=== PATIENT | female | born 1980 | race African-American/Black ===

== ENCOUNTER → 2016-07-14 | Outpatient (REF) | payer OTHER ==
[~2016-07-14] MED LIST: ACET50TA PO; ALLE180T33 PO; CELE-19 PO; DICY10IN2 IM; DICY10SO PO; DIFL150T PO; IBUP60TA PO; LORT5TAB PO; OMEP40CA2 PO; PRENTAB40 PO; PROBCAP18 PO; RANI1TAB38 PO; ZANT1TAB PO
== END ==
LOC: M LAB REF 16:58
PROVIDERS: ATTEND Obstetrics & Gynecology
DX: R30.0 Dysuria (principal)

== ENCOUNTER → 2016-08-24 | Outpatient (REF) | LOC: M SMT 11:40 | PROVIDERS: ATTEND Nurse Practitioner Adult Health | DX: Z02.1 Encounter for pre-employment examination (principal) ==

== ENCOUNTER → 2016-09-02 | Outpatient (REF) | payer OTHER | LOC: M LAB REF 14:57 | PROVIDERS: ATTEND Physician Assistant | DX: R50.9 Fever, unspecified (principal) ==

== ENCOUNTER → 2016-11-12 | Outpatient (REF) | payer OTHER | LOC: M LAB REF 16:54 | PROVIDERS: ATTEND Advanced Practice Midwife | DX: R30.0 Dysuria (principal); R10.2 Pelvic and perineal pain ==

== ENCOUNTER → 2016-11-18 | Outpatient (CLI) | payer OTHER ==
--- NOTE | 2016-11-19 07:30 | REP ---
Clinical: Pelvic pain and dyspareunia. Comparison: 08/12/2014 . Technique: Transabdominal pelvic ultrasound followed by transvaginal examination for better evaluation of the adnexa with color Doppler evaluation of the ovaries. Findings: Bladder is unremarkable and measures approximately 6.7 x 5.3 x 5.0 cm . The patient is status post hysterectomy. No pelvic mass or free fluid noted. Right ovary is not visualized. Left ovary is normal in appearance and vascularity without torsion. Left ovary measures 3.6 x 2.4 x 3.7 cm; RI=0.64. Impression: 1. Evidence of prior hysterectomy. Right ovary not visualized. 2. No pelvic fluid or adnexal mass lesion. 3. Normal left ovary. Signed by Isra Cheng MD 11/19/2016 07:22 A
== END ==
LOC: M RAD 17:15
PROVIDERS: ATTEND Advanced Practice Midwife
DX: R10.30 Lower abdominal pain, unspecified (principal); N94.12 Deep dyspareunia

== ENCOUNTER → 2017-01-14 | Outpatient (CLI) | payer OTHER ==
[~2017-01-14] MED LIST changes: -CELE-19 PO; +CELE1CAP4 PO
--- NOTE | 2017-01-14 16:38 | REP ---
Maxillofacial CT study without contrast: History: Chronic maxillary sinusitis. CT findings: Maxillary, ethmoidal, sphenoidal, frontal and mastoid aeration is normal. No evidence of paranasal sinus mucosal disease or sinus filling. The bony nasal septum is in the midline without a septal beak. Nasal turbinate soft tissues are symmetric. No evidence of nasal polyp. No intraorbital abnormality is seen. Visualized intracranial structures are unremarkable. Impression: Unremarkable maxillofacial CT study. No paranasal sinus disease seen. Ostiomeatal complexes appear to be patent. Signed by Italo Saldana MD 01/14/2017 04:45 P
== END ==
LOC: M RAD 15:29
PROVIDERS: ATTEND Otolaryngology
DX: J32.0 Chronic maxillary sinusitis (principal)

== ENCOUNTER → 2017-07-04 | Outpatient (REF) | payer OTHER ==
[2017-07-04 23:12] LABS: INFLUENZA A AMPLIFICATION NEGATIVE (NEGATIVE); INFLUENZA B AMPLIFICATION NEGATIVE (NEGATIVE); RSV AMPLIFICATION NEGATIVE (NEGATIVE)
== END ==
LOC: M LAB REF 21:39
DX: J11.1 Influenza due to unidentified influenza virus with other respiratory manifestations (principal)
CPT/HCPCS: 87070

== ENCOUNTER → 2017-08-05 | Outpatient (REF) | payer OTHER ==
[2017-08-05 19:59] LABS: APPEARANCE, URINE CLEAR (CLEAR); BACTERIA, URINE AUTO NEGATIVE (NEGATIVE); BILIRUBIN, URINE AUTO NEGATIVE (NEGATIVE); BLOOD, URINE BLOOD NEGATIVE (NEGATIVE); COLOR, URINE YELLOW (YELLOW); GLUCOSE, URINE (UA) AUTO NEGATIVE (NEGATIVE); KETONE, URINE AUTO NEGATIVE (NEGATIVE); LEUKOCYTE ESTERASE, URINE AUTO NEGATIVE (NEGATIVE); MUCUS, URINE SMALL (NEGATIVE); NITRITE, URINE AUTO NEGATIVE (NEGATIVE); PROTEIN, URINE AUTO NEGATIVE (NEGATIVE); RBC, URINE AUTO 0 /HPF (0-3); SQUAMOUS EPITHELIAL CELL UR AU 0 /HPF (0-6); UROBILINOGEN, URINE AUTO 0.2 mg/dL (0.0-2.0); WBC, URINE AUTO 0 /HPF (0-3)
[2017-08-05 20:45] LABS: HIV 1&2 SCREEN CENTAUR NEGATIVE (NEGATIVE)
[2017-08-07 10:24] LABS: CHLAMYDIA DNA AMPLIFICATION NEGATIVE (NEGATIVE); GC DNA AMPLIFICATION NEGATIVE (NEGATIVE)
== END ==
LOC: M SFHCADAM 15:28
DX: Z20.2 Contact with and (suspected) exposure to infections with a predominantly sexual mode of transmission (principal)

== ENCOUNTER → 2017-08-19 | Outpatient (CLI) | payer OTHER ==
[2017-08-19 09:22] LABS: BASO % 0.4 % (0.0-1.0); EOS # 0.2 10^3/uL (0.0-0.50); EOS % 2.9 % (0.0-3.0); HEMATOCRIT 44.4 % (36.0-47.0); HEMOGLOBIN 14.4 g/dl (12.0-16.0); IMMATURE GRANULOCYTE % 0.2 % (0-3.0); LYMPH # 1.9 10^3/uL (1.5-4.5); LYMPH % 33.6 % (24.0-44.0); MEAN CORPUSCULAR HGB CONC 32.4 g/dl (32.0-36.5); MEAN CORPUSCULAR VOLUME 86.2 fl (80.0-96.0); MONO # 0.4 10^3/uL (0.0-0.8); MONO % 7.5 % (0.0-5.0); NEUTROPHILS # 3.1 10^3/uL (1.8-7.7); NEUTROPHILS % 55.4 % (36.0-66.0); PLATELET COUNT, AUTOMATED 272 10^3/uL (150-450); RED BLOOD COUNT 5.15 10^6/uL (4.00-5.40); WHITE BLOOD COUNT 5.5 10^3/uL (4.0-10.0)
[2017-08-19 09:50] LABS: ALBUMIN 3.9 GM/DL (3.2-5.2); ALBUMIN/GLOBULIN RATIO 0.93 (1.00-1.93); ALKALINE PHOSPHATASE 73 U/L (45-117); ALT/SGPT 39 U/L (12-78); ANION GAP 7 MEQ/L (8-16); AST/SGOT 12 U/L (7-37); BILIRUBIN,TOTAL 0.5 MG/DL (0.2-1.0); BLOOD UREA NITROGEN 9 MG/DL (7-18); CALCIUM LEVEL 8.9 MG/DL (8.5-10.1); CARBON DIOXIDE LEVEL 30 MEQ/L (21-32); CHLORIDE LEVEL 104 MEQ/L (98-107); CHOLESTEROL LEVEL 174 MG/DL (<200); CREATININE FOR GFR 0.76 MG/DL (0.55-1.30); GLOMERULAR FILTRATION RATE > 60.0 (>60); GLUCOSE, FASTING 92 MG/DL (70-100); HDL CHOLESTEROL 40 MG/DL (>40); LDL CHOLESTEROL 107.2 MG/DL (<100); NON-HDL-C 134 MG/DL; POTASSIUM SERUM 4.4 MEQ/L (3.5-5.1); SODIUM LEVEL 141 MEQ/L (136-145); TOTAL PROTEIN 8.1 GM/DL (6.4-8.2); TRIGLYCERIDES LEVEL 134 MG/DL (<150)
[2017-08-19 10:12] LABS: TOTAL 25(OH) VITAMIN D 26.4 NG/ML (30.0-100.0)
== END ==
LOC: M SMT 08:22
DX: E66.01 Morbid (severe) obesity due to excess calories (principal); K21.9 Gastro-esophageal reflux disease without esophagitis
CPT/HCPCS: 84443

== ENCOUNTER → 2017-11-14 | Outpatient (REF) | payer OTHER ==
[2017-11-14 14:46] LABS: CHLAMYDIA DNA AMPLIFICATION NEGATIVE (NEGATIVE); GC DNA AMPLIFICATION NEGATIVE (NEGATIVE)
== END ==
LOC: M LAB REF 12:52
DX: Z11.3 Encounter for screening for infections with a predominantly sexual mode of transmission (principal)

== ENCOUNTER → 2017-11-14 | Outpatient (CLI) | payer OTHER ==
[2017-11-14 18:29] LABS: HIV 1&2 SCREEN CENTAUR NEGATIVE (NEGATIVE)
[2017-11-16 10:43] LABS: HEPATITIS B SURFACE ANTIGEN NEGATIVE (NEGATIVE)
[2017-11-16 11:10] LABS: HEPATITIS C VIRUS ABY INDEX 0.1 INDEX (<0.8)
[2017-11-16 11:10] LABS: HEPATITIS B CORE ANTIBODY IGM NEGATIVE (NEGATIVE)
[2017-11-16 11:12] LABS: HEPATITIS A ANTIBODY IGM NEGATIVE (NEGATIVE)
== END ==
LOC: M SMT 11:26
DX: Z11.3 Encounter for screening for infections with a predominantly sexual mode of transmission (principal)
CPT/HCPCS: 87340

== ENCOUNTER → 2017-12-09 | Outpatient (CLI) | payer OTHER | LOC: M ADAMS 14:40 | DX: M17.11 Unilateral primary osteoarthritis, right knee (principal) | CPT/HCPCS: 73564 ==

== ENCOUNTER → 2018-01-10 | Outpatient (CLI) | payer OTHER | LOC: M LAB 20:31 | DX: R05 Cough (principal) | CPT/HCPCS: 71046 ==

== ENCOUNTER 2018-02-08 11:43 | Emergency (ER) | payer OTHER ==
[2018-02-08 12:57] LABS: BASO % 0.3 % (0.0-1.0); EOS # 0.2 10^3/uL (0.0-0.50); EOS % 1.8 % (0.0-3.0); HEMATOCRIT 42.1 % (36.0-47.0); HEMOGLOBIN 13.5 g/dl (12.0-15.5); IMMATURE GRANULOCYTE % 0.5 % (0-3.0); LYMPH # 2.9 10^3/uL (1.5-4.5); LYMPH % 26.6 % (24.0-44.0); MEAN CORPUSCULAR HEMOGLOBIN 28.1 pg (27.0-33.0); MEAN CORPUSCULAR HGB CONC 32.1 g/dl (32.0-36.5); MEAN CORPUSCULAR VOLUME 87.7 fl (80.0-96.0); MONO # 0.6 10^3/uL (0.0-0.8); MONO % 5.4 % (0.0-5.0); NEUTROPHILS # 7.1 10^3/uL (1.8-7.7); NEUTROPHILS % 65.4 % (36.0-66.0); PLATELET COUNT, AUTOMATED 286 10^3/uL (150-450); RED CELL DISTRIBUTION WIDTH 14.3 % (11.5-14.5); WHITE BLOOD COUNT 10.9 10^3/uL (4.0-10.0)
[2018-02-08 13:36] LABS: CONTROL LINE HCG INT CTR LINE PRESENT; HCG, SERUM QUALITATIVE NEGATIVE (NEGATIVE)
[2018-02-08 13:45] LABS: ALBUMIN 3.6 GM/DL (3.2-5.2); ALBUMIN/GLOBULIN RATIO 0.97 (1.00-1.93); ALKALINE PHOSPHATASE 69 U/L (45-117); ALT/SGPT 25 U/L (12-78); ANION GAP 6 MEQ/L (8-16); AST/SGOT 7 U/L (7-37); BILIRUBIN,TOTAL 0.2 MG/DL (0.2-1.0); BLOOD UREA NITROGEN 12 MG/DL (7-18); CALCIUM LEVEL 8.9 MG/DL (8.5-10.1); CARBON DIOXIDE LEVEL 27 MEQ/L (21-32); CHLORIDE LEVEL 108 MEQ/L (98-107); CREATININE FOR GFR 0.73 MG/DL (0.55-1.30); GLOMERULAR FILTRATION RATE > 60.0 (>60); GLUCOSE, FASTING 99 MG/DL (70-100); POTASSIUM SERUM 4.2 MEQ/L (3.5-5.1); SODIUM LEVEL 141 MEQ/L (136-145); TOTAL PROTEIN 7.3 GM/DL (6.4-8.2)
[2018-02-08 14:49] LABS: HEPATITIS B SURFACE ANTIBODY POSITIVE (POSITIVE); HEPATITIS B SURFACE ANTIGEN NEGATIVE (NEGATIVE)
[2018-02-08 14:49] LABS: HEPATITIS C VIRUS ABY INDEX 0.2 INDEX (<0.8)
[2018-02-08 20:51] LABS: HIV SCREEN CENTAUR EXPOSED NEGATIVE (NEGATIVE)
== END 2018-02-08 13:53 | disposition home or self-care (01) ==
LOC: M ED 11:43
DX: Z77.21 Contact with and (suspected) exposure to potentially hazardous body fluids (principal); S61.241A Puncture wound with foreign body of left index finger without damage to nail, initial encounter; W46.1XXA Contact with contaminated hypodermic needle, initial encounter; Y92.9 Unspecified place or not applicable; Y93.F9 Activity, other caregiving; Y99.0 Civilian activity done for income or pay; K21.9 Gastro-esophageal reflux disease without esophagitis; K58.9 Irritable bowel syndrome, unspecified; F41.9 Anxiety disorder, unspecified; F32.9 Major depressive disorder, single episode, unspecified; Z79.899 Other long term (current) drug therapy; Z91.018 Allergy to other foods; Z88.0 Allergy status to penicillin; Z88.8 Allergy status to other drugs, medicaments and biological substances; Z88.5 Allergy status to narcotic agent; Z88.1 Allergy status to other antibiotic agents
CPT/HCPCS: 80053

== ENCOUNTER → 2018-02-28 | Outpatient (REF) ==
[2018-02-28 13:16] LABS: BASO % 0.3 % (0.0-1.0); EOS # 0.2 10^3/uL (0.0-0.50); EOS % 2.3 % (0.0-3.0); HEMATOCRIT 44.3 % (36.0-47.0); HEMOGLOBIN 14.1 g/dl (12.0-15.5); IMMATURE GRANULOCYTE % 0.3 % (0-3.0); LYMPH # 1.9 10^3/uL (1.5-4.5); LYMPH % 28.9 % (24.0-44.0); MEAN CORPUSCULAR HEMOGLOBIN 27.8 pg (27.0-33.0); MEAN CORPUSCULAR HGB CONC 31.8 g/dl (32.0-36.5); MEAN CORPUSCULAR VOLUME 87.2 fl (80.0-96.0); MONO # 0.5 10^3/uL (0.0-0.8); MONO % 7.5 % (0.0-5.0); NEUTROPHILS % 60.7 % (36.0-66.0); PLATELET COUNT, AUTOMATED 291 10^3/uL (150-450); RED BLOOD COUNT 5.08 10^6/uL (4.00-5.40); RED CELL DISTRIBUTION WIDTH 13.8 % (11.5-14.5); WHITE BLOOD COUNT 6.5 10^3/uL (4.0-10.0)
[2018-02-28 13:21] LABS: APPEARANCE, URINE CLEAR (CLEAR); BACTERIA, URINE AUTO NEGATIVE (NEGATIVE); BILIRUBIN, URINE AUTO NEGATIVE (NEGATIVE); BLOOD, URINE BLOOD NEGATIVE (NEGATIVE); COLOR, URINE YELLOW (YELLOW); GLUCOSE, URINE (UA) AUTO NEGATIVE (NEGATIVE); KETONE, URINE AUTO NEGATIVE (NEGATIVE); LEUKOCYTE ESTERASE, URINE AUTO NEGATIVE (NEGATIVE); MUCUS, URINE SMALL (NEGATIVE); NITRITE, URINE AUTO NEGATIVE (NEGATIVE); PROTEIN, URINE AUTO NEGATIVE (NEGATIVE); RBC, URINE AUTO 1 /HPF (0-3); SPECIFIC GRAVITY URINE AUTO 1.019 (1.002-1.035); SQUAMOUS EPITHELIAL CELL UR AU 1 /HPF (0-6); UROBILINOGEN, URINE AUTO 0.2 mg/dL (0.0-2.0); WBC, URINE AUTO 0 /HPF (0-3)
[2018-02-28 14:13] LABS: ALBUMIN 3.6 GM/DL (3.2-5.2); ALBUMIN/GLOBULIN RATIO 0.82 (1.00-1.93); ALKALINE PHOSPHATASE 77 U/L (45-117); ALT/SGPT 26 U/L (12-78); ANION GAP 10 MEQ/L (8-16); AST/SGOT 12 U/L (7-37); BILIRUBIN,TOTAL 0.3 MG/DL (0.2-1.0); BLOOD UREA NITROGEN 11 MG/DL (7-18); CALCIUM LEVEL 8.6 MG/DL (8.5-10.1); CARBON DIOXIDE LEVEL 25 MEQ/L (21-32); CHLORIDE LEVEL 107 MEQ/L (98-107); CREATININE FOR GFR 0.79 MG/DL (0.55-1.30); GLOMERULAR FILTRATION RATE > 60.0 (>60); GLUCOSE, FASTING 84 MG/DL (70-100); POTASSIUM SERUM 4.8 MEQ/L (3.5-5.1); SODIUM LEVEL 142 MEQ/L (136-145); THYROID STIMULATING HORMONE 0.966 uIU/ML (0.358-3.740)
== END ==
LOC: M SMT 08:48
DX: Z00.00 Encounter for general adult medical examination without abnormal findings (principal)

== ENCOUNTER → 2018-05-16 | Outpatient (REF) ==
[~2018-05-16] MED LIST changes: -ACET50TA PO; +DEXI60CA2 PO; +LEXA1TAB2 PO; +LINZ145C PO; +MAPA500T17 PO; +SING10TA32 PO; +TOPA50TA8 PO; +VITA2000 PO; +VITAE20CA PO; +ZANT150T15 PO; -ZANT1TAB PO
[2018-05-16 18:02] LABS: AMORPHOUS SEDIMENT LARGE (NEGATIVE); APPEARANCE, URINE TURBID (CLEAR); BACTERIA, URINE AUTO NEGATIVE (NEGATIVE); BILIRUBIN, URINE AUTO NEGATIVE (NEGATIVE); BLOOD, URINE BLOOD NEGATIVE (NEGATIVE); COLOR, URINE YELLOW (YELLOW); GLUCOSE, URINE (UA) AUTO NEGATIVE (NEGATIVE); KETONE, URINE AUTO NEGATIVE (NEGATIVE); LEUKOCYTE ESTERASE, URINE AUTO NEGATIVE (NEGATIVE); MUCUS, URINE SMALL (NEGATIVE); NITRITE, URINE AUTO NEGATIVE (NEGATIVE); PROTEIN, URINE AUTO 1+ mg/dL (NEGATIVE); RBC, URINE AUTO 0 /HPF (0-3); SPECIFIC GRAVITY URINE AUTO 1.031 (1.002-1.035); SQUAMOUS EPITHELIAL CELL UR AU 0 /HPF (0-6); UROBILINOGEN, URINE AUTO 0.2 mg/dL (0.0-2.0); WBC, URINE AUTO 0 /HPF (0-3)
[2018-05-16 19:52] LABS: CHLAMYDIA DNA AMPLIFICATION NEGATIVE (NEGATIVE); GC DNA AMPLIFICATION NEGATIVE (NEGATIVE)
[2018-05-17 10:36] LABS: HEPATITIS C VIRUS ABY INDEX 0.2 INDEX (<0.8); HIV 1&2 SCREEN CENTAUR NEGATIVE (NEGATIVE)
== END ==
LOC: M SMT 14:12
PROVIDERS: ATTEND Physician Assistant Medical
DX: Z00.00 Encounter for general adult medical examination without abnormal findings (principal)

== ENCOUNTER → 2018-09-07 | Outpatient (REF) | payer OTHER ==
[~2018-09-07] MED LIST changes: +IBUP600T42 PO; -IBUP60TA PO; -MAPA500T17 PO; +MAPA500T2 PO
[2018-09-07 19:41] LABS: CHLAMYDIA DNA AMPLIFICATION NEGATIVE (NEGATIVE); GC DNA AMPLIFICATION NEGATIVE (NEGATIVE)
== END ==
LOC: M LAB REF 17:09
PROVIDERS: ATTEND Advanced Practice Midwife
DX: Z11.3 Encounter for screening for infections with a predominantly sexual mode of transmission (principal)

== ENCOUNTER → 2018-09-08 | Outpatient (REF) | payer OTHER ==
[2018-09-08 19:14] LABS: INFLUENZA A AMPLIFICATION NEGATIVE (NEGATIVE); INFLUENZA B AMPLIFICATION NEGATIVE (NEGATIVE)
== END ==
LOC: M LAB REF 18:17
PROVIDERS: ATTEND Physician Assistant
DX: J11.1 Influenza due to unidentified influenza virus with other respiratory manifestations (principal)

== ENCOUNTER → 2018-11-14 | Outpatient (CLI) | payer OTHER ==
[2018-11-14 21:01] LABS: CHLAMYDIA DNA AMPLIFICATION NEGATIVE (NEGATIVE); GC DNA AMPLIFICATION NEGATIVE (NEGATIVE)
[2018-11-15 11:00] LABS: HEPATITIS A ANTIBODY IGM NEGATIVE (NEGATIVE); HEPATITIS B CORE ANTIBODY IGM NEGATIVE (NEGATIVE); HEPATITIS B SURFACE ANTIGEN NEGATIVE (NEGATIVE); HEPATITIS C VIRUS ABY INDEX 0.1 INDEX (<0.8); HIV 1&2 SCREEN CENTAUR NEGATIVE (NEGATIVE)
== END ==
LOC: M LAB 16:46
PROVIDERS: ATTEND Advanced Practice Midwife
DX: Z11.3 Encounter for screening for infections with a predominantly sexual mode of transmission (principal)

== ENCOUNTER → 2018-12-25 | Outpatient (CLI) | payer OTHER ==
[2018-12-29 11:07] LABS: ANTI THROMBIN 3 FUNCT ACTIVITY 107 % (75-135); CARDIOLIPIN IGA ANTIBODY <9 APL U/mL (0-11); CARDIOLIPIN IGG ANTIBODY <9 GPL U/mL (0-14); CARDIOLIPIN IGM ANTIBODY 9 MPL U/mL (0-12); HOMOCYST(E)INE SERUM 5.8 umol/L (0.0-15.0); PROTEIN C ANTIGEN 88 % (60-150); PROTEIN S ANTIGEN FREE 86 % (57-157); PROTEIN S ANTIGEN TOTAL 93 % (60-150)
== END ==
LOC: M LAB 08:36
PROVIDERS: ATTEND Surgery
DX: D68.9 Coagulation defect, unspecified (principal); Z83.2 Family history of diseases of the blood and blood-forming organs and certain disorders involving the immune mechanism

== ENCOUNTER → 2018-12-26 | Outpatient (CLI) | payer OTHER ==
--- NOTE | 2018-12-31 10:31 | REP ---
Clinical: Diarrhea. Technique: Two supine views of the abdomen and pelvis. Findings: Bowel gas pattern is nonspecific. No organomegaly. No abnormal calcifications. No residual sitz markers are identified. Skeletal structures are intact. Impression: Nonspecific bowel gas pattern. Electronically Signed by Isra Cheng MD 12/31/2018 10:22 A
== END ==
LOC: M RAD 10:16
PROVIDERS: ATTEND Physician Assistant Medical
DX: R19.7 Diarrhea, unspecified (principal)

== ENCOUNTER → 2019-01-23 | Outpatient (REF) | payer OTHER ==
[~2019-01-23] MED LIST changes: +CVS1CAP2 PO; +FLON1SPR NARES; +LEVOTAB10 PO
== END ==
LOC: M LAB REF 12:23
PROVIDERS: ATTEND Physician Assistant Medical
DX: R19.7 Diarrhea, unspecified (principal)

== ENCOUNTER 2019-01-25 11:28 | Day surgery (SDC) | payer OTHER ==
[~2019-01-25] VITALS: Ht 165.1 cm; Wt 122.2 kg
[2019-01-25] MEDS ORDERED: PROPOFOL 200 MG/20 ML VIAL As Ordered ONE (13:31)
[2019-01-25] MEDS ORDERED: LIDOCAINE 2% INJ 100 MG/5 ML SDV (FOR ANES.) As Ordered ONE (13:31)
--- NOTE | 2019-01-25 13:50 | ROOR ---
Patient Name: Laney Sanders Procedure Date: 01/25/2019 1:27 PM Date of : 1980 Age: 38 Room: [facility] Gender: Female Note Status: Finalized Procedure: Upper GI endoscopy Indications: Heartburn, Preoperative assessment for bariatric surgery to treat morbid obesity Providers: Eduardo MAYNARD MD Referring MD: SELAM Brannon, KIRK ORTEGA ([facility])MD Requesting Provider: Medicines: Monitored Anesthesia Care Complications: No immediate complications. Procedure: Pre-Anesthesia Assessment: - The heart rate, respiratory rate, oxygen saturations, blood pressure, adequacy of pulmonary ventilation, and response to care were monitored throughout the procedure. The Endoscope was introduced through the mouth, and advanced to the third part of duodenum. The upper GI endoscopy was accomplished without difficulty. The patient tolerated the procedure well. Findings: Small Hiatal Hernia. The esophagus was normal. The stomach was normal. The examined duodenum was normal. Biopsies for histology were taken with a cold forceps in the second portion of the duodenum and in the third portion of the duodenum for evaluation of celiac disease. Biopsies were taken with a cold forceps in the gastric antrum for Helicobacter pylori testing. Biopsies were taken with a cold forceps in the entire esophagus for histology. Impression: - Small Hiatal Hernia. - Normal esophagus. - Biopsies were taken with a cold forceps for eosinophilic esophagitis testing. - Normal stomach. - Biopsies were taken with a cold forceps for helicobacter pylori testing. - Normal examined duodenum. - Biopsies were taken with a cold forceps for celiac disease testing. Recommendation: - Continue present medications. - Follow an antireflux regimen. - Telephone endoscopist for pathology results in 2 weeks. Eduardo Maynard MD Eduardo MAYNARD MD 01/25/2019 1:50:18 PM Electronically signed by Eduardo MAYNARD MD Number of Addenda: 0 Note Initiated On: 01/25/2019 1:27 PM Estimated Blood Loss: Estimated blood loss: none.
[2019-01-25 14:27] VITALS: BP 145/95
== END 2019-01-25 14:30 | disposition home or self-care (01) ==
LOC: M OPP 11:28
PROVIDERS: ATTEND Internal Medicine Gastroenterology
DX: Z01.818 Encounter for other preprocedural examination (principal); R12 Heartburn; E66.01 Morbid (severe) obesity due to excess calories; K44.0 Diaphragmatic hernia with obstruction, without gangrene; K29.70 Gastritis, unspecified, without bleeding; Z79.899 Other long term (current) drug therapy; Z88.0 Allergy status to penicillin; Z88.8 Allergy status to other drugs, medicaments and biological substances; Z91.040 Latex allergy status

== ENCOUNTER 2019-03-02 09:21 | Observation (INO) | payer OTHER ==
[~2019-03-02] VITALS: Ht 165.1 cm; Wt 117.5 kg
[2019-03-02 10:26] LABS: BASO % 0.5 % (0.0-1.0); EOS # 0.3 10^3/uL (0.0-0.5); EOS % 4.1 % (0.0-3.0); HEMATOCRIT 45.8 % (36.0-47.0); HEMOGLOBIN 15.1 g/dl (12.0-15.5); LYMPH # 1.9 10^3/uL (1.5-5.0); LYMPH % 25.8 % (24.0-44.0); MEAN CORPUSCULAR HEMOGLOBIN 28.7 pg (27.0-33.0); MEAN CORPUSCULAR VOLUME 86.9 fl (80.0-96.0); MONO # 0.7 10^3/uL (0.0-0.8); MONO % 8.8 % (0.0-5.0); NEUTROPHILS # 4.6 10^3/uL (1.5-8.5); NEUTROPHILS % 60.7 % (36.0-66.0); PLATELET COUNT, AUTOMATED 368 10^3/uL (150-450); RED BLOOD COUNT 5.27 10^6/uL (4.00-5.40); WHITE BLOOD COUNT 7.5 10^3/uL (4.0-10.0)
[2019-03-02] MEDS ORDERED: MULTIVITAMIN -ADULT INJECTION 10 ML, THIAMINE INJection 100 MG, FOLIC ACID 1 MG in NS 1... IV ONE (10:45)
[2019-03-02 10:53] LABS: ALBUMIN 3.7 GM/DL (3.2-5.2); ALT/SGPT 83 U/L (12-78); BILIRUBIN,DIRECT 0.1 MG/DL (0.0-0.2); BILIRUBIN,TOTAL 0.4 MG/DL (0.2-1.0); BLOOD UREA NITROGEN 9 MG/DL (7-18); CALCIUM LEVEL 9.6 MG/DL (8.5-10.1); CARBON DIOXIDE LEVEL 23 MEQ/L (21-32); CHLORIDE LEVEL 105 MEQ/L (98-107); CREATININE FOR GFR 0.82 MG/DL (0.55-1.30); GLOMERULAR FILTRATION RATE > 60.0 (>60); GLUCOSE, FASTING 70 MG/DL (70-100); LIPASE 193 U/L (73-393); MAGNESIUM LEVEL 1.8 MG/DL (1.8-2.4); POTASSIUM SERUM 5.6 MEQ/L (3.5-5.1); SODIUM LEVEL 138 MEQ/L (136-145); TOTAL PROTEIN 8.1 GM/DL (6.4-8.2)
[2019-03-02] MEDS ORDERED: ISOVUE-370 76% 100ML VIAL (Q9967) As Ordered ONE (10:56)
[2019-03-02] MEDS: GASTROGRAFIN SOLUTION 30ML PO SCH ×2 (11:24→12:05)
[2019-03-02] MEDS ORDERED: NS IV ONE (11:30)
[2019-03-02] MEDS ORDERED: FOLIC ACID IV ONE (11:30)
[2019-03-02] MEDS ORDERED: MULTIVITAMIN ADULT IV ONE (11:30)
[2019-03-02 12:42] LABS: CK-MB VALUE MASS < 1.0 NG/ML (<3.6); CPK CREATINE PHOSPHOKINASE 80 U/L (26-192); MB/CK RELATIVE INDEX 1.25 (< OR =4); TROPONIN I < 0.02 NG/ML (< 0.10)
--- NOTE | 2019-03-02 17:50 | REP ---
REASON FOR EXAMINATION: Abdominal pain, status post recent bariatric surgery. COMPARISON: 11/29/2013 Only oral bowel preparatory contrast was administered prior to the exam. This extremely limits the examination in the recent postoperative setting particularly if an abscess of postoperative seroma is of clinical concern. The lung bases are clear. Limited evaluation of the solid intraabdominal organs showed no gross abnormalities. The patient is status-post cholecystectomy. Limited evaluation of the pancreas, adrenal glands and kidneys show no gross abnormalities or significant changes from the prior exam. Postoperative changes are seen in the left upper quadrant from previous gastric bypass surgery. There is no evidence of oral contrast extravasation into the mesentery. There is no free fluid or free air in the abdomen. Limited evaluation of the abdominal aorta and paraaortic regions show no gross abnormalities. There is no intestinal obstruction. The bowel loops are unremarkable in appearance. CT PELVIS: In the left adnexa there is an oval shaped 3 cm sized low density structure with water density Hounsfield unit readings consistent with a simple cyst. This is probably of ovarian origin. There is no free fluid or free air. The bowel loops are unremarkable. Bone window technique throughout the examination shows the osseous structures to be within normal limits. There is mild fatty infiltration of the subcutaneous adipose tissue in the midline and along the left anterior abdominal wall likely secondary to recent surgery. There is a small area of air density seen in the soft-tissues as well also likely secondary to recent surgery. The air density is not seen with concomitant abnormal air fluid levels or soft-tissue densities. IMPRESSION:1. Post-operative changes suspected as described above. There is no evidence of acute intraabdominal pathology. 2. The exam is extremely limited without intravenous contrast administration. 3. There is what appears to be a left ovarian cyst. This could be confirmed with ultrasonography if clinically relevant. Electronically Signed by Mele Betancur DO 03/05/2019 04:11 P
--- NOTE | 2019-03-02 18:41 | REPVR ---
PROCEDURE INFORMATION: Exam: US Duplex Lower Extremity Veins Exam date and time: 03/02/2019 6:06 PM Clinical history: 38 years old, female; Other: Chest pain/sob; Additional info: Cp/sob TECHNIQUE: Imaging protocol: Real-time duplex ultrasound of the Lower Extremities with 2-D liu scale, color Doppler flow and spectral waveform analysis with image documentation. Complete exam focused on the bilateral lower extremity veins. COMPARISON: No relevant prior studies available. FINDINGS: Right deep veins: Unremarkable. The common femoral, femoral, proximal profunda femoral and popliteal veins are patent without thrombus. Normal Doppler waveforms. Normal compressibility and/or augmentation response. Right superficial veins: Saphenofemoral junction is patent without thrombus. Left deep veins: Unremarkable. The common femoral, femoral, proximal profunda femoral and popliteal veins are patent without thrombus. Normal Doppler waveforms. Normal compressibility and/or augmentation response. Left superficial veins: Saphenofemoral junction is patent without thrombus. Soft tissues: Unremarkable. IMPRESSION: No DVT of bilateral lower extremity veins. Electronically signed by: Geoff Schuler On 03/02/2019 18:41:03 PM
--- NOTE | 2019-03-02 19:24 | HPEPDOC ---
[facility] Medical History & Physical Date of Admission Mar 02, 2019 Date of Service: Mar 02, 2019 Primary Care Physician: ROVERTO COLLADO PA-C Attending Physician: Juan Carlos Patel MD History and Physical TIME OF SERVICE: 7:45 PM CHIEF COMPLAINT: Shortness of breath HISTORY OF PRESENT ILLNESS: This is a 38 year old female who presents with complaints of shortness of breath even while resting for 2 days. Associated symptoms include right upper 6 /10 in severity, nonradiating chest pain, and nausea without vomiting. About one week ago she had gastric bypass. After developing the symptoms, she called her surgeon who told her to increase her fluid intake but this is not helping, so she decided to come to [facility] for additional evaluation. Per discussion with the ED provider She had a CT of the abdomen and venous duplex that were unremarkable; her d-dimer rate was greater than, 5000. Despite 13 attempts they were unable to place an IV large enough to infuse IV contrast, for the CTA of the chest. She's been started on Elquis pending VQ scan. The patient denies having a runny nose, cough, any sick contacts or travelling recenly. She does have asthma but the symptoms she has today are not typical of her exacerbations. REVIEW OF SYSTEMS: 12 point review of systems negative except as listed in HPI PAST MEDICAL/ SURGICAL HISTORY: Gastric bypass one week ago Asthma GERD Anxiety/depression. Obesity. PCOS Irritable bowel syndrome with diarrhea. Osteoarthritis. Hiatial hernia Status post cholecystectomy 1 Status post hysterectomy SOCIAL HISTORY: Nonsmoker. Does not use recreational drugs FAMILY HISTORY: Diabetes Hypertension Dyslipidemia. Asthma. Lymphoma ALLERGIES: Please see below. HOME MEDICATIONS: Please see below. PHYSICAL EXAMINATION: VITAL SIGNS: Please see below. GENERAL APPEARANCE: Well-nourished, well-developed, not in apparent distress HEENT: Normocephalic, atraumatic. Mucous membranes moist and pink CARDIOVASCULAR: Regular rate and rhythm. No murmurs, rubs or gallops. Chest pain is not reproducable w palpation of the chest LUNGS: Clear auscultation bilaterally on room air. There is equal air entry bilaterally. There is no wheezing or coughing. She's not using accessory muscles. She appears to be short of breath after speaking a few sentences. MUSCULOSKELETAL: Range of motion intact in all 4 extremities NEUROLOGICAL: Nerves II to 12 grossly intact. Speech is not dysarthric PSYCHIATRIC: Alert and oriented to person, place and time, able to understand and follow commands LABORATORY DATA: See below. IMAGING: Bilateral lower extremity duplex "IMPRESSION: No DVT of bilateral lower extremity veins." CT of the abdomen and pelvis "IMPRESSION: 1. Post-operative changes suspected as described above. There is no evidence of acute intraabdominal pathology. 2. The exam is extremely limited without intravenous contrast administration. 3. There is what appears to be a left ovarian cyst. This could be confirmed with ultrasonography if clinically relevant." ASSESSMENT: Ms. Sanders is a 38 old female with a past medical history of asthma, GERD, anxiety /depression, and obesity who will be admitted pending VQ scan to confirm the diagnosis of PE. PLAN: 1. Dyspnea Possibly due to PE. She denies having an asthma exacerbation or upper respiratory tract infection Her blood pressure, BNP are and troponin are within normal limits. The D-dimer is elevated. Wells Score for PE = 9 points = high risk Plan: Admit to general medical floor under observation / f/u VQ scan / start apixaban 2. Chest Pain Not reproducible on palpation. Plan: telemetry / Acetaminophen for pain / trend trops & EKG 3. Mild Transaminitis Cholestatic patter likely due to fatty liver Plan:f/u w PCP for US of liver on an out pt basis 4. Gastric bypass one week ago Currently on liquid diet Plan: c/w liquid diet and vitamins 5. Chronic Asthma Plan: albuterol PRN 6. GERD Plan: c/w home meds 7. Depression Plan: c/w home meds 8. Obesity / s/p Gastricbypass BMI 42 Plan: f/u A1C / f/u w PCP for STOPBANG questionnaire / f/u w Bariatric surgeon DVT prophylaxis with apixaban Disposition pending clinical course Vital Signs Vital Signs Date Time Temp Pulse Resp B/P (MAP) Pulse Ox O2 Delivery O2 Flow Rate FiO2 03/02/19 15:30 98.5 83 18 118/72 (87) 100 Room Air Laboratory Data Labs 24H Laboratory Tests 2 03/02/19 10:14: Immature Granulocyte % (Auto) 0.1, White Blood Count 7.5, Red Blood Count 5.27, Hemoglobin 15.1, Hematocrit 45.8, Mean Corpuscular Volume 86.9, Mean Corpuscular Hemoglobin 28.7, Mean Corpuscular Hemoglobin Concent 33.0, Red Cell Distribution Width 14.5, Platelet Count 368, Neutrophils (%) (Auto) 60.7, Lymphocytes (%) (Auto) 25.8, Monocytes (%) (Auto) 8.8H, Eosinophils (%) (Auto) 4.1H, Basophils (%) (Auto) 0.5, Neutrophils # (Auto) 4.6, Lymphocytes # (Auto) 1.9, Monocytes # (Auto) 0.7, Eosinophils # (Auto) 0.3, Basophils # (Auto) 0.0, Nucleated Red Blood Cells % (auto) 0.0, Anion Gap 10, Glomerular Filtration Rate > 60.0, Calcium Level 9.6, Magnesium Level 1.8, Aspartate Amino Transf (AST/SGOT) 42H, Alanine Aminotransferase (ALT/SGPT) 83H, Alkaline Phosphatase 65, Total Bilirubin 0.4, Direct Bilirubin 0.1, Total Creatine Kinase 80, Creatine Kinase MB < 1.0, Creatine Kinase MB Relative Index 1.25, Troponin I < 0.02, Total Protein 8.1, Albumin 3.7, Albumin/Globulin Ratio 0.84L, Lipase 193 03/02/19 16:28: Urine Color YELLOW, Urine Appearance HAZY, Urine pH 5.0, Urine Specific [place] 1.021, Urine Protein 1+H, Urine Glucose (UA) NEGATIVE, Urine Ketones 2+H, Urine Blood NEGATIVE, Urine Nitrite NEGATIVE, Urine Bilirubin NEGATIVE, Urine Urobilinogen 0.2, Urine Leukocyte Esterase NEGATIVE, Urine WBC (Auto) 0, Urine RBC (Auto) 2, Urine Hyaline Casts (Auto) 0, Urine Bacteria (Auto) NEGATIVE, Urine Squamous Epithelial Cells 1, Urine Mucus (Auto) SMALL, Urine Sperm (Auto) 03/02/19 17:34: D-Dimer, Quantitative 3953.72H CBC/BMP Laboratory Tests 03/02/19 10:14 Red Blood Count 5.27, Mean Corpuscular Volume 86.9, Mean Corpuscular Hemoglobin 28.7, Mean Corpuscular Hemoglobin Concent 33.0, Red Cell Distribution Width 14.5, Neutrophils (%) (Auto) 60.7, Lymphocytes (%) (Auto) 25.8, Monocytes (%) (Auto) 8.8 H, Eosinophils (%) (Auto) 4.1 H, Basophils (%) (Auto) 0.5, Neutrophils # (Auto) 4.6, Lymphocytes # (Auto) 1.9, Monocytes # (Auto) 0.7, Eosinophils # (Auto) 0.3, Basophils # (Auto) 0.0 Home Medications Scheduled Azelastine HCl (Azelastine HCl) 0.1% [place].pump, 1 SPRAY NARES BID Cholecalciferol (Vitamin D3) (Vitamin D3) 2,000 Unit Cap, 2,000 UNITS PO DAILY Cyanocobalamin (Vitamin B-12) (Vitamin B-12) 1,000 Mcg Capsule, 1,000 MCG PO D AILY Escitalopram Oxalate (Lexapro) 20 Mg Tab, 20 MG PO QHS Fluticasone Propionate (Flonase Allergy Relief) 9.9 Ml [place].susp, 1 SPRAY NARES BID Lactobacillus Combo No.10 (Probiotic) 1 Each Capsule, 1 CAP PO DAILY Levocetirizine Dihydrochloride (Levocetirizine Dihydrochloride) 5 Mg Tablet, 2.5 MG PO QHS Mometasone/Formoterol (Dulera 100 Mcg/5 Mcg Inhaler) 13 Gm Hfa.aer.ad, 2 PUFF INH BID PT WAS GIVEN THIS MEDICATION WHILE IN THE [facility]OSP[facility] FOR [facility] LAST WEEK AND WAS GIVEN INHALER TO TAKE HOME Montelukast Sodium (Singulair) 10 Mg Tab, 10 MG PO QHS Multivitamin (Multivitamins) 1 Each Capsule, 1 CAP PO QHS Omeprazole (Omeprazole) 40 Mg Capsule.dr, 40 MG PO QPM Simethicone (Gas-X) 125 Mg Tab.chew, 125 MG PO TID Vitamin E (Vitamin E) 200 Unit Cap, 200 UNIT PO DAILY Scheduled PRN Epinephrine (Epinephrine) 0.3 Mg/0.3 Ml Auto.injct, 1 SYRINGE IM ONCE PRN for ANAPHYLAXIS Allergies Coded Allergies: cefdinir (Verified Allergy, Severe, ANAPHYLAXIS, 01/11/19) Penicillins (Verified Allergy, Intermediate, HIVES, 01/11/19) artichoke (Verified Allergy, Intermediate, HIVES/SWELLING, 01/11/19) clarithromycin (Verified Allergy, Intermediate, RASH/HIVES, 01/11/19) kiwi (Verified Allergy, Intermediate, HIVES/SWELLING/ITCHY THROAT, 01/11/19) latex (Verified Allergy, Intermediate, RASH, 01/11/19) pineapple (Verified Allergy, Intermediate, ITCHY THROAT, 01/11/19) Red Pepper (Verified Allergy, Unknown, JALAPENO, 07/04/14) metronidazole (Verified Adverse Reaction, Intermediate, NAUSEA, 01/11/19) morphine (Verified Adverse Reaction, Intermediate, VOMITING/ITCHINESS, 01/11/19) phentermine (Verified Adverse Reaction, Intermediate, INCREASED BP AND HEART RATE, 01/11/19) venlafaxine (Verified Adverse Reaction, Mild, BAD SIDE EFFECTS, 01/11/19) A-FIB/CHADSVASC A-FIB History Current/History of A-Fib/PAF?: No Current PO Anticoag Therapy: No JAMIL HILLIARD MD Mar 02, 2019 19:24
[2019-03-02] MEDS ORDERED: APIXABAN 5 MG TAB (ELIQUIS) PO ONE (19:30)
[2019-03-02] MEDS ORDERED: B-12100010 PO (20:34)
[2019-03-02] MEDS ORDERED: OMEP-221 PO (20:34)
[2019-03-02] MEDS ORDERED: SIME125T PO (20:34)
[2019-03-02] MEDS ORDERED: DULE100A INH (20:34)
[2019-03-02] MEDS ORDERED: EPIN0.3I11 IM (20:34)
[2019-03-02] MEDS ORDERED: AZEL1SPR3 NARES (20:37)
[2019-03-02] MEDS ORDERED: MULTCAP PO (20:38)
[2019-03-02] MEDS ORDERED: ONDANSETRON 4 MG TAB (S0181) PO PRN (21:00)
[2019-03-02] MEDS ORDERED: EPINEPHrine INJ 1 MG/ML 1ML AMP IM PRN (21:00)
[2019-03-02] MEDS ORDERED: ENTER DRUG NAME HERE (PATIENT'S OWN MED) INH SCH (21:00)
[2019-03-02] MEDS ORDERED: ESCITALOPRAM OXALATE 10 MG TAB (LEXAPRO) PO SCH (21:00)
[2019-03-02] MEDS ORDERED: MONTELUKAST 10 MG TAB PO SCH (21:00)
[2019-03-02 21:23] LABS: NT-PRO BNP 9 PG/ML (<125); TROPONIN I < 0.02 NG/ML (< 0.10)
[2019-03-02 22:15] VITALS: BP 149/82
[2019-03-02] MEDS ORDERED: PILL CUTTER 1 EACH XX PRN (22:15)
[2019-03-02] MEDS: SIMETHICONE 80 MG CHEW TAB PO SCH (22:41)
[2019-03-02] MEDS: FLUTICASONE PROP 0.05% NASAL SPRAY 16 GM (FLONASE) NARES SCH (23:24)
[2019-03-02] MEDS: AZELASTINE 137MCG NASAL SPY 30 ML (ASTELIN) SCH (23:24)
[2019-03-02] MEDS: ACETAMINOPHEN 650MG ER TAB (TYLENOL ARTHRITIS) PO SCH (23:25)
[2019-03-02] MEDS ORDERED: OMEPRAZOLE 20 MG CAP PO ONE (23:30)
[2019-03-03] MEDS ORDERED: NS 1,000 ML IV SCH (03:45)
[2019-03-03] MEDS: ACETAMINOPHEN 650MG ER TAB (TYLENOL ARTHRITIS) PO SCH (05:32)
[2019-03-03 06:00] VITALS: BP 136/78
[2019-03-03 06:48] LABS: HEMATOCRIT 40.6 % (36.0-47.0); HEMOGLOBIN 13.3 g/dl (12.0-15.5); MEAN CORPUSCULAR HEMOGLOBIN 28.4 pg (27.0-33.0); MEAN CORPUSCULAR HGB CONC 32.8 g/dl (32.0-36.5); MEAN CORPUSCULAR VOLUME 86.6 fl (80.0-96.0); PLATELET COUNT, AUTOMATED 299 10^3/uL (150-450); RED BLOOD COUNT 4.69 10^6/uL (4.00-5.40); WHITE BLOOD COUNT 6.4 10^3/uL (4.0-10.0)
[2019-03-03 07:18] LABS: BLOOD UREA NITROGEN 7 MG/DL (7-18); CALCIUM LEVEL 8.8 MG/DL (8.5-10.1); CARBON DIOXIDE LEVEL 19 MEQ/L (21-32); CHLORIDE LEVEL 109 MEQ/L (98-107); GLOMERULAR FILTRATION RATE > 60.0 (>60); GLUCOSE, FASTING 69 MG/DL (70-100); SODIUM LEVEL 138 MEQ/L (136-145)
[2019-03-03] MEDS: FLUTICASONE PROP 0.05% NASAL SPRAY 16 GM (FLONASE) NARES SCH (08:47)
[2019-03-03] MEDS: AZELASTINE 137MCG NASAL SPY 30 ML (ASTELIN) SCH (08:47)
[2019-03-03] MEDS: SIMETHICONE 80 MG CHEW TAB PO SCH (08:48)
[2019-03-03] MEDS ORDERED: LACTOBACILLUS ACIDOPHILUS CAP (BACID) PO SCH (09:00)
[2019-03-03] MEDS ORDERED: INFLUENZA QUADRIVALENT PF VACCINE 0.5ML SYRINGE (90686) IM ONE (09:00)
[2019-03-03] MEDS ORDERED: VITAMIN D 1,000 INTERNATIONAL UNITS TABLET PO SCH (09:00)
[2019-03-03] MEDS ORDERED: APIXABAN 5 MG TAB (ELIQUIS) PO SCH (09:00)
[2019-03-03] MEDS ORDERED: CYANOCOBALAMIN 500 MCG TAB PO SCH (09:00)
[2019-03-03] MEDS ORDERED: ISOVUE-370 76% 100ML VIAL (Q9967) As Ordered ONE (12:09)
--- NOTE | 2019-03-03 13:02 | REP ---
CT of the chest with IV contrast, CT pulmonary angiography: There are no emboli in the pulmonary trunk or central pulmonary arteries. The pulmonary artery lobe and segment branches are marginally opacified. No emboli are identified. There are no infiltrates. There are no pleural effusions. There is dependent atelectasis in the posterior lung luna with the patient supine on the scanning table. The thoracic aorta is unremarkable. Cardiac size is upper normal. There is no pericardial effusion. The visualized upper abdominal contents are unremarkable except for surgical clips compatible with cholecystectomy and bariatric surgery. Impression: No pulmonary emboli. No infiltrates, effusions or masses. Cardiac size upper normal. Electronically Signed by Praful Doshi MD 03/03/2019 12:53 P
--- NOTE | 2019-03-03 13:48 | DS.PDOC ---
Discharge Summary General Date of Admission Mar 02, 2019 at 09:22 Discharge Summary PROCEDURES PERFORMED DURING STAY: [None]. ADMITTING DIAGNOSES: 1. . DISCHARGE DIAGNOSES: 1. . COMPLICATIONS/CHIEF COMPLAINT: Dyspenea And Respiratory Abnormalities. HISTORY OF PRESENT ILLNESS: . HOSPITAL COURSE: . DISCHARGE MEDICATIONS: Please see below. ALLERGIES: Please see below. PHYSICAL EXAMINATION ON DISCHARGE: VITAL SIGNS: Please see below. GENERAL: HEENT: NECK: CARDIOVASCULAR EXAMINATION: RESPIRATORY EXAMINATION: ABDOMINAL EXAMINATION: EXTREMITIES: SKIN: NEUROLOGICAL EXAMINATION: PSYCHIATRIC EXAMINATION: LABORATORY DATA: Please see below. IMAGING: PROGNOSIS: ACTIVITY: [As tolerated]. DIET: DISCHARGE PLAN: DISPOSITION: . DISCHARGE INSTRUCTIONS: 1. . ITEMS TO FOLLOWUP ON ON OUTPATIENT: 1. . DISCHARGE CONDITION: [Stable]. TIME SPENT ON DISCHARGE: Greater than minutes. Vital Signs/I&Os Vital Signs Date Time Temp Pulse Resp B/P (MAP) Pulse Ox O2 Delivery O2 Flow Rate FiO2 03/03/19 06:00 98.0 91 16 136/78 (97) 97 03/02/19 20:56 Room Air I&O- Last 24 Hours up to 6 AM 03/03/19 06:00 Intake Total 1310.2 ml Output Total 0 ml Balance 1310.2 ml Laboratory Data Labs 24H Laboratory Tests 2 03/02/19 16:28: Urine Color YELLOW, Urine Appearance HAZY, Urine pH 5.0, Urine Specific [place] 1.021, Urine Protein 1+H, Urine Glucose (UA) NEGATIVE, Urine Ketones 2+H, Urine Blood NEGATIVE, Urine Nitrite NEGATIVE, Urine Bilirubin NEGATIVE, Urine Uro bilinogen 0.2, Urine Leukocyte Esterase NEGATIVE, Urine WBC (Auto) 0, Urine RBC (Auto) 2, Urine Hyaline Casts (Auto) 0, Urine Bacteria (Auto) NEGATIVE, Urine Squamous Epithelial Cells 1, Urine Mucus (Auto) SMALL, Urine Sperm (Auto) 03/02/19 17:34: D-Dimer, Quantitative 3953.72H, Troponin I < 0.02, KT-Ssx-[id number]-Type Natriuretic Peptide 9 03/02/19 23:32: Troponin I < 0.02 03/03/19 06:06: Nucleated Red Blood Cells % (auto) 0.0, Anion Gap 10, Glomerular Filtration Rate > 60.0, Estimated Mean Plasma Glucose 126H, Hemoglobin A1c 6.0, Blood Urea Nitrogen 7, Creatinine 0.60, Sodium Level 138, Potassium Level 4.0#, Chloride Level 109H, Carbon Dioxide Level 19L, Calcium Level 8.8 CBC/BMP Laboratory Tests 03/03/19 06:06 Red Blood Count 4.69, Mean Corpuscular Volume 86.6, Mean Corpuscular Hemoglobin 28.4, Mean Corpuscular Hemoglobin Concent 32.8, Red Cell Distribution Width 14.4, Calcium Level 8.8 Discharge Medications Scheduled Azelastine HCl (Azelastine HCl) 0.1% [place].pump, 1 SPRAY NARES BID, (Reported) Cholecalciferol (Vitamin D3) (Vitamin D3) 2,000 Unit Cap, 2,000 UNITS PO DAILY, (Reported) Cyanocobalamin (Vitamin B-12) (Vitamin B-12) 1,000 Mcg Capsule, 1,000 MCG PO DAILY, (Reported) Escitalopram Oxalate (Lexapro) 20 Mg Tab, 20 MG PO QHS, (Reported) Fluticasone Propionate (Flonase Allergy Relief) 9.9 Ml [place].susp, 1 SPRAY NARES BID, (Reported) Lactobacillus Combo No.10 (Probiotic) 1 Each Capsule, 1 CAP PO DAILY, (Reported) Levocetirizine Dihydrochloride (Levocetirizine Dihydrochloride) 5 Mg Tablet, 2.5 MG PO QHS, (Reported) Mometasone/Formoterol (Dulera 100 Mcg/5 Mcg Inhaler) 13 Gm Hfa.aer.ad, 2 PUFF INH BID, (Reported) PT WAS GIVEN THIS MEDICATION WHILE IN THE HOSPITAL FOR SURGERY LAST WEEK AND WAS GIVEN INHALER TO TAKE HOME Montelukast Sodium (Singulair) 10 Mg Tab, 10 MG PO QHS, (Reported) Multivitamin (Multivitamins) 1 Each Capsule, 1 CAP PO QHS, (Reported) Omeprazole (Omeprazole) 40 Mg Capsule.dr, 40 MG PO QPM, (Reported) Simethicone (Gas-X) 125 Mg Tab.chew, 125 MG PO TID, (Reported) Vitamin E (Vitamin E) 200 Unit Cap, 200 UNIT PO DAILY, (Reported) Scheduled PRN Epinephrine (Epinephrine) 0.3 Mg/0.3 Ml Auto.injct, 1 SYRINGE IM ONCE PRN for ANAPHYLAXIS, (Reported) Allergies Coded Allergies: cefdinir (Verified Allergy, Severe, ANAPHYLAXIS, 01/11/19) Penicillins (Verified Allergy, Intermediate, HIVES, 01/11/19) artichoke (Verified Allergy, Intermediate, HIVES/SWELLING, 01/11/19) clarithromycin (Verified Allergy, Intermediate, RASH/HIVES, 01/11/19) kiwi (Verified Allergy, Intermediate, HIVES/SWELLING/ITCHY THROAT, 01/11/19) latex (Verified Allergy, Intermediate, RASH, 01/11/19) pineapple (Verified Allergy, Intermediate, ITCHY THROAT, 01/11/19) Red Pepper (Verified Allergy, Unknown, JALAPENO, 07/04/14) metronidazole (Verified Adverse Reaction, Intermediate, NAUSEA, 01/11/19) morphine (Verified Adverse Reaction, Intermediate, VOMITING/ITCHINESS, 01/11/19) phentermine (Verified Adverse Reaction, Intermediate, INCREASED BP AND HEART RATE, 01/11/19) venlafaxine (Verified Adverse Reaction, Mild, BAD SIDE EFFECTS, 01/11/19) Ryan Mares MD Mar 03, 2019 13:48
[2019-03-03] MEDS ORDERED: OMEPRAZOLE 20 MG CAP PO SCH (21:00)
--- NOTE | 2019-03-04 07:58 | ECGEPIP ---
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
[2019-03-04] MEDS ORDERED: VITAMIN E 400 INTERNATIONAL UNITS CAP PO SCH (09:00)
== END 2019-03-03 14:00 | disposition home or self-care (01) ==
LOC: M ED 09:21 → M ED INP 09:22 → M MSPAV 21:43
PROVIDERS: ADMIT Internal Medicine; ATTEND Family Medicine
DX: R06.09 Other forms of dyspnea (principal); R07.9 Chest pain, unspecified; R74.0 Nonspecific elevation of levels of transaminase and lactic acid dehydrogenase [LDH]; R79.1 Abnormal coagulation profile; J45.909 Unspecified asthma, uncomplicated; K21.9 Gastro-esophageal reflux disease without esophagitis; E66.9 Obesity, unspecified; Z98.84 Bariatric surgery status; K58.0 Irritable bowel syndrome with diarrhea; E28.2 Polycystic ovarian syndrome; K44.9 Diaphragmatic hernia without obstruction or gangrene; Z79.899 Other long term (current) drug therapy; Z88.0 Allergy status to penicillin; Z91.040 Latex allergy status; Z88.5 Allergy status to narcotic agent; Z88.8 Allergy status to other drugs, medicaments and biological substances; Z91.018 Allergy to other foods
CPT/HCPCS: 36415; 71275; 74176; 80048; 80076; 81001; 82550; 82553; 83036; 83690; 83735; 83880; 85025; 85027; 85379; 90471; 90686; 93005; 93970; 96360; 96361; 99284; Q9963; Q9967

== ENCOUNTER → 2019-03-21 | Outpatient (CLI) | payer OTHER ==
[~2019-03-21] MED LIST changes: +AZEL1SPR3 NARES; +B-12100010 PO; +DULE100A INH; +EPIN0.3I11 IM; +MULTCAP PO; +OMEP-221 PO; -OMEP40CA2 PO; +OMEP40CA97 PO; +SIME125T PO
[2019-03-21 13:06] LABS: BASO % 0.8 % (0.0-1.0); EOS # 0.2 10^3/uL (0.0-0.5); EOS % 4.1 % (0.0-3.0); HEMATOCRIT 40.3 % (36.0-47.0); LYMPH % 38.3 % (24.0-44.0); MEAN CORPUSCULAR HEMOGLOBIN 27.9 pg (27.0-33.0); MEAN CORPUSCULAR HGB CONC 32.3 g/dl (32.0-36.5); MEAN CORPUSCULAR VOLUME 86.5 fl (80.0-96.0); MONO # 0.5 10^3/uL (0.0-0.8); MONO % 9.7 % (0.0-5.0); NEUTROPHILS # 2.4 10^3/uL (1.5-8.5); NEUTROPHILS % 46.7 % (36.0-66.0); PLATELET COUNT, AUTOMATED 236 10^3/uL (150-450); RED BLOOD COUNT 4.66 10^6/uL (4.00-5.40); WHITE BLOOD COUNT 5.1 10^3/uL (4.0-10.0)
[2019-03-21 13:07] LABS: HEMATOCRIT 40.3 % (36.0-47.0)
[2019-03-21 13:45] LABS: HEMOGLOBIN A1c 5.8 %
[2019-03-21 14:03] LABS: ALBUMIN 3.6 GM/DL (3.2-5.2); ALT/SGPT 22 U/L (12-78); BILIRUBIN,TOTAL 0.4 MG/DL (0.2-1.0); BLOOD UREA NITROGEN 5 MG/DL (7-18); CALCIUM LEVEL 8.9 MG/DL (8.5-10.1); CARBON DIOXIDE LEVEL 26 MEQ/L (21-32); CHLORIDE LEVEL 106 MEQ/L (98-107); FERRITIN 87 NG/ML (8-252); GLOMERULAR FILTRATION RATE > 60.0 (>60); GLUCOSE, FASTING 78 MG/DL (70-100); IRON (FE) 51 UG/DL (50-170); MAGNESIUM LEVEL 1.7 MG/DL (1.8-2.4); PERCENT SATURATION 23.2 % (13.2-45.0); PHOSPHORUS LEVEL 2.9 MG/DL (2.5-4.9); POTASSIUM SERUM 4.3 MEQ/L (3.5-5.1); SODIUM LEVEL 140 MEQ/L (136-145); TOTAL IRON BINDING CAPACITY 220 UG/DL (250-450); TOTAL PROTEIN 7.1 GM/DL (6.4-8.2); VITAMIN B12 LEVEL > 2000 PG/ML (247-911)
== END ==
LOC: M LAB 12:14
PROVIDERS: ATTEND Surgery
DX: K91.2 Postsurgical malabsorption, not elsewhere classified (principal); E55.9 Vitamin D deficiency, unspecified; Z98.84 Bariatric surgery status

== ENCOUNTER → 2019-08-17 | Outpatient (REF) | payer OTHER ==
[2019-08-17 12:48] LABS: INFLUENZA A AMPLIFICATION NEGATIVE (NEGATIVE); INFLUENZA B AMPLIFICATION NEGATIVE (NEGATIVE)
== END ==
LOC: M LAB REF 12:06
PROVIDERS: ATTEND Physician Assistant
DX: J02.9 Acute pharyngitis, unspecified (principal)

== ENCOUNTER → 2019-08-21 | Outpatient (CLI) | payer OTHER ==
[2019-08-21 17:16] LABS: BASO % 0.5 % (0.0-1.0); EOS # 0.2 10^3/uL (0.0-0.5); EOS % 2.5 % (0.0-3.0); HEMOGLOBIN 13.2 g/dl (12.0-15.5); LYMPH # 2.8 10^3/uL (1.5-5.0); LYMPH % 36.7 % (24.0-44.0); MEAN CORPUSCULAR HEMOGLOBIN 28.4 pg (27.0-33.0); MEAN CORPUSCULAR HGB CONC 32.2 g/dl (32.0-36.5); MEAN CORPUSCULAR VOLUME 88.4 fl (80.0-96.0); MONO # 0.6 10^3/uL (0.0-0.8); MONO % 7.5 % (0.0-5.0); NEUTROPHILS % 52.5 % (36.0-66.0); PLATELET COUNT, AUTOMATED 290 10^3/uL (150-450); RED BLOOD COUNT 4.64 10^6/uL (4.00-5.40); WHITE BLOOD COUNT 7.7 10^3/uL (4.0-10.0)
[2019-08-21 17:50] LABS: HEMOGLOBIN A1c 5.8 %
[2019-08-21 17:54] LABS: ALBUMIN 3.5 GM/DL (3.2-5.2); ALT/SGPT 49 U/L (12-78); BILIRUBIN,TOTAL 0.2 MG/DL (0.2-1.0); BLOOD UREA NITROGEN 10 MG/DL (7-18); CALCIUM LEVEL 8.6 MG/DL (8.5-10.1); CARBON DIOXIDE LEVEL 28 MEQ/L (21-32); CHLORIDE LEVEL 109 MEQ/L (98-107); CREATININE FOR GFR 0.63 MG/DL (0.55-1.30); FERRITIN 46 NG/ML (8-252); GLOMERULAR FILTRATION RATE > 60.0 (>60); GLUCOSE, FASTING 84 MG/DL (70-100); IRON (FE) 42 UG/DL (50-170); MAGNESIUM LEVEL 1.9 MG/DL (1.8-2.4); PERCENT SATURATION 18.3 % (13.2-45.0); PHOSPHORUS LEVEL 3.8 MG/DL (2.5-4.9); POTASSIUM SERUM 4.6 MEQ/L (3.5-5.1); SODIUM LEVEL 140 MEQ/L (136-145); TOTAL IRON BINDING CAPACITY 229 UG/DL (250-450); TOTAL PROTEIN 7.1 GM/DL (6.4-8.2)
[2019-08-21 18:00] LABS: TOTAL 25(OH) VITAMIN D 29.4 NG/ML (30.0-100.0); VITAMIN B12 LEVEL 1397 PG/ML (247-911)
== END ==
LOC: M LAB 16:19
PROVIDERS: ATTEND Surgery
DX: K91.2 Postsurgical malabsorption, not elsewhere classified (principal); Z98.84 Bariatric surgery status; E55.9 Vitamin D deficiency, unspecified; Z86.39 Personal history of other endocrine, nutritional and metabolic disease

== ENCOUNTER 2019-11-11 11:18 | Emergency (ER) | payer OTHER ==
[~2019-11-11] VITALS: Ht 165.1 cm; Wt 95.4 kg
[2019-11-11] MEDS ORDERED: DEXI60CA2 (11:25)
[2019-11-11] MEDS ORDERED: NS 1,000 ML IV ONE (11:45)
[2019-11-11] MEDS ORDERED: PROMETHAZINE INJ 25 MG/ML VIAL (J2550) IV ONE (12:00)
[2019-11-11] MEDS: GASTROGRAFIN SOLUTION 30ML PO SCH ×2 (12:22→12:55)
[2019-11-11] MEDS ORDERED: KETOROLAC 30 MG/ML 1ML VIAL IV ONE (12:30)
[2019-11-11 12:46] LABS: ALBUMIN 3.7 GM/DL (3.2-5.2); ALT/SGPT 44 U/L (12-78); BILIRUBIN,DIRECT 0.1 MG/DL (0.0-0.2); BILIRUBIN,TOTAL 0.4 MG/DL (0.2-1.0); BLOOD UREA NITROGEN 7 MG/DL (7-18); CALCIUM LEVEL 8.8 MG/DL (8.5-10.1); CARBON DIOXIDE LEVEL 30 MEQ/L (21-32); CHLORIDE LEVEL 107 MEQ/L (98-107); CREATININE FOR GFR 0.72 MG/DL (0.55-1.30); GLOMERULAR FILTRATION RATE > 60.0 (>60); GLUCOSE, FASTING 79 MG/DL (70-100); LIPASE 140 U/L (73-393); POTASSIUM SERUM 4.4 MEQ/L (3.5-5.1); SODIUM LEVEL 142 MEQ/L (136-145); TOTAL PROTEIN 7.4 GM/DL (6.4-8.2)
[2019-11-11] MEDS ORDERED: ISOVUE-370 76% 100ML VIAL As Ordered ONE (13:29)
[2019-11-11 13:43] LABS: BASO % 0.5 % (0.0-1.0); EOS # 0.2 10^3/uL (0.0-0.5); EOS % 3.3 % (0.0-3.0); HEMATOCRIT 43.6 % (36.0-47.0); LYMPH # 2.6 10^3/uL (1.5-5.0); MEAN CORPUSCULAR HEMOGLOBIN 28.6 pg (27.0-33.0); MEAN CORPUSCULAR HGB CONC 32.1 g/dl (32.0-36.5); MONO # 0.4 10^3/uL (0.0-0.8); MONO % 7.6 % (0.0-5.0); NEUTROPHILS # 2.6 10^3/uL (1.5-8.5); NEUTROPHILS % 44.6 % (36.0-66.0); PLATELET COUNT, AUTOMATED 284 10^3/uL (150-450); WHITE BLOOD COUNT 5.8 10^3/uL (4.0-10.0)
--- NOTE | 2019-11-11 14:51 | REP ---
CT abdomen/pelvis: 11/11/2019. Indication: Abdominal pain. Technique: Axial images of the abdomen/pelvis were performed following IV and oral administration of iodinated contrast with sagittal and coronal reconstructions provided. Comparison: 03/02/2019. Findings: Gas filled appendix is noted with appendicoliths. There is no significant surrounding inflammation. There is no free intraperitoneal air. There is eight 2 cm fluid collection within the right adnexa most consistent with ovarian follicle. There is no significant free intraperitoneal/pelvic fluid. There is no bowel obstruction. No lymphadenopathy is present. There are no focal abnormalities of the spleen, liver, pancreas or kidneys. The the patient is status post cholecystectomy. The urinary bladder is unremarkable. The visualized lungs are clear. Impression: No acute abnormality detected within the abdomen or pelvis. Appendicoliths without evidence of appendicitis. Right adnexal fluid collection likely representing ovarian follicle. Electronically Signed by Lencho Jean-Baptiste DO 11/11/2019 02:43 P
[2019-11-11 16:42] VITALS: BP 124/79
--- NOTE | 2019-11-11 16:52 | REPVR ---
PROCEDURE INFORMATION: Exam: US Pelvis Complete, Transabdominal and US Duplex Artery and Vein, Ovaries, Complete Exam date and time: 11/11/2019 4:19 PM Age: 39 years old Clinical indication: Pelvic pain; Prior surgery; Surgery date: 6+ months; Additional info: Rlq pain, R/O cyst vs torsion TECHNIQUE: Imaging protocol: Real-time transabdominal pelvic ultrasound with image documentation. Real-time duplex ultrasound scan of the arterial and venous flow of the ovaries with B-mode, color Doppler flow and spectral waveform analysis. Complete Pelvis, Complete Duplex. COMPARISON: US PELVIC NON-OB COMPLETE 11/18/2016 5:44 PM FINDINGS: Uterus/cervix: Surgically absent. Right adnexa: 3.4 x 3.1 x 2.4 cm. No mass. Normal arterial and venous blood flow. Left adnexa: 3.3 x 3.7 x 2.4 cm. No mass. Normal arterial and venous blood flow. Free fluid: None. Bladder: Normal. IMPRESSION: No acute sonographic findings. Electronically signed by: Wayne Hager On 11/11/2019 16:52:09 PM
--- NOTE | 2019-11-16 07:04 | ED PDOC ---
Post-Departure Follow-Up radiology report faxed to Charity Jimenez Sarah MD Nov 16, 2019 07:04
== END 2019-11-11 17:17 | disposition home or self-care (01) ==
LOC: M ED 11:18
DX: N83.01 Follicular cyst of right ovary (principal); K38.1 Appendicular concretions; Z98.84 Bariatric surgery status; K21.9 Gastro-esophageal reflux disease without esophagitis; J45.909 Unspecified asthma, uncomplicated; K58.9 Irritable bowel syndrome, unspecified; Z87.42 Personal history of other diseases of the female genital tract
CPT/HCPCS: 36415; 74177; 76856; 80047; 80048; 80076; 81001; 83605; 83690; 84702; 85025; 87040; 96361; 96374; 96375; 99284; J1885; Q9963; Q9967

== ENCOUNTER → 2019-11-23 | Outpatient (CLI) | payer OTHER ==
[~2019-11-23] MED LIST changes: +DEXI60CA2
[2019-11-23 16:12] LABS: APPEARANCE, URINE CLEAR (CLEAR); BACTERIA, URINE AUTO NEGATIVE (NEGATIVE); BILIRUBIN, URINE AUTO NEGATIVE (NEGATIVE); BLOOD, URINE BLOOD NEGATIVE (NEGATIVE); COLOR, URINE YELLOW (YELLOW); GLUCOSE, URINE (UA) AUTO NEGATIVE (NEGATIVE); KETONE, URINE AUTO NEGATIVE (NEGATIVE); LEUKOCYTE ESTERASE, URINE AUTO NEGATIVE (NEGATIVE); MUCUS, URINE SMALL (NEGATIVE); NITRITE, URINE AUTO NEGATIVE (NEGATIVE); PROTEIN, URINE AUTO NEGATIVE (NEGATIVE); RBC, URINE AUTO 1 /HPF (0-3); SPECIFIC GRAVITY URINE AUTO 1.023 (1.002-1.035); SQUAMOUS EPITHELIAL CELL UR AU 0 /HPF (0-6); UROBILINOGEN, URINE AUTO 0.2 mg/dL (0.0-2.0); WBC, URINE AUTO 0 /HPF (0-3)
== END ==
LOC: M LAB 15:40
PROVIDERS: ATTEND Physician Assistant Medical
DX: R10.33 Periumbilical pain (principal)

== ENCOUNTER → 2019-11-28 | Outpatient (REF) | payer OTHER | LOC: M LAB REF 20:50 | PROVIDERS: ATTEND Surgery | DX: R19.7 Diarrhea, unspecified (principal) ==

== ENCOUNTER → 2019-12-23 | Outpatient (CLI) | payer OTHER ==
[2020-02-06 10:37] LABS: HEMOGLOBIN A1c 5.4 %
[2020-02-06 10:38] LABS: ALBUMIN 3.4 GM/DL (3.2-5.2); ALT/SGPT 37 U/L (12-78); BILIRUBIN,TOTAL 0.4 MG/DL (0.2-1.0); BLOOD UREA NITROGEN 9 MG/DL (7-18); CALCIUM LEVEL 8.7 MG/DL (8.5-10.1); CARBON DIOXIDE LEVEL 31 MEQ/L (21-32); CHLORIDE LEVEL 107 MEQ/L (98-107); CREATININE FOR GFR 0.69 MG/DL (0.55-1.30); FERRITIN 72 NG/ML (8-252); GLOMERULAR FILTRATION RATE > 60.0 (>60); GLUCOSE, FASTING 88 MG/DL (70-100); IRON (FE) 95 UG/DL (50-170); MAGNESIUM LEVEL 1.9 MG/DL (1.8-2.4); PERCENT SATURATION 38.9 % (13.2-45.0); PHOSPHORUS LEVEL 3.3 MG/DL (2.5-4.9); POTASSIUM SERUM 4.8 MEQ/L (3.5-5.1); SODIUM LEVEL 142 MEQ/L (136-145); TOTAL IRON BINDING CAPACITY 244 UG/DL (250-450); TOTAL PROTEIN 7.4 GM/DL (6.4-8.2)
[2020-02-06 10:40] LABS: VITAMIN B12 LEVEL 1519 PG/ML (247-911)
[2020-02-06 10:42] LABS: HEMATOCRIT 42.3 % (36.0-47.0)
[2020-02-06 10:50] LABS: BASO % 0.8 % (0.0-1.0); EOS # 0.2 10^3/uL (0.0-0.5); EOS % 2.9 % (0.0-3.0); HEMATOCRIT 42.3 % (36.0-47.0); HEMOGLOBIN 13.6 g/dl (12.0-15.5); LYMPH # 1.9 10^3/uL (1.5-5.0); LYMPH % 37.2 % (24.0-44.0); MEAN CORPUSCULAR HGB CONC 32.2 g/dl (32.0-36.5); MEAN CORPUSCULAR VOLUME 90.2 fl (80.0-96.0); MONO # 0.4 10^3/uL (0.0-0.8); MONO % 7.6 % (0.0-5.0); NEUTROPHILS # 2.6 10^3/uL (1.5-8.5); NEUTROPHILS % 51.3 % (36.0-66.0); PLATELET COUNT, AUTOMATED 286 10^3/uL (150-450); RED BLOOD COUNT 4.69 10^6/uL (4.00-5.40); WHITE BLOOD COUNT 5.1 10^3/uL (4.0-10.0)
== END ==
LOC: M LAB 10:02
PROVIDERS: ATTEND Physician Assistant
DX: K91.2 Postsurgical malabsorption, not elsewhere classified (principal)

== ENCOUNTER → 2019-12-31 | Outpatient (CLI) | payer OTHER ==
--- NOTE | 2020-02-13 09:46 | REP ---
PELVIC ULTRASOUND: HISTORY: Right lower quadrant pain. COMPARISON: 11/11/19 FINDINGS: Real time sonographic evaluation of the pelvis is performed using transabdominal and endovaginal technique. The bladder measures 10.5 x 7.6 x 9.0 cm. The patient has had a prior hysterectomy. The right ovary measures 4.4 x 4.1 x 3.9 cm. There is a somewhat complex cyst of the right ovary with diffuse internal echos and this measures 3.4 x 3.1 x 3.0 cm. This was not present on the prior study. This may represent a small hemorrhagic cyst. The left ovary measures 4.1 x 1.4 x 1.9 cm with no cystic or solid mass. There is no evidence of ovarian torsion bilaterally with duplex Doppler evaluation. There is no free fluid. IMPRESSION: No torsion. Small complex cyst right ovary, 3.4 cm maximally, may represent a small hemorrhagic cyst. Status post hysterectomy. [facility]
== END ==
LOC: M LAB 13:36
PROVIDERS: ATTEND Physician Assistant
DX: N83.201 Unspecified ovarian cyst, right side (principal); Z90.79 Acquired absence of other genital organ(s)

== ENCOUNTER → 2020-02-26 | Outpatient (CLI) | payer OTHER ==
--- NOTE | 2020-03-04 14:25 | REP ---
RIGHT UPPER QUADRANT SONOGRAPHY HISTORY: Abnormal findings on diagnostic imaging. COMPARISON CT STUDY: 12/03/2019 from [facility]. This was read as showing a suspected hemangioma of the right lobe of the liver. Ultrasound was recommended. SONOGRAPHIC FINDINGS: The gallbladder is surgically absent. Scanning through the right upper quadrant demonstrates multiple hyperechoic areas in the liver, the largest of which corresponds to the CT finding. In the right lobe anteriorly, this measures 1.9 x 1.8 x 1.6 cm. Just posterior to this, there is a 0.5 cm hyperechoic area. Posteromedially there is a 0.6 cm hyperechoic area and posterolaterally there is a 0.8 cm hyperechoic area. The hyperechoic nodules are compatible with benign hemangiomas and the largest of these is visible in retrospect on CT imaging from 08/03/2013, unchanged in size, 19 mm. There is a hypodense nodule in the right lobe of the liver high near the dome of the diaphragm on recent CT study, which is felt to correspond with one of the posterior nodules. By CT, this measures 8 mm. Common bile duct is normal measuring 0.5 cm in greatest diameter. There is no evidence of ascites. No right renal abnormality is observed. The right kidney measures 12.1 x 5.9 x 4.2 cm. IMPRESSION: There are four hyperechoic small nodules in the liver most compatible with benign hemangiomas. Two of these have CT correlates and the largest is visible in retrospect on a remote prior CT study 08/03/2013. Consider follow-up ultrasound to document stability of these lesions over time in six months to one year. Post cholecystectomy. Otherwise negative right upper quadrant sonogram. [facility]
== END ==
LOC: M RAD 06:36
PROVIDERS: ATTEND Physician Assistant Medical
DX: R93.3 Abnormal findings on diagnostic imaging of other parts of digestive tract (principal); K76.89 Other specified diseases of liver; Z90.49 Acquired absence of other specified parts of digestive tract

== ENCOUNTER → 2020-03-05 | Outpatient (CLI) | payer OTHER ==
[2020-03-05 17:05] LABS: BASO % 0.6 % (0.0-1.0); EOS # 0.2 10^3/uL (0.0-0.5); EOS % 3.4 % (0.0-3.0); HEMATOCRIT 42.4 % (36.0-47.0); HEMOGLOBIN 13.5 g/dl (12.0-15.5); LYMPH # 2.7 10^3/uL (1.5-5.0); LYMPH % 40.6 % (24.0-44.0); MEAN CORPUSCULAR HEMOGLOBIN 28.9 pg (27.0-33.0); MEAN CORPUSCULAR HGB CONC 31.8 g/dl (32.0-36.5); MEAN CORPUSCULAR VOLUME 90.8 fl (80.0-96.0); MONO # 0.5 10^3/uL (0.0-0.8); MONO % 7.1 % (0.0-5.0); NEUTROPHILS # 3.1 10^3/uL (1.5-8.5); NEUTROPHILS % 48.1 % (36.0-66.0); PLATELET COUNT, AUTOMATED 290 10^3/uL (150-450); RED BLOOD COUNT 4.67 10^6/uL (4.00-5.40); WHITE BLOOD COUNT 6.5 10^3/uL (4.0-10.0)
[2020-03-05 17:09] LABS: HEMATOCRIT 42.4 % (36.0-47.0)
[2020-03-05 17:33] LABS: HEMOGLOBIN A1c 5.4 %
[2020-03-05 17:38] LABS: ALBUMIN 3.6 GM/DL (3.2-5.2); ALT/SGPT 57 U/L (12-78); BILIRUBIN,TOTAL 0.2 MG/DL (0.2-1.0); BLOOD UREA NITROGEN 15 MG/DL (7-18); CALCIUM LEVEL 9.1 MG/DL (8.5-10.1); CARBON DIOXIDE LEVEL 33 MEQ/L (21-32); CHLORIDE LEVEL 105 MEQ/L (98-107); CREATININE FOR GFR 0.65 MG/DL (0.55-1.30); FERRITIN 69 NG/ML (8-252); GLOMERULAR FILTRATION RATE > 60.0 (>60); GLUCOSE, FASTING 91 MG/DL (70-100); IRON (FE) 47 UG/DL (50-170); MAGNESIUM LEVEL 2.1 MG/DL (1.8-2.4); SODIUM LEVEL 138 MEQ/L (136-145); TOTAL 25(OH) VITAMIN D 40.9 NG/ML (30.0-100.0); TOTAL IRON BINDING CAPACITY 248 UG/DL (250-450); TOTAL PROTEIN 7.5 GM/DL (6.4-8.2)
[2020-03-05 17:43] LABS: VITAMIN B12 LEVEL > 2000 PG/ML (247-911)
== END ==
LOC: M LAB 16:11
PROVIDERS: ATTEND Physician Assistant
DX: K91.2 Postsurgical malabsorption, not elsewhere classified (principal); E55.9 Vitamin D deficiency, unspecified; Z98.84 Bariatric surgery status; Z86.39 Personal history of other endocrine, nutritional and metabolic disease

== ENCOUNTER → 2020-03-30 | Outpatient (CLI) | payer OTHER | LOC: M LABSMTC 09:13 | PROVIDERS: ATTEND Anesthesiology | DX: Z01.812 Encounter for preprocedural laboratory examination (principal); Z20.828 Contact with and (suspected) exposure to other viral communicable diseases | CPT/HCPCS: C9803; U0003 ==

== ENCOUNTER → 2020-04-02 | Outpatient (REF) | payer OTHER | LOC: M LAB REF 22:28 | PROVIDERS: ATTEND Physician Assistant | DX: J02.9 Acute pharyngitis, unspecified (principal) ==

== ENCOUNTER 2020-04-04 09:06 | Day surgery (SDC) | payer OTHER ==
[~2020-04-04] VITALS: Ht 165.1 cm; Wt 93.8 kg
[~2020-04-04 09:06] MED LIST changes: +NS 1,000 ML IV ONE
[2020-04-04] MEDS ORDERED: LIDOCAINE 2% 100MG/5ML SDV (FOR ANES.) As Ordered ONE (10:44)
[2020-04-04] MEDS ORDERED: propofoL 200 MG/20 ML VIAL As Ordered ONE (10:44)
--- NOTE | 2020-04-04 10:59 | ROOR ---
Patient Name: Laney Sanders Procedure Date: 04/04/2020 10:35 AM Date of : 1980 Age: 39 Room: [facility] Gender: Female Note Status: Finalized Procedure: Colonoscopy Indications: Irritable bowel syndrome with diarrhea Providers: Eduardo MAYNARD MD Referring MD: SELAM Brannon Requesting Provider: Medicines: Monitored Anesthesia Care Complications: No immediate complications. Procedure: Pre-Anesthesia Assessment: - The heart rate, respiratory rate, oxygen saturations, blood pressure, adequacy of pulmonary ventilation, and response to care were monitored throughout the procedure. The Colonoscope was introduced through the anus and advanced to 10 cm into the ileum. The colonoscopy was performed without difficulty. The patient tolerated the procedure well. The quality of the bowel preparation was good. Findings: The perianal and digital rectal examinations were normal. Small Internal Hemorrhoids. The entire examined colon appeared normal on direct and retroflexion views. The terminal ileum appeared normal. Biopsies for histology were taken with a cold forceps for evaluation of microscopic colitis. Impression: - Small Internal Hemorrhoids. - The entire examined colon is normal on direct and retroflexion views. - The examined portion of the ileum was normal. - Biopsies were taken with a cold forceps for evaluation of microscopic colitis. - (Irritable Bowel Syndrome/IBS suspected.) Recommendation: - Continue present medications. - Telephone endoscopist for pathology results in 2 weeks. Eduardo Maynard MD Eduardo MAYNARD MD 04/04/2020 10:58:43 AM Electronically signed by Eduardo MAYNARD MD Number of Addenda: 0 Note Initiated On: 04/04/2020 10:35 AM Estimated Blood Loss: Estimated blood loss: none.
[2020-04-04 11:25] VITALS: BP 139/89
== END 2020-04-04 11:30 | disposition home or self-care (01) ==
LOC: M OPP 09:06
PROVIDERS: ATTEND Internal Medicine Gastroenterology
DX: K58.0 Irritable bowel syndrome with diarrhea (principal); K64.8 Other hemorrhoids; K21.9 Gastro-esophageal reflux disease without esophagitis; Z79.899 Other long term (current) drug therapy; Z88.0 Allergy status to penicillin; Z88.5 Allergy status to narcotic agent; Z91.018 Allergy to other foods; Z91.040 Latex allergy status

== ENCOUNTER 2020-06-09 10:59 | Emergency (ER) | payer OTHER ==
[~2020-06-09 10:59] MED LIST changes: -NS 1,000 ML IV ONE
[2020-06-09] MEDS ORDERED: ACETAMINOPHEN TAB 650MG DOSE (2X325MG) PO PRN (12:00)
[2020-06-09 12:32] LABS: HEMATOCRIT 44.3 % (36.0-47.0); MEAN CORPUSCULAR HEMOGLOBIN 28.5 pg (27.0-33.0); MEAN CORPUSCULAR HGB CONC 31.6 g/dl (32.0-36.5); MEAN CORPUSCULAR VOLUME 90.2 fl (80.0-96.0); PLATELET COUNT, AUTOMATED 194 10^3/uL (150-450); RED BLOOD COUNT 4.91 10^6/uL (4.00-5.40); WHITE BLOOD COUNT 3.5 10^3/uL (4.0-10.0)
[2020-06-09 12:50] LABS: ATYPICAL LYMPH 2 % (0-5); LYMPHOCYTES 37 % (16-44); MONOCYTES 3 % (0-5); NEUTROPHILS 58 % (28-66); PLATELET ESTIMATE NORMAL (NORMAL)
[2020-06-09 13:01] LABS: ALT/SGPT 40 U/L (12-78); BILIRUBIN,TOTAL 0.2 MG/DL (0.2-1.0); BLOOD UREA NITROGEN 9 MG/DL (7-18); C REACTIVE PROTEIN QUANTITATIV 2.06 MG/DL (0.00-0.30); CALCIUM LEVEL 7.3 MG/DL (8.5-10.1); CARBON DIOXIDE LEVEL 22 MEQ/L (21-32); CHLORIDE LEVEL 110 MEQ/L (98-107); CK-MB VALUE MASS < 1.0 NG/ML (<3.6); CPK CREATINE PHOSPHOKINASE 65 U/L (26-192); CREATININE FOR GFR 0.61 MG/DL (0.55-1.30); FERRITIN 301 NG/ML (8-252); GLOMERULAR FILTRATION RATE > 60.0 (>60); GLUCOSE, FASTING 76 MG/DL (70-100); LDH LACTATE DEHYDROGENASE 189 U/L (84-246); MB/CK RELATIVE INDEX 1.54 (< OR =4); POTASSIUM SERUM 3.2 MEQ/L (3.5-5.1); SODIUM LEVEL 141 MEQ/L (136-145); TOTAL PROTEIN 5.8 GM/DL (6.4-8.2); TROPONIN I < 0.02 NG/ML (< 0.10)
[2020-06-09 13:04] LABS: HCG, SERUM QUALITATIVE NEGATIVE (NEGATIVE)
--- NOTE | 2020-06-09 14:14 | REP ---
INDICATION: Coronavirus workup COMPARISON: 01/10/2018 TECHNIQUE: Portable AP view of the chest FINDINGS: The mediastinum and cardiac silhouette are stable and within normal limits for portable technique. The lung luna suggest very minimal left lower lobe atelectasis without consolidation. No effusion or pneumothorax. Skeletal structures are intact. IMPRESSION: Cannot exclude subtle left lower lobe atelectasis. <Electronically signed by Isra Cheng > 06/09/20 [id number]
[2020-06-09] MEDS ORDERED: ISOVUE-370 76% 100ML VIAL As Ordered ONE ×2 (14:31→16:02)
--- NOTE | 2020-06-09 16:42 | REP ---
INDICATION: chest pain, syncope, COVID COMPARISON: None. TECHNIQUE: Axial contrast enhanced images from the thoracic inlet to the upper abdomen using pulmonary embolus technique with multiplanar re-formations. 75 ml Isovue 370 intravenous contrast material administered without complication. This CT examination was performed using the following dose reduction techniques: Automated exposure control, adjustment of mA and/or kv according to the patient's size, and use of iterative reconstruction technique. FINDINGS: Satisfactory enhancement of the pulmonary vasculature is achieved and no filling defects are identified to suggest pulmonary embolus. Further evaluation of the mediastinum demonstrates normal thoracic aorta, heart and pericardium. Lung luna demonstrate patchy peripheral infiltrates consistent with COVID-19 pulmonary disease. No effusion. No pneumothorax. Tracheobronchial tree is patent. No significant adenopathy. IMPRESSION: Relatively mild patchy scattered parenchymal opacities consistent with COVID-19 pulmonary disease. No pulmonary embolus. <Electronically signed by Isra Cheng > 06/09/20 [id number]
[2020-06-09 17:22] VITALS: BP 148/96
--- NOTE | 2020-06-10 08:50 | ECGEPIP ---
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
== END 2020-06-09 17:55 | disposition home or self-care (01) ==
LOC: M ED 10:59
DX: U07.1 COVID-19 (principal); R55 Syncope and collapse; R91.8 Other nonspecific abnormal finding of lung field; F41.9 Anxiety disorder, unspecified; K21.9 Gastro-esophageal reflux disease without esophagitis; Z98.84 Bariatric surgery status; Z88.0 Allergy status to penicillin; Z91.018 Allergy to other foods; Z88.1 Allergy status to other antibiotic agents; Z91.040 Latex allergy status; Z88.8 Allergy status to other drugs, medicaments and biological substances; Z88.5 Allergy status to narcotic agent; Z79.899 Other long term (current) drug therapy
CPT/HCPCS: 36415; 71045; 71275; 80053; 82550; 82553; 82728; 83615; 84703; 85025; 85379; 86140; 93005; 99285; Q9967

== ENCOUNTER 2020-06-14 14:17 | Observation (INO) | payer OTHER ==
[~2020-06-14] VITALS: Ht 165.1 cm; Wt 91.5 kg
[~2020-06-14 14:17] MED LIST changes: -DEXI60CA2
[2020-06-14] MEDS ORDERED: NS 1,000 ML IV SCH (14:31)
[2020-06-14] MEDS ORDERED: ALBUTEROL 90 MCG/ACT 8GM HFA INHALER INH ONE (14:45)
--- NOTE | 2020-06-14 15:23 | REP ---
INDICATION: DYSPNEA/COUGH. COMPARISON: 06/09/2020. TECHNIQUE: SINGLE PORTABLE AP VIEW OF THE CHEST WAS PERFORMED. FINDINGS: Acute diffuse right lung infiltrates are noted. There is mild infiltrate in the left base. Heart is not enlarged. Mediastinal silhouette is unchanged. IMPRESSION: Diffuse right lung infiltrates. Mild infiltrate left base. <Electronically signed by Praful Bernal > 06/14/20 [id number]
[2020-06-14] MEDS ORDERED: ACETAMINOPHEN 325 MG TAB PO ONE (17:00)
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
--- OUTSIDE RECORDS SUMMARY | 2020-06-14 17:04 | CCD ---
Author Author [facility] Organization [facility] Address Unknown Phone Unavailable Care Team Providers Care Strategic Communications Manager Name Role Phone Geoff GILL Unavailable Unavailable Geoff GILL Unavailable Unavailable Geoff GILL Unavailable Unavailable Geoff GILL Unavailable Unavailable Geoff GILL Unavailable Unavailable ROOKE, M TORSTEN PA Unavailable Unavailable ROOKE, M TORSTEN PA Unavailable Unavailable ROOKE, M TORSTEN PA Unavailable Unavailable [employer] 2 ADVANCED OPERATOR, Maura Bria Unavailable [employer] 2 ADVANCED OPERATOR, Maura Bria Unavailable [employer] 2 ADVANCED OPERATOR, Maura Bria Unavailable [employer] 2 ADVANCED OPERATOR, Maura Bria Unavailable [employer] MK 2 ADVANCED OPERATOR, Maura Bria Unavailable [employer] MK 2 ADVANCED OPERATOR, Maura Bria Unavailable Elfego, Paul Heredia MD Unavailable Unavailable Elfego, A Giovanna AYALA Unavailable Unavailable Elfego, A Giovanna AYALA Unavailable Unavailable Elfego, Paul Heredia MD Unavailable Unavailable Elfego, A Giovanna AYALA Unavailable Unavailable Elfego, Paul Heredia MD Unavailable Unavailable Elfego, A Giovanna AYALA Unavailable Unavailable Elfego, A Giovanna AYALA Unavailable Unavailable Elfego, A Giovanna AYALA Unavailable Unavailable Elfego, A Giovanna AYALA Unavailable Unavailable Elfego, Paul Heredia MD Unavailable Unavailable Elfego, Paul Heredia MD Unavailable Unavailable Elfego, Paul Heredia MD Unavailable Unavailable Elfego, Paul Heredia MD Unavailable Unavailable Elfego, A Giovanna AYALA Unavailable Unavailable Elfego, A Giovanna AYALA Unavailable Unavailable Elfego, A Giovanna AYALA Unavailable Unavailable Elfego, A Giovanna AYALA Unavailable Unavailable Elfego, A Giovanna AYALA Unavailable Unavailable Elfego, A Giovanna AYALA Unavailable Unavailable Elfego, A Giovanna AYALA Unavailable Unavailable Elfego, Paul Heredia MD Unavailable Unavailable Elfego, Paul Heredia MD Unavailable Unavailable Elfego, Paul Heredia MD Unavailable Unavailable Elfego, Paul Heredia MD Unavailable Unavailable Elfego, Paul Heredia MD Unavailable Unavailable Elfego, Paul Heredia MD Unavailable Unavailable Elfego, A Giovanna AYALA Unavailable Unavailable Elfego, A Giovanna AYALA Unavailable Unavailable Elfego, Paul Heredia MD Unavailable Unavailable Elfego, A Giovanna AYALA Unavailable Unavailable Elfego, A Giovanna AYALA Unavailable Unavailable Elfego, A Giovanna AYALA Unavailable Unavailable Elfego, A Giovanna AYALA Unavailable Unavailable Elfego, A Giovanna AYALA Unavailable Unavailable Elfego, A Giovanna AYALA Unavailable Unavailable Elfego, A Giovanna AYALA Unavailable Unavailable Elfego, A Giovanna AYALA Unavailable Unavailable Elfego, A Giovanna AYALA Unavailable Unavailable Elfego, A Giovanna AYALA Unavailable Unavailable Elfego, A Giovanna AYALA Unavailable Unavailable Elfego, A Giovanna AYALA Unavailable Unavailable Elfego, A Giovanna AYALA Unavailable Unavailable Elfego, Paul Heredia MD Unavailable Unavailable Elfego, Paul Heredia MD Unavailable Unavailable Elfego, Paul Heredia MD Unavailable Unavailable Elfego, A Giovanna AYALA Unavailable Unavailable Elfego, A Giovanna AYALA Unavailable Unavailable Elfego, A Giovanna AYALA Unavailable Unavailable Elfego, A Giovanna AYALA Unavailable Unavailable Elfego, A Giovanna AYALA Unavailable Unavailable Elfego, A Giovanna AYALA Unavailable Unavailable Elfego, A Giovanna AYALA Unavailable Unavailable Elfego, A Giovanna AYALA Unavailable Unavailable Elfego, A Giovanna AYALA Unavailable Unavailable Elfego, A Giovanna AYALA Unavailable Unavailable Elfego, A Giovanna AYALA Unavailable Unavailable Elfego, A Giovanna AYALA Unavailable Unavailable Elfego, A Giovanna AYALA Unavailable Unavailable Elfego, A Giovanna MD Unavailable Unavailable Elfego, A Giovanna MD Unavailable Unavailable Elfego, A Giovanna MD Unavailable Unavailable Elfego, A Giovanna MD Unavailable Unavailable Elfego, A Giovanna AYALA Unavailable Unavailable Elfego, A Giovanna AYALA Unavailable Unavailable Elfego, A Giovanna AYALA Unavailable Unavailable Elfego, A Giovanna AYALA Unavailable Unavailable Elfego, A Giovanna AYALA Unavailable Unavailable Elfego, A Giovanna AYALA Unavailable Unavailable Elfego, A Giovanna AYALA Unavailable Unavailable Elfego, A Giovanna AYALA Unavailable Unavailable Elfego, A Giovanna AYALA Unavailable Unavailable Elfgeo, A Giovanna AYALA Unavailable Unavailable Elfego, A Giovanna AYALA Unavailable Unavailable Elfego, A Giovanna AYALA Unavailable Unavailable NEVAEH, E PARDEEP PATHOLOGICAL TECHNICIAN Unavailable Unavailable NEVAEH, E PARDEEP PATHOLOGICAL TECHNICIAN Unavailable Unavailable NEVAEH, E PARDEEP PATHOLOGICAL TECHNICIAN Unavailable Unavailable NEVAEH, E PARDEEP PATHOLOGICAL TECHNICIAN Unavailable Unavailable NEVAEH, E PADREEP PATHOLOGICAL TECHNICIAN Unavailable Unavailable NEVAEH, E PARDEEP PATHOLOGICAL TECHNICIAN Unavailable Unavailable NEVAEH, E PARDEEP PATHOLOGICAL TECHNICIAN Unavailable Unavailable NEVAEH, E PARDEEP PATHOLOGICAL TECHNICIAN Unavailable Unavailable NEVAEH, E PARDEEP PATHOLOGICAL TECHNICIAN Unavailable Unavailable NEVAEH, E PARDEEP PATHOLOGICAL TECHNICIAN Unavailable Unavailable NEVAEH, E PARDEEP PATHOLOGICAL TECHNICIAN Unavailable Unavailable NEVAEH, E PARDEEP PATHOLOGICAL TECHNICIAN Unavailable Unavailable NEVAEH, E PARDEEP PATHOLOGICAL TECHNICIAN Unavailable Unavailable Buster, Paul Pereira MD Unavailable Unavailable Buster, Paul Pereira MD Unavailable Unavailable Buster, Paul Pereira MD Unavailable Unavailable Buster, Paul Pereira MD Unavailable Unavailable Buster, Paul Pereira MD Unavailable Unavailable Buster, Paul Pereira MD Unavailable Unavailable Buster, Paul Pereira MD Unavailable Unavailable Buster, Paul Pereira MD Unavailable Unavailable Buster, Paul Pereira MD Unavailable Unavailable Buster, Paul Pereira MD Unavailable Unavailable Buster, Paul Pereira MD Unavailable Unavailable Buster, Paul Pereira MD Unavailable Unavailable Buster, Paul Pereira MD Unavailable Unavailable Buster, Paul Pereira MD Unavailable Unavailable Buster, Paul Pereira MD Unavailable Unavailable Buster, Paul Pereira MD Unavailable Unavailable Buster, Paul Pereira MD Unavailable Unavailable Buster, Paul Pereira MD Unavailable Unavailable Buster, Paul Pereira MD Unavailable Unavailable Buster, Paul Pereira MD Unavailable Unavailable Buster, Paul Pereira MD Unavailable Unavailable Buster, Paul Pereira MD Unavailable Unavailable Buster, Paul Pereira MD Unavailable Unavailable Buster, Paul Pereira MD Unavailable Unavailable Buster, Paul Pereira MD Unavailable Unavailable Buster, Paul Pereira MD Unavailable Unavailable Buster, Paul Pereira MD Unavailable Unavailable Buster, A Randall AYALA Unavailable Unavailable Buster, A Randall AYALA Unavailable Unavailable Buster, Paul Pereira MD Unavailable Unavailable Buster, Paul Pereira MD Unavailable Unavailable Buster, Paul Pereira MD Unavailable Unavailable Buster, A Randall AYALA Unavailable Unavailable Buster, A Randall AYALA Unavailable Unavailable Buster, A Randall AYALA Unavailable Unavailable Buster, A Randall AYALA Unavailable Unavailable Buster, A Randall AYALA Unavailable Unavailable Buster, A Randall AYALA Unavailable Unavailable Buster, Paul Pereira MD Unavailable Unavailable Buster, Paul Pereira MD Unavailable Unavailable Buster, A Randall AYALA Unavailable Unavailable Buster, A Randall AYALA Unavailable Unavailable Buster, A Randall AYALA Unavailable Unavailable Buster, A Randall AYALA Unavailable Unavailable Buster, Paul Pereira MD Unavailable Unavailable Buster, Paul Pereira MD Unavailable Unavailable Buster, Paul Pereira MD Unavailable Unavailable Buster, Paul Pereira MD Unavailable Unavailable Buster, Paul Pereira MD Unavailable Unavailable Buster, Paul Pereira MD Unavailable Unavailable Buster, A Randall AYALA Unavailable Unavailable Buster, Paul Pereira MD Unavailable Unavailable Buster, Paul Pereira MD Unavailable Unavailable Buster, Paul Pereira MD Unavailable Unavailable Buster, Paul Pereira MD Unavailable Unavailable Buster, Paul Pereira MD Unavailable Unavailable Buster, Paul Pereira MD Unavailable Unavailable Buster, Paul Pereira MD Unavailable Unavailable Buster, Paul Pereira MD Unavailable Unavailable Buster, Paul Pereira MD Unavailable Unavailable Buster, Paul Pereira MD Unavailable Unavailable Buster, Paul Pereira MD Unavailable Unavailable Buster, Paul Pereira MD Unavailable Unavailable Buster, Paul Pereira MD Unavailable Unavailable Buster, Paul Pereira MD Unavailable Unavailable Buster, Paul Pereira MD Unavailable Unavailable Buster, Paul Pereira MD Unavailable Unavailable Buster, Paul Pereira MD Unavailable Unavailable Buster, Paul Pereira MD Unavailable Unavailable Buster, Paul Pereira MD Unavailable Unavailable Buster, Paul Pereira MD Unavailable Unavailable Buster, Paul Pereira MD Unavailable Unavailable Buster, Paul Pereira MD Unavailable Unavailable Buster, Paul Pereira MD Unavailable Unavailable Buster, Paul Pereira MD Unavailable Unavailable Buster, Paul Pereira MD Unavailable Unavailable Buster, Paul Pereira MD Unavailable Unavailable Buster, Paul Pereira MD Unavailable Unavailable Buster, Paul Pereira MD Unavailable Unavailable Buster, Paul Pereira MD Unavailable Unavailable Buster, A Randall AYALA Unavailable Unavailable Buster, A Randall AYALA Unavailable Unavailable Buster, A Randall AYALA Unavailable Unavailable Buster, A Randall AYALA Unavailable Unavailable Buster, A Randall AYALA Unavailable Unavailable Buster, A Randall AAYLA Unavailable Unavailable Buster, A Randall AYALA Unavailable Unavailable Buster, A Randall AYALA Unavailable Unavailable Buster, A Randall AYALA Unavailable Unavailable Buster, A Randall AYALA Unavailable Unavailable Buster, A Randall AYALA Unavailable Unavailable Buster, A Randall AYALA Unavailable Unavailable Buster, A Randall AYALA Unavailable Unavailable Buster, A Randall AYALA Unavailable Unavailable Buster, A Randall AYALA Unavailable Unavailable Buster, A Randall AYALA Unavailable Unavailable Buster, A Randall AYALA Unavailable Unavailable Buster, A Randall AYALA Unavailable Unavailable Buster, A Randall AYALA Unavailable Unavailable Buster, A Randall AYALA Unavailable Unavailable Buster, A Randall AYALA Unavailable Unavailable Buster, A Randall AYALA Unavailable Unavailable Buster, A Randall AYALA Unavailable Unavailable Buster, A Randall AYALA Unavailable Unavailable Charlebois, A Eugenia RPA C Unavailable Unavailable Charlebois, A Eugenia RPA C Unavailable Unavailable Charlebois, A Eugenia RPA C Unavailable Unavailable Charlebois, A Eugenia RPA C Unavailable Unavailable Charlebois, A Eugenia RPA C Unavailable Unavailable Charlebois, A Eugenia RPA C Unavailable Unavailable Charlebois, A Eugenia RPA C Unavailable Unavailable Charlebois, A Eugenia RPA C Unavailable Unavailable Charlebois, A Eugenia RPA C Unavailable Unavailable Charlebois, A Eugenia RPA C Unavailable Unavailable Charlebois, A Eugenia RPA C Unavailable Unavailable Charlebois, A Eugenia RPA C Unavailable Unavailable Charlebois, A Eugenia RPA C Unavailable Unavailable Charlebois, A Eugenia RPA C Unavailable Unavailable Charlebois, A Eugenia RPA C Unavailable Unavailable Charlebois, A Eugenia RPA C Unavailable Unavailable Charlebois, A Eugenia RPA C Unavailable Unavailable Charlebois, A Eugenia RPA C Unavailable Unavailable Charlebois, A Eugenia RPA C Unavailable Unavailable Charlebois, A Eugenia RPA C Unavailable Unavailable Charlebois, A Eugenia RPA C Unavailable Unavailable Charlebois, A Eugenia RPA C Unavailable Unavailable Charlebois, A Eugenia RPA C Unavailable Unavailable Charlebois, A Eugenia RPA C Unavailable Unavailable Charlebois, A Eugenia RPA C Unavailable Unavailable Charlebois, A Eugenia RPA C Unavailable Unavailable [place]lebo[place], A Eugenia RPA C Unavailable Unavailable [place]lebo[place], A Eugenia RPA C Unavailable Unavailable [place], A Eugenia RPA C Unavailable Unavailable [place]lebo[place], A Eugenia RPA C Unavailable Unavailable Charlebois, A Eugenia RPA C Unavailable Unavailable Lopes, Monica PATHOLOGICAL TECHNICIAN Unavailable Unavailable Lopes, Monica PATHOLOGICAL TECHNICIAN Unavailable Unavailable Lopes, Monica PATHOLOGICAL TECHNICIAN Unavailable Unavailable Lopes, Monica PATHOLOGICAL TECHNICIAN Unavailable Unavailable Lopes, Monica PATHOLOGICAL TECHNICIAN Unavailable Unavailable Lopes, Monica PATHOLOGICAL TECHNICIAN Unavailable Unavailable Lopes, Monica PATHOLOGICAL TECHNICIAN Unavailable Unavailable Lopes, Monica PATHOLOGICAL TECHNICIAN Unavailable Unavailable Lopes, Monica PATHOLOGICAL TECHNICIAN Unavailable Unavailable Lopes, Monica PATHOLOGICAL TECHNICIAN Unavailable Unavailable Lopes, Monica PATHOLOGICAL TECHNICIAN Unavailable Unavailable [place], J Jennifer PA Unavailable Unavailable [place], J Jennifer PA Unavailable Unavailable [place], J Jennifer PA Unavailable Unavailable [place], J Jennifer PA Unavailable Unavailable [place], J Jennifer PA Unavailable Unavailable [place], J Jennifer PA Unavailable Unavailable [place], J Jennifer PA Unavailable Unavailable [place], J Jennifer PA Unavailable Unavailable [place], J Jennifer PA Unavailable Unavailable [place], J Jennifer PA Unavailable Unavailable [place], J Jennifer PA Unavailable Unavailable [place], J Jennifer PA Unavailable Unavailable [place], J Jennifer PA Unavailable Unavailable [place], J Jennifer PA Unavailable Unavailable [place], J Jennifer PA Unavailable Unavailable [place], J Jennifer PA Unavailable Unavailable [place], J Jennifer PA Unavailable Unavailable [place], J Jennifer PA Unavailable Unavailable [place], J Jennifer PA Unavailable Unavailable [place], J Jennifer PA Unavailable Unavailable [place], J Jennifer PA Unavailable Unavailable [place], J Jennifer PA Unavailable Unavailable Abhijit, E Abdi Unavailable Unavailable Abhijit, E Abdi Unavailable Unavailable Obradovic, Vladan Unavailable Unavailable Obradovic, Vladan Unavailable Unavailable Obradovic, Vladan Unavailable Unavailable Obradovic, Vladan Unavailable Unavailable Obradovic, Vladan Unavailable Unavailable Obradovic, Vladan Unavailable Unavailable Obradovic, Vladan Unavailable Unavailable Obradovic, Vladan Unavailable Unavailable Obradovic, Vladan Unavailable Unavailable Obradovic, Vladan Unavailable Unavailable Obradovic, Vladan Unavailable Unavailable Obradovic, Vladan Unavailable Unavailable Obradovic, Vladan Unavailable Unavailable Obradovic, Vladan Unavailable Unavailable Obradovic, Vladan Unavailable Unavailable Obradovic, Vladan Unavailable Unavailable Obradovic, Vladan Unavailable Unavailable Obradovic, Vladan Unavailable Unavailable Obradovic, Vladan Unavailable Unavailable Obradovic, Vladan Unavailable Unavailable Obradovic, Vladan Unavailable Unavailable Obradovic, Vladan Unavailable Unavailable Obradovic, Vladan Unavailable Unavailable Obradovic, Vladan Unavailable Unavailable Obradovic, Vladan Unavailable Unavailable Obradovic, Vladan Unavailable Unavailable Obradovic, Vladan Unavailable Unavailable Obradovic, Vladan Unavailable Unavailable Obradovic, Vladan Unavailable Unavailable Obradovic, Vladan Unavailable Unavailable Obradovic, Vladan Unavailable Unavailable Obradovic, Vladan Unavailable Unavailable Obradovic, Vladan Unavailable Unavailable Obradovic, Vladan Unavailable Unavailable Obradovic, Vladan Unavailable Unavailable Obradovic, Vladan Unavailable Unavailable Obradovic, Vladan Unavailable Unavailable Obradovic, Vladan Unavailable Unavailable Obradovic, Vladan Unavailable Unavailable Obradovic, Vladan Unavailable Unavailable Obradovic, Vladan Unavailable Unavailable Obradovic, Vladan Unavailable Unavailable Obradovic, Vladan Unavailable Unavailable Obradovic, Vladan Unavailable Unavailable Obradovic, Vladan Unavailable Unavailable Obradovic, Vladan Unavailable Unavailable Jeffery, L Katherin FIELD GEOLOGIST Unavailable Unavailable Jeffery, L Katherin FIELD GEOLOGIST Unavailable Unavailable Jeffery, L Katherin FIELD GEOLOGIST Unavailable Unavailable Jeffery, L Katherin FIELD GEOLOGIST Unavailable Unavailable Jeffery, L Katherin FIELD GEOLOGIST Unavailable Unavailable [place], L Katherin FIELD GEOLOGIST Unavailable Unavailable [place], L Katherin FIELD GEOLOGIST Unavailable Unavailable Jeffery, L Katherin FIELD GEOLOGIST Unavailable Unavailable [place], L Katherin FIELD GEOLOGIST Unavailable Unavailable Jeffery, L Katherin FIELD GEOLOGIST Unavailable Unavailable [place], L Katherin FIELD GEOLOGIST Unavailable Unavailable Jeffery, L Katherin FIELD GEOLOGIST Unavailable Unavailable [place], L Katherin FIELD GEOLOGIST Unavailable Unavailable Jeffery, L Katherin FIELD GEOLOGIST Unavailable Unavailable Jeffery, L Katherin FIELD GEOLOGIST Unavailable Unavailable [place], L Katherin FIELD GEOLOGIST Unavailable Unavailable Jeffery, L Katherin FIELD GEOLOGIST Unavailable Unavailable Jeffery, L Katherin FIELD GEOLOGIST Unavailable Unavailable Jeffery, L Katherin FIELD GEOLOGIST Unavailable Unavailable [place], L Katherin FIELD GEOLOGIST Unavailable Unavailable [place], L Katherin FIELD GEOLOGIST Unavailable Unavailable [place], L Katherin FIELD GEOLOGIST Unavailable Unavailable [place], L Katherin FIELD GEOLOGIST Unavailable Unavailable Jeffery, L Katherin FIELD GEOLOGIST Unavailable Unavailable Jeffery, L Katherin FIELD GEOLOGIST Unavailable Unavailable Jeffery, L Katherin FIELD GEOLOGIST Unavailable Unavailable [place], L Katherin FIELD GEOLOGIST Unavailable Unavailable Jeffery, L Katherin FIELD GEOLOGIST Unavailable Unavailable Jeffery, L Katherin FIELD GEOLOGIST Unavailable Unavailable Jeffery, L Katherin FIELD GEOLOGIST Unavailable Unavailable Jeffery, L Katherin FIELD GEOLOGIST Unavailable Unavailable [place], L Katherin FIELD GEOLOGIST Unavailable Unavailable Re-disclosure Warning The records that you are about to access may contain information from federally-assisted alcohol or drug abuse programs. If such information is present, then the following federally mandated warning applies: This information has been disclosed to you from records protected by federal confidentiality rules (42 CFR part 2). The federal rules prohibit you from making any further disclosure of this information unless further disclosure is expressly permitted by the written consent of the person to whom it pertains or as otherwise permitted by 42 CFR part 2. A general authorization for the release of medical or other information is NOT sufficient for this purpose. The Federal rules restrict any use of the information to criminally investigate or prosecute any alcohol or drug abuse patient.The records that you are about to access may contain highly sensitive health information, the redisclosure of which is protected by Article 27-F of the [facility] Public Health law. If you continue you may have access to information: Regarding HIV / AIDS; Provided by facilities licensed or operated by the [facility] Office of Mental Health; or Provided by the [facility] Office for People With Developmental Disabilities. If such information is present, then the following [facility] mandated warning applies: This information has been disclosed to you from confidential records which are protected by state law. State law prohibits you from making any further disclosure of this information without the specific written consent of the person to whom it pertains, or as otherwise permitted by law. Any unauthorized further disclosure in violation of state law may result in a fine or correction sentence or both. A general authorization for the release of medical or other information is NOT sufficient authorization for further disc losure. Allergies and Adverse Reactions Type Description Substance Reaction Status Data Source(s ) Drug Allergy Drug Allergy NKDA MEDENT ([facility], [facility]) Family History Family Member Name Family Member Gender Family Member Status Date o f Status Description Data Source(s) Unknown Unknown Problem MEDENT ([facility], [place]) Encounters Encounter Providers Location Date Indications Data Source(s ) [place] [address] [facility] [address] 06/09/2020 12:00:00 AM EST eCW1 ([facility]) [place] [address] [facility] [facility] [address] 06/06/2020 12:00:00 AM EST eCW1 ([facility]) Outpatient Attender: Monica doyle 06/04/2020 03:45:00 PM EST MEDENT ([facility]) Attender: Giovanna Cuellar 1 01:40:00 PM EDT - 03/07/2020 01:40:00 PM EDT [facility] ([facility]) Attender: Giovanna Cuellar 1 10:39:00 AM EDT - 03/04/2020 10:39:00 AM EDT [facility] ([facility]) Attender: Giovanna CASE [place] 03:33:00 PM EDT - 02/22/2020 03:33:00 PM EDT [facility] ([facility]) Outpatient Attender: Eugenia Barraza/Anel/Paul olivas/Aleyda 01/29/2020 02:30:00 PM EDT MEDENT ([facility] [place] Aguilar) Attender: PARDEEP Cuellar 11:57:00 AM EDT - 01/28/2020 11:57:00 AM EDT [facility] ([facility]) Attender: Bria CASE [place] 01/24/2020 10:34:00 AM EDT - 01/24/2020 10:34:00 AM EDT Other ovarian cyst, right side [facility] ([facility]) Other ovarian cyst, right side Attender: Bria CASE [place] 01/22/2020 02:36:00 PM EDT - 01/22/2020 02:36:00 PM EDT [facility] ([facility]) Attender: Giovanna Ibanez 10:12:00 AM EDT - 01/10/2020 10:12:00 AM EDT [facility] ([facility]) Attender: Giovanna Ibanez 10/2019 12:24:00 PM EDT - 01/03/2020 12:24:00 PM EDT [facility] ([facility]) OutpatientOFFICE VISIT, EST Attender: Jennifer wang 12/26/2019 03:00:00 PM EDT - 12/26/2019 03:00:00 PM EDT Acute vaginitisEncounter for oth general cnsl and advice on contraceptionEncounter for screening for human immunodeficiency virusHuman immunodeficiency virus [HIV] counselingOther sex counselingHigh risk heterosexual behaviorEncntr screen for infections w sexl mode of transmiss [facility] ([facility]) Acute vaginitis Encounter for oth general cnsl and advic e on contraception Encounter for screening for human immuno deficiency virus Human immunodeficiency virus [HIV] couns eling Other sex counseling High risk heterosexual behavior Encntr screen for infections w sexl mode of transmiss Outpatient Referrer: Michelle PRECIADO-MOB.PAT 12/22 08:47:25 AM EDT - 12/23/2019 08:47:30 AM EDT [facility] Outpatient Attender: Michelle CarusoAdmitter: Michelle gould [id number] 12/07/2019 09:55:33 AM EDT - 12/28/2019 12:05:00 PM EDT [facility] Patient discharged. Outpatient Referrer: Randall Goins MD 12/03/2019 02:35:17 PM EDT [facility] Outpatient 11/29/2019 05:08:00 AM EDT [facility] Attender: Abdi Nichols er: Michelle CarusoAdmitter: Michelle CarusoReferrer: TORSTEN DOSS [id number] 11/13/2019 09:16:0 1 AM EDT - 11/14/2019 06:12:00 PM EDT [facility] Patient discharged. Unknown [id number] [facility] [address] 11/13/2019 12:00:00 AM EDT eCW1 ([facility]) OutpatientOFFICE VISIT, EST Attender: Jennifer wang 10/26/2019 02:00:00 PM EDT - 10/26/2019 02:00:00 PM EDT Acute vaginitisEncounter for oth general cnsl and advice on contraceptionOther sex counselingHigh risk heterosexual behaviorEncntr screen for infections w sexl mode of transmiss [facility] ([facility]) Acute vaginitis Encounter for oth general cnsl and advic e on contraception Other sex counseling High risk heterosexual behavior Encntr screen for infections w sexl mode of transmiss Outpatient Attender: Katherin RUIZ Main Office 09/26/2019 10:00:0 0 AM EDT MEDENT ([facility] [address] [address] 09/16/2019 12:00:00 AM EDT eCW1 ([facility]) [facility] [address] [address] 08/22/2019 12:00:00 AM EDT eCW1 ([facility]) Attender: Jennifer [place] 11/2019 12:30:00 PM EST - 07/06/2019 12:30:00 PM EST Candidiasis of vulva and vaginaEncounter for oth general cnsl and advice on contraceptionOther sex counseling [facility] ([facility]) Candidiasis of vulva and vagina Encounter for oth general cnsl and advic e on contraception Other sex counseling Attender: Jennifer Ibanez 05/30 02:30:00 PM EST - 06/15/2019 02:30:00 PM EST Tinea corporisAcute vaginitisEncounter f or oth general cnsl and advice on contraceptionOther sex counselingEncntr screen for infections w sexl mode of transmissHigh risk heterosexual behaviorHuman im munodeficiency virus [HIV] counselingEncounter for screening for human immunodeficiency virus [facility] ([facility]) Tinea corporis Acute vaginitis Encounter for oth general cnsl and advic e on contraception Other sex counseling Encntr screen for infections w sexl mode of transmiss High risk heterosexual behavior Human immunodeficiency virus [HIV] couns eling Encounter for screening for human immuno deficiency virus [facility] [address] [address] 04/17/2019 12:00:00 AM EST eCW1 ([facility]) [facility] [place] Attender: Randall Goins MDA dmitter: Randall Goins MDReferrer: Randall Goins [place] [facility] [place] [place] 03/16/2019 11:00:00 AM EDT - 03/16/2019 11:59:00 PM EDT [facility] Patient discharged. Medications Medication Brand Name Start Date Product Form Dose Route Admi nistrative Instructions Pharmacy Instructions Status Indications Reaction Description Data Source(s) 60 mg 05/27/2020 12:00:00 AM EST capsule,biphase delayed releas 30 TAKE ONE CAPSULE BY MOUTH EVERY DAY TAKE ONE CAPSULE BY MOUTH EVERY DAY SOLD: 05/28/2020 [facility] 150 mg 05/08/2020 12:00:00 AM EST tablet 1 TAKE 1 TABLET BY MOUTH ONCE TAKE 1 TABLET BY MOUTH ONCE SOLD: 05/08/2020 [facility] 300 mg 05/08/2020 12:00:00 AM EST capsule 30 TAKE ONE CAPSULE BY MOUTH THREE TIMES A DAY FOR 10 DAYS TAKE ONE CAPSULE BY MOUTH THREE TIMES A DAY FOR 10 DAYS SOLD: 05/08/2020 [facility] 50 mcg (2,000 unit) 03/18/2020 12:00:00 AM EDT tablet 30 TAKE ONE TABLET BY MOUTH EVERY DAY TAKE ONE TABLET BY MOUTH EVERY DAY SOLD: 05/28/2020 [facility] 50 mcg (2,000 unit) 03/18/2020 12:00:00 AM EDT tablet 30 TAKE ONE TABLET BY MOUTH EVERY DAY TAKE ONE TABLET BY MOUTH EVERY DAY SOLD: 04/29/2020 [facility] 50 mcg (2,000 unit) 03/18/2020 12:00:00 AM EDT tablet 30 TAKE ONE TABLET BY MOUTH EVERY DAY TAKE ONE TABLET BY MOUTH EVERY DAY SOLD: 03/24/2020 [facility] Escitalopram 20 MG Oral Tablet ESCITALOPRAM OXALATE 02/15/2020 1 2:00:00 AM EDT tablet 30 TAKE ONE TABLET BY MOUTH EVERY D AY TAKE ONE TABLET BY MOUTH EVERY DAY SOLD: 04/29/2020 [facility] Escitalopram 20 MG Oral Tablet ESCITALOPRAM OXALATE 02/15/2020 1 2:00:00 AM EDT tablet 30 TAKE ONE TABLET BY MOUTH EVERY D AY TAKE ONE TABLET BY MOUTH EVERY DAY SOLD: 03/24/2020 [facility] Escitalopram 20 MG Oral Tablet ESCITALOPRAM OXALATE 02/15/2020 1 2:00:00 AM EDT tablet 30 TAKE ONE TABLET BY MOUTH EVERY D AY TAKE ONE TABLET BY MOUTH EVERY DAY SOLD: 05/28/2020 [facility] Escitalopram 20 MG Oral Tablet ESCITALOPRAM OXALATE 02/15/2020 1 2:00:00 AM EDT tablet 30 TAKE ONE TABLET BY MOUTH EVERY D AY TAKE ONE TABLET BY MOUTH EVERY DAY SOLD: 02/18/2020 [facility] 100 mg 02/02/2020 12:00:00 AM EDT tablet 10 TAKE TWO TABLETS BY MOUTH ON THE FIRST DAY THEN 1 TABLET DAILY TAKE TWO TABLETS BY MOUTH ON THE FIRST D AY THEN 1 TABLET DAILY SOLD: 02/02/2020 [facility] 300 mg 02/02/2020 12:00:00 AM EDT capsule 28 TAKE ONE CAPSULE BY MOUTH EVERY 6 HOURS TAKE ONE CAPSULE BY MOUTH EVERY 6 HOURS SOLD: 02/02/2020 [facility] Suprep Bowel Prep Kit Suprep Bowel Prep Kit 01/29/2020 12:00:00 AM EDT active MEDENT ([facility]) 150 mg 12/31/2019 12:00:00 AM EDT tablet 2 TAKE 1 TABLET BY MOUTH ONE TIME TAKE 1 TABLET BY MOUTH ONE TIME SOLD: 12/31/2019 [facility] 250 mg 12/31/2019 12:00:00 AM EDT tablet 6 TAKE TWO TABLETS BY MOUTH AT ONCE ON THE FIRST DAY THEN TAKE ONE DAILY THEREAFTER TAKE TWO TABLETS BY MOUTH AT ONCE ON THE FIRST DAY THEN TAKE ONE DAILY THEREAFTER SOLD: 12/31/2019 [facility] Magnesium Chloride 0.04501 MEQ/ML / Pota ssium Chloride 0.0497 MEQ/ML / Sodium Acetate 0.0163 MEQ/ML / Sodium Chloride 0.0899 MEQ/ML / Sodium gluconate 5.02 MG/ML Injectable Solution [Normosol-R] electrolyte-R (NORMOSOL-R/PLASMALYTE-R) solution electrolyte-R (NORMOSOL-R/PLASMALYTE-R) solution 12/27 11:00:00 AM EDT Intravenous active at 1 00 mL/hr, Intravenous, Continuous, Starting Tue12/28/19 at 1100, Pre-op [facility] Medication administered onsite 150 mg 12/26/2019 12:00:00 AM EDT tablet 2 TAKE 1 TABLET BY MOUTH TIMES 1 , THEN 1 TAB. IN 2-3 DAYS TAKE 1 TABLET BY MOUTH TIMES 1 , THEN 1 TAB. IN 2-3 DAYS SOLD: 12/28/2019 [facility] Fluconazole 150 MG Oral Tablet fluconazole 150 mg tabl et fluconazole 150 mg tablet 12/26/2019 12:00:00 AM EDT active 1 po x 1, then 1 po in 2- 3 days [facility] ([facility]) Metronidazole 0.0075 MG/MG Vaginal Gel [MetroGel] Metr ogel Vaginal 0.75 % Metrogel Vaginal 0.75 % 12/26/2019 12:00:00 AM EDT active Metronidazole 0.0075 MG/MG Vaginal Gel [MetroGel] [facility] ([facility]) 0.75 % 12/26/2019 12:00:00 AM EDT gel 70 USE 1 APPLICATORFUL INTRAVAGINAL AT BEDTIME FOR 5 DAYS USE 1 APPLICATORFUL INTRAVAGINAL AT BEDTIME FOR 5 DAYS SOLD: 12/28/2019 [facility] 60 mg 12/03/2019 12:00:00 AM EDT capsule,biphase delayed releas 30 TAKE ONE CAPSULE BY MOUTH EVERY DAY TAKE ONE CAPSULE BY MOUTH EVERY DAY SOLD: 12/31/2019 [facility] 60 mg 12/03/2019 12:00:00 AM EDT capsule,biphase delayed releas 30 TAKE ONE CAPSULE BY MOUTH EVERY DAY TAKE ONE CAPSULE BY MOUTH EVERY DAY SOLD: 01/29/2020 [facility] 60 mg 12/03/2019 12:00:00 AM EDT capsule,biphase delayed releas 30 TAKE ONE CAPSULE BY MOUTH EVERY DAY TAKE ONE CAPSULE BY MOUTH EVERY DAY SOLD: 03/30/2020 [facility] 60 mg 12/03/2019 12:00:00 AM EDT capsule,biphase delayed releas 30 TAKE ONE CAPSULE BY MOUTH EVERY DAY TAKE ONE CAPSULE BY MOUTH EVERY DAY SOLD: 02/29/2020 [facility] 1 gram 12/03/2019 12:00:00 AM EDT tablet 120 TAKE ONE TABLET BY MOUTH FOUR TIMES A DAY FOR 1 HOUR BEFORE MEALS AND AT BEDTIME ON AN EMPTY STOMACH TAKE ONE TABLET BY MOUTH FOUR TIMES A DAY FOR 1 HOUR BEFORE MEALS AND AT BEDTIME ON AN EMPTY STOMACH SOLD: 12/03/2019 [facility] 1 gram 12/03/2019 12:00:00 AM EDT tablet 120 TAKE ONE TABLET BY MOUTH FOUR TIMES A DAY FOR 1 HOUR BEFORE MEALS AND AT BEDTIME ON AN EMPTY STOMACH TAKE ONE TABLET BY MOUTH FOUR TIMES A DAY FOR 1 HOUR BEFORE MEALS AND AT BEDTIME ON AN EMPTY STOMACH SOLD: 01/29/2020 [facility] 60 mg 12/03/2019 12:00:00 AM EDT capsule,biphase delayed releas 30 TAKE ONE CAPSULE BY MOUTH EVERY DAY TAKE ONE CAPSULE BY MOUTH EVERY DAY SOLD: 12/03/2019 [facility] 60 mg 12/03/2019 12:00:00 AM EDT capsule,biphase delayed releas 30 TAKE ONE CAPSULE BY MOUTH EVERY DAY TAKE ONE CAPSULE BY MOUTH EVERY DAY SOLD: 04/29/2020 [facility] 1 gram 12/03/2019 12:00:00 AM EDT tablet 120 TAKE ONE TABLET BY MOUTH FOUR TIMES A DAY FOR 1 HOUR BEFORE MEALS AND AT BEDTIME ON AN EMPTY STOMACH TAKE ONE TABLET BY MOUTH FOUR TIMES A DAY FOR 1 HOUR BEFORE MEALS AND AT BEDTIME ON AN EMPTY STOMACH SOLD: 12/31/2019 [facility] Lidocaine 5 % Lidocaine 5 % 11/27/2019 12:00:00 AM EDT active Lidocaine 5 % eCW1 ([facility]) Lidocaine 5 % Lidocaine 5 % 11/27/2019 12:00:00 AM EDT active Lidocaine 5 % eCW1 ([facility]) 150 mg 11/23/2019 12:00:00 AM EDT tablet 1 TAKE 1 TABLET BY MOUTH ONCE TAKE 1 TABLET BY MOUTH ONCE SOLD: 11/23/2019 [facility] 100 mg 11/23/2019 12:00:00 AM EDT capsule 10 TAKE ONE CAPSULE BY MOUTH EVERY 12 HOURS FOR 5 DAYS WITH FOOD TAKE ONE CAPSULE BY MOUTH EVERY 12 HOURS FOR 5 DAYS WITH FOOD SOLD: 11/23/2019 [facility] 4 mg 11/23/2019 12:00:00 AM EDT tablet,disintegrating 2 0 DISSOLVE ONE TABLET ON TONGUE EVERY 6 HOURS NEEDED DISSOLVE ONE TABLET ON TONGUE EVERY 6 HO URS NEEDED SOLD: 11/23/2019 [facility] Fluconazole 150 MG Oral Tablet fluconazole (DIFLUCAN) tablet 150 mg fluconazole (DIFLUCAN) tablet 150 mg 11/14/2019 04:00:00 PM EDT 150 mg Oral completed Vulvovaginal Candidiasis 150 mg, Oral, Once, Indicati ons: Vulvovaginal Candidiasis, Tue11/14/19 at 1600, For 1 dose
For administration and preparation considerations, refer to Hazardous Drugs in the Workplace Policy on Intranet.
[facility] Vulvovaginal Candidiasis Medication administered onsite Diphenhydramine Hydrochloride 25 MG Oral Capsule diphenhydrAMINE (BENADRYL) capsule 25 mg diphenhydrAMINE (BENADRYL) capsule 25 mg 11/14/2019 11 :00:00 AM EDT 25 mg Oral completed 25 mg, Oral, Once, Tue11/14/19 at 1100, For 1 dose [facility] Medication administered onsite phenol 14 MG/ML Mouthwash phenol (CHLORASEPTIC) 1.4 % spray 1-2 spray phenol (CHLORASEPTIC) 1.4 % spray 1-2 spray 11/14/2019 10:32:27 AM EDT Oral active 1-2 spray, Oral, Marilyn ry 2 hour PRN, sore throat, Starting Tue11/14/19 at 1032 [facility] Medication administered onsite cetirizine hydrochloride 10 MG Oral Tablet cetirizine (ZyrTEC) tablet 10 mg cetirizine (ZyrTEC) tablet 10 mg 11/14/2019 09:00:00 AM EDT 10 mg Oral active 10 mg, Oral, Daily, First dose o n Tue11/14/19 at 0900 [facility] Medication administered onsite Acetaminophen 500 MG Oral Tablet acetaminophen (TYLENO L) tablet 1,000 mg acetaminophen (TYLENOL) tablet 1,000 mg 11/14/2019 12:00:00 AM EDT 1000 mg Oral active 1,000 mg, Oral , Every 6 hours, First dose on Tue11/14/19 at 0000
"Maximum dose of acetaminophen is 4,000 mg from all sources in 24 hours."
[facility] Medication administered onsite Acetaminophen 325 MG / Oxycodone Hydroch loride 5 MG Oral Tablet oxyCODONE- acetaminophen (PERCOCET) 5-325 MG per tablet oxyCODONE-acetaminophen (PERCOCET) 5-325 MG per tablet 11/14/2019 12:00:00 AM EDT 1 {tbl} Oral active Take 1 tablet by mouth every 6 (six) hours as needed Max Daily Amount: 4 tablets [facility] 5-325 mg 11/14/2019 12:00:00 AM EDT tablet 12 TAKE ONE TABLET BY MOUTH EVERY 6 HOURS NEEDED MAXIMUM DAILY DOSE = 4 TABLETS TAKE ONE TABLET BY MOUTH EVERY 6 HOURS NEEDED MAXIMUM DAILY DOSE = 4 TABLETS SOLD: 11/14/2019 [facility] normal saline flush 0.9 % injection 3 mL [id number] 11/13/2019 10:00:00 PM EDT 3 mL Intravenous active 3 mL , Intravenous, PROTOCOL, First dose on Tue11/13/19 at 2200, Post-op
flush per protocol, D/C Main IV fluid if appropriate
[facility] Medication administered onsite ondansetron (ZOFRAN) injection 4 mg [id number] 11/13/2019 08:18:4 6 PM EDT 4 mg Intravenous active 4 mg, In travenous, Every 6 hours PRN, nausea, vomiting, Starting Tue11/13/19 at 2018, Post-op [facility] Medication administered onsite heparin (porcine) injection 5,000 Units [id number] 11/13/19 02:00:00 PM EDT 5000 U Subcutaneous active 5,000 Units , Subcutaneous, Every 8 hours (scheduled), First dose on Tue11/13/19 at 1400
If platelet count is less than 100,000 or hematocrit is less than 25, or if there is a 5 point decrease in hematocrit, do not give the dose and call physician/designee.
[facility] Medication administered onsite Famotidine (PEPCID) injection 20 mg [id number] 11/13/2019 12:10:0 0 PM EDT 20 mg completed 20 mg, Int ravenous Push, Once, Tue11/13/19 at 1210, For 1 dose
Refrigerated only product.Located in med refrigerator on unit.Dilute with sodium chloride 0.9% to equal 10 ml. Administration Rate = 20mg/2 minutes
[facility] Medication administered onsite 200 ML Ciprofloxacin 2 MG/ML Injection ciprofloxacin ( CIPRO) IVPB 400 mg ciprofloxacin (CIPRO) IVPB 400 mg 11/13/2019 11:00:00 AM EDT 400 mg Intravenous aborted Intra-Abdominal Infection 400 mg, Intravenous, Administer over 60 Minutes, Every 12 hours (relative), First dose on Tue11/13/19 at 1100 [facility] Intra-Abdominal Infection Medication administered onsite Metronidazole 5 MG/ML Injectable Solution metroNIDAZOL E (FLAGYL) IVPB 500 mg metroNIDAZOLE (FLAGYL) IVPB 500 mg 11/13/2019 11:00:00 AM EDT 50 0 mg Intravenous aborted Intra-Abdominal Infection 500 mg, Intravenous, Administer over 60 Minutes, Every 8 hours (relative), First dose on Tue11/13/19 at 1100 [facility] Intra-Abdominal Infection Medication administered onsite sodium chloride 0.9 % 1,000 mL with mult iple vitamin 10 mL, thiamine 100 mg, folic acid 1 mg infusion 11/13/2019 11:00:00 AM EDT Intr avenous completed at 150 mL/hr, Intravenous, Once, Tue11/13/19 at 1100, For 1 dose [facility] Medication administered onsite Calcium Chloride 0.001 MEQ/ML / Glucose 50 MG/ML / Potassium Chloride 0.004 MEQ/ML / Sodium Chloride 0.103 MEQ/ML / Sodium Lactate 0.028 MEQ/ML Injectable Solution dextrose 5 % in lactated ringers infusion dextrose 5 % in lactated ringers infusion 11/13/2019 11:00:00 AM EDT 150 mL/h Intravenous active at 150 mL/hr, 150 mL/hr, Intravenous, Co ntinuous, Starting Tue11/13/19 at 1100 [facility] Medication administered onsite pantoprazole 40 MG Delayed Release Oral Tablet pantoprazole (PROTONIX) EC tablet 40 mg pantoprazole (PROTONIX) EC tablet 40 mg 11/13/2019 11:00:00 AM E DT 40 mg Oral active Stress Ulcer Prophylaxis 40 mg, Oral, Daily, Indications: Stress Ulcer Prophylaxis, First dose on Tue11/13/19 at 1100 [facility] Stress Ulcer Prophylaxis Medication administered onsite lactated ringers bolus 1,000 mL [id number] 11/13/2019 11:00:00 AM EDT 1000 mL Intravenous completed 1,000 mL , Intravenous, Administer over 2 Hours, Once, Tue11/13/19 at 1100, For 1 dose [facility] Medication administered onsite Acetaminophen 325 MG / Oxycodone Hydroch loride 5 MG Oral Tablet oxyCODONE- acetaminophen (PERCOCET) 5-325 MG 1 tablet oxyCODONE-acetaminophen (PERCOCET) 5- 325 MG 1 tablet 11/13/2019 10:44:09 AM EDT 1 {tbl} Oral a ctive 1 tablet, Oral, Every 4 hours PRN, moderate pain (4-6), Starting Tue11/13/19 at 1044, For 7 days [facility] Medication administered onsite ondansetron (ZOFRAN) injection 4 mg [id number] 11/13/2019 10:44:0 9 AM EDT 4 mg Intravenous aborted 4 mg, In travenous, Every 4 hours PRN, nausea, vomiting, Starting Tue11/13/19 at 1044 [facility] Medication administered onsite HYDROmorphone (DILAUDID) injection 1 mg [id number] 11/13/19 20 10:44:08 AM EDT 1 mg Intravenous aborted 1 mg, Intrav enous, Every 3 hours PRN, severe pain (7-10), Starting Tue11/13/19 at 1044, For 7 days [facility] Medication administered onsite diphenhydrAMINE (BENADRYL) injection 25 mg [id number] 11/13/2019 10:15:00 AM EDT 25 mg completed 25 mg, Intravenous Push, Once, Tue11/13/19 at 1015, For 1 dose [facility] Medication administered onsite ondansetron (ZOFRAN) injection 4 mg [id number] 11/13/2019 10:15:0 0 AM EDT 4 mg completed 4 mg, Intr avenous Push, Once, 11/13/19 at 1015, For 1 dose [facility] Medication administered onsite Morphine Sulfate (PF) injection 4 mg [id number] 11/13/2019 10:15: 00 AM EDT 4 mg Intravenous completed 4 mg, In travenous, Once, Tue11/13/19 at 1015, For 1 dose [facility] Medication administered onsite 750 mg 11/12/2019 12:00:00 AM EDT tablet 7 TAKE ONE TABLET BY MOUTH EVERY DAY FOR 7 DAYS TAKE ONE TABLET BY MOUTH EVERY DAY FOR 7 DAYS SOLD: 11/12/2019 [facility] Fluconazole 150 MG Oral Tablet fluconazole 150 mg tabl et fluconazole 150 mg tablet 10/26/2019 12:00:00 AM EDT active 1 po x 1, then 1 po in 2- 3 days [facility] ([facility]) 150 mg 10/26/2019 12:00:00 AM EDT tablet 2 TAKE ONE TABLET BY MOUTH ONCE THEN TAKE ANOTHER TABLET IN 2-3 DAYS TAKE ONE TABLET BY MOUTH ONCE THEN TAKE ANOTHER TABLET IN 2-3 DAYS SOLD: 10/26/2019 [facility] Metronidazole 0.0075 MG/MG Vaginal Gel [MetroGel] Metr ogel Vaginal 0.75 % Metrogel Vaginal 0.75 % 10/26/2019 12:00:00 AM EDT active Metronidazole 0.0075 MG/MG Vaginal Gel [MetroGel] [facility] ([facility]) 0.75 % 10/26/2019 12:00:00 AM EDT gel 70 INSERT ONE APPLICATORFUL VAGINALLY AT BEDTIME FOR 5 DAYS INSERT ONE APPLICATORFUL VAGINALLY AT BEDTIME FOR 5 DA YS SOLD: 10/26/2019 [facility] Escitalopram 20 MG Oral Tablet ESCITALOPRAM OXALATE 09/28/2019 1 2:00:00 AM EDT tablet 30 TAKE ONE TABLET BY MOUTH EVERY D AY TAKE ONE TABLET BY MOUTH EVERY DAY SOLD: 12/13/2019 [facility] Escitalopram 20 MG Oral Tablet ESCITALOPRAM OXALATE 09/28/2019 1 2:00:00 AM EDT tablet 30 TAKE ONE TABLET BY MOUTH EVERY D AY TAKE ONE TABLET BY MOUTH EVERY DAY SOLD: 10/03/2019 [facility] Escitalopram 20 MG Oral Tablet ESCITALOPRAM OXALATE 09/28/2019 1 2:00:00 AM EDT tablet 30 TAKE ONE TABLET BY MOUTH EVERY D AY TAKE ONE TABLET BY MOUTH EVERY DAY SOLD: 01/17/2020 [facility] Escitalopram 20 MG Oral Tablet ESCITALOPRAM OXALATE 09/28/2019 1 2:00:00 AM EDT tablet 30 TAKE ONE TABLET BY MOUTH EVERY D AY TAKE ONE TABLET BY MOUTH EVERY DAY SOLD: 11/07/2019 [facility] 137 mcg (0.1 %) 09/26/2019 12:00:00 AM EDT aerosol,spray 30 USE 2 SPRAYS IN EACH NOSTRIL ONCE DAILY IN THE MORNING USE 2 SPRAYS IN EACH NOSTRIL ONCE DAILY IN THE MORNING SOLD: 01/29/2020 [facility] 137 mcg (0.1 %) 09/26/2019 12:00:00 AM EDT aerosol,spray 30 USE 2 SPRAYS IN EACH NOSTRIL ONCE DAILY IN THE MORNING USE 2 SPRAYS IN EACH NOSTRIL ONCE DAILY IN THE MORNING SOLD: 12/28/2019 [facility] 50 mcg/actuation 09/26/2019 12:00:00 AM EDT spray,suspension 16 USE 2 SPRAYS IN EACH NOSTRIL ONCE DAILY IN THE EVENING USE 2 SPRAYS IN EACH NOSTRIL ONCE DAILY IN THE EVENING SOLD: 04/29/2020 [facility] montelukast 10 MG Oral Tablet MONTELUKAST SODIUM 09/26/2019 12:0 0:00 AM EDT tablet 30 TAKE 1 TABLET BY MOUTH ONCE LENI Y IN THE EVENING TAKE 1 TABLET BY MOUTH ONCE DAILY IN THE EVENING SOLD: 09/26/2019 [facility] 5 mg 09/26/2019 12:00:00 AM EDT tablet 30 TAKE ONE TABLET BY MOUTH AT BEDTIME TAKE ONE TABLET BY MOUTH AT BEDTIME SOLD: 02/29/2020 [facility] levocetirizine dihydrochloride 5 MG Oral Tablet LEVOCETIRIZI NE DIHYDROCHLORIDE 09/26/2019 12:00:00 AM EDT tablet 30 TAKE ONE TABLE T BY MOUTH AT BEDTIME TAKE ONE TABLET BY MOUTH AT BEDTIME SOLD: 12/28/2019 [facility] montelukast 10 MG Oral Tablet MONTELUKAST SODIUM 09/26/2019 12:0 0:00 AM EDT tablet 30 TAKE 1 TABLET BY MOUTH ONCE LENI Y IN THE EVENING TAKE 1 TABLET BY MOUTH ONCE DAILY IN THE EVENING SOLD: 10/23/2019 [facility] montelukast 10 MG Oral Tablet MONTELUKAST SODIUM 09/26/2019 12:0 0:00 AM EDT tablet 30 TAKE 1 TABLET BY MOUTH ONCE LENI Y IN THE EVENING TAKE 1 TABLET BY MOUTH ONCE DAILY IN THE EVENING SOLD: 03/24/2020 [facility] montelukast 10 MG Oral Tablet MONTELUKAST SODIUM 09/26/2019 12:0 0:00 AM EDT tablet 30 TAKE 1 TABLET BY MOUTH ONCE LENI Y IN THE EVENING TAKE 1 TABLET BY MOUTH ONCE DAILY IN THE EVENING SOLD: 05/28/2020 [facility] 5 mg 09/26/2019 12:00:00 AM EDT tablet 30 TAKE ONE TABLET BY MOUTH AT BEDTIME TAKE ONE TABLET BY MOUTH AT BEDTIME SOLD: 03/30/2020 [facility] montelukast 10 MG Oral Tablet MONTELUKAST SODIUM 09/26/2019 12:0 0:00 AM EDT tablet 30 TAKE 1 TABLET BY MOUTH ONCE LENI Y IN THE EVENING TAKE 1 TABLET BY MOUTH ONCE DAILY IN THE EVENING SOLD: 04/29/2020 [facility] montelukast 10 MG Oral Tablet MONTELUKAST SODIUM 09/26/2019 12:0 0:00 AM EDT tablet 30 TAKE 1 TABLET BY MOUTH ONCE LENI Y IN THE EVENING TAKE 1 TABLET BY MOUTH ONCE DAILY IN THE EVENING SOLD: 12/28/2019 [facility] levocetirizine dihydrochloride 5 MG Oral Tablet LEVOCETIRIZI NE DIHYDROCHLORIDE 09/26/2019 12:00:00 AM EDT tablet 30 TAKE ONE TABLE T BY MOUTH AT BEDTIME TAKE ONE TABLET BY MOUTH AT BEDTIME SOLD: 10/23/2019 [facility] montelukast 10 MG Oral Tablet MONTELUKAST SODIUM 09/26/2019 12:0 0:00 AM EDT tablet 30 TAKE 1 TABLET BY MOUTH ONCE LENI Y IN THE EVENING TAKE 1 TABLET BY MOUTH ONCE DAILY IN THE EVENING SOLD: 02/29/2020 [facility] 50 mcg/actuation 09/26/2019 12:00:00 AM EDT spray,suspension 16 USE 2 SPRAYS IN EACH NOSTRIL ONCE DAILY IN THE EVENING USE 2 SPRAYS IN EACH NOSTRIL ONCE DAILY IN THE EVENING SOLD: 01/29/2020 [facility] 50 mcg/actuation 09/26/2019 12:00:00 AM EDT spray,suspension 16 USE 2 SPRAYS IN EACH NOSTRIL ONCE DAILY IN THE EVENING USE 2 SPRAYS IN EACH NOSTRIL ONCE DAILY IN THE EVENING SOLD: 05/28/2020 [facility] 50 mcg/actuation 09/26/2019 12:00:00 AM EDT spray,suspension 16 USE 2 SPRAYS IN EACH NOSTRIL ONCE DAILY IN THE EVENING USE 2 SPRAYS IN EACH NOSTRIL ONCE DAILY IN THE EVENING SOLD: 03/30/2020 [facility] 50 mcg/actuation 09/26/2019 12:00:00 AM EDT spray,suspension 16 USE 2 SPRAYS IN EACH NOSTRIL ONCE DAILY IN THE EVENING USE 2 SPRAYS IN EACH NOSTRIL ONCE DAILY IN THE EVENING SOLD: 09/26/2019 [facility] montelukast 10 MG Oral Tablet MONTELUKAST SODIUM 09/26/2019 12:0 0:00 AM EDT tablet 30 TAKE 1 TABLET BY MOUTH ONCE LENI Y IN THE EVENING TAKE 1 TABLET BY MOUTH ONCE DAILY IN THE EVENING SOLD: 01/29/2020 [facility] montelukast 10 MG Oral Tablet MONTELUKAST SODIUM 09/26/2019 12:0 0:00 AM EDT tablet 30 TAKE 1 TABLET BY MOUTH ONCE LENI Y IN THE EVENING TAKE 1 TABLET BY MOUTH ONCE DAILY IN THE EVENING SOLD: 11/21/2019 [facility] 5 mg 09/26/2019 12:00:00 AM EDT tablet 30 TAKE ONE TABLET BY MOUTH AT BEDTIME TAKE ONE TABLET BY MOUTH AT BEDTIME SOLD: 05/28/2020 [facility] 5 mg 09/26/2019 12:00:00 AM EDT tablet 30 TAKE ONE TABLET BY MOUTH AT BEDTIME TAKE ONE TABLET BY MOUTH AT BEDTIME SOLD: 04/29/2020 [facility] 5 mg 09/26/2019 12:00:00 AM EDT tablet 30 TAKE ONE TABLET BY MOUTH AT BEDTIME TAKE ONE TABLET BY MOUTH AT BEDTIME SOLD: 01/29/2020 [facility] 50 mcg/actuation 09/26/2019 12:00:00 AM EDT spray,suspension 16 USE 2 SPRAYS IN EACH NOSTRIL ONCE DAILY IN THE EVENING USE 2 SPRAYS IN EACH NOSTRIL ONCE DAILY IN THE EVENING SOLD: 11/21/2019 [facility] 90 mcg/actuation 09/26/2019 12:00:00 AM EDT HFA aerosol inha ler 18 USE 2 PUFFS BY MOUTH EVERY 4 TO 6 HOURS NEEDED FOR COUGHING AND WHEEZING USE 2 PUFFS BY MOUTH EVERY 4 TO 6 HOURS NEEDED FOR COUGHING AND WHEEZING SOLD: 09/26/2019 [facility] 50 mcg/actuation 09/26/2019 12:00:00 AM EDT spray,suspension 16 USE 2 SPRAYS IN EACH NOSTRIL ONCE DAILY IN THE EVENING USE 2 SPRAYS IN EACH NOSTRIL ONCE DAILY IN THE EVENING SOLD: 10/23/2019 [facility] 50 mcg/actuation 09/26/2019 12:00:00 AM EDT spray,suspension 16 USE 2 SPRAYS IN EACH NOSTRIL ONCE DAILY IN THE EVENING USE 2 SPRAYS IN EACH NOSTRIL ONCE DAILY IN THE EVENING SOLD: 12/28/2019 [facility] 137 mcg (0.1 %) 09/26/2019 12:00:00 AM EDT aerosol,spray 30 USE 2 SPRAYS IN EACH NOSTRIL ONCE DAILY IN THE MORNING USE 2 SPRAYS IN EACH NOSTRIL ONCE DAILY IN THE MORNING SOLD: 11/26/2019 [facility] levocetirizine dihydrochloride 5 MG Oral Tablet LEVOCETIRIZI NE DIHYDROCHLORIDE 09/26/2019 12:00:00 AM EDT tablet 30 TAKE ONE TABLE T BY MOUTH AT BEDTIME TAKE ONE TABLET BY MOUTH AT BEDTIME SOLD: 11/21/2019 [facility] 137 mcg (0.1 %) 09/26/2019 12:00:00 AM EDT aerosol,spray 30 USE 2 SPRAYS IN EACH NOSTRIL ONCE DAILY IN THE MORNING USE 2 SPRAYS IN EACH NOSTRIL ONCE DAILY IN THE MORNING SOLD: 09/26/2019 [facility] levocetirizine dihydrochloride 5 MG Oral Tablet LEVOCETIRIZI NE DIHYDROCHLORIDE 09/26/2019 12:00:00 AM EDT tablet 30 TAKE ONE TABLE T BY MOUTH AT BEDTIME TAKE ONE TABLET BY MOUTH AT BEDTIME SOLD: 09/26/2019 [facility] 50 mcg/actuation 09/26/2019 12:00:00 AM EDT spray,suspension 16 USE 2 SPRAYS IN EACH NOSTRIL ONCE DAILY IN THE EVENING USE 2 SPRAYS IN EACH NOSTRIL ONCE DAILY IN THE EVENING SOLD: 02/29/2020 [facility] 137 mcg (0.1 %) 09/26/2019 12:00:00 AM EDT aerosol,spray 30 USE 2 SPRAYS IN EACH NOSTRIL ONCE DAILY IN THE MORNING USE 2 SPRAYS IN EACH NOSTRIL ONCE DAILY IN THE MORNING SOLD: 10/26/2019 [facility] Fluconazole 150 MG Oral Tablet [Diflucan] Diflucan 150 MG Di flucan 150 MG 09/17/2019 12:00:00 AM EDT 1.0 {tablet} active Diflucan 150 MG eCW1 ([facility]) Fluconazole 150 MG Oral Tablet [Diflucan] Diflucan 150 MG Di flucan 150 MG 09/17/2019 12:00:00 AM EDT active 1 tablet eCW1 ([facility]) 150 mg 09/17/2019 12:00:00 AM EDT tablet 2 TAKE 1 TABLET BY MOUTH ONCE NOW THEN REPEAT IN 3 DAYS IF NEEDED TAKE 1 TABLET BY MOUTH ONCE NOW THEN REP EAT IN 3 DAYS IF NEEDED SOLD: 09/17/2019 [facility] 50 mcg (2,000 unit) 08/24/2019 12:00:00 AM EDT tablet 30 TAKE 1 TABLET BY MOUTH ONCE DAILY TAKE 1 TABLET BY MOUTH ONCE DAILY SOLD: 02/18/2020 [facility] 50 mcg (2,000 unit) 08/24/2019 12:00:00 AM EDT tablet 30 TAKE 1 TABLET BY MOUTH ONCE DAILY TAKE 1 TABLET BY MOUTH ONCE DAILY SOLD: 12/13/2019 [facility] 50 mcg (2,000 unit) 08/24/2019 12:00:00 AM EDT tablet 30 TAKE 1 TABLET BY MOUTH ONCE DAILY TAKE 1 TABLET BY MOUTH ONCE DAILY SOLD: 09/01/2019 [facility] 50 mcg (2,000 unit) 08/24/2019 12:00:00 AM EDT tablet 30 TAKE 1 TABLET BY MOUTH ONCE DAILY TAKE 1 TABLET BY MOUTH ONCE DAILY SOLD: 10/03/2019 [facility] 50 mcg (2,000 unit) 08/24/2019 12:00:00 AM EDT tablet 30 TAKE 1 TABLET BY MOUTH ONCE DAILY TAKE 1 TABLET BY MOUTH ONCE DAILY SOLD: 01/17/2020 [facility] 50 mcg (2,000 unit) 08/24/2019 12:00:00 AM EDT tablet 30 TAKE 1 TABLET BY MOUTH ONCE DAILY TAKE 1 TABLET BY MOUTH ONCE DAILY SOLD: 11/07/2019 [facility] levocetirizine dihydrochloride 5 MG Oral Tablet LEVOCETIRIZI NE DIHYDROCHLORIDE 08/23/2019 12:00:00 AM EDT tablet 30 TAKE ONE TABLE T BY MOUTH AT BEDTIME TAKE ONE TABLET BY MOUTH AT BEDTIME SOLD: 08/23/2019 [facility] montelukast 10 MG Oral Tablet MONTELUKAST SODIUM 08/23/2019 12:0 0:00 AM EDT tablet 30 TAKE ONE TABLET BY MOUTH EVERY E VENING TAKE ONE TABLET BY MOUTH EVERY EVENING SOLD: 08/23/2019 [facility] 4 mg 08/17/2019 12:00:00 AM EDT tablet 20 TAKE 1 TABLET BY MOUTH 6 TIMES A DAY NEEDED NAUSEA TAKE 1 TABLET BY MOUTH 6 TIMES A DAY NEEDED NAUSEA SOLD: 08/23/2019 [facility] 250 mg 07/18/2019 12:00:00 AM EST tablet 6 TAKE TWO TABLETS BY MOUTH AT ONCE ON THE FIRST DAY THEN TAKE ONE DAILY THEREAFTER TAKE TWO TABLETS BY MOUTH AT ONCE ON THE FIRST DAY THEN TAKE ONE DAILY THEREAFTER SOLD: 07/18/2019 [facility] 250 mg 07/18/2019 12:00:00 AM EST tablet 6 TAKE TWO TABLETS BY MOUTH AT ONCE ON THE FIRST DAY THEN TAKE ONE DAILY THEREAFTER TAKE TWO TABLETS BY MOUTH AT ONCE ON THE FIRST DAY THEN TAKE ONE DAILY THEREAFTER SOLD: 08/04/2019 [facility] 150 mg 07/18/2019 12:00:00 AM EST tablet 2 TAKE ONE TABLET BY MOUTH THEN TAKE THE SECOND AFTER 2 DAYS TAKE ONE TABLET BY MOUTH THEN TAKE THE S ECOND AFTER 2 DAYS SOLD: 07/18/2019 [facility] 150 mg 07/06/2019 12:00:00 AM EST tablet 2 TAKE ONE TABLET BY MOUTH ONCE NOW, THEN 1 TABLET IN 2-3 DAYS TAKE ONE TABLET BY MOUTH ONCE NOW, THEN 1 TABLET IN 2-3 DAYS SOLD: 07/08/2019 [facility] 150 mg 06/27/2019 12:00:00 AM EST tablet 1 TAKE ONE TABLET BY MOUTH TODAY TAKE ONE TABLET BY MOUTH TODAY SOLD: 06/27/2019 [facility] 0.75 % 06/16/2019 12:00:00 AM EST gel 70 APPLY 1 APPLICATOR VAGINALLY AT BEDTIME FOR 5 DAYS APPLY 1 APPLICATOR VAGINALLY AT BEDTIME FOR 5 DAYS BERNARDINO [facility] 1 % 06/15/2019 12:00:00 AM EST cream 30 APPLY TOPICALLY EVERYDAY TO AFFECTED AREA AND SURROUNDING AREAS OF SKIN UNTIL RESOLVED APPLY TOPICALLY EVERYDAY TO AFFECTED AREA AND SURROUNDING AREAS OF SKIN UNTIL RESOLVED SOLD: 06/15/2019 [facility] 1 % 06/15/2019 12:00:00 AM EST cream 30 APPLY TOPICALLY EVERYDAY TO AFFECTED AREA AND SURROUNDING AREAS OF SKIN UNTIL RESOLVED APPLY TOPICALLY EVERYDAY TO AFFECTED AREA AND SURROUNDING AREAS OF SKIN UNTIL RESOLVED SOLD: 07/18/2019 [facility] 100,000 unit/gram 06/01/2019 12:00:00 AM EST cream 30 APPLY TOPICALLY TO ABDOMINAL/BRA AREA THREE TIMES A DAY FOR 10 DAYS APPLY TOPICALLY TO ABDOMINAL/BRA AREA THREE TIMES A DAY FOR 10 DAYS SOLD: 06/01/2019 [facility] Escitalopram 20 MG Oral Tablet ESCITALOPRAM OXALATE 05/28/2019 1 2:00:00 AM EST tablet 30 TAKE ONE TABLET BY MOUTH EVERY D AY TAKE ONE TABLET BY MOUTH EVERY DAY SOLD: 06/28/2019 [facility] Escitalopram 20 MG Oral Tablet ESCITALOPRAM OXALATE 05/28/2019 1 2:00:00 AM EST tablet 30 TAKE ONE TABLET BY MOUTH EVERY D AY TAKE ONE TABLET BY MOUTH EVERY DAY SOLD: 08/04/2019 [facility] Escitalopram 20 MG Oral Tablet ESCITALOPRAM OXALATE 05/28/2019 1 2:00:00 AM EST tablet 30 TAKE ONE TABLET BY MOUTH EVERY D AY TAKE ONE TABLET BY MOUTH EVERY DAY SOLD: 09/01/2019 [facility] Escitalopram 20 MG Oral Tablet ESCITALOPRAM OXALATE 05/28/2019 1 2:00:00 AM EST tablet 30 TAKE ONE TABLET BY MOUTH EVERY D AY TAKE ONE TABLET BY MOUTH EVERY DAY SOLD: 06/01/2019 [facility] Azelastine HCL (Nasal) Azelastine HCL (Nasal) 04/30/2019 12:00:[address] active [facility] ([facility] 60 mg 03/27/2019 12:00:00 AM EDT capsule,biphase delayed releas 30 TAKE 1 CAPSULE BY MOUTH DAILY TAKE 1 CAPSULE BY MOUTH DAILY SOLD: 06/01/2019 [facility] 60 mg 03/27/2019 12:00:00 AM EDT capsule,biphase delayed releas 30 TAKE 1 CAPSULE BY MOUTH DAILY TAKE 1 CAPSULE BY MOUTH DAILY SOLD: 09/01/2019 [facility] 60 mg 03/27/2019 12:00:00 AM EDT capsule,biphase delayed releas 30 TAKE 1 CAPSULE BY MOUTH DAILY TAKE 1 CAPSULE BY MOUTH DAILY SOLD: 04/30/2019 [facility] 60 mg 03/27/2019 12:00:00 AM EDT capsule,biphase delayed releas 30 TAKE 1 CAPSULE BY MOUTH DAILY TAKE 1 CAPSULE BY MOUTH DAILY SOLD: 08/04/2019 [facility] 60 mg 03/27/2019 12:00:00 AM EDT capsule,biphase delayed releas 30 TAKE 1 CAPSULE BY MOUTH DAILY TAKE 1 CAPSULE BY MOUTH DAILY SOLD: 06/28/2019 [facility] Multiple Vitamins-Iron (MULTIVITAMIN WITH IRON) TABS 0904-05 31-60 02/24/2019 12:00:00 AM EDT 2 {tbl} Oral active Take 2 tablets by mouth daily [facility] 60 mg 01/26/2019 12:00:00 AM EDT capsule,biphase delayed releas 30 TAKE ONE CAPSULE BY MOUTH EVERY DAY TAKE ONE CAPSULE BY MOUTH EVERY DAY SOLD: 11/08/2019 [facility] Escitalopram 20 MG Oral Tablet ESCITALOPRAM OXALATE 01/13/2019 1 2:00:00 AM EDT tablet 30 TAKE ONE TABLET BY MOUTH EVERY D AY TAKE ONE TABLET BY MOUTH EVERY DAY SOLD: 04/30/2019 [facility] montelukast 10 MG Oral Tablet MONTELUKAST SODIUM 08/08/2018 12:0 0:00 AM EDT tablet 30 TAKE ONE TABLET BY MOUTH IN THE EVENING TAKE ONE TABLET BY MOUTH IN THE EVENING SOLD: 06/15/2019 [facility] montelukast 10 MG Oral Tablet MONTELUKAST SODIUM 08/08/2018 12:0 0:00 AM EDT tablet 30 TAKE ONE TABLET BY MOUTH IN THE EVENING TAKE ONE TABLET BY MOUTH IN THE EVENING SOLD: 07/18/2019 [facility] 10 mg 08/08/2018 12:00:00 AM EDT tablet 30 TAKE ONE TABLET BY MOUTH IN THE EVENING TAKE ONE TABLET BY MOUTH IN THE EVENING SOLD: 04/30/2019 [facility] levocetirizine dihydrochloride 5 MG Oral Tablet LEVOCETIRIZI NE DIHYDROCHLORIDE 07/31/2018 12:00:00 AM EST tablet 30 TAKE ONE TABLE T BY MOUTH AT BEDTIME TAKE ONE TABLET BY MOUTH AT BEDTIME SOLD: 06/15/2019 [facility] Omeprazole 40 MG Delayed Release Oral Ca psule omeprazole 40 mg capsule,delayed release omeprazole 40 mg capsule,delayed release 1.00 {capsule} ORAL completed take 1 capsule by oral route ev marlin day before a meal [facility] ([facility]) Ascorbic Acid (VITAMIN C PO) 1 {tbl} Oral a borted Take 1 tablet by mouth daily [facility] Insurance Providers Payer name Policy type / Coverage type Policy ID Covered republican ID Covered republican's relationship to burton Policy Burton Plan Information [facility] COMMUNITY PLAN [facility] [id number] SP [id number] [facility] O [id number] S [id number] [facility] MEDICAID [id number] 1 [facility] MEDICAID [id number] Raina [id number] INSURANCE COVID-19 COVID Raina C OVID INSURANCE COVID-19 [id number] [facility] COMMUNITY PLAN [facility] [id number] SP [id number] [facility] [id number] Raina [id number] [facility] [id number] [facility] [id number] Rania [id number] HMO BLUE [id number] SP [id number] [facility] [id number] [facility] [id number] Preferred Provider Organization (PPO) [id number] Medicaid [facility] Part B [id number] Self [id number] [facility] Health Maintenance Organization (HMO) [id number] Self [id number] [place] Med[place] [id number] Self [id number] ANS-Medicaid [id number] ANSI-Medicaid [id number] ANSI-Medicaid [id number] ANSI-Medicaid [id number] ANSI-Medicaid [id number] ANSI-Medicaid [id number] [facility] [id number] ANSI-Medicaid [id number] ANSI-Medicaid [id number] ANSI-Medicaid [id number] ANSI-Medicaid [id number] [place] [id number] Self [id number] [facility] Health Maintenance Organization (HMO) [id number] Self [id number] [place] [id number] Self [id number] [place] [id number] Self [id number] [place] [id number] Self [id number] [employer] COMM[facility]ITY [employer]AN MCDHMO [id number] SP [id number] [place] Medig[place] [id number] Self [id number] EXCELLUS I [id number] Self [id number] [employer] COMMUNITY PLAN MCDHMO [id number] SP [id number] [place] Medig[place] Part B [id number] Self [id number] [employer] COMMUNITY PLAN MCDHMO [id number] SP [id number] UN[employer] COMMUNITY PLAN MCDHMO [id number] SP [id number] [facility] [id number] SP [id number] Medicaid [place] Medicaid Self [facility] Health Maintenance Organization (HMO) [id number] Self [id number] [facility] O UNAVAILABLE O UNAVAILABLE PHYSICIANS MUTUAL [id number] SP [id number] SELF PAY O [id number] S [id number] [facility]) O [id number] S [id number] UNHC AMERICHOICE XIX -HMO [id number] 18 [id number] [employer] COMMUNITY PLAN MCDHMO [id number] SP [id number] MEDICAID [id number] SP [id number] SELF PAY UNAVAILABLE SP UNAVAILA BLE MEDICAID -CLINIC [id number] MEDICAID S [id number] S [id number] [facility] P [id number] S [id number] [facility] [place] [id number] HU2 [id number] N REGIONAL CLAIMS DEWAYNE-CLINIC [id number] 01 [id number] BLUE CROSS BLUE SHIELD-CLINIC [id number] BLUE CROSS HEAD PLAN [id number] SP [id number] EXCELLUS BCBS S [id number] S [id number] [facility] [place] [id number] HU2 [id number] HMO BLUE P [id number] S [id number] HMO BLUE [id number] SP [id number] BLUE CROSS BLUE SHIELD-O/P [id number] 18 [id number] BLUE CROSS BLUE SHIELD-CLINIC [id number] Problems, Conditions, and Diagnoses Code Display Name Description Problem Type Effective Dates Data Source(s) K21.9 GERD (gastroesophageal reflux disease) G ERD (gastroesophageal reflux disease) [id number] 11/13/2019 12:00:00 AM EDT [facility] J45.909 Asthma Asthma [id number] 11/13/2019 12:00:00 AM ED T [facility] K37 Appendicitis Appendicitis [id number] 11/13/2019 12:00:00 A M EDT [facility] Z98.84 Bariatric surgery status Bariatric surgery status Diag nosis 12/28/2019 09:44:00 AM EDT [facility] R10.13 Epigastric pain Epigastric pain Diagnosis 12/28/2019 09:4 4:00 AM EDT [facility] J98.8 Other specified respiratory disorders Ot her specified respiratory disorders Diagnosis 12/23/2019 08:47:25 AM EDT [facility] U07.1 COVID-19 COVID-19 Diagnosis 12/23/2019 08:47:25 AM ED T [facility] K35.80 Unspecified acute appendicitis Unspecified acute appen dicitis Diagnosis 11/13/2019 09:16:01 AM EDT [facility] Surgeries/Procedures Procedure Description Date Indications Data Source(s) Colonoscopy Flexible Proximal To Splenic Flexure W/Biopsy Si ngle/ 04/04/2020 12:00:00 AM EST [facility] ([facility], ) SMEAR, WET [place], SALINE/INK 12/26/2019 12:00:00 AM EDT - 12/26/2019 12:00:00 AM EDT [facility] ([facility]) ASSAY OF BODY FLUID ACIDITY 12/26/2019 1 2:00:00 AM EDT - 12/26/2019 12:00:00 AM EDT [facility] ([facility]) SYPHILLIS BLOOD SEROLOGY, QUALITATIVE 12:00:00 AM EDT - 12/26/2019 12:00:00 AM EDT [facility]) HTLV/HIV CONFIRMATORY TEST 12/26/2019 12 :00:00 AM EDT - 12/26/2019 12:00:00 AM EDT [facility] ([facility]) HEPATITIS C AB TEST 12/26/2019 12:00:00 AM EDT - 12/25 12:00:00 AM EDT [facility] ([facility]) CVR Leader Writer.Svc. STI / H 12/26/2019 12:00:00 AM EDT - 12/26/2019 12:00:00 AM EDT [facility] ([facility]) CVR Leader Writer.Svc. Other 12/26/2019 12:00:00 AM EDT - 2019 12:00:00 AM EDT [facility] ([facility]) CVR Leader Writer.Svc. Contraceptive 12/26/2019 12 :00:00 AM EDT - 12/26/2019 12:00:00 AM EDT [facility] ([facility]) CVR Med.Svc. Vaginitis Rx 12/26/2019 12: 00:00 AM EDT - 12/26/2019 12:00:00 AM EDT [facility] ([facility]) CVR Med.Svc. Height/Weight 12/26/2019 12 :00:00 AM EDT - 12/26/2019 12:00:00 AM EDT [facility] ([facility]) CVR Blood Pressure 12/26/2019 12:00:00 AM EDT - 2019 12:00:00 AM EDT [facility] ([facility]) CVR Med.Svc. Other 12/26/2019 12:00:00 AM EDT - 2019 12:00:00 AM EDT [facility] ([facility]) OFFICE VISIT, EST 12/26/2019 12:00:00 AM EDT - 020 12:00:00 AM EDT [facility] ([facility]) N.GONORRHOEAE, SWAB 12/26/2019 12:00:00 AM EDT - 12/25 12:00:00 AM EDT [facility] ([facility]) CHYLMD TRACH, SWAB 12/26/2019 12:00:00 AM EDT - 2019 12:00:00 AM EDT [facility] ([facility]) GLUC BLD GLUC MNTR DEV CLEARED FDA SPEC HOME USE POCT GLUCOSE Routine 11/14/2019 2:33 PM EDT 11/14/2019 06:33:00 PM EDT [facility] CUL BACT XCPT URINE BLOOD/STOOL AEROBIC ISOL AEROBIC FLUID CULT URE / GS Timed 11/13/2019 6:20 PM EDT 11/13/2019 10:20:00 PM EDT [facility] CULTURE BACTERIAL ANY SOURCE ANAEROBIC ISO&ID ANAEROBIC CULTURE Timed 11/13/2019 6:20 PM EDT 11/13/2019 10:20:00 PM EDT [facility] ECG ROUTINE ECG W/LEAST 12 LDS TRCG ONLY W/O I&R ECG 12-LEAD STAT 11/13/2019 11:59 AM EDT 11/13/2019 03:59:46 PM EDT [facility] POCT CLINITEK URINE HCG POCT CLINITEK URINE HCG Routine 11/13/2019 10:59 AM EDT 11/13/2019 02:59:00 PM EDT [facility] POCT CLINITEK URINE DIPSTICK POCT CLINITEK URINE DIPSTICK Routi ne 11/13/2019 10:57 AM EDT 11/13/2019 02:57:00 PM EDT [facility] 2019 NCOV AMPLIFIED 2019 NCOV AMPLIFIED STAT 11/13/2019 10:46 AM EDT 11/13/2019 02:46:00 PM EDT [facility] BLOOD TYPING ABO TYPE AND SCREEN Routine 11/13/2019 10:44 AM EDT 11/13/2019 02:44:00 PM EDT [facility] BLOOD COUNT COMPLETE AUTO&AUTO DIFRNTL WBC COUNT CBC AND DIFFER ENTIAL STAT 11/13/2019 10:43 AM EDT 11/13/2019 02:43:00 PM EDT [facility] COMPREHENSIVE METABOLIC PANEL COMPREHENSIVE METABOLIC PANEL STA T 11/13/2019 10:43 AM EDT 11/13/2019 02:43:00 PM EDT [facility] Male Condom Polyurethane 10/26/2019 12:0 0:00 AM EDT - 10/26/2019 12:00:00 AM EDT [facility] ([facility]) CVR Leader Writer.Svc. STI / H 10/26/2019 12:00:00 AM EDT - 10/26/2019 12:00:00 AM EDT [facility] ([facility]) CVR Leader Writer.Svc. Other 10/26/2019 12:00:00 AM EDT - 2019 12:00:00 AM EDT [facility] ([facility]) CVR Leader Writer.Svc. Contraceptive 10/26/2019 12 :00:00 AM EDT - 10/26/2019 12:00:00 AM EDT [facility] ([facility]) CVR Med.Svc. Height/Weight 10/26/2019 12 :00:00 AM EDT - 10/26/2019 12:00:00 AM EDT [facility] ([facility]) CVR Blood Pressure 10/26/2019 12:00:00 AM EDT - 2019 12:00:00 AM EDT [facility] ([facility]) OFFICE VISIT, EST 10/26/2019 12:00:00 AM EDT - 020 12:00:00 AM EDT [facility] ([facility]) N.GONORRHOEAE, URINE 10/26/2019 12:00:00 AM EDT - 10/26/2019 12:00:00 AM EDT [facility] ([facility]) CHYLMD TRACH, URINE 10/26/2019 12:00:00 AM EDT - 10/25 12:00:00 AM EDT [facility] ([facility]) BRNCDILAT RSPSE SPMTRY PRE&POST-BRNCDILAT ADMN 020 12:00:00 AM EDT [facility] ([facility]) Results ID Date Data Source [id number] 06/04/2020 12:00:00 AM EST [facility] Name Value Range Interpretation Code Description Data Marta rce(s) Supporting Document(s) SARS-CoV2 Rapid Antigen Positive [facility] This lab was reported by Shamar Do. ID Date Data Source [id number] 04/04/2020 10:56:00 AM EST [facility] ([facility], ) Name Value Range Interpretation Code Description Data Marta rce(s) Supporting Document(s) Surgical pathology study Laboratory test result [facility] ([facility], ) FINAL DIAGNOSIS Colon, random biopsy: Fragments of benign colonic mucosa with several prominent lympphoid aggregates. No inflammatory change or evidence for microscopic colitis is noted. 04/07/2020 - 1339 CLINICAL DIAGNOSIS Diarrhea and abdominal pain 04/04/20201522 GROSS DIAGNOSIS Received in formalin labeled "random colon biopsy for diarrhea" is a 0.8 x 0.2 x 0.2 cm aggregate of mucosal fragments. All in one. - 04/04/20201522 Signed Ziggy Salgado MD 04/07/2020 1340 ID Date Data Source [id number] 03/30/2020 09:30:00 AM EST [facility] Name Value Range Interpretation Code Description Data Marta rce(s) Supporting Document(s) SARS coronavirus 2 RNA [facility] This lab was ordered by [facility] and reported by [facility]. ID Date Data Source [id number] 03/10/2020 12:00:00 AM EDT [facility] Name Value Range Interpretation Code Description Data Marta rce(s) Supporting Document(s) SARS coronavirus 2 RNA [Presence] in Res piratory specimen by [facility] with probe detection [facility] This lab was ordered by Kehinde Ibanez and reported by [employer]. ID Date Data Source [id number] 01/03/2020 04:47:51 PM EDT [facility] [place] [facility] [place] [address] [place], [place] [address]Icc# Surgical Pathology ReportAccession #:[id number](s) ReceivedA: Gastric pouch bxsClinical Diagnosis and HistoryNormal post Thao-en-Y surgery, r/o H. pylori DIAGNOSISSTOMACH, POUCH, BIOPSY: GASTRIC MUCOSA WITH NO SIGNIFICANT PATHOLOGIC CHANGES. IMMUNOSTAIN FOR HELICOBACTER PYLORI IS NEGATIVE. Gross DescriptionReceived in formalin labeled "gastric pouch biopsies rule out H. pylori"is a 0.6 cm acuna-pink irregular fragment of tissue. Entirely submitted asA1. Multilevel. Processed at Laboratory [facility], Histopathology, [address] [place] [address], [address].jgllmr/bc Reported: 01/03/2020Electronically Signed Out By Terry Eldridge MD [facility]emg This report may include immunohistochemical or in-situ hybridizationresults. Testing was developed and the performance characteristicsdetermined by [facility] as required by CLIA '88. The FDAhas determined that approval for specific use is not necessary forclinical use. The quality of Hematoxylin and Eosin stains and asapplicable, for all immunohistochemical and/or special stains, includingpositive and negative controls, were reviewed and considered appropriate.ICD codes Z98.84 R10.13CPT codesA: 25567O, 96689x Name Value Range Interpretation Code Description Data Marta rce(s) Supporting Document(s) ID Date Data Source [id number] 12/28/2019 10:52:58 AM EDT [facility] INFORMATIONPatient MRN Name Date of Age Gend*PT [id number] Hilaria Sanders 1980 39 years F OPPT Location Admission Date/Time Visit ID [facility] 12/28/19 0944 --- Michelle Caruso MD([id number]) EPI ID [facility] Admitting Provider [id number] Michelle Caruso MD([id number])Endoscopic Gastrojejunoscopy Procedure NotePatient: Hilaria SandersMRN: [id number] Date: 12/28/2019Surgeon(s):KAIDEN Hookerre- operative Diagnosis:Abdominal pain, epigastric [R10.13]Bariatric surgery status [Z98.84]Post-Op Diagnosis Codes: * Abdominal pain, epigastric [R10.13] * Bariatric surgery status [Z98.84]Procedure: 1) Esophagogastrojejunoscopy 2) Pouch bx for H. PyloriAnesthesia/Sedation: General Anesthesia (see anesthesia report).Findings: Normal esophagus, regular Z-line, normal size gastric pouch, bx forH. Pylori, wide open GJA, visible intact suture material, no ulcer/gastritis,wide open candy-to and RY limb, normal post RY anatomySpecimens:ID Type Source Tests Collected by [facility] : Gastric Pouch BXS R/O HPylori Tissue Biopsy SURGICAL PATHOLOGY EXAM MD Thiago 12/28/2019 1042Estimated Blood Loss: minimalStents/Grafts: noneComplications: None; patient tolerated the procedure well.Disposition: Stable to recovery room.Indications for Procedure/Consent: This is a 39 years female 2.5 years statuspost a gastric bypass. She presented with epigastric pain and PO intolerance.An upper endoscopy was indicated to assess the cause of the patie nt's symptoms.After obtaining history and performing the physical examination, the procedure,indications, potential complications, including but not limited to bleeding,perforation, infection, adverse medication reaction, and alternatives wereexplained to the patient. Patient appeared to understand the benefits and risksof this procedure. Informed consent was obtained from the patient afterproviding opportunity for questions.Procedure Details:The gastroscope was inserted into the mouth and advanced under directvisualization to proximal jejunum. A careful inspection was made as thegastroscope was withdrawn; findings and interventions are described above. Aftercompletion of the examination, the patient was transferred to the recovery room.Impression:Normal esophagus, regular Z-line, normal size gastric pouch, bx for H. Pylori,wide open GJA, visible intact suture material, no ulcer/gastritis, wide opencandy-to and RY limb, normal post RY anatomyRecommendations:-Continue acid suppression.-Await pathology.-Follow symptoms.-Follow up with me.Signature: MELO Hookerate: December 28, 2019Time: 10:50 [facility]: Michelle Caruso [facility]: SELAM Garcia Name Value Range Interpretation Code Description Data Marta rce(s) Supporting Document(s) ID Date Data Source [id number] 12/28/2019 10:49:28 AM EDT [facility] NT INFORMATIONPatient MRN Name Date of Age Gend*PT [id number] Hilaria Sanders 1980 39 years F OPPT Location Admission Date/Time Visit ID Attending ProviderEndo Beulah 12/28/19 0944 --- Michelle Caruso MD([id number]) EPI ID CSN Admitting Provider [id number] Michelle Caruso MD([id number])Pre- Procedure History and Physical:The history and physical were reviewed and the patient was examined.There are no changes to the H&P.Michelle Caruso MD12/28/19 10:49 AM Name Value Range Interpretation Code Description Data Marta rce(s) Supporting Document(s) ID Date Data Source [id number] 12/26/2019 04:45:13 PM EDT [facility] ([facility]) Name Value Range Interpretation Code Description Data Marta rce(s) Supporting Document(s) Hyphae/Ynes: noBudding y east: noTrich: noClue cells: yes (>=20%)WBCs: yes (few)Amine/Whiff test: positivepH: 5.0 [place] [facility] ([facility]) ID Date Data Source [id number] 12/26/2019 04:44:55 PM EDT [facility] ([facility]) Name Value Range Interpretation Code Description Data Marta rce(s) Supporting Document(s) pH: 5.0. Vaginal pH [facility] ([facility] ID Date Data Source [id number] 12/26/2019 12:00:00 AM EDT [facility] ([facility]) Name Value Range Interpretation Code Description Data Marta rce(s) Supporting Document(s) Negative Normal (applies to non-numer ic results) [place] Amplified CT/GC Combo - GC [facility] ([facility]) : No Performed by: CDD ([id number]) ID Date Data Source [id number] 12/26/2019 12:00:00 AM EDT [facility] ([facility]) Name Value Range Interpretation Code Description Data Marta rce(s) Supporting Document(s) Negative Normal (applies to non-numer ic results) [place] Amplified CT/GC Combo - CT [facility] ([facility]) ID Date Data Source [id number] 12/23/2019 08:30:00 AM EDT [facility] Name Value Range Interpretation Code Description Data Marta rce(s) Supporting Document(s) SARS coronavirus 2 RNA [facility] This lab was ordered by [facility] and reported by [facility]. ID Date Data Source [id number] 12/25/2019 01:06:53 AM EDT [facility] Name Value Range Interpretation Code Description Data Marta rce(s) Supporting Document(s) SARS-COV-2 SIXTO [facility] Not DetectedReference range: Not Detecte d This test was developed and its performance characteristics determined by [facility]. This test has not been FDA cleared or approved. This test has been authorized by FDA under an Emergency Use Authorization (EUA). This test is only authorized for the duration of time the declaration that circumstances exist justifying the authorization of the emergency use of in vitro diagnostic tests for detection of SARS-CoV-2 virus and/or diagnosis of COVID-19 infection under section 564(b)(1) of the Act, 21 U.S.C. 360bbb-3(b)(1), unless the authorization is terminated or revoked sooner. When diagnostic testing is negative, the possibility of a false negative result should be considered in the context of a patient's recent exposures and the presence of clinical signs and symptoms consistent with COVID-19. An individual without symptoms of COVID-19 and who is not shedding SARS-CoV-2 virus would expect to have a negative (not detected) result in this assay. Performed At: [facility] [id number] Pino Santa MD Ph:[phone] ID Date Data Source [id number] 12/03/2019 03:42:00 PM EDT [facility] A BDOMEN PELVIS W IV CONTRASTCLINICAL HISTORY: Abdominal pain. Personal history of bariatric surgery.COMPARISON: None available.TECHNIQUE: Helical acquisition performed through the abdomen and pelvis.Coronal and parasagittal reconstructions are provided.70cc of 75cc Isovue 370 were injected intravenously. There is 5 cc of wasted intravenous contrast.FINDINGS: Lower chest: The lung bases are clear. The lower mediastinal structures are unremarkable.Abdomen:Soft tissue stranding anterior abdominal wall probably related to postsurgical change. No air bubbles or fluid collections.Liver: Homogeneous enhancement compared to the spleen except for a low-density mass laterally on the right at the level of the inferior smiley hepatis measuring 2 cm AP by 1.7 cm transverse by 19 mm craniocaudal. It may demonstrate some puddling of contrast at its margins. There is no intrahepatic biliary duct dilatation.Gallbladder: Previously removed. Normal caliber common bile duct following cholecystectomy.Pancreas: Unremarkable.Spleen: Unremarkable.Adrenal Glands: Unremarkable.Kidneys: UnremarkableAorta: Unremarkable.IVC: Unremarkable.Bowel: The patient is status post gastric bypass surgery. I do not see air bubbles in this region. There is no abscess. Contrast passes easily into the anti colic anastomosis. The excluded portion of the stomach looks normal.The superior mesenteric artery and vein demonstrate normal orientation. The portal vein is enhanced.Bones: Normal mineralization. Greater degenerative changes in the right and left hip joints considering the p atient's age. Greater degenerative changes in the right hip joint compared to the left hip joint.Pelvis:Urinary bladder is collapsed. Vagina unremarkable. Uterus previously removed. Normal amount of stool seen in the rectum and sigmoid colon. There might be a few colonic diverticula in the sigmoid colon but no perforation to indicate acute diverticulitis.IMPRESSION: Suspected hemangioma lower lateral right side of the liver. Ultrasound recommended for correlation.Normal caliber biliary ducts following cholecystectomy.Previous gastric bypass surgery with no obvious complication identified.Previous hysterectomy..Dictated by: NADIA LAM M.D. on 12/03/2019 Transcribed by: brian on <<TranscriptionDateTime1>>CDS G code: , ,CDS Modifier: , ,cc: Name Value Range Interpretation Code Description Data Marta rce(s) Supporting Document(s) ID Date Data Source [id number] 11/14/2019 02:35:59 PM EDT [facility] Name Value Range Interpretation Code Description Data [facility](s) Supporting Document(s) POC NOVA GLU 89 mg/dL (70-99) [facility] PERFORMED BY [facility]ICAL STAFF ID Date Data Source [id number] 11/13/2019 07:50:55 PM EDT [facility] NT INFORMATIONPatient MRN Name Date of Age Gend*PT [id number] Hilaria Sanders 1980 39 years F OBSPT Location Admission Date/Time Visit ID [facility] --- Michelle Caruso MD([id number]) EPI ID CSN Admitting Provider [id number] Michelle Caruso MD([id number]) Attestation signed by Abdi Lacey MD at 11/13/2019 7:50 PMED Attestations:Attestation Type: Mid-Level: SUPERVISED APC: Based on the medical record thecare appears appropriate Provider in Triage NotesNo notes on fileHistory of Present IllnessChief ComplaintPatient presents with Abdominal Pain pt seen at [facility] and dx appendicitis pt [facility] wened[facility], constant sharp pain at Dr Vásquez for surgical followup yesterday, set up for surgery this fridayHPIChief complaint: Abdominal pain, nausea vomiting, recently diagnosed withappendicitisRadiation: NoneQuality: Sharp and stabbingSeverity: 9 out of 10Onset: Last weekDuration: Since onsetFrequency: ConstantProgression: WorseningAssociated symptoms: Nausea, vomiting, diarrheaAggravated by: Palpation and movementRelieved by: RestRisk Factors: Recently had CT scan which showed concern for early appendicitisSource: PatientStarted on Levaquin yesterday. Pt was seen in the office by Dr. Goins yesterdayadvised to come to this emergency room if her symptoms worsen.HistoryPast Medical History:Diagnosis Date Arthritis Asthma allergy-induced GERD (gastroesophageal reflux disease) Morbid obesity BMI 45.0Past Surgical History:Procedure Laterality Date SECTION CHOLECYSTECTOMY COLONOSCOPY CYSTOSCOPY GASTRIC BYPASS N/A 02/23/2019 Procedure: GASTRIC BYPASS THAO-EN-Y LIVER BX LAPAROSCOPYesophagogastrojejunoscopy; Surgeon: Duke Lane MD; Laterality: N/A; HYSTERECTOMY NASAL ENDOSCOPY UPPER GASTROINTESTINAL ENDOSCOPY WISDOM TOOTH EXTRACTIONNo family history on file.Social HistoryTobacco Use Smoking status: Never Smoker Smokeless tobacco: Never UsedSubstance Use Topics Alcohol use: Not Currently Drug use: NeverROSReview of SystemsConstitutional: Negative for chills, fatigue and fever.HENT: Negative.Eyes: Negative.Respiratory: Negative for cough, chest tightness, shortness of breath andstridor.Cardiovascular: Negative for chest pain, palpitations and leg swelling.Gastrointestinal: Positive for abdominal pain, diarrhea, nausea and vomiting.Negative for abdominal distention, blood in stool and constipation.Genitourinary: Negative for dysuria and frequency.Musculoskeletal: Negative for back pain.Neurological: Negative for dizziness, weakness, numbness and headaches.All other systems reviewed and are n egative.Physical ExamBP (!) 127/91 (BP Location: Right upper arm, Patient Position: Sitting) | Pulse77 | Temp 98.1 F (Oral) | Resp 18 | Ht 65" | Wt 95.3 kg | SpO2 100% | No | BMI 34.95 kg/m Physical ExamConstitutional: She is oriented to person, place, and time. She appearswell-developed and well-nourished.HENT:Head: Normocephalic and atraumatic.Eyes: Pupils are equal, round, and reactive to light.Neck: Normal range of motion. Neck supple.Cardiovascular: Normal rate, regular rhythm, normal heart sounds and intactdistal pulses.Pulmonary/Chest: Effort normal and breath sounds normal. No respiratorydistress. She has no wheezes. She has no rales. She exhibits no tenderness.Abdominal: Soft. Normal appearance and bowel sounds are normal. She exhibits nodistension. There is tenderness in the right lower quadrant. There is guarding(Voluntary). There is no rigidity, no rebound and no CVA tenderness.Musculoskeletal: Normal range of motion.Neurological: She is alert and oriented to person, place, and time.Skin: Skin is warm and dry.Psychiatric: She has a normal mood and affect. Her behavior is normal. Judgmentand thought content normal.Nursing note and vitals reviewed.ED CourseECG 12 leadDate/Time: 11/13/2019 12:06 PMPerformed by: BREANN Greenuthorized by: EMILIANO GreenKenneth interpreted by ED Physician in the absence of a display mechanic: yesInterpretation: Interpretation: normalRate: ECG rate: 64 ECG rate assessment: normalRhythm: Rhythm: sinus rhythmEctopy: Ectopy: noneQRS: QRS axis: NormalConduction: Conduction: normalST segments: ST segments: NormalT waves: T waves: normalComments: AL interval 122msQRS duration 92 msMDMTest ordered/Reason:Results for orders placed or performed during the hospital encounter of 11/13/19CBC w/ diffResult Value Ref Range WBC 6.1 4.1 - 11.0 10*3/uL RBC 5.09 4.00 - 5.40 10*6/uL Hemoglobin 14.7 12.0 - 16.0 g/dL Hematocrit 43.8 36.0 - 47.0 % MCV 86.0 80.0 - 95.0 fL MCH 28.9 27.0 - 32.0 pg MCHC 33.6 32.0 - 36.0 g/dL RDW 14.7 (H) 10.5 - 14.5 % Platelets 259 150 - 450 10*3/uL MPV 9.1 7.1 - 10.7 fL Neutrophils % 51.7 35.0 - 75.0 % Lymphocytes Relative 37.2 16.0 - 52.0 % Monocytes Relative 7.2 0.0 - 8.0 % Eosinophils Relative 3.3 0.0 - 5.0 % Basophils Relative 0.6 0.0 - 4.0 % Neutrophils Absolute 3.2 1.8 - 7.7 10*3/uL Lymphocytes Absolute 2.3 1.2 - 4.8 10*3/uL Monocytes Absolute 0.4 0.0 - 0.8 10*3/uL Eosinophils Man 0.2 0.0 - 0.5 10*3/uL Basophils Absolute 0.0 0.0 - 0.2 10*3/uLCMPResult Value Ref Range Sodium 140 136 - 145 mmol/L Potassium 4.9 3.6 - 5.2 mmol/L Chloride 108 100 - 108 mmol/L CO2 27 22 - 31 mmol/L Anion Gap 5 (L) 7 - 16 mmol/L Urea nitrogen 8 7 - 24 mg/dL Creatinine 0.81 0.60 - 1.00 mg/dL BUN/Creatinine Ratio 9.9 (L) 10.0 - 20.0 RATIO GLUCOSE 74 70 - 99 mg/dL Calcium 9.1 8.4 - 10.2 mg/dL Protein, Total 8.8 (H) 6.4 - 8.2 g/dL Albumin 3.9 3.5 - 4.6 g/dL Globulin 4.9 (H) 2.7 - 4.3 g/dL Alb/Glob ratio 0.8 RATIO Alkaline Phosphatase 94 45 - 117 U/L Bilirubin, Total 0.4 0.0 - 1.0 mg/dL AST 22 11 - 39 U/L ALT 48 12 - 78 U/L GFR MDRD Non Af Amer >60 >59 ml/min/1.73m2 GFR MDRD Af Amer >60 >59 ml/min/1.73m2 Glom Filt Rate, Est SEE NOTESPOCT CLINITEK Urine DipstickResult Value Ref Range POC Urine Color YELLOW POC Urine Appearance CLEAR POC Urine Specific [place] 1.015 1.003 - 1.030 POC Urine pH 7.0 5.0 - 7.5 POC Urine Leuk Esterase NEGATIVE NEGATIVE POC Urine Nitrite NEGATIVE NEGATIVE POC Urine Protein NEGATIVE NEGATIVE mg/dL POC Urine Glucose NEGATIVE NEGATIVE mg/dL POC Urine Ketone NEGATIVE NEGATIVE mg/dL POC Urine Urobilinogen 0.2 0.2 - 1.0 EU/dL POC Urine Bilirubin NEGATIVE NEGATIVE POC Urine Blood Hgb NEGATIVE NEGATIVEPOCT CLINITEK URINE HCGResult Value Ref Range POC Urine Hcg NEGATIVE NEGATIVETreatments given and/or ordered:morphine, zofran, pepcidDiscussions with other clinicians:Dr. Caruso- 1022am-states will take patient to the Operating Room. Came downto the ED to evaluate patient and placed admitting orders.Discussed plan with patient. She is aware that she is being a dmitted by surgeryfor an acute appendicitis. All questions were addressed and answered.This was electronically signed by SELAM Green, 11/13/19 10:06 AM.SELAM Green11/13/19 1227Aljenifer Lacey MD11/13/19 1950 Name Value Range Interpretation Code Description Data Marta rce(s) Supporting Document(s) ID Date Data Source [id number] 11/13/2019 06:52:03 PM EDT [facility]PAT[facility] NT INFORMATIONPatient MRN Name Date of Age Gend*PT [id number] Brien Sandersdallin 1980 39 years F OBSPT Location Admission Date/Time Visit ID [facility]ending [facility] 11/13/19 0916 --- Michelle Caruso MD([id number]) EPI ID CSN Admitting Provider [id number] Michelle Caruso MD([id number])APPENDECTOMY, LAPAROSCOPIC Procedure [facility] CSN:[id number]/16/2020Surgeon(s):TABITHA Hookerurgical Assist: Erasmo Goinsaff:OR City Superintendent: NBA Sheetsurgical Assist: LATRICIA Goins Relief City Superintendent: Gonzalo López RNOR Relief Scrub: Caroline Ruiz Scrub Person: Ebony Zaidi acyProcedure(s):APPENDECTOMY, LAPAROSCOPIC, evaluation for internal hernia, lysis of adhesionsLaparoscopic appendectomyEvaluation for internal herniaLysis of adhesionsAnesthesia: GeneralPre-op Diagnosis:APPENDICITISPost-op Diagnosis:Ac appendicitisMid Thao to BP limb adhesionsClosed internal spacesDrains: NoneGrafts/Implants:NoneSpecimens:ID Type Source Tests Collected by Time1 : peritoneal fluid Peritoneal Fluid Peritoneal Fluid ANAEROBIC CULTURE,AEROBIC FLUID CULTURE / GS Michelle aCruso MD 11/13/2019 1820A : Appendix Tissue Tissue SURGICAL PATHOLOGY EXAM Michelle Caruso MD11/13/2019 1805Estimated Blood Loss: MinimalBlood Administered: See Anesthesia RecordComplications: NoneFindings: Consistent with the Operative Diagnosis: Ac appendicitis ~ 4-5 mmthick and 8-9 cm long. Mid Thao to BP limb adhesion relative risk fro IH -lysed. Closed internal spaces. Normal both ovaries. Small amount of clear fluidin pelvis. Umbilical port site fascial closure.All significant tasks completed under the d irection of the primary surgeon withthe exception of:Closing - Performed By: Performed By: VALERIE FOR PROCEDURE: Hilaria Sanders is a 39 yrs old female who isstatus post lap RNY on 02/23/[address] She has lost over 60 lbs. Shepresented yesterday in our office for evaluation of RLQ abdominal pain. Thepatient was worked up with a CT Abd/pel. CT showed appendicolithis withoutappendicitis. She was reporting periumbilical pain radiating to RLQ sinceWednesday, had some worsening 2 d/o requiring ED visit. Associated N/V/D. Nofever chills. The pain is still present but tolerable yesterday and she wasprescribed Abx;s and scheduled for appendectomy on Tuesday or to report earlierif pain gets worse. The pain did got worse overnight and she had some nausea andvomiting. Patient has likely ac appendicits we will take her to OR forLaparoscopic appendectomy, poss. eval for internal hernia,poss open. Informedconsent was obtained prior to the procedure. We had discussed risks andbenefits including but not limited to bleeding, infection, injury tosurroundingstructures, need for additional procedures, risk of COVID-19infection while hospitalized, risks of anesthesia including LA, stroke anddeath. Pt expressed understanding of all risks and agrees to proceed withsurgery.DESCRIPTION OF PROCEDURE: The patient was taken to the operating room andplaced on the operating table in supine position. Next, general anesthesia wasinduced and she was intubated. Their abdomen was prepped and draped in a sterilefashion. Afterwards, a time-out was called. The patient's identity, procedure,preoperative antibiotics, subcutaneous heparin and SCDs were all confirmed.I then proceeded to gain access into the intra-abdominal cavity through a 12-mmleft upper quadrant incision using a 12-mm Optiview port with a 10 mm 0-degreescope. Once inside the pneumoperitoneum was established and I placed 2additional ports in the following configuration: a 12-mm port in thesupraumbilical region, a 5-mm port in the left lower quadrant.I inspected the abdominal cavity. I inspected other organs and saw noabnormalities. I then proceeded to run the small intestine in a retrogradefashion. There was ac appendicitis ~ 4-5 mm thick and 8-9 cm long. Noperitonitis. Normal both ovaries. Small amount of clear fluid in plevis. I ranthe Thao limb as well. There was mid Thao to BP limb adhesion , creatingpotential for internal hernia and I lysed it. There were closed internal spacesI ran the biliopancreatic limb.There was no pathology. I than created mesentericwindow at the base of appendix and transected it with EndoGIA 45 mm white load.Meso-appendix transected with harmonic scalpel and specimen removed from abdomenvia supraumbilical port.I restored anatomical configuration of Her gastric bypass. I then proceeded toch juliet port sites for bleeding. Hemostasis was obtained with bipolar cautery. Iclosed the fascia of the umbilical fascia with a #1 Vicryl suture. Thepneumoperitoneum was evacuated. Skin incisions were closed with 4-0 Vicryl.0.25% marcaine was injected into the incisions and Dermabond applied.Sponge,needle, instrument counts were accurate. The patient tolerated the procedureand was extubated and taken to recovery room in stable condition.Signature: MELO Hookerate: November 13, 2019Time: 6:33 [facility]: Michelle Caruso [facility]: SELAM Garcia Name Value Range Interpretation Code Description Data Marta e(s) Supporting Document(s) ID Date Data Source [id number] 11/18/2019 09:52:59 AM EDT [facility] SPECIMEN DESCRIPTION PERITONEAL F LUIDSPECIAL REQUESTS NONECULTURE RESULTS NO ANAEROBES ISOLATED AFTER 5 DAYSREPORT STATUS FINAL 11/18/2019 Name Value Range Interpretation Code Description Data Marta rce(s) Supporting Document(s) ID Date Data Source [id number] 11/18/2019 09:52:54 AM EDT [facility] SPECIMEN DESCRIPTION PERITONEAL F LUIDSPECIAL REQUESTS NONEGRAM STAIN FEW (<10/LPF) WHITE BLOOD CELLS NO BACTERIACULTURE RESULTS NO GROWTH 5 DAYSREPORT STATUS FINAL 11/18/2019 Name Value Range Interpretation Code Description Data Marta rce(s) Supporting Document(s) ID Date Data Source [id number] 11/13/2019 05:44:57 PM EDT [facility]PAT[facility] NT INFORMATIONPatient MRN Name Date of Age Gend*PT [id number] Hilaria Sanders 1980 39 years F OBSPT Location Admission Date/Time Visit ID Attending Provider --- --- --- --- EPI ID CSN Admitting Provider [id number] ---AirwayPatient location during procedure: ORUrgency: electiveDifficult airway: noAdvanced airway equipment used: noStaffingPerformed by: Anthony Fox CRNAAnesthesiologist: Geoff London MDIndications and Patient ConditionIndications for airway management: anesthesiaPreoxygenated: yesPatient position: supineIn-line stabilization: noMask ventilation: 1 - vent by maskFinal Airway/ApproachesFinal airway type: ETTNumber of attempts at final approach: 1Number of other approaches attempted: 0Final Airway DetailsFinal ETT airway: ETT - singleCuffed: yesTechnique used for successful ETT placement: direct laryngoscopyCricoid pressure: noRSI: noInsertion site: oralBlade type/size: MAC 3.5ETT size: 7.5 mmMeasured from: lipsETT to lips: 22 cmPlacement verified by: + [id number] view: grade I - full view of glottis Name Value Range Interpretation Code Description Data Marta rce(s) Supporting Document(s) ID Date Data Source [id number] 11/13/2019 05:31:14 PM EDT [facility]PAT[facility] NT INFORMATIONPatient MRN Name Date of Age Gend*PT [id number] Hilaria Sanders 1980 39 years F OBSPT Location Admission Date/Time Visit ID [facility] 11/13/19 0916 --- Michelle Caruso MD([id number]) EPI ID CSN Admitting Provider [id number] Michelle Caruso MD([id number])Inpatient History & PhysicalHilaria SandersMRN:[id number] and Plan:Principal Problem: AppendicitisActive Problems: Asthma GERD (gastroesophageal reflux disease)Likely ac appendicits we will take her to OR for Laparoscopic appendectomy,poss. eval for internal hernia,poss open.Informed consent was obtained prior to the procedure. We had discussed risksand benefits including but not limited to bleeding, infection, injury tosurrounding structures, need for additional procedures, risk of COVID-19infection while hospitalized, risks of anesthesia including LA, stroke anddeath. Pt expressed understanding of all risks and agrees to proceed withsurgery.Chief Complaint: RLQ painHistory of Present Illness: Hilaria Sanders is a 39 yrs old female who isstatus post lap RNY on 02/23/[address] She has lost over 60 lbs. Shepresented yesterday in our office for evaluation of RLQ abdominal pain. Thepatient was worked up with a CT Abd/pel. CT showed appendicolithis w ithoutappendicitis. She was reporting periumbilical pain radiating to RLQ sinceWednesday,had some worsening 2 d/o requiring ED visit. Associated N/V/D. Nofever chills. The pain is still present but tolerable yesterday and she wasprescribed Abx;s and scheduled for appendectomy on Tuesday or to report earlierif pain gets worse. The pain did got worse overnight and she had some nausea andvomiting. She denies CP/SOB, hematemesis, hematochezia, recent travel or sickcontacts.Past Medical History:Past Medical History:Diagnosis Date Arthritis Asthma allergy-induced GERD (gastroesophageal reflux disease) Morbid obesity BMI 45.0Past Surgical History:Past Surgical History:Procedure Laterality Date SECTION CHOLECYSTECTOMY COLONOSCOPY CYSTOSCOPY GASTRIC BYPASS N/A 02/23/2019 Procedure: GASTRIC BYPASS THAO-EN-Y LIVER BX LAPAROSCOPYesophagogastrojejunoscopy; Surgeon: Duke Lane MD; Laterality: N/A; HYSTERECTOMY NASAL ENDOSCOPY UPPER GASTROINTESTINAL ENDOSCOPY WISDOM TOOTH EXTRACTIONMedications:Medications Prior to AdmissionMedication Sig Dispense Refill Last Dose acetaminophen (TYLENOL) 325 MG tablet Take 2 tablets (650 mg total) by mouthevery 6 (six) hours as needed for pain 30 tablet 0 11/12/2019 at Unknown time azelastine (ASTELIN) 0.1 % nasal spray 1 spray into each nostril 2 (two) t imesa day Use in each nostril as directed 11/12/2019 at Unknown time Cyanocobalamin (B-12) 500 MCG TABS Take 2 tablets (1,000 mcg total) by mouthdaily 150 tablet 11/12/2019 at Unknown time Dexlansoprazole 60 MG capsule Take 60 mg by mouth daily 11/12/2019 at Unknowntime EPINEPHrine (EPIPEN 2-BRANDAN) 0.3 MG/0.3ML SOAJ Inject 0.3 mg into the shoulder,thigh, or buttocks daily as needed Inject into thigh once for severe allergicreaction Unknown at Unknown time escitalopram (LEXAPRO) 20 MG tablet Take 20 mg by mouth nightly 11/12/2019 atUnknown time fluticasone (FLONASE) 50 MCG/ACT nasal spray 1 spray into each nostril 2 (two)times a day 11/12/2019 at Unknown time Fluticasone-Salmeterol 113-14 MCG/ACT AEPB Inhale 1 puff 2 (two) times a day11/12/2019 at Unknown time levocetirizine (XYZAL) 5 MG tablet Take 5 mg by mouth every evening11/12/2019 at Unknown time montelukast (SINGULAIR) 10 MG tablet Take 10 mg by mouth nightly 11/12/2019at Unknown time Multiple Vitamins-Iron (MULTIVITAMIN WITH IRON) TABS Take 2 tablets by mouthdaily 0 11/12/2019 at Unknown time ondansetron (ZOFRAN) 4 MG tablet Take 4 mg by mouth daily as needed for n auseaPast Month at Unknown time Probiotic Product (PROBIOTIC-10 PO) Take 1 tablet by mouth once daily11/12/2019 at Unknown time simethicone (MYLICON) 80 MG chewable tablet Chew 1 tablet (80 mg total) every6 (six) hours as needed for flatulence 30 tablet 0 Past Month at Unknown time Vitamin D, Cholecalciferol, 1000 units TABS Take 1 tablet by mouth daily11/12/2019 at Unknown time VITAMIN E PO Take 1 tablet by mouth 2 (two) times a week 11/12/2019 atUnknown timeAllergies:Omnicef [cefdinir]; Artichoke [cynara scolymus (artichoke)]; Kiwiextract; Metronidazole; Morphine and related; Other; Pineapple; Biaxin[clarithromycin]; Latex; and PenicillinsFamily History:History reviewed. No pertinent family history.Social History:Social HistoryTobacco Use Smoking status: Never Smoker Smokeless tobacco: Never UsedSubstance Use Topics Alcohol use: Not Currently Drug use: NeverReview of Systems:All systems were reviewed and found negative except for those mentioned in theHPI.Review of Systems:General: The patient's general health has been goodSkin: No skin lesions or ulcerations,Respiratory: Patient denies any shortness of breathCardiac: Denies chest pain, No previous PCI/PTCAENT: Denies chronic/recurring oropharyngeal ulcers, Dentition: goodEyes: Denies any visual disturbancesMusculoskeletal: Has multiple joint pain and/or back painUrological: Denies gross hematuria or dysuriaNeurological: Denies chronic headaches/migraines, No neuropathyPsychiatric: Denies hospitalizations for psychiatric diagnoses, no suicideattemptsGastrointestinal: As per HPI. No history of rectal bleedingHematological: Denies history of DVT or PEEndocrine: No polydipsia/polyuriaPhysical Exam:Vital Signs: Temp: [97.8 F-99.2 F] 97.8 FHeart Rate: [59-77] 59Resp: [16-18] 16BP: (123-129)/(82-91) 123/84General: Resting on the exam table in mild distressHead: No signs of trauma, no hair lossEyes: PERRL. Conjunctiva pink. Sclerae clear, anictericMouth: Tongue midlin e, normal hard and soft palateNeck: Supple, no masses, thyroid not enlargedLungs: Clear to auscultationHeart: Regular rate and rhythm, no murmursChest: Normal size and shapeAbdomen: soft, tender to palpation RLQ with someguarding/rebound, active bowelsounds, no massesAbdominal hernia: noneAbdominal scars: well-healed from RNY surgerySkin: ClearExtremities: Full ROM, no deformitiesVeins: NormalNeurological: Alert and OrientedPsychiatric: Normal affectImpression and Recommendations: Hilaria Sanders is a 39-year old female who isstatus post lap RNY and now presents with RLQ pain and symptoms of earlyappendicitis. I have reviewed the reports of the lab work and imaging studiesperformed and believe that patient will benefit from appendectomy for resolutionof her symptoms.I explained the operation, potential complications, what can be expected aftersurgery. An informed consent discussion was held.The planned operation will be laparoscopic appendectomy, evaluation for internalhernia . We covered complications including, but not limited to: bleeding,infection, injury to nearby structures, , LA, DVT, PE, need for opensurgery, and the need for repeat surgery, among others. We also discussed riskof COVID 19 infection during her hospital admissionWe will plan to get surgery scheduledStart antibiotics to delay progression to full blown appendicitis - Qruoghor463it daily for 7 days. Pt reports allergy to penicillin and flagylTesting to be done: [facility], Imaging and Other Diagnostics:Diagnostic tests reviewed:Imaging: CT Abd[facility] - Appendicoliths withoutappendicitisRight ovarian follicleNormal post RNY anatomyCBC with Diff:Lab ResultsComponent Value Date WBC 6.1 11/13/2019 RBC 5.09 11/13/2019 HGB 14.7 11/13/2019 HCT 43.8 11/13/2019 MCV 86.0 11/13/2019 MCH 28.9 11/13/2019 MCHC 33.6 11/13/2019 RDW 14.7 (H) 11/13/2019 PLT 259 11/13/2019 MPV 9.1 11/13/2019 LYMPHOPCT 37.2 11/13/2019 MONOPCT 7.2 11/13/2019 EOSPCT 3.3 11/13/2019 BASOPCT 0.6 11/13/2019 NEUTROABS 3.2 11/13/2019 MONOABS 0.4 11/13/2019 BASOSABS 0.0 11/13/2019CMP:Lab ResultsComponent Value Date NA 140 11/13/2019 K 4.9 11/13/2019 CL 108 11/13/2019 CO2 27 11/13/2019 ANIONGAP 5 (L) 11/13/2019 BUN 8 11/13/2019 CREATININE 0.81 11/13/2019 BCR 9.9 (L) 11/13/2019 GLU 74 11/13/2019 CALCIUM 9.1 11/13/2019 ALBUMIN 3.9 11/13/2019 GLOB 4.9 (H) 11/13/2019 AGRC 0.8 11/13/2019 ALKPHOS 94 11/13/2019 LABBILI 0.4 11/13/2019 AST 22 11/13/2019 ALT 48 11/13/2019 GFRAA >60 11/13/2019 GFRNONAA >60 11/13/2019Lactate: No results found for: LACTATEMagnesium: No results found for: MGPancreatic: No results found for: AMYLASE, LIPASESignature: Michelle Caruso, MDDate: November 13, 2019Time: 5:29 PM Name Value Range Interpretation Code Description Data Marta rce(s) Supporting Document(s) ID Date Data Source [id number] 11/13/2019 12:40:38 PM EDT [facility] Name Value Range Interpretation Code Description Data Marta rce(s) Supporting Document(s) EKG [facility] RDVUIs9nNnGKLiYrm3JpYvNeDVLyKW4wauc2N1A9jHQmX7JunLJue0uwZ4FjW1HbKHBuRIIMFM5KeNMr jb2 [file] 7zEPifuxb/zIxlUF7WJC2q5/promotions team leader/MrdF7AllAe0Io1ehE6saYp6J3F8a+j+9vLuJ2PvhuY2l+w/9y1+M 3ELzcMGqIYTpJWaafCAX0kY17xxZEfuG1gNbijsP56pNpaTbGiEuayWN+dgP1hOeWfHuUifs/YztHk0Z +c8hNTW/yZ6UdVTK8U5+DD5wLv5xqpZAKRy3wCOhHH Yis/cuLRdJIZncEOA1DqAUNNJ6WUM2d7Cee4yQO/fQ1KPO7K4jLcR2TPeGZZC/3ERj+xTSqYVEA/sdFP jZNJynJ73HVpQMSMmzCEDSNDEDKIHGYRqShFlmYf3AVJrmW8FiiOxuM5WQsEk+Pg+czOmp6J0BdnVNzf CjYVbCrYVLCpYFPBhoL+PASMg/66iNZ4OcWHqhEEIp JFtxGbylVeaNRkeXkTgJCwbKEyuJ0K8LVlCob1lTvOBcdBJDNKcSVINI5QEpT4PbxP3MrMEaPZXgcmiD 1a6FxMf1dNTtCcY5zAhKrygw9l4293k+icmaElesuMNhzHyXN0nEAuCqu9nU0cRWEM4MActJcghxn3lu em2dmOVo28wX+buN61+PIcci2+Jim5Fl+TlFyL/0LN WN61+HJocy2+Killian+WCnBwAroUuaEZ9xVYNFF5WJ2dOLJb1oY3oRulXX9zfKlNW8u0PQMbOOS4Mkzojl [file] /9VQBPUhlzeh5KUXoQCMENEnXWLNGAAUKBNJTNYcCG SciRPwmpGmeheCoce2Xfv5WIqDtQGVHxYMOHbIHNXOSNCtT6niiyNwUnIUXLOoIEfI2iWSrDILg64jez racWZKbAyyYTrnmBcEDAW0TgauuOPMVk9is+4S3PCcaKl0aiICd5EsVFFfFSZVCjUIzHFNUCfMAcdNdw RILJVHY0nYHi8uFKaXeisZg6rtQrZ2CFUPQnjvCFaL HeDe5pToMKr2bdj4p9dlBDNC61WliBsq+0eLYnB3j81Kf0bT8DeNhyjPSSdrQMja3ORnLMpFF3fbAERe qKmBbr9monz1i96mY4aEki7+QQPUh7dWHMWzFGFEfJrcLwRqG0Pifl08FTUkbiKfMPCC+mY+kgEESCRJ AZWpGS9ZnXnYDyw8LDvNtDYmQ3zdLcSI9bFaKtyFjW VbKMH2FjRBVSeRW/GdnMnq8aiZkDXNCsRWNV2xcxTOsTYGQphANx+xInC67Wr8qma94LchQHmzdLogiu 9BIVXb4eRk3tI7nZs8JLr2/PbncUOG2fX1wZbPSA31ez9ofyT0k60wLQtHmQTW8f9yVRiCwPvMQYiIX3 HWtN4rol55BMZfpTNonhE5g/2bW7izxFcWxXfHJ9j7 4bv6kEdFtZp4SOQa4OHHWXEwkRTkSW3mvSjZkQ1EvEJE0WKQkBUsv8RpC+o6hZtiju5kniYMfSsmhZZO Mx6NCDOumKYSnNRELWrlz8PEdh0KWYtVGNUCLQAFhHMQHiGYYzdaZkQqZWPXCaLIK9TfXeV1bFzFwSDW XjZXIGZhFB8byvVOyqyAArd8XZeKrJYHCyBYXQpDNF ZIGWdfLSISSXFSWVPONZBLWEV5WbDcW8FcI1FNZWfburG1UW+0EhA/cI2DrJUNH/qOwHlQwqGVQyqGRQ vqFWOAMKVcyPifxHKFcidZEO2idYRsxfikPuMxHhBDM8KiPWKyxiHhmDuZbKzT4HSLIpuSlGRRHLAOZY qdawHJSieuEIw1FQjUDHKBsGQ3I3BTdk2n10ix8jAO m+ZmshhsE77wduX3vRZXuPR+7tRz0Z+EiA+QEtL8KyOwvIdwHwJAwDvblXEN2ijU7rz0VekzNQgPybHA XVqresEfNMoRUMVPamoxyqI8K7xn2nrtJst/3rAbIJrKW6awfq4zajF3OqE3aqruinkltie+8/usbEpc e6ndJlTe3dkxaGDZ6TCRaKsL8s2gVnYOnckKro2w35 iYjSgF06+eN03secNwQlPbbKQjCPeaTvnKfieW1ZahqOazOkUnIEavBtMRVrxZQT2EkGSFANyV53WNs6 DIEKA6jP4oOBY65wzYI3QPbFnzVTXMuEFHrUZrfqG+kAb6aA/EQJyE+AtIuEIWSGA7GkCBq7SLizT2OV LpGMT92FHpfO2kEeRCVoz7oqjrXjjFwvIGYo1fonTg /dQuZ4RMwa/9Sz0p4bOi9FDM/mXvWj5Ng1ZamMo48QaoBrQ6ZTsfrJqDmeQknsjOF6Fwf0RFON8KaLxy 92+3Q7URg9NlVowfgL2QK4CMg81u/AcaBVkvfz33ikRVNUTfwWL8gQD5oMB/ITJSA/MVClU1LpneArbZ n6GXADnk0OTwzLBfqwND+Q0RaLLZLKRrAWNHJIMWoT TEIZHTHIDCGCKNBSFsXVXsnKYBPDZvHEi4Zr05I4q+D7BVMrIeWzAwsJ4wlZwdhTdwyUdN9irbLAvpkW kjiHqBvScYPbPLqqTvGqWpWKQWBILinDYVlMGLCxEQPGOKuJU4BtLJcWMbqZqTDEMFSMtEbpQXRHHBZf NhEXZBm1OTNCCJfQKSdtXH1YbRAVsSyMD3gHJQ5QBO A/BQDeAwLAimETjRZOmNZt20mm1y2qEa9CTffgkxQyAh3AeHHD6XOMzghXpbBqDHSWWzzTpQUXFxoy4q w5d+68ZyTuzUew8Bx2pn5tJjaQUcdxMJpnvzTom2iZ3MssscLpG7KAnFFBQKWz5J8QQC5X+eO20j6nBM bCTG7fBzNG3EfHgCDgzITBzPjTvjaKhXl7osa8e4VR yX9YDmKqSGhY24GODaoAwWJOUDTZLU7IGo8tOkJ5jZD1PlR3Wc/nIcGAHCzXk0e6M7edZvErD2C/2tyK fQv46IcLK7qM2yaFN20Gr7VQNGPyt5GK4GCyk9DdLNdN7PkA6rajpOgEH4iID8lQy8hayWe1B+4+lFId x27Mol9k4m+0KERNugpe2h8l9d3uki/pnwf3m83qwi 063l2+cL1gei7y0UGZ9np26AXOzaHrvhvEx9ABbAkuXVqsCvtkrxiXwRQh922dyXWIquMc1oLPzO9yyy mmi071PH6/aV0xvdqH1+i99awt5Dua/MYhrxkx4sZ6o1HTs7s4yew7m/XsP6z/yz7XYtc0WRH5Pg07pC y5HRcrgu4v7l8Os6Bim18fcpGxjFQlF41/PbmYji/f Hs2uAk2I055gTdjI1lwR8hmjKvoFl2K0x052Q1S9+5XbON9/dPnBNxdnr8+Oqo0mvdTYr5a3J2J0m+svp marketing 1lO3e4cFu8zT3fudBQ292vrk/g0t1Jie9d+3v/76+qP725mwo61lH/5x+3Q7/fLP5Qu/bDV4XirftJpw LmW8PPff3AMglCt2jvurE1gvwYCa17/0f67EaseKmh 4Y623X+PKfx7P1jKl/Q2F7a2+I7qN6og0vXE3c9xD2AuZ9Yb1hayK/5Fah48K/ZkUtylbgfpED8l3nf2 7Dyu8Uv07whEsP0d/WY4heDbl6/6PorYyI3Eud30U8Rj/84rx0qbW5g3kCTM0yWDtPIic9bbUcg2ngI3 pj7z41p7lbu1e7l0d07L8l1f7wSX9u+v312gWl+vTw 9e5wY2svq1J9Wx17h6csIkE+9n790Dcg7uZu0oi6L66Bo7/hdxcc9M5hhWP9kBHul7iTRC/Gg9I9hVU/ HPP28t2ngANl617ad2vdBXNftOBFcMm626o26yPA6bZwit1q3Y6/n9u3caP10RRQ5gPyQsS8ec7Bjl70 4x1nc9x7rW25g/5594Z0l/y7z7cf/vX3b2+YbXd9cS 98+6930DNG4/dclqTeuY45ilqxPl41+/ONi5eJh93eAwlHU0c88u01uUet8MV/iylc0zXhHjmNDTMjx4 RXt7/fTW56/T6atOUScX6am0Q0NMIG47lapkoSWNHX2/4UgO37h7oMcrt1LZTP7gc4qNbFe1XB+GPdmA yu9tv/T5q1dZhYEU7qo2MkJOWuPaZyOS9hyvhzUHOg BX6zeri5Q0TttRedEGjDOXUuTn4ulVCdHW6KKKN7EAckIGAoZTBaC7LbdM1jC02sqFPhWuYrFVWYKM5Q ctN4ZSZ4BLW2NNFuPpSiGIKxWR88SXDqHLYPXt5wwwIfMonDAfGsNL8iseq4A3K6iORgM664gTpjfqBf GD4Co6YavIFyHO6IzSXgiZGoXANqUMDuA0ztx3WjFM muARJOLn2hngIhUlwHPhPeXU5fdcu1P4M1iPaccaVlTIQEMRlkTvpaHP2znGvrcfqdT1DrnWNlHYHwG9 HwVYQqa32ECEEgBZxRDyMsNbBnPqF5HQS3USjqMaXtINJyQSRkYBNlVA4NlFXqZRLdZGAVHCroGuakFN SpaZ2fxEPFu3HfN8HPEVeGWOrkPJeZKzBTBNYgDCIe PiF7VCWuITGmQ1CdqrLwbUFyMIWAPUezBokxRPWrrK2waKjdC0NaNFH7n9YrWJ7NO2CnDESsHFDBDFC7 o0KcYPIaugprkmkiMgBtXCWsRLHhXBYfOO8Kaq1jlAHiyzQnYRFNLGmdSqcoXB8trSbrqqvyY4ZvfMYx KSA+XqOdCR4fbh0+VqBiKYXtZzi9RHAzXYovDCCbBO MtBAVgI4ogNNIaDkEpIEDuHxLtPK1Vc2KjlNTkOl8tocUdInoGaMQkFweaGEShRDPjHPSaUiBBTZMlQX InUAXiOJN5CCNzZSCjENviWQAvJLToVCG7IKAyTXQxNT5kEqNhHJGcXTI2JMazNEOdQKSagrGHWIQgUJ D7ROa2DkGeMETyCSXbEVqcQKFoSZAtTVUgMUU7XUW5 MLVrWmFrDSGoEMOoGFAoRMRfQYSulvSDQLFsICPoZOA4AEAtSHLhSWNrXKypPFDwTRLcWLxhSZEyZKSy BW7nDbCgUPBbQXCrXQsfCPNbGHNnkiNBKLElUZWtNKSkRWIyRFWsLVEgLKxuPDZsNRWgFEYxLCGaVBRy QY0sZjVhDCWlYTT2WKMaEYKuPBAhigRYNIMeFXQoPK p8ULTxIOAqAORpUSedDRWpPVHnPID5GOTpSNIaUS9wJsVqMGTqVTN5ZeLsNGBaPXHpkqWHQZXpKPCuZX V8OfFmWRTxUBMkYScqNCRgUOHzCRriMOBsSLTkNH2dZbJqBJYeWJIcBBrhGWRvGZHprjZBTCVpDBDhXY QcPjUqZZNrHACyRHamGKGnSEAoBNx9UMFrZWPsNH9r DhWaIDTxQKR0VBuwBWAnGKRgdtPGSIJqGXHyEMknZBVrTMRsQTYaBWfyDBRpKEOsOIK9AGHoJKPjBE9c PcWyXGClRGKsZNEzIsG7RvTwWbKUxNLjaXgxwui8JXqlE5f3BNUgGKqeWK3hxmOrNSUcOvysGd0gcSV5 OUBcOeiNTj3Ue1AutbR5mmDpSkOpPVeoMqTiRJ1Y ID Date Data Source [id number] 11/13/2019 11:06:28 AM EDT [facility] Name Value Range Interpretation Code Description Data Marta rce(s) Supporting Document(s) POC URINE HCG (NEG) [facility] PERFORMED BY [facility] CLINICAL STAFF ID Date Data Source [id number] 11/13/2019 11:05:32 AM EDT [facility] Name Value Range Interpretation Code Description Data Marta rce(s) Supporting Document(s) POC URINE COLOR [facility] POC URINE APPEARANCE [facility] POC SPEC GRAV URINE 1.015 (1.003-1.030) [facility] POC PH URINE 7.0 (5.0-7.5) [facility] POC LEUK ESTERASE UR (NEG) [facility] POC NITRITE URINE (NEG) [facility] POC PROTEIN URINE (NEG) [facility] POC GLUCOSE URINE (NEG) [facility] [place] [facility] POC KETONE URINE (NEG) [facility] [place] [facility] POC UROBILINOGEN UR 0.2 EU/dL (0.2-1.0) [facility] POC BILIRUBIN UR (NEG) [facility] [place] [facility] POC BLOOD HGB URINE (NEG) [facility] CLINICAL STAFF ID Date Data Source [id number] 11/13/2019 10:46:00 AM EDT [facility] Name Value Range Interpretation Code Description Data Marta rce(s) Supporting Document(s) SARS coronavirus 2 RNA [Presence] in Res piratory specimen by SIXTO with probe detection [facility] This lab was reported by [facility]. ID Date Data Source [id number] 11/13/2019 01:23:05 PM EDT [facility] Name Value Range Interpretation Code Description Data Marta rce(s) Supporting Document(s) SPECIMEN DESCRIPTION [facility] COVID19 RESULT (NDET) [facility] THIS ASSAY AMPLIFIES AND DETECTSTHE TARG ET RNA USING REAL-TIME PCR.NEGATIVE 2019_NCOV RT-PCR RESULTS DONOT PRECLUDE 2019_NCOV INFECTION ANDSHOULD NOT BE USED THE SOLE BASISFOR PATIENT MANAGEMENT DECISIONS. COMMENT [facility] UNDER AN EMERGENCY USE AUTHORIZATION(EUA ) FOR THE DETECTION AND/OR DIAGNOSISOF THE VIRUS THAT CAUSES COVID-19.EMAILED TO AT 13:17 ON 11/13/19 [id number]. ID Date Data Source [id number] 11/13/2019 01:00:40 PM EDT [facility] SPEC EXP DATE 11/16/2019PATI ENT ABO/Rh A POSITIVEANTIBODY SCREEN NEGATIVETESTING SITE PERFORMED AT [address] [place] [id number] Name Value Range Interpretation Code Description Data Marta rce(s) Supporting Document(s) TYPE AND SCREEN [facility] ID Date Data Source [id number] 11/13/2019 11:54:45 AM EDT [facility] Name Value Range Interpretation Code Description Data Marta rce(s) Supporting Document(s) SODIUM 140 mmol/L (136-145) [facility] POTASSIUM 4.9 mmol/L (3.6-5.2) [facility] CHLORIDE 108 mmol/L (100-108) [facility] CO2 27 mmol/L (22-31) [facility] ANION GAP 5 mmol/L (7-16) L [facility] UREA NITROGEN 8 mg/dL (7-24) [facility] CREATININE 0.81 mg/dL (0.60-1.00) [facility] BUN/CREAT RATIO 9.9 RATIO (10.0-20.0) L [facility] GLUCOSE 74 mg/dL (70-99) [facility] CALCIUM 9.1 mg/dL (8.4-10.2) [facility] TOTAL PROTEIN 8.8 g/dL (6.4-8.2) H [facility] ALBUMIN 3.9 g/dL (3.5-4.6) [facility] GLOBULIN 4.9 g/dL (2.7-4.3) H [facility] ALB/GLOB RATIO 0.8 RATIO [facility] ALKALINE PHOSPHATASE 94 U/L (45-117) [facility] BILIRUBIN,TOTAL 0.4 mg/dL (0.0-1.0) [facility] PLEASE NOTE:Total bilirubin results may be falselyelevated in patients taking Eltrombopag. AST (SGOT) 22 U/L (11-39) [facility] ALT (SGPT) 48 U/L (12-78) [facility] GFR >60 ml/min/1.73m2 (>59) [facility] GFR ( AMER) >60 ml/min/1.73m2 (>59) [facility] GFR INTERPRETATION [facility] --NORMAL KIDNEY FUNCTION OR MILD DISEASE - GFR >OR= 60CHRONIC KIDNEY DISEASE - GFR 15 - 59RENAL FAILURE - GFR <15 Est. GFR calculation based on the MDRDstudy equation, which assumes a steadystate for creatinine. Est. GFR should notbe used for medication dosing. ID Date Data Source [id number] 11/13/2019 11:35:02 AM EDT [facility] Name Value Range Interpretation Code Description Data Marta rce(s) Supporting Document(s) WBC 6.1 10*3/uL (4.1-11.0) [facility] [place] RBC 5.09 10*6/uL (4.00-5.40) [facility] HGB 14.7 g/dL (12.0-16.0) [facility] HCT 43.8 % (36.0-47.0) [facility] PERFORMED AT [address] [place] [address] [place] [address] MCV 86.0 fL (80.0-95.0) [facility] MCH 28.9 pg (27.0-32.0) [facility] MCHC 33.6 g/dL (32.0-36.0) [facility] RDW 14.7 % (10.5-14.5) H [facility] PLT 259 10*3/uL (150-450) [facility] MPV 9.1 fL (7.1-10.7) [facility] NEUT % 51.7 % (35.0-75.0) [facility] LYMPH % 37.2 % (16.0-52.0) [facility] MONO % 7.2 % (0.0-8.0) [facility] EOS % 3.3 % (0.0-5.0) [facility] BASO % 0.6 % (0.0-4.0) [facility] NEUT # 3.2 10*3/uL (1.8-7.7) [facility] LYMPH # 2.3 10*3/uL (1.2-4.8) [facility] Karli Duggan MONO # 0.4 10*3/uL (0.0-0.8) [facility] Michela Duggan Eosinophils [#/volume] in Blood by Automated count 0.2 10*3/uL (0.0-0 .5) [facility] rosanne URIBE BASO # 0.0 10*3/uL (0.0-0.2) [facility] Karli Duggan ID Date Data Source [id number] 11/15/2019 07:11:59 PM EDT [facility] rosanne URIBE [facility] [place], [place] [address]Btx# Surgical Pathology ReportAccession #:[id number](s) ReceivedA: AppendixClinical Diagnosis and HistoryAppendicitis DIAGNOSISAPPENDIX, EXCISION: ACUTE APPENDICITIS Gross DescriptionReceived in formalin, the specimen is labeled "appendix" and consists of astapled closed appendix at its base measuring 9 x 0.6 x 1.0 cm withattached mesenteric fat. The specimen is serially sectioned from the tipto the base to reveal a thickened wall measuring up to 0.4 cm with afecalith towards the base of the specimen. No perforation is seen. Allergy And Immunology Chief sections to include the tip and the inked black base aresubmitted into A1-A4. Processed at [facility], Histopathology, [address] [place] [address], [id number].jglgmm/[email or web address] Reported: 11/15/2019Electronically Signed Out By Khalida Jackson MD [facility]ixt This report may include immunohistochemical or in-situ hybridizationresults. Testing was developed and the performance characteristicsdetermined by [facility] as required by CLIA '88. The FDAhas determined that approval for specific use is not necessary forclinical use. The quality of Hematoxylin and Eosin stains and asapplicable, for all immunohistochemical and/or special stains, includingpositive and negative controls, were reviewed and considered appropriate.ICD codes K37CPT codesA: 49408C Name Value Range Interpretation Code Description Data Marta rce(s) Supporting Document(s) Procedure Social History Code Duration Value Status Description Data Source(s ) Smoking 06/04/2020 12:00:00 AM EST Patient has never smoked co mpleted Patient has never smoked [facility] ([facility]) Smoking 03/07/2020 12:00:00 AM EDT Never smoker completed Never s moker [facility] ([facility]) Alcohol intake 12/28/2019 12:00:00 AM EDT Not Currently completed [facility] Smoking 12/28/2019 12:00:00 AM EDT Never smoker completed Never s moker [facility] Smoking 11/27/2019 12:00:00 AM EDT Never Smoker completed Never S moker eCW1 ([facility]) Smoking 11/27/2019 12:00:00 AM EDT Never Smoker completed Never S moker eCW1 ([facility]) Alcohol intake 11/15/2019 12:00:00 AM EDT Not Currently completed [facility] Smoking 11/15/2019 12:00:00 AM EDT Never smoker completed Never s moker [facility] Alcohol intake 11/13/2019 12:00:00 AM EDT Not Currently completed [facility] Smoking 11/13/2019 12:00:00 AM EDT Never smoker completed Never s moker [facility] Vital Signs ID Date Data Source UNK Name Value Range Interpretation Code Description Data Source(s) Body weight 208.00 [lb_av] 208.00 [lb_av] MEDEN T ([facility]) Body temperature 97.5 [degF] 97.5 [degF] [facility] ([facility]) Oxygen saturation in Arterial blood by Pulse oximetry 97 % 97 % [facility] ([facility]) Respiratory rate 16 /min 16 /min [facility]) Heart rate 94 /min 94 /min [facility] ([facility]) Diastolic blood pressure 104 mm[Hg] 104 mm[Hg] [facility] ([facility]) Systolic blood pressure 155 mm[Hg] 155 mm[Hg] Geoff CESPEDES ([facility]) Body surface area Derived from formula 2.02 m2 2.02 m2 [facility] ([facility]) Body weight 94.802 kg 94.802 kg [facility] ([facility]) [place] body weight 125 [lb_av] 125 [lb_av] MEDEN T ([facility]) Body mass index (BMI) [Ratio] 34.8 kg/m2 34.8 k g/m2 [facility] ([facility]) Body weight 209.00 [lb_av] 209.00 [lb_av] [facility] Body height 65 [in_i] 65 [in_i] [facility] ([facility]) 5'5" Diastolic blood pressure 84 mm[Hg] 84 mm[Hg] [facility] ([facility]) Systolic blood pressure 120 mm[Hg] 120 mm[Hg] [facility] Oxygen saturation in Arterial blood by Pulse oximetry 99 % 99 % [facility] Respiratory rate 14 /min 14 /min [facility] Heart rate 83 /min 83 /min [facility] Diastolic blood pressure 95 mm[Hg] 95 mm[Hg] [facility] Systolic blood pressure 134 mm[Hg] 134 mm[Hg] [facility] Body temperature 36.78 Steph 36.78 Steph [facility] Body mass index (BMI) [Ratio] 34.78 kg/m2 34.78 kg/m2 [facility] Body weight 94.802 kg 94.802 kg [facility] Body height 165.1 cm 165.1 cm [facility] Oxygen saturation in Arterial blood by Pulse oximetry 99 % 99 % [facility] Respiratory rate 18 /min 18 /min [facility] Body temperature 37.22 Steph 37.22 Steph [facility] Heart rate 79 /min 79 /min [facility] Diastolic blood pressure 92 mm[Hg] 92 mm[Hg] [facility] Systolic blood pressure 143 mm[Hg] 143 mm[Hg] [facility] Body mass index (BMI) [Ratio] 35.66 kg/m2 35.66 kg/m2 [facility] Body weight 97.206 kg 97.206 kg [facility] Body height 165.1 cm 165.1 cm [facility] Body height 165.10 cm 165.10 cm [facility] ([facility] Body mass index (BMI) [Ratio] 35.1 kg/m2 35.1 k g/m2 [facility] ([facility]) Diastolic blood pressure 82 mm[Hg] 82 mm[Hg] [facility] ([facility]) Systolic blood pressure 137 mm[Hg] 137 mm[Hg] M EDENT ([facility]) Respiratory rate 18 /min 18 /min [facility] ( [facility]) Heart rate 82 /min 82 /min [facility] Body height 65 [in_i] 65 [in_i] [facility] ([facility] 5'5" Body weight 211.25 [lb_av] 211.25 [lb_av] MEDEN T ([facility]) Patient Treatment Plan of Care Planned Activity Planned Date Details Description Data Source (s) Fluconazole 150 MG Oral Tablet 12/26/2019 12:00:00 AM EDT [facility] ([facility]) Metronidazole 0.0075 MG/MG Vaginal Gel [[employer]] 12/26/2019 12: 00:00 AM EDT [facility] ([facility]) Lidocaine 5 % 11/27/2019 12:00:00 AM EDT eCW1 ([facility]) Lidocaine 5 % 11/27/2019 12:00:00 AM EDT eCW1 ([facility]) Acetaminophen 325 MG / Oxycodone Hydrochloride 5 MG Or al Tablet 11/14/2019 12:00:00 AM EDT [facility] Fluconazole 150 MG Oral Tablet 10/26/2019 12:00:00 AM EDT [facility] (Planned [facility]) Metronidazole 0.0075 MG/MG Vaginal Gel [MetroGel] 10/26/2019 12: 00:00 AM EDT [facility] ([facility]) Fluconazole 150 MG Oral Tablet [Diflucan] 09/17/2019 12:00:00 AM ED T eCW1 ([facility]) Fluconazole 150 MG Oral Tablet [Diflucan] 09/17/2019 12:00:00 AM ED T eCW1 ([facility]) Multiple Vitamins-Iron (MULTIVITAMIN WITH IRON) TABS 019 12:00:00 AM EDT [facility] Ascorbic Acid (VITAMIN C PO) [facility] Omeprazole 40 MG Delayed Release Oral Capsule [facility] ([facility])
[2020-06-14 17:12] LABS: BASO % 0.2 % (0.0-1.0); HEMOGLOBIN 14.7 g/dl (12.0-15.5); LYMPH # 0.5 10^3/uL (1.5-5.0); LYMPH % 8.6 % (24.0-44.0); MEAN CORPUSCULAR HEMOGLOBIN 28.1 pg (27.0-33.0); MEAN CORPUSCULAR HGB CONC 31.3 g/dl (32.0-36.5); MEAN CORPUSCULAR VOLUME 89.9 fl (80.0-96.0); MONO # 0.3 10^3/uL (0.0-0.8); MONO % 5.4 % (0.0-5.0); NEUTROPHILS # 4.8 10^3/uL (1.5-8.5); NEUTROPHILS % 85.1 % (36.0-66.0); PLATELET COUNT, AUTOMATED 264 10^3/uL (150-450); RED BLOOD COUNT 5.23 10^6/uL (4.00-5.40); WHITE BLOOD COUNT 5.7 10^3/uL (4.0-10.0)
[2020-06-14 17:16] LABS: ABG BASE EXCESS 0.9 (-2.0-2.0); ABG HCO3 24.6 MEQ/L (22.0-26.0); ABG O2 SATURATION 94.2 % (95.0-99.0); ABG PARTIAL PRESSURE CO2 36.6 mmHg (35.0-45.0); ABG PARTIAL PRESSURE O2 66.7 mmHg (75.0-100.0); ABG STANDARD HCO3 25.2 MEQ/L (22.0-26.0); ABG TOTAL CO2 25.8 MEQ/L (22.0-29.0); ABG pH (ARTERIAL) 7.446 UNITS (7.350-7.450)
[2020-06-14 17:30] LABS: ERYTHROCYTE SEDIMENTATION RATE 36 mm/hr (0-20)
[2020-06-14 17:51] LABS: ALBUMIN 3.2 GM/DL (3.2-5.2); ALT/SGPT 80 U/L (12-78); BILIRUBIN,DIRECT 0.2 MG/DL (0.0-0.2); BILIRUBIN,TOTAL 0.3 MG/DL (0.2-1.0); BLOOD UREA NITROGEN 9 MG/DL (7-18); CALCIUM LEVEL 8.3 MG/DL (8.5-10.1); CARBON DIOXIDE LEVEL 26 MEQ/L (21-32); CHLORIDE LEVEL 104 MEQ/L (98-107); CK-MB VALUE MASS < 1.0 NG/ML (<3.6); CPK CREATINE PHOSPHOKINASE 102 U/L (26-192); CREATININE FOR GFR 0.69 MG/DL (0.55-1.30); GLOMERULAR FILTRATION RATE > 60.0 (>60); GLUCOSE, FASTING 99 MG/DL (70-100); MB/CK RELATIVE INDEX 0.98 (< OR =4); SODIUM LEVEL 140 MEQ/L (136-145); TOTAL PROTEIN 7.5 GM/DL (6.4-8.2); TROPONIN I < 0.02 NG/ML (< 0.10)
[2020-06-14] MEDS ORDERED: PROAAER10 INH ×2 (18:10→19:47)
[2020-06-14] MEDS ORDERED: THERTAB52 PO (19:47)
[2020-06-14] MEDS ORDERED: SUCR1TAB56 PO (19:47)
[2020-06-14] MEDS ORDERED: D3 H2000 PO (19:47)
[2020-06-14] MEDS ORDERED: MULTIVITAMINS/MINERALS THERAP 1 TAB PO ONE (20:30)
[2020-06-14] MEDS ORDERED: **SFRHE** EPINEPHrine (EPIPEN) 0.3MG/0.3ML SYRINGE INJ ONE (20:30)
[2020-06-14] MEDS ORDERED: methylPREDNISolone 125MG 2ML VIAL IV ONE (20:30)
[2020-06-14] MEDS ORDERED: SUCRALFATE 1 GM TAB PO PRN (20:30)
[2020-06-14] MEDS ORDERED: SIMETHICONE 80MG CHEW TAB PO PRN (20:30)
[2020-06-14] MEDS ORDERED: PANTOPRAZOLE 40MG TAB (PROTONIX) PO ONE (20:30)
--- NOTE | 2020-06-14 20:42 | HPEPDOC ---
General Date of Admission Date of Service: Jun 14, 2020 Primary Care Physician: Juan Carlos Patel MD Other Providers SELAM Mccray Attending Physician: Ryan Mares MD Chief Complaint The patient is a 40-year-old female admitted with a reason for visit of not feeling well since her COVID diagnosis. Source: Patient History of Present Illness Laney was diagnosed with COVID 06/04/2020 at the [facility] on [facility]. This is good news because she no longer requires isolation. Since then she has had persistent symptoms including burning sensation in her chest, headache, myalgias and lightheadedness when she stands up. She reports that on the day of admission she fell in the bathroom. She is not sure how long she was on the floor but a friend helped her get up and get dressed so she could come to the emergency department via EMS. Of note she had been seen in the emergency department on 06/09/20 for related symptoms. Home Medications Scheduled Azelastine HCl (Azelastine HCl) 0.1% [place].pump, 1 SPRAY NARES BID, (Reported) Cholecalciferol (Vitamin D3) (Vitamin D3) 50 Mcg Capsule, 50 MCG PO DAILY, (Reported) Dexlansoprazole (Dexilant) 60 Mg Cap.drJoshuabp, 60 MG PO DAILY, (Reported) Escitalopram Oxalate (Lexapro) 20 Mg Tab, 20 MG PO QHS, (Reported) Fluticasone Propionate (Flonase Allergy Relief) 9.9 Ml [place].susp, 1 SPRAY NARES BID, (Reported) Lactobacillus Combo No.10 (Probiotic) 1 Each Capsule, 1 CAP PO DAILY, (Reported) Levocetirizine Dihydrochloride (Levocetirizine Dihydrochloride) 5 Mg Tablet, 2.5 MG PO QHS, (Reported) Montelukast Sodium (Singulair) 10 Mg Tab, 10 MG PO QHS, (Reported) Multivitamin,Therapeutic (Thera-Tabs) 1 Each Tablet, 1 TAB PO DAILY, (Reported) Simethicone (Gas-X) 125 Mg Tab.chew, 125 MG PO DAILY, (Reported) Scheduled PRN Albuterol Sulfate (Proair Hfa) 8.5 Gm Hfa.aer.ad, 2 PUFF INH Q4-6HP PRN for SHORTNESS OF BREATH, (Reported) Epinephrine (Epinephrine) 0.3 Mg/0.3 Ml Auto.injct, 1 SYRINGE IM ONCE PRN for ANAPHYLAXIS, (Reported) Sucralfate (Sucralfate) 1 Gm Tablet, 1 TAB PO QID PRN for STOMACH UPSET, (Reported) Allergies Coded Allergies: cefdinir (Verified Allergy, Severe, ANAPHYLAXIS, 01/11/19) Penicillins (Verified Allergy, Intermediate, HIVES, 01/11/19) artichoke (Verified Allergy, Intermediate, HIVES/SWELLING, 01/11/19) clarithromycin (Verified Allergy, Intermediate, RASH/HIVES, 01/11/19) kiwi (Verified Allergy, Intermediate, HIVES/SWELLING/ITCHY THROAT, 01/11/19) latex (Verified Allergy, Intermediate, RASH, 01/11/19) pineapple (Verified Allergy, Intermediate, ITCHY THROAT, 01/11/19) Red Pepper (Verified Allergy, Unknown, JALAPENO, 07/04/14) metronidazole (Verified Adverse Reaction, Intermediate, NAUSEA, 01/11/19) morphine (Verified Adverse Reaction, Intermediate, VOMITING/ITCHINESS, 12/28 10/15) phentermine (Verified Adverse Reaction, Intermediate, INCREASED BP AND HEART RATE, 01/11/19) venlafaxine (Verified Adverse Reaction, Mild, BAD SIDE EFFECTS, 01/11/19) Past Medical History Medical History GERD, hiatal hernia, anxiety, depression, obesity, irritable bowel syndrome with diarrhea, vitamin D deficiency, seasonal allergic rhinitis, PCOS, miscarriages 2, 2 Surgical History 1, D&C 2, cholecystectomy (2014), hysterectomy (2016), colonoscopy and EGD (2015), nasal scope 2, gastric bypass with Dr. Goins (2018), appendectomy (2019) Family History Father is alive with no known medical problems, mother is alive with hypertension and diabetes dyslipidemia and asthma. Social History * Smoker: non-smoker Drugs: denies A-FIB/CHADSVASC A-FIB History Current/History of A-Fib/PAF?: No Review of Systems Constitutional: Denies: Chills, Fever ENT: Reports: Head Aches; Denies: Ear Pain Skin: Denies: Rash, Lesions Pulmonary: Reports: Dyspnea, Cough, Pleuritic Chest Pain Cardiovascular: Reports: Lt Headedness (orthostatic lightheadedness); Denies: Palpitations, Orthopnea Gastrointestinal: Denies: Nausea, Vomiting, Abdominal Pain, Diarrhea Genitourinary: Denies: Dysuria, Frequency, Incontinence Musculoskeletal: Reports: Muscle Pain Neurological: Reports: Weakness, Incoordination Psych: Reports: Anxiety; Denies: Memory Issues Physical Examination General Exam: Positive: Alert, Cooperative (moving listlessly in the ER stretcher when I entered the room), Mild Distress (she appeared to be quite uncomfortable but not ready to clinically decompensate) Eye Exam: Positive: EOMI; Negative: Conjunctiva & lids normal (conjunctiva were mildly injected), Sclera icteric ENT Exam: Positive: Atraumatic, Tongue Midline, Tympanic Membranes Normal; Negative: Mucous membr. moist/pink (increased membranes are slightly dry), Pharyngeal Edema Neck Exam: Positive: Supple; Negative: thyromegaly, Lymphadenopathy Chest Exam: Positive: Clear to auscultation, Normal air movement, Other (she did persistently cough with deep inspiration); Negative: Wheezing Heart Exam: Positive: Tachycardic, Regular Rhythm, Normal S1, Normal S2; Negative: Gallops, Murmurs, Rubs Abdomen Exam: Positive: Normal bowel sounds, Soft; Negative: Tenderness Extremity Exam: Negative: Clubbing, Cyanosis, Edema Skin Exam: Positive: Nl turgor and temperature; Negative: Rash Neuro Exam: Positive: Normal Speech, Normal Tone Psych Exam: Positive: Anxiety, Memory Intact, Oriented x 3 Vital Signs Vital Signs Date Time Temp Pulse Resp B/P (MAP) Pulse Ox O2 Delivery O2 Flow Rate FiO2 06/14/20 20:02 92 18 95 Nasal Cannula 2.0 06/14/20 19:00 100/53 (69) 06/14/20 15:09 98.7 Laboratory Data Labs 24H Laboratory Tests 2 06/14/20 16:31: Immature Granulocyte % (Auto) 0.7, Neutrophils (%) (Auto) 85.1H, Lymphocytes (%) (Auto) 8.6L, Monocytes (%) (Auto) 5.4H, Eosinophils (%) (Auto) 0.0, Basophils (%) (Auto) 0.2, Neutrophils # (Auto) 4.8, Lymphocytes # (Auto) 0.5L, Monocytes # (Auto) 0.3, Eosinophils # (Auto) 0.0, Basophils # (Auto) 0.0, Nucleated Red Blood Cells % (auto) 0.0, Erythrocyte Sedimentation Rate 36H, Anion Gap 10, Glomerular Filtration Rate > 60.0, Calcium Level 8.3L, Total Bilirubin 0.3, Direct Bilirubin 0.2, Aspartate Amino Transf (AST/SGOT) 62H, Alanine Aminotr ansferase (ALT/SGPT) 80H, Alkaline Phosphatase 73, Total Creatine Kinase 102, Creatine Kinase MB < 1.0, Creatine Kinase MB Relative Index 0.98, Troponin I < 0.02, C-Reactive Protein, Quantitative 12.80H, Total Protein 7.5, Albumin 3.2, Albumin/Globulin Ratio 0.7L 06/14/20 16:52: Blood Gas Bicarbonate Standard 25.2, Arterial Blood pH 7.446, Arterial Blood Partial Pressure CO2 36.6, Arterial Blood Partial Pressure O2 66.7L, Arterial Blood Total CO2 25.8, Arterial Blood HCO3 24.6, Arterial Blood Base Excess 0.9, Arterial Blood Oxygen Saturation 94.2L CBC/BMP Laboratory Tests 06/14/20 16:31 Assessment/Plan This is a 40-year-old woman who is having persistent symptoms post-COVID. She is being brought into the hospital for observation and so we can coordinate the care she needs at home. Anticipate her discharge will be in 1-2 days. Problems (1) Dyspnea Status: Acute Problem Text: This is a post-COVID symptom for her. In the ER it was demonstrated several times that she would desaturate into the 8990 percent range on room air. We were able to keep her in the 94-95% range on supplemental oxygen, usually between 2 and 4 L. She felt more comfortable and her concerning symptom of dyspnea resolved when she had the supplemental oxygen. I explained the natural history of this symptom and how it relates to her previous COVID-19 infection. This understanding seemed to reassure her and calm her quite a bit. My first thought was to discharge her from the ER on oxygen. I mistakenly thought that we were ready to begin sending patients home from the ER on supplemental oxygen. However, I was informed that this program is being developed but is not yet ready for implementation. Because of this, I will admit her on observation status so we can coordinate supplemental oxygen for her discharge in the near future. (2) Orthostatic dizziness Status: Acute Problem Text: She is likely mildly intravascularly dry although her renal function has not yet been effected. We will rehydrate her with IV fluids. I'll check orthostatic vitals in the morning. I anticipate this symptom will resolve quickly. (3) Anxiety about health Problem Text: She has underlying anxiety, but is feeling quite anxious about her COVID 19 infection. She has post-COVID symptoms that are concerning. I carefully address these with her to her satisfaction. I think having her questions and concerns addressed was reassuring to her. (4) GERD (gastroesophageal reflux disease) Status: Chronic Problem Text: Her current regimen includes Carafate and simethicone. I'll continue these while in hospital. Plan / VTE VTE Prophylaxis Ordered?: Yes (SCDs/TEDS/Lovenox) Plan Diagnostics: Repeat Labs in AM Anticipated Discharge: Home (in 12 days) Advanced Directives: Health Care Proxy (HCP) (she verbally identifies her mother, Christy Cornelius , as her alternate decision-making if she was unable to make her own decisions) Ryan Mares MD Jun 14, 2020 20:42
--- OUTSIDE RECORDS SUMMARY | 2020-06-14 20:48 | CCD ---
Author Author [facility] Organization [facility] Address Unknown Phone Unavailable Care Team Providers Care Tension Worker Name Role Phone Geoff GILL Unavailable Unavailable Geoff GILL Unavailable Unavailable Geoff GILL Unavailable Unavailable Geoff GILL Unavailable Unavailable Geoff GILL Unavailable Unavailable ROOKE, M TORSTEN PA Unavailable Unavailable ROOKE, M TORSTEN PA Unavailable Unavailable ROOKE, M TORSTEN PA Unavailable Unavailable Menard CORN POPPER, Maura Bria Unavailable Menard CORN POPPER, Maura Bria Unavailable Menard CORN POPPER, Maura Bria Unavailable Menard CORN POPPER, Maura Bria Unavailable Menard CORN POPPER, Maura Bria Unavailable Menard CORN POPPER, Maura Bria Unavailable Elfego, Paul Heredia MD [...] Paul Heredia MD Unavailable Unavailable Elfego, Paul eHredia MD Unavailable Unavailable Elfego, Paul Heredia MD Unavailable Unavailable Elfego, A Giovanna AYALA Unavailable Unavailable Elfego, A Giovanna AYALA Unavailable Unavailable Elfego, A Giovanna AYALA Unavailable Unavailable Elfego, A Giovanna AYALA Unavailable Unavailable Elfego, A Giovanna AYALA Unavailable Unavailable Elfego, A Giovanna AYALA Unavailable Unavailable Elfego, A Giovanna AYALA Unavailable Unavailable Elfego, A Giovanna AYALA Unavailable Unavailable Elfego, A Giovanna AAYLA Unavailable Unavailable Elfego, A Giovanna AYALA Unavailable [...] Giovanna AYALA Unavailable Unavailable NEVAEH, E PARDEEP MANAGER OF MERCHANDISING Unavailable Unavailable NEVAEH, E PARDEEP MANAGER OF MERCHANDISING Unavailable Unavailable NEVAEH, E PARDEEP MANAGER OF MERCHANDISING Unavailable Unavailable NEVAEH, E PARDEEP MANAGER OF MERCHANDISING Unavailable Unavailable NEVAEH, E PARDEEP MANAGER OF MERCHANDISING Unavailable Unavailable NEVAEH, E PARDEEP MANAGER OF MERCHANDISING Unavailable Unavailable NEVAEH, E PARDEEP MANAGER OF MERCHANDISING Unavailable Unavailable NEVAEH, E PARDEEP MANAGER OF MERCHANDISING Unavailable Unavailable NEVAEH, E PARDEEP MANAGER OF MERCHANDISING Unavailable Unavailable NEVAEH, E PARDEEP MANAGER OF MERCHANDISING Unavailable Unavailable NEVAEH, E PARDEEP MANAGER OF MERCHANDISING Unavailable Unavailable NEVAEH, E PARDEEP MANAGER OF MERCHANDISING Unavailable Unavailable NEVAEH, E PARDEEP MANAGER OF MERCHANDISING Unavailable Unavailable Buster, Paul Pereira MD Unavailable [...] Eugenia RPA C Unavailable Unavailable Lopes, Monica MANAGER OF MERCHANDISING Unavailable Unavailable Lopes, Monica MANAGER OF MERCHANDISING Unavailable Unavailable Lopes, Monica MANAGER OF MERCHANDISING Unavailable Unavailable Lopes, Monica MANAGER OF MERCHANDISING Unavailable Unavailable Lopes, Monica MANAGER OF MERCHANDISING Unavailable Unavailable Lopes, Monica MANAGER OF MERCHANDISING Unavailable Unavailable Lopes, Monica MANAGER OF MERCHANDISING Unavailable Unavailable Lopes, Monica MANAGER OF MERCHANDISING Unavailable Unavailable Lopes, Monica MANAGER OF MERCHANDISING Unavailable Unavailable Lopes, Monica MANAGER OF MERCHANDISING Unavailable Unavailable Lopes, Monica MANAGER OF MERCHANDISING Unavailable Unavailable Ullin, J Jennifer PA Unavailable Unavailable Ullin, J Jennifer PA Unavailable Unavailable Ullin, J Jennifer PA Unavailable Unavailable Ullin, J Jennifer PA Unavailable Unavailable Ullin, J Jennifer PA Unavailable Unavailable Ullin, J Jennifer PA Unavailable Unavailable Ullin, J Jennifer PA Unavailable Unavailable Ullin, J Jennifer PA Unavailable Unavailable Ullin, J Jennifer PA Unavailable Unavailable Ullin, J Jennifer PA Unavailable Unavailable Ullin, J Jennifer PA Unavailable Unavailable Ullin, J Jennifer PA Unavailable Unavailable Ullin, J Jennifer PA Unavailable Unavailable Ullin, J Jennifer PA Unavailable Unavailable Ullin, J Jennifer PA Unavailable Unavailable Ullin, J Jennifer PA Unavailable Unavailable Ullin, J Jennifer PA Unavailable Unavailable Ullin, J Jennifer PA Unavailable Unavailable Ullin, J Jennifer PA Unavailable Unavailable Ullin, J Jennifer PA Unavailable Unavailable Ullin, J Jennifer PA Unavailable Unavailable Ullin, J Jennifer PA Unavailable Unavailable Abhijit, E [...] Obradovic, Vladan Unavailable Unavailable Jeffery, L Katherin PIE FILLING MIXER Unavailable Unavailable Jeffery, L Katherin PIE FILLING MIXER Unavailable Unavailable Jeffery, L Katherin PIE FILLING MIXER Unavailable Unavailable Jeffery, L Katherin PIE FILLING MIXER Unavailable Unavailable Jeffery, L Katherin PIE FILLING MIXER Unavailable Unavailable Crowell, L Katherin PIE FILLING MIXER Unavailable Unavailable Crowell, L Katherin PIE FILLING MIXER Unavailable Unavailable Jeffery, L Katherin PIE FILLING MIXER Unavailable Unavailable Crowell, L Katherin PIE FILLING MIXER Unavailable Unavailable Jeffery, L Katherin PIE FILLING MIXER Unavailable Unavailable Crowell, L Katherin PIE FILLING MIXER Unavailable Unavailable Jeffery, L Katherin PIE FILLING MIXER Unavailable Unavailable Crowell, L Katherin PIE FILLING MIXER Unavailable Unavailable Jeffery, L Katherin PIE FILLING MIXER Unavailable Unavailable Jeffery, L Katherin PIE FILLING MIXER Unavailable Unavailable Crowell, L Katherin PIE FILLING MIXER Unavailable Unavailable Jeffery, L Katherin PIE FILLING MIXER Unavailable Unavailable Jeffery, L Katherin PIE FILLING MIXER Unavailable Unavailable Jeffery, L Katherin PIE FILLING MIXER Unavailable Unavailable Crowell, L Katherin PIE FILLING MIXER Unavailable Unavailable Crowell, L Katherin PIE FILLING MIXER Unavailable Unavailable Crowell, L Katherin PIE FILLING MIXER Unavailable Unavailable Crowell, L Katherin PIE FILLING MIXER Unavailable Unavailable Jeffery, L Katherin PIE FILLING MIXER Unavailable Unavailable Jeffery, L Katherin PIE FILLING MIXER Unavailable Unavailable Jeffery, L Katherin PIE FILLING MIXER Unavailable Unavailable Crowell, L Katherin PIE FILLING MIXER Unavailable Unavailable Jeffery, L Katherin PIE FILLING MIXER Unavailable Unavailable Jeffery, L Katherin PIE FILLING MIXER Unavailable Unavailable Jeffery, L Katherin PIE FILLING MIXER Unavailable Unavailable Jeffery, L Katherin PIE FILLING MIXER Unavailable Unavailable Crowell, L Katherin PIE FILLING MIXER Unavailable Unavailable Re-disclosure Warning The records that [...] is protected by Article 27-F of the [facility] Public Health law. If you continue you may have access to information: Regarding HIV / AIDS; Provided by facilities licensed or operated by the [facility] Office of Mental Health; or Provided by the [facility] Office for People With Developmental Disabilities. If such information is present, then the following [facility] mandated warning applies: This information has been [...] law may result in a fine or fdc sentence or both. A general authorization for the release of medical or other information is NOT sufficient authorization for further disc losure. Allergies and Adverse Reactions Type Description Substance Reaction Status Data Source(s ) Drug Allergy Drug Allergy NKDA MEDENT ([facility]) Family History Family Member Name Family Member Gender Family Member Status Date o f Status Description Data Source(s) Unknown Unknown Problem MEDENT ([facility], [place]) Encounters Encounter Providers Location Date Indications Data Source(s ) [place] [address] [address] 06/09/2020 12:00:00 AM EST eCW1 ([facility]) [place] [address] [address] 06/06/2020 12:00:00 AM EST eCW1 ([facility]) Outpatient Attender: Monica doyle 06/04/2020 03:45:00 PM EST MEDENT ([facility]) Attender: Giovanna Cuellar 1 01:40:00 PM EDT - 03/07/2020 01:40:00 PM EDT [facility] ([facility]) Attender: Giovanna Cuellar 1 10:39:00 AM EDT - 03/04/2020 10:39:00 AM EDT [facility] ([facility]) Attender: Giovanna CASE [place] 03:33:00 PM EDT - 02/22/2020 03:33:00 PM EDT [facility] ([facility]) Outpatient Attender: Eugenia Barraza/Anel/Paul olivas/Aleyda 01/29/2020 02:30:00 PM EDT MEDENT ([facility] [place] Aguilar) Attender: PARDEEP Cuellar 11:57:00 AM EDT - 01/28/2020 11:57:00 AM EDT [facility] ([facility]) Attender: Bria CASE [place] 01/24/2020 10:34:00 AM EDT - 01/24/2020 10:34:00 AM EDT Other ovarian cyst, right side [facility] ([facility]) Other ovarian cyst, right side Attender: Bria CASE [place] 01/22/2020 02:36:00 PM EDT - 01/22/2020 02:36:00 PM EDT [facility] ([facility]) Attender: Giovanna Ibanez 10:12:00 AM EDT - 01/10/2020 10:12:00 AM EDT [facility] ([facility]) Attender: Giovanna Ibanez 10/2019 12:24:00 PM EDT - 01/03/2020 12:24:00 PM EDT [facility] ([facility]) OutpatientOFFICE VISIT, EST Attender: Jennifer wang 12/26/2019 03:00:00 PM EDT - 12/26/2019 03:00:00 PM EDT Acute vaginitisEncounter for oth general cnsl and advice on contraceptionEncounter for screening for human immunodeficiency virusHuman immunodeficiency virus [HIV] counselingOther sex counselingHigh risk heterosexual behaviorEncntr screen for infections w sexl mode of transmiss [facility] ([facility]) Acute vaginitis Encounter for oth general cnsl and advic e on contraception Encounter for screening for human immuno deficiency virus Human immunodeficiency virus [HIV] couns eling Other sex counseling High risk heterosexual behavior Encntr screen for infections w sexl mode of transmiss Outpatient Referrer: Michelle PRECIADO-MOB.PAT 12/22 08:47:25 AM EDT - 12/23/2019 08:47:30 AM EDT Health system Outpatient Attender: Michelle CarusoAdmitter: Michelle gould [email or web address] 12/07/2019 09:55:33 AM EDT - 12/28/2019 12:05:00 PM EDT [facility] Patient discharged. Outpatient Referrer: Randall Goins MD 12/03/2019 02:35:17 PM EDT [facility] Outpatient 11/29/2019 05:08:00 AM EDT [facility] Attender: Abdi Nichols er: Michelle CarusoAdmitter: Michelle CarusoReferrer: TORSTEN DOSS ES1-[id number] 11/13/2019 09:16:0 1 AM EDT - 11/14/2019 06:12:00 PM EDT Health system Patient discharged. [place] [address] [address] 11/13/2019 12:00:00 AM EDT eCW1 ([facility]) OutpatientOFFICE VISIT, EST Attender: Jennifer wang 10/26/2019 02:00:00 PM EDT - 10/26/2019 02:00:00 PM EDT Acute vaginitisEncounter for oth general cnsl and advice on contraceptionOther sex counselingHigh risk heterosexual behaviorEncntr screen for infections w sexl mode of transmiss [facility] ([facility]) Acute vaginitis Encounter for oth general cnsl and advic e on contraception Other sex counseling High risk heterosexual behavior Encntr screen for infections w sexl mode of transmiss Outpatient Attender: Katherin RUIZ Main Office 09/26/2019 10:00:0 0 AM EDT MEDENT ([facility] [address] [address] 09/16/2019 12:00:00 AM EDT eCW1 ([facility]) [facility] [address] [address] 08/22/2019 12:00:00 AM EDT eCW1 ([facility]) Attender: Jennifer [place] 11/2019 12:30:00 PM EST - 07/06/2019 12:30:00 PM EST Candidiasis of vulva and vaginaEncounter for oth general cnsl and advice on contraceptionOther sex counseling [facility] ([facility]) Candidiasis of vulva and vagina Encounter [...] immunodeficiency virus [facility] ([facility]) Tinea corporis Acute vaginitis Encounter for oth general cnsl and advic e on contraception Other sex counseling Encntr screen for infections w sexl mode of transmiss High risk heterosexual behavior Human immunodeficiency virus [HIV] couns eling Encounter for screening for human immuno deficiency virus [facility] [address] [address] 04/17/2019 12:00:00 AM EST eCW1 ([facility]) [facility] Attender: Randall Goins MDA dmitter: Randall Goins MDReferrer: Randall Goins MD [facility].SUR1 03/16/2019 11:00:00 AM EDT - 03/16/2019 11:59:00 PM EDT [facility] Patient discharged. Medications Medication Brand Name Start [...] Kit 01/29/2020 12:00:00 AM EDT active MEDENT ([facility]) 150 mg 12/31/2019 12:00:00 [...] THEREAFTER SOLD: 12/31/2019 [facility] Magnesium Chloride 0.88793 MEQ/ML / Pota ssium Chloride 0.0497 MEQ/ML / Sodium Acetate 0.0163 MEQ/ML / Sodium Chloride 0.0899 MEQ/ML / Sodium gluconate 5.02 MG/ML Injectable Solution [Normosol-R] electrolyte-R (NORMOSOL-R/PLASMALYTE-R) solution electrolyte-R (NORMOSOL-R/PLASMALYTE-R) solution 12/27 11:00:00 AM EDT Intravenous active at 1 00 mL/hr, Intravenous, Continuous, Starting Tue12/28/19 at 1100, Pre-op [facility] Medication administered onsite 150 mg 12/26/2019 12:00:00 [...] 3 days [facility] ([facility]) Metronidazole 0.0075 MG/MG Vaginal Gel [MetroGel] Metr ogel Vaginal 0.75 % Metrogel Vaginal 0.75 % 12/26/2019 12:00:00 AM EDT active Metronidazole 0.0075 MG/MG Vaginal Gel [MetroGel] [facility] ([facility]) 0.75 % 12/26/2019 12:00:00 AM EDT [...] AM EDT active Lidocaine 5 % eCW1 ([facility]) Lidocaine 5 % Lidocaine 5 % 11/27/2019 12:00:00 AM EDT active Lidocaine 5 % eCW1 ([facility]) 150 mg 11/23/2019 12:00:00 AM EDT tablet [...] 6 HO URS NEEDED SOLD: 11/23/2019 [facility] Fluconazole 150 MG Oral Tablet fluconazole (DIFLUCAN) tablet 150 mg fluconazole (DIFLUCAN) tablet 150 mg 11/14/2019 04:00:00 PM EDT 150 mg Oral completed Vulvovaginal Candidiasis 150 mg, Oral, Once, Indicati ons: Vulvovaginal Candidiasis, Tue11/14/19 at 1600, For 1 dose
For administration and preparation considerations, refer to Hazardous Drugs in the Workplace Policy on Intranet.
[facility] Vulvovaginal Candidiasis Medication administered onsite Diphenhydramine Hydrochloride 25 MG Oral Capsule diphenhydrAMINE (BENADRYL) capsule 25 mg diphenhydrAMINE (BENADRYL) capsule 25 mg 11/14/2019 11 :00:00 AM EDT 25 mg Oral completed 25 mg, Oral, Once, Tue11/14/19 at 1100, For 1 dose [facility] Medication administered onsite phenol 14 MG/ML Mouthwash phenol (CHLORASEPTIC) 1.4 % spray 1-2 spray phenol (CHLORASEPTIC) 1.4 % spray 1-2 spray 11/14/2019 10:32:27 AM EDT Oral active 1-2 spray, Oral, Marilyn ry 2 hour PRN, sore throat, Starting Tue11/14/19 at 1032 [facility] Medication administered onsite cetirizine hydrochloride 10 MG Oral Tablet cetirizine (ZyrTEC) tablet 10 mg cetirizine (ZyrTEC) tablet 10 mg 11/14/2019 09:00:00 AM EDT 10 mg Oral active 10 mg, Oral, Daily, First dose o n Tue11/14/19 at 0900 [facility] Medication administered onsite Acetaminophen 500 MG Oral Tablet acetaminophen (TYLENO L) tablet 1,000 mg acetaminophen (TYLENOL) tablet 1,000 mg 11/14/2019 12:00:00 AM EDT 1000 mg Oral active 1,000 mg, Oral , Every 6 hours, First dose on Tue11/14/19 at 0000
"Maximum dose of acetaminophen is 4,000 mg from all sources in 24 hours."
[facility] Medication administered onsite Acetaminophen 325 MG / Oxycodone Hydroch loride 5 MG Oral Tablet oxyCODONE- acetaminophen (PERCOCET) 5-325 MG per tablet oxyCODONE-acetaminophen (PERCOCET) 5-325 MG per tablet 11/14/2019 12:00:00 AM EDT 1 {tbl} Oral active Take 1 tablet by mouth every 6 (six) hours as needed Max Daily Amount: 4 tablets [facility] 5-325 mg 11/14/2019 12:00:00 AM EDT tablet 12 TAKE ONE TABLET BY MOUTH EVERY 6 HOURS NEEDED MAXIMUM DAILY DOSE = 4 TABLETS TAKE ONE TABLET BY MOUTH EVERY 6 HOURS NEEDED MAXIMUM DAILY DOSE = 4 TABLETS SOLD: 11/14/2019 [facility] normal saline flush 0.9 % injection 3 mL [id number] 11/13/2019 10:00:00 PM EDT 3 mL Intravenous active 3 mL , Intravenous, PROTOCOL, First dose on Tue11/13/19 at 2200, Post-op
flush per protocol, D/C Main IV fluid if appropriate
[facility] Medication administered onsite ondansetron (ZOFRAN) injection 4 mg [id number] 11/13/2019 08:18:4 6 PM EDT 4 mg Intravenous active 4 mg, In travenous, Every 6 hours PRN, nausea, vomiting, Starting Tue11/13/19 at 2018, Post-op [facility] Medication administered onsite heparin (porcine) injection 5,000 Units [id number] 11/13/19 02:00:00 PM EDT 5000 U Subcutaneous active 5,000 Units , Subcutaneous, Every 8 hours (scheduled), First dose on Tue11/13/19 at 1400
If platelet count is less than 100,000 or hematocrit is less than 25, or if there is a 5 point decrease in hematocrit, do not give the dose and call physician/designee.
[facility] Medication administered onsite Famotidine (PEPCID) injection 20 mg [id number] 11/13/2019 12:10:0 0 PM EDT 20 mg completed 20 mg, Int ravenous Push, Once, Tue11/13/19 at 1210, For 1 dose
Refrigerated only product.Located in med refrigerator on unit.Dilute with sodium chloride 0.9% to equal 10 ml. Administration Rate = 20mg/2 minutes
[facility] Medication administered onsite 200 ML Ciprofloxacin 2 MG/ML Injection ciprofloxacin ( CIPRO) IVPB 400 mg ciprofloxacin (CIPRO) IVPB 400 mg 11/13/2019 11:00:00 AM EDT 400 mg Intravenous aborted Intra-Abdominal Infection 400 mg, Intravenous, Administer over 60 Minutes, Every 12 hours (relative), First dose on Tue11/13/19 at 1100 [facility] Intra-Abdominal Infection Medication administered onsite Metronidazole 5 MG/ML Injectable Solution metroNIDAZOL E (FLAGYL) IVPB 500 mg metroNIDAZOLE (FLAGYL) IVPB 500 mg 11/13/2019 11:00:00 AM EDT 50 0 mg Intravenous aborted Intra-Abdominal Infection 500 mg, Intravenous, Administer over 60 Minutes, Every 8 hours (relative), First dose on Tue11/13/19 at 1100 [facility] Intra-Abdominal Infection Medication administered onsite sodium chloride 0.9 % 1,000 mL with mult iple vitamin 10 mL, thiamine 100 mg, folic acid 1 mg infusion 11/13/2019 11:00:00 AM EDT Intr avenous completed at 150 mL/hr, Intravenous, Once, Tue11/13/19 at 1100, For 1 dose [facility] Medication administered onsite Calcium Chloride 0.001 MEQ/ML / Glucose 50 MG/ML / Potassium Chloride 0.004 MEQ/ML / Sodium Chloride 0.103 MEQ/ML / Sodium Lactate 0.028 MEQ/ML Injectable Solution dextrose 5 % in lactated ringers infusion dextrose 5 % in lactated ringers infusion 11/13/2019 11:00:00 AM EDT 150 mL/h Intravenous active at 150 mL/hr, 150 mL/hr, Intravenous, Co ntinuous, Starting Tue11/13/19 at 1100 [facility] Medication administered onsite pantoprazole 40 MG Delayed Release Oral Tablet pantoprazole (PROTONIX) EC tablet 40 mg pantoprazole (PROTONIX) EC tablet 40 mg 11/13/2019 11:00:00 AM E DT 40 mg Oral active Stress Ulcer Prophylaxis 40 mg, Oral, Daily, Indications: Stress Ulcer Prophylaxis, First dose on Tue11/13/19 at 1100 [facility] Stress Ulcer Prophylaxis Medication administered onsite lactated ringers bolus 1,000 mL [id number] 11/13/2019 11:00:00 AM EDT 1000 mL Intravenous completed 1,000 mL , Intravenous, Administer over 2 Hours, Once, Tue11/13/19 at 1100, For 1 dose [facility] Medication administered onsite Acetaminophen 325 MG / Oxycodone Hydroch loride 5 MG Oral Tablet oxyCODONE- acetaminophen (PERCOCET) 5-325 MG 1 tablet oxyCODONE-acetaminophen (PERCOCET) 5- 325 MG 1 tablet 11/13/2019 10:44:09 AM EDT 1 {tbl} Oral a ctive 1 tablet, Oral, Every 4 hours PRN, moderate pain (4-6), Starting Tue11/13/19 at 1044, For 7 days [facility] Medication administered onsite ondansetron (ZOFRAN) injection 4 mg [id number] 11/13/2019 10:44:0 9 AM EDT 4 mg Intravenous aborted 4 mg, In travenous, Every 4 hours PRN, nausea, vomiting, Starting Tue11/13/19 at 1044 [facility] Medication administered onsite HYDROmorphone (DILAUDID) injection 1 mg [id number] 11/13/19 20 10:44:08 AM EDT 1 mg Intravenous aborted 1 mg, Intrav enous, Every 3 hours PRN, severe pain (7-10), Starting Tue11/13/19 at 1044, For 7 days [facility] Medication administered onsite diphenhydrAMINE (BENADRYL) injection 25 mg [id number] 11/13/2019 10:15:00 AM EDT 25 mg completed 25 mg, Intravenous Push, Once, Tue11/13/19 at 1015, For 1 dose [facility] Medication administered onsite ondansetron (ZOFRAN) injection 4 mg [id number] 11/13/2019 10:15:0 0 AM EDT 4 mg completed 4 mg, Intr avenous Push, Once, 11/13/19 at 1015, For 1 dose [facility] Medication administered onsite Morphine Sulfate (PF) injection 4 mg [id number] 11/13/2019 10:15: 00 AM EDT 4 mg Intravenous completed 4 mg, In travenous, Once, Tue11/13/19 at 1015, For 1 dose [facility] Medication administered onsite 750 mg 11/12/2019 12:00:00 AM EDT tablet 7 TAKE ONE TABLET BY MOUTH EVERY DAY FOR 7 DAYS TAKE ONE TABLET BY MOUTH EVERY DAY FOR 7 DAYS SOLD: 11/12/2019 [facility] Fluconazole 150 MG Oral Tablet fluconazole 150 mg tabl et fluconazole 150 mg tablet 10/26/2019 12:00:00 AM EDT active 1 po x 1, then 1 po in 2- 3 days [facility] ([facility]) 150 mg 10/26/2019 12:00:00 AM EDT tablet 2 TAKE ONE TABLET BY MOUTH ONCE THEN TAKE ANOTHER TABLET IN 2-3 DAYS TAKE ONE TABLET BY MOUTH ONCE THEN TAKE ANOTHER TABLET IN 2-3 DAYS SOLD: 10/26/2019 [facility] Metronidazole 0.0075 MG/MG Vaginal Gel [MetroGel] Metr ogel Vaginal 0.75 % Metrogel Vaginal 0.75 % 10/26/2019 12:00:00 AM EDT active Metronidazole 0.0075 MG/MG Vaginal Gel [MetroGel] [facility] ([facility]) 0.75 % 10/26/2019 12:00:00 AM EDT gel 70 INSERT ONE APPLICATORFUL VAGINALLY AT BEDTIME FOR 5 DAYS INSERT ONE APPLICATORFUL VAGINALLY AT BEDTIME FOR 5 DA YS SOLD: 10/26/2019 [facility] Escitalopram 20 MG Oral Tablet ESCITALOPRAM OXALATE [...] 1.0 {tablet} active Diflucan 150 MG eCW1 ([facility]) Fluconazole 150 MG Oral Tablet [Diflucan] Diflucan 150 MG Di flucan 150 MG 09/17/2019 12:00:00 AM EDT active 1 tablet eCW1 ([facility]) 150 mg 09/17/2019 12:00:00 AM EDT tablet [...] active Take 2 tablets by mouth daily [facility] 60 mg 01/26/2019 12:00:00 AM EDT capsule,biphase [...] a meal [facility] ([facility]) Ascorbic Acid (VITAMIN C PO) 1 {tbl} Oral a borted Take 1 tablet by mouth daily [facility] Insurance Providers Payer name Policy type / Coverage type Policy ID Covered green party ID Covered green party's relationship to burton Policy [place] Plan Information [facility] [id number] SP [id number] [facility]) O [id number] S [id number] [facility] MEDICAID [id number] [facility] MEDICAID [id number] Raina [id number] INSURANCE COVID-19 COVID Raina C OVID INSURANCE COVID-19 [id number] [facility] [id number] SP [id number] [facility] [id number] Raina [id number] [facility] [id number] [facility] [id number] Raina [id number] HMO BLUE [id number] SP [id number] [facility] [id number] [facility] [id number] Preferred Provider Organization (PPO) [id number] Medicaid [facility] Part B [id number] Self [id number] [employer] [facility] Health Maintenance Organization (HMO) [id number] Self [id number] [place] Med[place] [id number] Self [id number] ANS-Medicaid [id number] ANSI-Medicaid [id number] ANSI-Medicaid [id number] ANSI-Medicaid [id number] ANSI-Medicaid [id number] ANSI-Medicaid [id number] [facility] [id number] ANSI-Medicaid [id number] ANSI-Medicaid [id number] ANSI-Medicaid [id number] ANSI-Medicaid [id number] [place] [id number] Self [id number] [facility] Health Maintenance Organization (HMO) [id number] Self [id number] [place] [id number] Self [id number] [place] [id number] Self [id number] [place] [id number] Self [id number] [employer] COMMUNITY PLAN MCDHMO [id number] SP [id number] [place]ig[place] [id number] Self [id number] EXCELLUS I [id number] Self [id number] UNHC COMMUNITY PLAN MCDHMO [id number] SP [id number] [place]ig[place] [id number] Self [id number] UNHC COMMUNITY PLAN MCDHMO [id number] SP [id number] UNHC COMMUNITY PLAN MCDHMO [id number] SP [id number] [facility] [id number] SP [id number] Medicaid [place] Medicaid Self [facility] Sherrie/MCR Health Maintenance Organization (HMO) [id number] Self [id number] [facility] O UNAVAILABLE O UNAVAILABLE PHYSICIANS MUTUAL [id number] SP [id number] SELF PAY O [id number] S [id number] [facility](MCAID) O [id number] S [id number] UNHC AMERICHOICE XIX -HMO [id number] 18 [id number] UNHC COMMUNITY PLAN MCDHMO [id number] SP [id number] MEDICAID [id number] SP [id number] SELF PAY UNAVAILABLE SP UNAVAILA BLE MEDICAID -CLINIC [id number] MEDICAID S [id number] S [id number] PGBA [place] P [id number] S [id number] PGBA [place] [id number] HU2 [id number] N REGIONAL CLAIMS DEWAYNE-CLINIC [id number] 01 [id number] BLUE CROSS BLUE SHIELD-CLINIC [id number] 18 [id number] BLUE CROSS HEAD PLAN [id number] SP [id number] EXCELLUS BCBS S [id number] S [id number] PGBA [place] [id number] HU2 [id number] HMO BLUE P [id number] S [id number] HMO BLUE [id number] SP [id number] BLUE CROSS BLUE SHIELD-O/P [id number] 18 [id number] BLUE CROSS BLUE SHIELD-CLINIC [id number] Problems, Conditions, and Diagnoses Code Display Name Description Problem Type Effective Dates Data Source(s) K21.9 GERD (gastroesophageal reflux disease) G ERD (gastroesophageal reflux disease) 28631134 11/13/2019 12:00:00 AM EDT [facility] J45.909 Asthma Asthma [id number] 11/13/2019 12:00:00 AM ED T [facility] K37 Appendicitis Appendicitis [id number] 11/13/2019 12:00:00 A M EDT [facility] Z98.84 Bariatric surgery status Bariatric surgery status Diag nosis 12/28/2019 09:44:00 AM EDT [facility] R10.13 Epigastric pain Epigastric pain Diagnosis 12/28/2019 09:4 4:00 AM EDT [facility] J98.8 Other specified respiratory disorders Ot her specified respiratory disorders Diagnosis 12/23/2019 08:47:25 AM EDT [facility] U07.1 COVID-19 COVID-19 Diagnosis 12/23/2019 08:47:25 AM ED T [facility] K35.80 Unspecified acute appendicitis Unspecified acute appen dicitis Diagnosis 11/13/2019 09:16:01 AM EDT [facility] Surgeries/Procedures Procedure Description Date Indications Data Source(s) Colonoscopy Flexible Proximal To Splenic Flexure W/Biopsy Si ngle/ 04/04/2020 12:00:00 AM EST [facility] ([facility] actice, ) SMEAR, WET MOUNT, SALINE/INK 12/26/2019 12:00:00 AM EDT - 12/26/2019 12:00:00 AM EDT [facility] ([facility]) ASSAY OF BODY FLUID ACIDITY 12/26/2019 1 2:00:00 AM EDT - 12/26/2019 12:00:00 AM EDT [facility] ([facility]) SYPHILLIS BLOOD SEROLOGY, QUALITATIVE 12:00:00 AM EDT - 12/26/2019 12:00:00 AM EDT [facility] ([facility]) HTLV/HIV CONFIRMATORY TEST 12/26/2019 12 :00:00 AM EDT - 12/26/2019 12:00:00 AM EDT [facility] ([facility]) HEPATITIS C AB TEST 12/26/2019 12:00:00 AM EDT - 12/25 12:00:00 AM EDT [facility] ([facility]) CVR Zipper Machine Operator.Svc. STI / H 12/26/2019 12:00:00 AM EDT - 12/26/2019 12:00:00 AM EDT [facility] ([facility]) CVR Zipper Machine Operator.Svc. Other 12/26/2019 12:00:00 AM EDT - 2019 12:00:00 AM EDT [facility] ([facility]) CVR Zipper Machine Operator.Svc. Contraceptive 12/26/2019 12 :00:00 AM EDT - 12/26/2019 12:00:00 AM EDT [facility] ([facility]) CVR Med.Svc. Vaginitis Rx 12/26/2019 12: 00:00 AM EDT - 12/26/2019 12:00:00 AM EDT [facility] ([facility]) CVR Med.Svc. Height/Weight 12/26/2019 12 :00:00 AM EDT - 12/26/2019 12:00:00 AM EDT [facility] ([facility]) CVR Blood Pressure 12/26/2019 12:00:00 AM EDT - 2019 12:00:00 AM EDT [facility] ([facility]) CVR Med.Svc. Other 12/26/2019 12:00:00 AM EDT - 2019 12:00:00 AM EDT [facility] ([facility]) OFFICE VISIT, EST 12/26/2019 12:00:00 AM EDT - 020 12:00:00 AM EDT [facility] ([facility]) N.GONORRHOEAE, SWAB 12/26/2019 12:00:00 AM EDT - 12/25 12:00:00 AM EDT [facility] ([facility]) CHYLMD TRACH, SWAB 12/26/2019 12:00:00 AM EDT - 2019 12:00:00 AM EDT [facility] ([facility]) GLUC BLD GLUC MNTR DEV CLEARED FDA SPEC HOME USE POCT GLUCOSE Routine 11/14/2019 2:33 PM EDT 11/14/2019 06:33:00 PM EDT [facility] CUL BACT XCPT URINE BLOOD/STOOL AEROBIC ISOL AEROBIC FLUID CULT URE / GS Timed 11/13/2019 6:20 PM EDT 11/13/2019 10:20:00 PM EDT [facility] CULTURE BACTERIAL ANY SOURCE ANAEROBIC ISO&ID ANAEROBIC CULTURE Timed 11/13/2019 6:20 PM EDT 11/13/2019 10:20:00 PM EDT [facility] ECG ROUTINE ECG W/LEAST 12 LDS TRCG ONLY W/O I&R ECG 12-LEAD STAT 11/13/2019 11:59 AM EDT 11/13/2019 03:59:46 PM EDT [facility] POCT CLINITEK URINE HCG POCT CLINITEK URINE HCG Routine 11/13/2019 10:59 AM EDT 11/13/2019 02:59:00 PM EDT [facility] POCT CLINITEK URINE DIPSTICK POCT CLINITEK URINE DIPSTICK Routi ne 11/13/2019 10:57 AM EDT 11/13/2019 02:57:00 PM EDT [facility] 2019 NCOV AMPLIFIED 2019 NCOV AMPLIFIED STAT 11/13/2019 10:46 AM EDT 11/13/2019 02:46:00 PM EDT Health system BLOOD TYPING ABO TYPE AND SCREEN Routine 11/13/2019 10:44 AM EDT 11/13/2019 02:44:00 PM EDT [facility] BLOOD COUNT COMPLETE AUTO&AUTO DIFRNTL WBC COUNT CBC AND DIFFER ENTIAL STAT 11/13/2019 10:43 AM EDT 11/13/2019 02:43:00 PM EDT [facility] COMPREHENSIVE METABOLIC PANEL COMPREHENSIVE METABOLIC PANEL STA T 11/13/2019 10:43 AM EDT 11/13/2019 02:43:00 PM EDT [facility] Male Condom Polyurethane 10/26/2019 12:0 0:00 AM EDT - 10/26/2019 12:00:00 AM EDT [facility] ([facility]) CVR Zipper Machine Operator.Svc. STI / H 10/26/2019 12:00:00 AM EDT - 10/26/2019 12:00:00 AM EDT [facility] ([facility]) CVR Zipper Machine Operator.Svc. Other 10/26/2019 12:00:00 AM EDT - 2019 12:00:00 AM EDT [facility] ([facility]) CVR Zipper Machine Operator.Svc. Contraceptive 10/26/2019 12 :00:00 AM EDT - 10/26/2019 12:00:00 AM EDT [facility] ([facility]) CVR Med.Svc. Height/Weight 10/26/2019 12 :00:00 AM EDT - 10/26/2019 12:00:00 AM EDT [facility] ([facility]) CVR Blood Pressure 10/26/2019 12:00:00 AM EDT - 2019 12:00:00 AM EDT [facility] ([facility]) OFFICE VISIT, EST 10/26/2019 12:00:00 AM EDT - 020 12:00:00 AM EDT [facility] ([facility]) N.GONORRHOEAE, URINE 10/26/2019 12:00:00 AM EDT - 10/26/2019 12:00:00 AM EDT [facility] ([facility]) CHYLMD TRACH, URINE 10/26/2019 12:00:00 AM EDT - 10/25 12:00:00 AM EDT [facility] ([facility]) BRNCDILAT RSPSE SPMTRY PRE&POST-BRNCDILAT ADMN 020 12:00:00 AM EDT [facility] ([facility]) Results ID Date Data Source [id number] 06/04/2020 12:00:00 AM EST [facility] Name Value Range Interpretation Code Description Data Marta rce(s) Supporting Document(s) SARS-CoV2 Rapid Antigen Positive [facility] This lab was reported by Shamar Do. ID Date Data Source [id number] 04/04/2020 10:56:00 AM EST [facility] ([facility], ) Name Value Range Interpretation Code Description Data Marta rce(s) Supporting Document(s) Surgical pathology study Laboratory test result [facility] ([facility], ) FINAL DIAGNOSIS Colon, random biopsy: Fragments [...] MD 04/07/2020 1340 ID Date Data Source [id number] 03/30/2020 09:30:00 AM EST [facility] Name Value Range Interpretation Code Description Data Marta rce(s) Supporting Document(s) SARS coronavirus 2 RNA [facility] This lab was ordered by [facility] and reported by [facility]. ID Date Data Source [id number] 03/10/2020 12:00:00 AM EDT [facility] Name Value Range Interpretation Code Description Data Marta rce(s) Supporting Document(s) SARS coronavirus 2 RNA [Presence] in Res piratory specimen by [facility] with probe [facility] This lab was ordered by Kehinde Ibanez and reported by [facility]. ID Date Data Source [id number] 01/03/2020 04:47:51 PM EDT [facility] [place] [address] [place], [place] [address]Yql# Surgical Pathology ReportAccession #:[id number](s) ReceivedA: Gastric pouch bxsClinical Diagnosis and HistoryNormal post Thao-en-Y surgery, r/o H. pylori DIAGNOSISSTOMACH, POUCH, BIOPSY: GASTRIC MUCOSA WITH NO SIGNIFICANT PATHOLOGIC CHANGES. IMMUNOSTAIN FOR HELICOBACTER PYLORI IS NEGATIVE. Gross DescriptionReceived in formalin labeled "gastric pouch biopsies rule out H. pylori"is a 0.6 cm acuna-pink irregular fragment of tissue. Entirely submitted asA1. Multilevel. Processed at Laboratory [facility], Histopathology, [address] [place] [address], [address].jgllmr/bc Reported: 01/03/2020Electronically Signed Out By Terry Eldridge MD [facility]emg This report may include immunohistochemical or in-situ hybridizationresults. Testing was developed and the performance characteristicsdetermined by Counts include 234 beds at the [facility] as required by CLIA '88. The FDAhas determined that approval for specific use is not necessary forclinical use. The quality of Hematoxylin and Eosin stains and asapplicable, for all immunohistochemical and/or special stains, includingpositive and negative controls, were reviewed and considered appropriate.ICD codes Z98.84 R10.13CPT codesA: 76290O, 36583q Name Value Range Interpretation Code Description Data Marta rce(s) Supporting Document(s) ID Date Data Source [id number] 12/28/2019 10:52:58 AM EDT [facility] NT INFORMATIONPatient MRN Name Date of Age Gend*PT [id number] Hilaria Sanders 1980 39 years F OPPT Location Admission Date/Time Visit ID [facility]19 0944 --- Michelle Caruso MD([id number]) EPI ID [facility] Admitting Provider [id number] Michelle Caruso MD([id number])Endoscopic Gastrojejunoscopy Procedure NotePatient: Hilaria SandersMRN: [id number] Date: 12/28/2019Surgeon(s):KAIDEN Hookerre- operative Diagnosis:Abdominal pain, epigastric [...] me.Signature: MELO Hookerate: December 28, 2019Time: 10:50 [facility]: Michelle Caruso [facility]: SELAM Garcia Name Value Range Interpretation Code Description Data Marta rce(s) Supporting Document(s) ID Date Data Source [id number] 12/28/2019 10:49:28 AM EDT [facility] NT INFORMATIONPatient MRN Name Date of Age Gend*PT [id number] Hilaria Sanders 1980 39 years F OPPT Location Admission Date/Time Visit ID Attending ProviderEndo Ace 12/28/19 0944 --- Michelle Caruso MD([id number]) EPI ID CSN Admitting Provider [id number] Michelle Caruso MD([id number])Pre- Procedure History and Physical:The history and physical were reviewed and the patient was examined.There are no changes to the H&P.Michelle Caruso MD12/28/19 10:49 AM Name Value Range Interpretation Code Description Data Marta rce(s) Supporting Document(s) ID Date Data Source [id number] 12/26/2019 04:45:13 PM EDT [facility] ([facility]) Name Value Range Interpretation Code Description Data Marta rce(s) Supporting Document(s) Hyphae/Ynes: noBudding y east: noTrich: noClue cells: yes (>=20%)WBCs: yes (few)Amine/Whiff test: positivepH: 5.0 Wet [place] [facility] ([facility]) ID Date Data Source [id number] 12/26/2019 04:44:55 PM EDT [facility] ([facility]) Name Value Range Interpretation Code Description Data Marta rce(s) Supporting Document(s) pH: 5.0. Vaginal pH [facility] ([facility]) ID Date Data Source [id number] 12/26/2019 12:00:00 AM EDT [facility] ([facility]) Name Value Range Interpretation Code Description Data Marta rce(s) Supporting Document(s) Negative Normal (applies to non-numer ic results) [place] Amplified CT/GC Combo - GC [facility] ([facility]) : No Performed by: CD[facility] ([id number]) ID Date Data Source [id number] 12/26/2019 12:00:00 AM EDT [facility] ([facility]) Name Value Range Interpretation Code Description Data Marta rce(s) Supporting Document(s) Negative Normal (applies to non-numer ic results) [place] Amplified CT/GC Combo - CT [facility] ([facility]) ID Date Data Source [id number] 12/23/2019 08:30:00 AM EDT [facility] Name Value Range Interpretation Code Description Data Marta rce(s) Supporting Document(s) SARS coronavirus 2 RNA [facility] This lab was ordered by [facility] and reported by [facility]. ID Date Data Source [id number] 12/25/2019 01:06:53 AM EDT [facility] Name Value Range Interpretation Code Description Data Marta rce(s) Supporting Document(s) SARS-COV-2 [facility] Not DetectedReference range: Not Detecte d This test was developed and its performance characteristics determined by [facility]. This test has not been FDA cleared [...] result in this assay. Performed At: [facility] [id number] Pino Santa MD Ph:[id number] ID Date Data Source [id number] 12/03/2019 03:42:00 PM EDT [facility] A BDOMEN PELVIS W IV CONTRASTCLINICAL [...] rce(s) Supporting Document(s) ID Date Data Source [id number] 11/14/2019 02:35:59 PM EDT [facility] Name Value Range Interpretation Code Description Data [facility](s) Supporting Document(s) POC NOVA GLU 89 mg/dL (70-99) [facility] PERFORMED BY [facility] CLINICAL STAFF ID Date Data Source [id number] 11/13/2019 07:50:55 PM EDT [facility] NT INFORMATIONPatient MRN Name Date of Age Gend*PT [id number] Hilaria Sanders 1980 39 years F OBSPT Location Admission Date/Time Visit ID [facility] --- Michelle Caruso MD([id number]) EPI ID CSN Admitting Provider [id number] Michelle Caruso MD([id number]) Attestation signed by Abdi Lacey MD at 11/13/2019 7:50 PMED Attestations:Attestation Type: Mid-Level: SUPERVISED APC: Based on the medical record thecare appears appropriate Provider in Triage NotesNo notes on fileHistory of Present IllnessChief ComplaintPatient presents with Abdominal Pain pt seen at [facility] and dx appendicitis [facility] weneday, constant sharp pain at Dr [...] ED Physician in the absence of a ukrainian folk arts instructor: yesInterpretation: Interpretation: normalRate: ECG rate: 64 ECG rate assessment: normalRhythm: Rhythm: sinus rhythmEctopy: Ectopy: noneQRS: QRS axis: NormalConduction: Conduction: normalST segments: ST segments: NormalT waves: T waves: normalComments: WA interval 122msQRS duration 92 msMDMTest ordered/Reason:Results for [...] POC Urine Appearance CLEAR POC Urine Specific [place] 1.015 1.003 - 1.030 POC Urine pH [...] rce(s) Supporting Document(s) ID Date Data Source [id number] 11/13/2019 06:52:03 PM EDT [facility] INFORMATIONPatient MRN Name Date of Age Gend*PT [id number] Brien Sandersdallin 1980 39 years F OBSPT Location Admission Date/Time Visit ID [facility]ending [facility] 11/13/19 0916 --- Michelle Caruso MD([id number]) EPI ID CSN Admitting Provider [id number] Michelle Caruso MD([id number])APPENDECTOMY, LAPAROSCOPIC Procedure [facility] CSN:[id number]/16/2020Surgeon(s):TABITHA Hookerurgical Assist: Erasmo Goinsaff:OR Internal Grinding Machine Operator: NBA Sheetsurgical Assist: LATRICIA Goins Relief Internal Grinding Machine Operator: Gonzalo López RNOR Relief Scrub: Caroline Ruiz Scrub Person: Ebony Zaidi acyProcedure(s):APPENDECTOMY, LAPAROSCOPIC, evaluation for internal hernia, lysis of adhesionsLaparoscopic appendectomyEvaluation for internal herniaLysis of adhesionsAnesthesia: GeneralPre-op Diagnosis:APPENDICITISPost-op Diagnosis:Ac appendicitisMid Thao to BP limb adhesionsClosed internal spacesDrains: NoneGrafts/Implants:NoneSpecimens:ID Type Source Tests Collected by Time1 : peritoneal fluid Peritoneal Fluid Peritoneal Fluid ANAEROBIC CULTURE,AEROBIC FLUID CULTURE / GS Michelle Caruso MD 11/13/2019 1820A : Appendix Tissue Tissue [...] COVID-19infection while hospitalized, risks of anesthesia including [place], stroke anddeath. Pt expressed understanding of all [...] Thao limb as well. There was mid Htao to BP limb adhesion , creatingpotential for [...] condition.Signature: MELO Hookerate: November 13, 2019Time: 6:33 [facility]: Michelle Caruso [facility]: SELAM Garcia Name Value Range Interpretation Code Description Data Marta e(s) Supporting Document(s) ID Date Data Source [id number] 11/18/2019 09:52:59 AM EDT [facility] SPECIMEN DESCRIPTION PERITONEAL F LUIDSPECIAL REQUESTS NONECULTURE RESULTS NO ANAEROBES ISOLATED AFTER 5 DAYSREPORT STATUS FINAL 11/18/2019 Name Value Range Interpretation Code Description Data Marta rce(s) Supporting Document(s) ID Date Data Source [id number] 11/18/2019 09:52:54 AM EDT [facility] SPECIMEN DESCRIPTION PERITONEAL F LUIDSPECIAL REQUESTS NONEGRAM STAIN FEW (<10/LPF) WHITE BLOOD CELLS NO BACTERIACULTURE RESULTS NO GROWTH 5 DAYSREPORT STATUS FINAL 11/18/2019 Name Value Range Interpretation Code Description Data Marta rce(s) Supporting Document(s) ID Date Data Source [id number] 11/13/2019 05:44:57 PM EDT [facility] NT INFORMATIONPatient MRN Name Date of Age Gend*PT [id number] Hilaria Sanders 1980 39 years F OBSPT Location Admission Date/Time Visit ID Attending Provider --- --- --- --- EPI ID CSN Admitting Provider [id number] ---AirwayPatient location during procedure: ORUrgency: electiveDifficult airway: [...] to lips: 22 cmPlacement verified by: + [id number] view: grade I - full view of glottis Name Value Range Interpretation Code Description Data Marta rce(s) Supporting Document(s) ID Date Data Source [id number] 11/13/2019 05:31:14 PM EDT [facility] NT INFORMATIONPatient MRN Name Date of Age Gend*PT [id number] Hilaria Sanders 1980 39 years F OBSPT Location Admission Date/Time Visit ID [facility]ending [facility] 11/13/19 0916 --- Michelle Caruso MD([id number]) EPI ID CSN Admitting Provider [id number] Michelle Caruso MD([id number])Inpatient History & PhysicalHilaria SandersMRN:[id number] and Plan:Principal Problem: AppendicitisActive Problems: Asthma GERD (gastroesophageal reflux disease)Likely ac appendicits we will take her to OR for Laparoscopic appendectomy,poss. eval for internal hernia,poss open.Informed consent was obtained prior to the procedure. We had discussed risksand benefits including but not limited to bleeding, infection, injury tosurrounding structures, need for additional procedures, risk of COVID-19infection while hospitalized, risks of anesthesia including [place], stroke anddeath. Pt expressed understanding of all [...] to: bleeding,infection, injury to nearby structures, , [place], DVT, PE, need for opensurgery, and the need for repeat surgery, among others. We also discussed riskof COVID 19 infection during her hospital admissionWe will plan to get surgery scheduledStart antibiotics to delay progression to full blown appendicitis - Jhkjbnqt420xz daily for 7 days. Pt reports allergy to penicillin and flagylTesting to be done: [facility], Imaging and Other Diagnostics:Diagnostic tests reviewed:Imaging: [facility] - Appendicoliths withoutappendicitisRight ovarian follicleNormal [...] rce(s) Supporting Document(s) ID Date Data Source [id number] 11/13/2019 12:40:38 PM EDT [facility] Name Value Range Interpretation Code Description Data Marta rce(s) Supporting Document(s) EKG [facility] TDSXRs7tGaVINeIiq9LrWxNpUYJoYL9kmoo1S3P8wRGuJ1ByxQNvc2tdP7AkL0WaAJXqVQGXXY7IvARf jb2 [file] 7zEPifuxb/pTpcOY8NNC4m6/dye machine operator/XwgU4SkjXq9Kh3auH7upKy5P6B1n+j+4bTyF9XdpcD6e+w/9y1+M 5LWxbKWeROEzGDwztFCJ0hZ03plJKkxE7sHdfcaT55cQztLjJxQqfxPD+fdU8bBzMhFfVjwv/FveBh4K +c8hNTW/zL7AqEBW1S3+VJ6kAe6sjnGYZZz6hESmQT Yis/ugHVpOUSpoJVN3VrJUXXQ5WKD3u4Tnm8mLX/tU0QTF5T4lPvL3SYxGIMI/3ERj+xTSqYVEA/sdFP wGVJkhA85YObDRSTydPEXSNHCGILNMNIsFjYtfWd6XVZwtM8OygXqpM6UAwYs+Pg+stDtr3R1WdcQZpo CjYVbCrYVLCpYFPBhoL+PASMg/34cFQ9LiJNjhLRQe XWqhFcewDacFAcyEaUaKMllHOesQ1R0UXpNrj5wNnKGeyKPXDSzRYOSM4FPqM9MuuL8McMKlZPBbseiF 0l9DxBn4yGUnWpO3mDnUyeng1p5238u+dmfwGxgzzVOrjGiEO0bGZgBgk9xK1oPBID1MMgsQxlodk4rf sb9jqIWl22kR+buN61+PIcci2+Jim5Fl+TlFyL/0LN WN61+HJocy2+Killian+WGgGoVllEogBI7rCGXRU0CB7qJQWe3sL0dGmpFI6heYvIH5c8RDCdHUV5Kwahrg [file] /4BVQEKkapuc5AVNzWNSPTIyRWQKBAHSRIGRGVNiKY EgaVFghaVhyznQxzq5Mht4EXaApAKVSlCDIYsDITCPDIQiM3bbsyJcNtJQAHWlAJnZ9aXHqNOVk23xzp axxOESsMqpSHrhhZrWBHG7WtcgcXTCYl5zd+8M9RWuqAv8daRVm7BySJZpTSRNUyDRxVJDEWyLBcrAee HPFGUCJ3pPDz7lJKzRhbeAg7kmUjN7BZRGPytlTNyZ RxMi4uYbKBw0hhy8k3knGNIV15GzuXlc+5jQDxV5b94Bs6rN6XqOqiaNHPssBKiz4DCrZBlBD6dmAMKp aAoOmj6rxvo4k30zQ9tEtw8+RUJTf6aRIJCfBOJAxMsxXqDmV2Zppl22RWDbpeOxSTPO+mY+kgEESCRJ LFWiRR6PdXtTThy4LWsLwZQeG3uqSqOH2sJpBsvQyX PbCZC8YoSJOLdKG/GqhEgs0ciMzGRQXjHRIS2mriSNoOPYOgnLKe+hNuN47Rn4jmf39VphCCdetDztif 2BNTXq8hTw5aP1pZb1SSq0/VsquNNA4zS1tWuPFG21wf4zgfS0g25lLRcLzORD7l1nBPaQcXlQPUcYA5 ELcC8joz29REVhfEIchtI4h/0tZ3illMbPjZnDZ8p3 9rq4cWfXvKy3FSCo1YLOABNmpRKyBC3zxZuEzH4ZdGYH8BCDmBIje2CbP+r6oPtkkg3ejwPSqZsauQXL Rz6OSSVphISHcGWHVSudu9FUqf0JGVbOZPHQTYBXsZYINzXUZlhsEkRgZTKLUbVNH8FhQvI5lZhFcOEC SdRFPMRhZC6ddrXCcvmFDgn4LDnBoZOMXzLHOFcSHJ SVARpjSTYUFIRZABUHXLCANIO9RsOoS6WmK7BXAYljooA3ID+0EhA/wM9MpDVUX/qOwHlQwqGVQyqGRQ asKAGGWRCxpHndnNTAednJVT5nkXMiafflZkDqTaTGX2TiXHAnvkKivTkEqUvK7KNDEabBhNFQIDKRWH aotsJLDdozZSz1AInJYXHZjAG5N8SIcu4m12da0lQS m+QirkvlA85vjlK9xHCIaPZ+7tRz0Z+EiA+HSgF3YiQekEldCbGGvFcklIRN5viE4ah4FrmoHLrKosDV NPxabqYgEZdFSSVWqrujbeI9M7ck6etcWry/9kYiZIwKY7nkoc5yblP1ClV7zvfurxcxote+8/usbEpc x8hmYePi8vexwYWT5QIMvWkY0b3bAlNBhxoMrt8s48 gKpVkU51+dN63nkfMpArAehRVcOPywVweAmzbV9UauxFxrKeLbNNbzVsNCDnzPCN7PiOZJPNbX26ONe4 GEWXB9oW2hVHJ08fkUG7GKvUonQHVYcSLWzDAltzC+kAb6aA/EQJyE+KiRuTKANWW2PqKEs1STxuE5ZD TrNIH67BZsxK8zYaBKYlp5bvdeIdkXsiUFQa3qgcDd /bOaT7EHbk/3Iw8r7yWp4PYK/nDbQy6Kf4LjsCl98MifEzM6PWydhLpPvbVrkhxXJ3Pkm8NWMM8AxLnv 92+7S6DYa9WlLqbgzX8KY9KBz81p/DxyPKvvqq98fkLJRRPveNK6dVJ7pGO/ITJSA/DSFgT0YqhwPjqN r5TQSAlx7VSjxBZdzmBC+Y6DaRVVLMEpLKSPJNTGxY PNFRINDSPHCNOHSTOkXGBlzTDNZKNjVXn5Xu64U3k+W7GXRgDbCpXdwT1reAwkhYekrBbG1ezaCAzzcM kdsGhFwNtVIqNTtyFsGbNwTGYDYGAdeYNCmCOKKzMUIDQIgTS3TyIJfOYvpPkAEIHKGCgZrwYKVWZCMp MlSEMIt6RCMMKRyVDPtcUM1ThAWTqVjNV5zGBU0DVI A/YKMeTtCLspMBpWGHgQZa61od3c9wNv7DHbnueoCqNm7OmNNB5HXHzvrPpnElEEIIKpbBxFRNIuud3q w5d+22FkJrzNay3Gr3xs2lYrvOEzmzWWelufKjy1uC9XhjneSyR4YIdECFCXRl8S9REY3S+tS62v3yXZ dHAA0hIaFZ6WyKrADazEYDhCuJbbqOjEc4azc1g4GI nT9OPbJaADjY03PNJlhPsUUJJGEMHS7TBm5cTfA6wBR7IjQ0Pw/ySfNYOBfJe3i3Z0tiZqJvS7K/2tyK pGk45DbSM7aT6gyLB48Fj4DMBCHfk0BI0IXls7SpZBiK9XyE1lwrcUlXD1wXL3xAx5jprGs1Q+4+lFId y87Qsi4a2g+4AGCJzdwc4i5n1r1cwe/sxkh7t26uxx 063l2+vN0waw1w5WRE1lx03YXNbgIuydkGp7SPnYuwZOjeDgvpgyrElUMg934esSVVrbOh0lHAgR4dxp vkk336QK7/iV2hvupO3+z82guw3Fft/ZYlnxoc1oD4s9QTa5m5aeu9q/XsP6z/as4EKav7SWS2Id19uH a6JKgcvr7e5v0Qw1Lko22adyLcrQOiP86/PbmYji/f Ww0mIi6N571lLwbY7awH3geiPzeEc1K2e900X6L3+5XbON9/dPnBNxdnr8+Vsr0ayzZXw5g7M0P4j+soybean grower 1vV0k4bSv9kT0szaVB988apy/m0o7Ptj7p+3v/76+zB618thq77uS/5x+3Q7/fLP5Qu/zJO6YfbhaXbe XpA5SLkg3DJicFk0qvypI6wioCVg52/0q90KuhgNie 3S954D+EQkk6K9wRs/Q2F7a2+J9iR6sl8dEE7c6zK8TkD1Lq0eloW/4Aic03Y/UeVaunrdnaRS6j4dk5 8Dwd3Tb33vnVoQ7j/XC0slJiu6/3GqnLlU8Xoz60X3An/80qj7rtN2b7oFRB6vOJpEJjc9hsSps8qzE9 he6h29f1xcc0j0u4n21L9o2h9nXZ1d+g808fTs+vTw 9p1xI8fyn8I9Oc01k1tcPqG+3r715Epr1cTt6pe9F06Ya7/kcbuv7I5poDW0aTMxv7zWGH/Mn5M4iQV/ RIB39f9lkTTm789vj0tcZECosRBNoAp538y21dSD8eJabz4j1D0/q4a5sqK59EIU5qJxLuS6fd7Nmm13 9s6xl3z3lK44f/6291K0j/y7z7cf/vX3b2+UlZb8rU 98+4322QKF7/ywawYomY62eccfNv75+/CLw6lSp53eQmjZI2t03q62xFfk8UF/bkfy4aNgDhoQFUWua9 RXt7/fTW56/G0viJVZcF6ev0L6OZHI41dzvykNMQCU1/2RqP27c2lUucp5TNZJ9we7pCqWb9WR+GPdmA yu9tv/D5n3eFgBWT4gv5HjYVGpAiVkLG1diwilHJXo CK3baac5D5KenLggAEoFXNHhIu7efXJmJR8XWTV3EAtmEOSoBCAxN7CztS2bW90ecISzOcXzNXTVSG3J myM9DMV2EJD9NCYmUtOzJFJmBS22PGCsLAMZLc6utkMfYkhHLeEqYB7wpoc7X7R4qWIqU088tAdrkfHq PG1Oz2JyqAWbMF8HyKIupSXiMHXiAEVtY4otb7DbKM oyHJRSPl1zwrBsHuvYVeJaCU6foyk4F6D7fZrjznDsBFFCOCuhHxeiQJ1osGnranzzD8HccEQjRZUtD3 GvZTIdy56LHIXqMIgFRtHaTbSwGrO5MDQ9JQbbLcDrROGcCOSlDZDbVV9VpOPjRNMaDMQBCFboNcpbBO SlrC2orNYKs3GrD9VJXBrHQCkeMYpMHsKOKDNbEISy FzK9CCIoCUFiE3WaulIkrNOjJPWETOnfXgtbFZXcvG2nnBxmH1DlCTZ7u5DiYP1YE7JjNTFoBAUWEHI9 v8CgRYNlvcignfeoIcDgWVEqAXKzWSSbER9Nrg2ppJBdpuOrEFUEJRvsXltsMC7plBhhhphmO7RytRXf KSA+UgDyWS6wjj3+LjCdOVHhFos6RPOzSNcjJZLvDH UcCSPzC2vdRNJwSuDhLRTxSlRjLE1Ig3DksQCiAv4jwtKiJxsFvSRcGfrmVTSyDLBgIVDjVpDFXZAlFR QkSOCkZTS2SMObUQZsJHxaYBTrNDOtCJK6PMPkRWNxXZ3yKjPkZIQvZFW9YIedIKLvBHKfumMHDRVcTG K9YDi1SuIaODMoRPWaSVojSXNnBOPcDILqLST4NYK3 IJAlTtWiRAJhAXFpIBAfSMNgWYUnqbJYQTLoWBKiBQS3DMQuRXAmFDDpLKahXJDgEJAjALtgOKCmFKHp ES2hEuJiAARgKCTxYFtaLQAkHYZveqAQBKTbSQBsYMOlSIXrRVDxARLpTHntWSOvVUBlHWQoKWRuDIHk OO9pWlRtRRRjRCK1GSPfDLBnWJAaeoBMXUVcHSQsRD a0OTVsTIZeQFYmJBdvHHYvDZKoWOR5RALoEEFqXO0lApQgDMSkWVP5RbCaORJqXCBtxoWWEJKlPZBqHC T6KbEtKJPrZLOaTMezGZOsBZEoZQvnAWCfTOBtXO0sAoTxJKUrFLEaUHevMIHsUTHfntKUXHFfVWRqIM PpAqDtJRVjBKNyVPafWXPrRRBtLYq1TNTlGMIpAC7j IgEpJDCjTUM5SEsvMGOfYAIfuvUOLFGhMPYuXVfiNSStFINuXGPaHRksNRUeIIWzFMK6RCTjRJLrUY6w MlRqVBLuFOBmMFHbLrB1PxNjEyPZgGIfnKqlaif2AMgmS3m6XNBnBVabTF7ywxJnVTFtHmitZk9daJH6 YRFqCexHAm0Qv0JkigY3qgJsOaWnMWuaBqEpFY2K ID Date Data Source [id number] 11/13/2019 11:06:28 AM EDT [facility] Name Value Range Interpretation Code Description Data Marta rce(s) Supporting Document(s) POC URINE HCG (NEG) [facility] PERFORMED BY [facility]INICAL STAFF ID Date Data Source [id number] 11/13/2019 11:05:32 AM EDT [facility] Name Value Range Interpretation Code Description Data Marta rce(s) Supporting Document(s) POC URINE COLOR [facility] POC URINE APPEARANCE [facility] POC SPEC GRAV URINE 1.015 (1.003-1.030) [facility] POC PH URINE 7.0 (5.0-7.5) [facility] POC LEUK ESTERASE UR (NEG) [facility] POC NITRITE URINE (NEG) [facility] POC PROTEIN URINE (NEG) [facility] POC GLUCOSE URINE (NEG) [facility] POC KETONE URINE (NEG) [facility] POC UROBILINOGEN UR 0.2 EU/dL (0.2-1.0) [facility] POC BILIRUBIN UR (NEG) [facility] POC BLOOD HGB URINE (NEG) [facility] ID Date Data Source [id number] 11/13/2019 10:46:00 AM EDT [facility] Name Value Range Interpretation Code Description Data Marta rce(s) Supporting Document(s) SARS coronavirus 2 RNA [Presence] in Res piratory specimen by SIXTO with probe detection [facility] This lab was reported by [facility]. ID Date Data Source [id number] 11/13/2019 01:23:05 PM EDT [facility] Name Value Range Interpretation Code Description Data Marta rce(s) Supporting Document(s) SPECIMEN DESCRIPTION [facility] COVID19 RESULT (NDET) [facility] THIS ASSAY AMPLIFIES AND DETECTSTHE TARG ET RNA USING REAL-TIME PCR.NEGATIVE 2019_NCOV RT-PCR RESULTS DONOT PRECLUDE 2019_NCOV INFECTION ANDSHOULD NOT BE USED THE SOLE BASISFOR PATIENT MANAGEMENT DECISIONS. COMMENT [facility] UNDER AN EMERGENCY USE AUTHORIZATION(EUA ) FOR THE DETECTION AND/OR DIAGNOSISOF THE VIRUS THAT CAUSES COVID-19.EMAILED TO AT 13:17 ON 11/13/19 [id number]. ID Date Data Source [id number] 11/13/2019 01:00:40 PM EDT [facility] SPEC EXP DATE 11/16/2019PATI ENT ABO/Rh A POSITIVEANTIBODY SCREEN NEGATIVETESTING SITE PERFORMED AT [address] [place] [id number] Name Value Range Interpretation Code Description Data Marta rce(s) Supporting Document(s) TYPE AND SCREEN [facility] ID Date Data Source [id number] 11/13/2019 11:54:45 AM EDT [facility] Name Value Range Interpretation Code Description Data Marta rce(s) Supporting Document(s) SODIUM 140 mmol/L (136-145) [facility] POTASSIUM 4.9 mmol/L (3.6-5.2) [facility] CHLORIDE 108 mmol/L (100-108) [facility] CO2 27 mmol/L (22-31) [facility] ANION GAP 5 mmol/L (7-16) L [facility] UREA NITROGEN 8 mg/dL (7-24) [facility] CREATININE 0.81 mg/dL (0.60-1.00) [facility] BUN/CREAT RATIO 9.9 RATIO (10.0-20.0) L [facility] GLUCOSE 74 mg/dL (70-99) [facility] CALCIUM 9.1 mg/dL (8.4-10.2) [facility] TOTAL PROTEIN 8.8 g/dL (6.4-8.2) H [facility] ALBUMIN 3.9 g/dL (3.5-4.6) [facility] GLOBULIN 4.9 g/dL (2.7-4.3) H [facility] ALB/GLOB RATIO 0.8 RATIO [facility] ALKALINE PHOSPHATASE 94 U/L (45-117) [facility] BILIRUBIN,TOTAL 0.4 mg/dL (0.0-1.0) [facility] PLEASE NOTE:Total bilirubin results may be falselyelevated in patients taking Eltrombopag. AST (SGOT) 22 U/L (11-39) [facility] ALT (SGPT) 48 U/L (12-78) [facility] GFR >60 ml/min/1.73m2 (>59) [facility] GFR ( AMER) >60 ml/min/1.73m2 (>59) [facility] GFR INTERPRETATION [facility] --NORMAL KIDNEY FUNCTION OR MILD DISEASE - GFR >OR= 60CHRONIC KIDNEY DISEASE - GFR 15 - 59RENAL FAILURE - GFR <15 Est. GFR calculation based on the MDRDstudy equation, which assumes a steadystate for creatinine. Est. GFR should notbe used for medication dosing. ID Date Data Source [id number] 11/13/2019 11:35:02 AM EDT [facility] Name Value Range Interpretation Code Description Data Marta rce(s) Supporting Document(s) WBC 6.1 10*3/uL (4.1-11.0) [facility] [place] RBC 5.09 10*6/uL (4.00-5.40) [facility] HGB 14.7 g/dL (12.0-16.0) [facility] HCT 43.8 % (36.0-47.0) [facility] PERFORMED AT [address] [place] [address] N [place] [address] MCV 86.0 fL (80.0-95.0) [facility] MCH 28.9 pg (27.0-32.0) [facility] MCHC 33.6 g/dL (32.0-36.0) [facility] RDW 14.7 % (10.5-14.5) H [facility] PLT 259 10*3/uL (150-450) [facility] MPV 9.1 fL (7.1-10.7) [facility] NEUT % 51.7 % (35.0-75.0) [facility] LYMPH % 37.2 % (16.0-52.0) [facility] MONO % 7.2 % (0.0-8.0) [facility] EOS % 3.3 % (0.0-5.0) [facility] BASO % 0.6 % (0.0-4.0) [facility] NEUT # 3.2 10*3/uL (1.8-7.7) [facility] LYMPH # 2.3 10*3/uL (1.2-4.8) [facility] Karli Duggan MONO # 0.4 10*3/uL (0.0-0.8) [facility] Michela Duggan Eosinophils [#/volume] in Blood by Automated count 0.2 10*3/uL (0.0-0 .5) [facility] rosanne URIBE BASO # 0.0 10*3/uL (0.0-0.2) [facility] Karli Duggan ID Date Data Source [id number] 11/15/2019 07:11:[address] [facility] rosanne URIBE [facility] [place], [place] [address]Gqt# Surgical Pathology ReportAccession #:[id number](s) ReceivedA: AppendixClinical [...] of the specimen. No perforation is seen. Instructor Technical Training sections to include the tip and the inked black base aresubmitted into A1-A4. Processed at [facility], Histopathology, [address] [place] [address], [id number].jglgmm/[email or web address] Reported: 11/15/2019Electronically Signed Out By Khalida Jackson MD [facility]ixt This report may include immunohistochemical or in-situ hybridizationresults. Testing was developed and the performance characteristicsdetermined by Counts include 234 beds at the [facility] as required by CLIA '88. The FDAhas determined that approval for specific use is not necessary forclinical use. The quality of Hematoxylin and Eosin stains and asapplicable, for all immunohistochemical and/or special stains, includingpositive and negative controls, were reviewed and considered appropriate.ICD codes K37CPT codesA: 79788X Name Value Range Interpretation Code Description Data Marta rce(s) Supporting Document(s) Procedure Social History Code Duration Value Status Description Data Source(s ) Smoking 06/04/2020 12:00:00 AM EST Patient has never smoked co mpleted Patient has never smoked [facility]ENT ([facility]) Smoking 03/07/2020 12:00:00 AM EDT Never smoker completed Never s moker [facility] ([facility]) Alcohol intake 12/28/2019 12:00:00 AM EDT Not Currently completed [facility] Smoking 12/28/2019 12:00:00 AM EDT Never smoker completed Never s moker [facility] Smoking 11/27/2019 12:00:00 AM EDT Never Smoker completed Never S moker eCW1 ([facility]) Smoking 11/27/2019 12:00:00 AM EDT Never Smoker completed Never S moker eCW1 ([facility]) Alcohol intake 11/15/2019 12:00:00 AM EDT Not Currently completed [facility] Smoking 11/15/2019 12:00:00 AM EDT Never smoker completed Never s moker [facility] Alcohol intake 11/13/2019 12:00:00 AM EDT Not Currently completed [facility] Smoking 11/13/2019 12:00:00 AM EDT Never smoker completed Never s moker [facility] Vital Signs ID Date Data Source UNK Name Value Range Interpretation Code Description Data Source(s) Body weight 208.00 [lb_av] 208.00 [lb_av] MEDEN T ([facility]) Body temperature 97.5 [degF] 97.5 [degF] [facility] ([facility]) Oxygen saturation in Arterial blood by Pulse oximetry 97 % 97 % [facility] ([facility]) Respiratory rate 16 /min 16 /min [facility] Heart rate 94 /min 94 /min [facility] ([facility]) Diastolic blood pressure 104 mm[Hg] 104 mm[Hg] [facility] ([facility]) Systolic blood pressure 155 mm[Hg] 155 mm[Hg] Geoff CESPEDES ([facility]) Body surface area Derived from formula 2.02 m2 2.02 m2 [facility] ([facility]) Body weight 94.802 kg 94.802 kg [facility] ([facility]) [place] body weight 125 [lb_av] 125 [lb_av] MEDEN T ([facility]) Body mass index (BMI) [Ratio] 34.8 kg/m2 34.8 k g/m2 [facility] ([facility]) Body weight 209.00 [lb_av] 209.00 [lb_av] [facility] Body height 65 [in_i] 65 [in_i] [facility] ([facility]) 5'5" Diastolic blood pressure 84 mm[Hg] 84 mm[Hg] [facility] ([facility]) Systolic blood pressure 120 mm[Hg] 120 mm[Hg] [facility] Oxygen saturation in Arterial blood by Pulse oximetry 99 % 99 % [facility] Respiratory rate 14 /min 14 /min [facility] Heart rate 83 /min 83 /min [facility] Diastolic blood pressure 95 mm[Hg] 95 mm[Hg] [facility] Systolic blood pressure 134 mm[Hg] 134 mm[Hg] [facility] Body temperature 36.78 Steph 36.78 Steph [facility] Body mass index (BMI) [Ratio] 34.78 kg/m2 34.78 kg/m2 [facility] Body weight 94.802 kg 94.802 kg [facility] Body height 165.1 cm 165.1 cm [facility] Oxygen saturation in Arterial blood by Pulse oximetry 99 % 99 % [facility] Respiratory rate 18 /min 18 /min [facility] Body temperature 37.22 Steph 37.22 Steph [facility] Heart rate 79 /min 79 /min [facility] Diastolic blood pressure 92 mm[Hg] 92 mm[Hg] [facility] Systolic blood pressure 143 mm[Hg] 143 mm[Hg] [facility] Body mass index (BMI) [Ratio] 35.66 kg/m2 35.66 kg/m2 [facility] Body weight 97.206 kg 97.206 kg [facility] Body height 165.1 cm 165.1 cm [facility] Body height 165.10 cm 165.10 cm [facility] ([facility] Body mass index (BMI) [Ratio] 35.1 [...] MG Oral Tablet 12/26/2019 12:00:00 AM EDT [facility] ([facility]) Metronidazole 0.0075 MG/MG Vaginal Gel [MetroGel] 12/26/2019 12: 00:00 AM EDT [facility] ([facility]) Lidocaine 5 % 11/27/2019 12:00:00 AM EDT eCW1 ([facility]) Lidocaine 5 % 11/27/2019 12:00:00 AM EDT eCW1 ([facility]) Acetaminophen 325 MG / Oxycodone Hydrochloride 5 MG Or al Tablet 11/14/2019 12:00:00 AM EDT [facility] Fluconazole 150 MG Oral Tablet 10/26/2019 12:00:00 AM EDT [facility] ([facility]) Metronidazole 0.0075 MG/MG Vaginal Gel [MetroGel] 10/26/2019 12: 00:00 AM EDT [facility] ([facility]) Fluconazole 150 MG Oral Tablet [Diflucan] 09/17/2019 12:00:00 AM ED T eCW1 ([facility]) Fluconazole 150 MG Oral Tablet [Diflucan] 09/17/2019 12:00:00 AM ED T eCW1 ([facility]) Multiple Vitamins-Iron (MULTIVITAMIN WITH IRON) TABS 019 12:00:00 AM EDT [facility] Ascorbic Acid (VITAMIN C PO) [facility] Omeprazole 40 MG Delayed Release Oral Capsule [facility] ([facility])
[2020-06-14] MEDS ORDERED: ACETAMINOPHEN TAB 650MG DOSE (2X325MG) PO PRN (21:00)
[2020-06-14] MEDS ORDERED: RAMELTEON 8 MG TAB (ROZEREM) PO PRN (21:00)
[2020-06-14] MEDS ORDERED: EPINEPHrine INJ 1 MG/ML 1ML AMP INJ ONE (21:00)
[2020-06-14] MEDS ORDERED: BENZONATATE 100 MG CAP PO PRN (21:00)
[2020-06-14] MEDS: NS 1,000 ML IV SCH (21:09)
[2020-06-14 22:10] VITALS: BP 134/86
[2020-06-14] MEDS: DOCUSATE SODIUM 100MG CAPSULE PO SCH (22:55)
[2020-06-14] MEDS: guaiFENesin ER 600 MG TAB PO SCH (22:55)
[2020-06-14] MEDS: ESCITALOPRAM OXALATE 10 MG TAB (LEXAPRO) PO SCH (22:55)
[2020-06-14] MEDS: MONTELUKAST 10 MG TAB PO SCH (22:56)
[2020-06-14] MEDS: CETIRIZINE (ZyrTEC) 10 MG TAB PO SCH (22:56)
[2020-06-14] MEDS ORDERED: EPINEPHrine INJ 1 MG/ML 1ML AMP INJ PRN (23:00)
[2020-06-14] MEDS: AZELASTINE 137MCG NASAL SPY 30 ML (ASTELIN) SCH (23:37)
[2020-06-14] MEDS: FLUTICASONE PROP 0.05% NASAL SPRAY 16 GM (FLONASE) NARES SCH (23:37)
[2020-06-15] MEDS: KETOROLAC 30 MG/ML 1ML VIAL IV PRN ×2 (01:02→08:53)
[2020-06-15] MEDS: NS 1,000 ML IV SCH ×3 (03:02→13:28)
[2020-06-15 06:51] VITALS: BP_SYST 115; BP_SYST 76; BP_DIAS 47; BP_DIAS 74; BP_DIAS 77
[2020-06-15 07:31] LABS: HEMATOCRIT 44.3 % (36.0-47.0); HEMOGLOBIN 14.2 g/dl (12.0-15.5); MEAN CORPUSCULAR HEMOGLOBIN 28.8 pg (27.0-33.0); MEAN CORPUSCULAR HGB CONC 32.1 g/dl (32.0-36.5); MEAN CORPUSCULAR VOLUME 89.9 fl (80.0-96.0); PLATELET COUNT, AUTOMATED 284 10^3/uL (150-450); RED BLOOD COUNT 4.93 10^6/uL (4.00-5.40); WHITE BLOOD COUNT 2.9 10^3/uL (4.0-10.0)
[2020-06-15 08:03] LABS: ALBUMIN 2.7 GM/DL (3.2-5.2); ALT/SGPT 70 U/L (12-78); BILIRUBIN,TOTAL 0.3 MG/DL (0.2-1.0); BLOOD UREA NITROGEN 11 MG/DL (7-18); CALCIUM LEVEL 8.4 MG/DL (8.5-10.1); CARBON DIOXIDE LEVEL 27 MEQ/L (21-32); CHLORIDE LEVEL 107 MEQ/L (98-107); CREATININE FOR GFR 0.57 MG/DL (0.55-1.30); GLOMERULAR FILTRATION RATE > 60.0 (>60); GLUCOSE, FASTING 143 MG/DL (70-100); POTASSIUM SERUM 4.6 MEQ/L (3.5-5.1); SODIUM LEVEL 140 MEQ/L (136-145); TOTAL PROTEIN 6.8 GM/DL (6.4-8.2)
[2020-06-15] MEDS: guaiFENesin ER 600 MG TAB PO SCH ×2 (08:50→21:17)
[2020-06-15] MEDS: DOCUSATE SODIUM 100MG CAPSULE PO SCH ×2 (08:50→21:17)
[2020-06-15] MEDS: FLUTICASONE PROP 0.05% NASAL SPRAY 16 GM (FLONASE) NARES SCH ×2 (08:51→21:19)
[2020-06-15] MEDS: AZELASTINE 137MCG NASAL SPY 30 ML (ASTELIN) SCH ×2 (08:51→21:19)
[2020-06-15 09:00] VITALS: BP_SYST 131; BP_SYST 143; BP_SYST 146; BP_DIAS 94; BP_DIAS 96; BP_DIAS 99
[2020-06-15] MEDS ORDERED: ENOXAPARIN 40MG/0.4ML SYRINGE (J1650 PER 10MG) SC SCH (09:00)
[2020-06-15 09:11] LABS: NT-PRO BNP 91 PG/ML (<125)
[2020-06-15 09:39] LABS: ERYTHROCYTE SEDIMENTATION RATE 32 mm/hr (0-20)
[2020-06-15 10:27] LABS: D-DIMER QUANT 866.86 ng/ml (<500)
[2020-06-15] MEDS: dexameTHASONE 4 MG/ML 1ML VIAL (J1100 PER 1MG) IV SCH (11:00)
[2020-06-15] MEDS: LevoFLOXacin IV 500 MG in IV 1 EA IV SCH (11:00)
[2020-06-15] MEDS ORDERED: ONDANSETRON 4MG/2ML VIAL IV PRN (11:00)
[2020-06-15] MEDS ORDERED: MOM 30ML SUSPENSION UDC PO PRN (11:15)
[2020-06-15] MEDS ORDERED: MIRALAX *UNIT DOSE* 17GM PACKET PO PRN (11:15)
--- NOTE | 2020-06-15 11:20 | IPNPDOC ---
Text Note Date of Service The patient was seen on 06/15/20. NOTE Subjective: Patient is a 40-year-old female with a PMHx Anxiety / Depression, IBS, Obesity, PCOS, Seasonal allergies, Vitamin D deficiency, Hiatal hernia / GERD who was diagnosed positive for COVID on 06/04/[address] [facility]. Patient reported symptoms for single day before she went to get tested. She presented to the ER with weakness and had fallen in the bathroom. A friend helped her get up and brought her to the ER for further evaluation. On arrival to emergency room, patient was found to be orthostatic positive and was admitted to the hospital service for further evaluation, treatment. While in the ER, patient did not appear to be significantly hypoxic but was placed on 2 L nasal cannula oxygen. Patient was seen and examined at the bedside. Currently patient is sitting up in bed, does not appear to be in any distress. Denies any significant chest pain. Reports a mild cough without any significant expectoration. Reports that her breathing is doing better while on nasal cannula 2 L oxygen. Denies any vomiting, but does report nausea. Denies any abdominal discomfort. Reports that she has not had a bowel movement in over one week. Objective: Vitals (See below) General: Lying in bed, appears to be comfortable, AAOx3 HEENT: NC, AT CVS: +S1S2 Lungs: Fair air entry b/l, no appreciable wheezing / rhonchi / rales Abdomen: Soft, non-distended, mild tenderness diffusely Extremities: No edema, - Calf tenderness Imaging: CXR 06/14: Diffuse right lung infiltrates. Mild infiltrate left base. CTA 06/09: Relatively mild patchy scattered parenchymal opacities consistent with COVID-19 pulmonary disease. No pulmonary embolus. Assessment and plan: Shortness of breath - possibly 2/2 COVID19, possibly 2/2 superimposed bacterial infection - Patient presented to the emergency room after she had fallen while at home - Patient is requiring 2 L of nasal cannula oxygen appears to be stable at 2 L. We'll continue to titrate down - COVID symptoms started on 06/03: COVID19 positive on 06/04 - Inflammatory markers are improving; - Imaging noted above - Will start Dexamethasone - Will start Levaquin (Day #1); Will check procalcitonin; discontinue therapy if negative - c/w Guaifenesin - Will start incentive spirometry Orthostatic hypotension - Patient reports that she was symptomatic on standing this morning - Positive orthostatic vital signs - Will continue with IV fluid hydration - Will order HSE within 24 hours Abdominal discomfort - likely 2/2 Constipation - Patient has reported no bowel movements since 06/04 - Will check amylase / lipase - Will check abdominal XR - Will start bowel regimen Anxiety / Depression / Insomnia - c/w Escitalopram / Ramelteon IBS Obesity - Complicating medical care PCOS Seasonal allergies - c/w Cetirazine Vitamin D deficiency Hiatal hernia / GERD - c/w Carafate / Protonix DVT prophylaxis - Will increase Lovenox to weight based prophylactic dose Disposition: - Anticipate discharge within 24 hours VS,[place]obone, I+O VS, Fishbone, I+O Laboratory Tests 06/14/20 16:31 06/15/20 07:10 Vital Signs Date Time Temp Pulse Resp B/P (MAP) Pulse Ox O2 Delivery O2 Flow Rate FiO2 06/15/20 09:00 80 146/99 (115) 90 131/94 (106) 109 143/96 (112) 06/15/20 06:00 99.2 13 97 Nasal Cannula 3.0 I&O- Last 24 Hours up to 6 AM 06/15/20 06:00 Intake Total 2687 ml Output Total 0 ml Balance 2687 ml HERMELINDA YEPEZ MD Jun 15, 2020 11:20
--- NOTE | 2020-06-15 12:48 | REP ---
INDICATION: Abdominal pain. COMPARISON: Chest 06/14/2020. TECHNIQUE: Supine and erect views of the abdomen performed as well as a PA view of the chest. FINDINGS: No evidence of free intraperitoneal air. Air is scattered throughout nondistended colon. There are few mildly dilated small bowel loops in the left upper quadrant which may represent a mild focal ileus. Metallic clips are seen in the right upper quadrant. There are mild degenerative changes of the right hip and spine. Bilateral infiltrates are seen in the lungs, more so on the right than on the left, essentially unchanged. IMPRESSION: No free air and no compelling radiographic evidence of obstruction. A few mildly dilated small bowel loops in the left upper quadrant may represent a mild focal ileus. Bilateral lung infiltrates unchanged. <Electronically signed by Praful Bernal > 06/15/20 [id number]
[2020-06-15] MEDS: SENOKOT S TAB PO SCH ×2 (13:28→21:00)
[2020-06-15 13:29] VITALS: BP 148/98
[2020-06-15 14:20] VITALS: BP 131/87
[2020-06-15] MEDS ORDERED: IBUPROFEN 400MG TAB PO PRN (16:00)
[2020-06-15 16:35] VITALS: O2SAT 91
[2020-06-15] MEDS ORDERED: ISOVUE-370 76% 100ML VIAL As Ordered ONE (16:55)
[2020-06-15] MEDS: traMADol 50 MG TAB PO PRN (16:57)
--- NOTE | 2020-06-15 18:26 | REPVR ---
PROCEDURE INFORMATION: Exam: CT Angiography Chest With Contrast Exam date and time: 06/15/2020 5:37 PM Age: 40 years old Clinical indication: Other: Hypoxia TECHNIQUE: Imaging protocol: Computed tomographic angiography of the chest with intravenous contrast. 3D rendering (Not supervised by radiologist): MIP and/or 3D reconstructed images were created by the technologist. Radiation optimization: All CT scans at this facility use at least one of these dose optimization techniques: automated exposure control; mA and/or kV adjustment per patient size (includes targeted exams where dose is matched to clinical indication); or iterative reconstruction. Contrast material: [id number]; Contrast volume: 100 ml; Contrast route: INTRAVENOUS (IV); COMPARISON: CT ANGIO CHEST 06/09/2020 2:38 PM FINDINGS: There is satisfactory opacification of the pulmonary arterial system. No evidence of filling defect within the main, lobar, segmental or proximal subsegmental branches of the pulmonary arterial system. No evidence of pulmonary embolic disease. There is no evidence of thoracic aortic aneurysm or dissection. Extensive interstitial infiltrates with ground-glass opacities throughout all lobes of the lungs. Findings are highly suspicious for infectious etiology including COVID pneumonia. No pleural or pericardial effusion. No evidence of pneumothorax. Mediastinal structures are grossly normal. IMPRESSION: No evidence of pulmonary embolic disease. Extensive interstitial infiltrates with ground-glass opacities throughout all lobes of the lungs. Findings are highly suspicious for infectious etiology including COVID pneumonia. Clinical correlation and follow-up to resolution is recommended. Electronically signed by: Immanuel Mosley On 06/15/2020 18:26:32 PM
--- NOTE | 2020-06-15 18:30 | REPVR ---
PROCEDURE INFORMATION: Exam: CT Angiography Abdomen and Pelvis With Contrast Exam date and time: 06/15/2020 5:37 PM Age: 40 years old Clinical indication: Abdominal pain; Epigastric; Additional info: Epigastric pain TECHNIQUE: Imaging protocol: Computed tomographic angiography of the abdomen and pelvis with intravenous contrast material. 3D rendering (Not supervised by radiologist): MIP and/or 3D reconstructed images were created by the technologist. Radiation optimization: All CT scans at this facility use at least one of these dose optimization techniques: automated exposure control; mA and/or kV adjustment per patient size (includes targeted exams where dose is matched to clinical indication); or iterative reconstruction. Contrast material: ISOVUE 370; Contrast volume: 100 ml; Contrast route: INTRAVENOUS (IV); COMPARISON: CT ABD/PEL W/IV CONTRAST ONLY - OUTSIDE ONLY 12/03/2019 3:16 PM FINDINGS: Extensive interstitial infiltrates with ground-glass opacities in the lung bases bilaterally. Findings are highly suspicious for infectious etiology including COVID pneumonia. The liver, spleen, pancreas and adrenals are grossly normal. Gallbladder is surgically absent. Kidneys demonstrate symmetric function. No focal parenchymal abnormalities or obstructive uropathy. Abdominal aorta is normal in caliber. There is no evidence of aneurysmal dilatation or dissection. There is satisfactory opacification of aortic branch vessels and major pelvic arteries. Small and large bowel loops are grossly normal. No evidence of enteric obstruction. Pelvic organs are grossly normal. Uterus is not identified and may be atrophic or surgically absent. No free fluid in the abdomen or pelvis. Visualized osseous structures are grossly normal for age. IMPRESSION: No acute intra-abdominal or pelvic process. Abdominal aorta is normal in caliber with no evidence of aneurysmal dilatation or dissection. Satisfactory flow identified within the aorta, aortic branch vessels and major pelvic arteries. Extensive interstitial infiltrates with ground-glass opacities in the lung bases bilaterally. Findings are highly suspicious for infectious etiology including COVID pneumonia. Electronically signed by: Immanuel Mosley On 06/15/2020 18:30:15 PM
[2020-06-15] MEDS: ENOXAPARIN 40MG/0.4ML SYRINGE (J1650 PER 10MG) SC SCH (21:17)
[2020-06-15] MEDS: MONTELUKAST 10 MG TAB PO SCH (21:17)
[2020-06-15] MEDS: CETIRIZINE (ZyrTEC) 10 MG TAB PO SCH (21:19)
[2020-06-15] MEDS: ESCITALOPRAM OXALATE 10 MG TAB (LEXAPRO) PO SCH (21:19)
[2020-06-15 21:24] VITALS: BP 122/71
[2020-06-16 02:44] VITALS: BP 119/78
[2020-06-16] MEDS: traMADol 50 MG TAB PO PRN ×2 (02:44→18:06)
[2020-06-16 08:00] VITALS: BP 120/76
--- NOTE | 2020-06-16 08:26 | ECGEPIP ---
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
[2020-06-16] MEDS: guaiFENesin ER 600 MG TAB PO SCH (08:45)
[2020-06-16] MEDS: FLUTICASONE PROP 0.05% NASAL SPRAY 16 GM (FLONASE) NARES SCH (08:45)
[2020-06-16] MEDS: ENOXAPARIN 40MG/0.4ML SYRINGE (J1650 PER 10MG) SC SCH (08:45)
[2020-06-16] MEDS: dexameTHASONE 4 MG/ML 1ML VIAL (J1100 PER 1MG) IV SCH (08:45)
[2020-06-16] MEDS: SENOKOT S TAB PO SCH (08:45)
[2020-06-16] MEDS: DOCUSATE SODIUM 100MG CAPSULE PO SCH (08:45)
[2020-06-16] MEDS: AZELASTINE 137MCG NASAL SPY 30 ML (ASTELIN) SCH (08:46)
--- NOTE | 2020-06-16 08:55 | ECGEPIP ---
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
[2020-06-16 09:52] LABS: HEMOGLOBIN 12.9 g/dl (12.0-15.5); MEAN CORPUSCULAR HEMOGLOBIN 28.5 pg (27.0-33.0); MEAN CORPUSCULAR HGB CONC 31.5 g/dl (32.0-36.5); MEAN CORPUSCULAR VOLUME 90.5 fl (80.0-96.0); PLATELET COUNT, AUTOMATED 306 10^3/uL (150-450); RED BLOOD COUNT 4.53 10^6/uL (4.00-5.40); WHITE BLOOD COUNT 10.8 10^3/uL (4.0-10.0)
[2020-06-16 10:14] LABS: D-DIMER QUANT 794.69 ng/ml (<500)
[2020-06-16 10:26] LABS: ALBUMIN 2.5 GM/DL (3.2-5.2); ALT/SGPT 61 U/L (12-78); BILIRUBIN,TOTAL 0.3 MG/DL (0.2-1.0); BLOOD UREA NITROGEN 9 MG/DL (7-18); C REACTIVE PROTEIN QUANTITATIV 4.35 MG/DL (0.00-0.30); CALCIUM LEVEL 8.7 MG/DL (8.5-10.1); CARBON DIOXIDE LEVEL 30 MEQ/L (21-32); CHLORIDE LEVEL 108 MEQ/L (98-107); CREATININE FOR GFR 0.56 MG/DL (0.55-1.30); FERRITIN 900 NG/ML (8-252); GLOMERULAR FILTRATION RATE > 60.0 (>60); GLUCOSE, FASTING 102 MG/DL (70-100); POTASSIUM SERUM 4.1 MEQ/L (3.5-5.1); SODIUM LEVEL 144 MEQ/L (136-145); TOTAL PROTEIN 6.3 GM/DL (6.4-8.2)
[2020-06-16] MEDS: LevoFLOXacin IV 500 MG in IV 1 EA IV SCH (10:59)
[2020-06-16 14:13] VITALS: BP_SYST 117; BP_SYST 118; BP_SYST 119; BP_DIAS 67; BP_DIAS 69; BP_DIAS 74
[2020-06-16] MEDS ORDERED: LEVO500T3 PO (14:43)
[2020-06-16] MEDS ORDERED: MUCI600T31 PO (14:43)
[2020-06-16] MEDS ORDERED: BENZ-18 PO (14:43)
[2020-06-16] MEDS ORDERED: PRED10TA2 PO (14:43)
--- NOTE | 2020-06-16 15:12 | DS.PDOC ---
Discharge Summary General Date of Admission Jun 14, 2020 at 14:18 Date of Discharge 06/16/2020 Discharge Summary PROCEDURES PERFORMED DURING STAY: [None]. ADMITTING DIAGNOSES / DISCHARGE DIAGNOSES: Shortness of breath - possibly 2/2 COVID19, possibly 2/2 superimposed bacterial infection s/p Orthostatic hypotension Abdominal discomfort - likely 2/2 Constipation Anxiety / Depression / Insomnia IBS Obesity PCOS Seasonal allergies Vitamin D deficiency Hiatal hernia / GERD DVT prophylaxis COMPLICATIONS/CHIEF COMPLAINT: Shortness of breath HISTORY OF PRESENT ILLNESS: Patient is a 40-year-old female with a PMHx Anxiety / Depression, IBS, Obesity, PCOS, Seasonal allergies, Vitamin D deficiency, Hiatal hernia / GERD who was diagnosed positive for COVID on 06/04/2020 at [facility]. Patient reported symptoms for single day before she went to get tested. She presented to the ER with weakness and had fallen in the bathroom. A friend helped her get up and brought her to the ER for further evaluation. On arrival to emergency room, patient was found to be orthostatic positive and was admitted to the hospitalist service for further evaluation and treatment. While in the ER, patient did not appear to be significantly hypoxic but was placed on 2 L nasal cannula oxygen. HOSPITAL COURSE: Shortness of breath - possibly 2/2 COVID19, possibly 2/2 superimposed bacterial infection - Patient does report that her SOB has gotten better / still reports cough - Currently saturating well on room air; ambulatory pulse oximeter does not reveal hypoxia - COVID symptoms started on 06/03: COVID19 positive on 06/04 - Inflammatory markers continue to be downtrending - Imaging noted above - Will DC Dexamethasone; c/w Prednisone taper on discharge - c/w Levaquin (Day #2); - will continue with Levofloxacin on discharge for completion of course - c/w Guaifenesin - c/w incentive spirometry s/p Orthostatic hypotension - Patient reports that she was symptomatic on standing yesterday - Negative orthostatic vital signs; have corrected - s/p IV fluid hydration - Cleared home safety evaluation today for discharge home Abdominal discomfort - likely 2/2 Constipation - Patient has reported no bowel movements since 06/04 - Amylase / lipase within normal range - Imaging negative - c/w bowel regimen Anxiety / Depression / Insomnia - c/w Escitalopram / Ramelteon IBS Obesity - BMI 33.6 - Complicating medical care PCOS Seasonal allergies - c/w Cetirizine Vitamin D deficiency Hiatal hernia / GERD - c/w Carafate / Protonix DVT prophylaxis - c/w Lovenox to weight based prophylactic dose DISCHARGE MEDICATIONS: Please see below. ALLERGIES: Please see below. PHYSICAL EXAMINATION ON DISCHARGE: Vitals (See below) General: Patient is laying in bed, no acute distress, is awake, alert and oriented 3 HEENT: NC, AT CVS: +S1S2 Lungs: Poor inspiratory effort, no appreciable rhonchi, crackles or wheezing Abdomen: Abdomen remains soft, no appreciable distention. No significant tendern ess Extremities: No edema of LE edema, - Calf tenderness LABORATORY DATA: Please see below. IMAGING: CXR 06/14: Diffuse right lung infiltrates. Mild infiltrate left base. XR Abdomen 06/15: No free air and no compelling radiographic evidence of obstruction. A few mildly dilated small bowel loops in the left upper quadrant may represent a mild focal ileus. Bilateral lung infiltrates unchanged. CTA chest 06/15: No evidence of pulmonary embolic disease. Extensive interstitial infiltrates with ground-glass opacities throughout all lobes of the lungs. Findings are highly suspicious for infectious etiology including COVID pneumonia. Clinical correlation and follow-up to resolution is recommended. CTA abdomen / pelvis 06/15: No acute intra-abdominal or pelvic process. Abdominal aorta is normal in caliber with no evidence of aneurysmal dilatation or dissection. Satisfactory flow identified within the aorta, aortic branch vessels and major pelvic arteries. Extensive interstitial infiltrates with ground-glass opacities in the lung bases bilaterally. Findings are highly suspicious for infectious etiology including COVID pneumonia. ACTIVITY: [As tolerated]. DISCHARGE PLAN: Follow-up with primary care provider within the next 7 days Remain compliant with treatment plan and medications Return to the ER if you experience any problems DISPOSITION: Home DISCHARGE CONDITION: [Stable]. TIME SPENT ON DISCHARGE: 20 minutes Vital Signs/I&Os Vital Signs Date Time Temp Pulse Resp B/P (MAP) Pulse Ox O2 Delivery O2 Flow Rate FiO2 06/16/20 14:13 74 117/74 (88) 75 118/69 (85) 80 119/67 (84) 06/16/20 08:00 96.8 20 97 Nasal Cannula 4.0 I&O- Last 24 Hours up to 6 AM 06/16/20 06:00 Intake Total 160 ml Output Total 1300 ml Balance -1140 ml Laboratory Data Labs 24H Laboratory Tests 2 06/16/20 09:17: Nucleated Red Blood Cells % (auto) 0.0, Fibrinogen 509H, D-Dimer, Quantitative 794.69H, Anion Gap 6L, Glomerular Filtration Rate > 60.0, Calcium Level 8.7, Ferritin 900H, Total Bilirubin 0.3, Aspartate Amino Transf (AST/SGOT) 32, Alanine Aminotransferase (ALT/SGPT) 61, Alkaline Phosphatase 59, C-Reactive Protein, Quantitative 4.35H, Total Protein 6.3L, Albumin 2.5L, Albumin/Globulin Ratio 0.7L CBC/BMP Laboratory Tests 06/16/20 09:17 Microbiology Microbiology 06/15/20 Gram Stain - Final, Resulted 06/15/20 Sputum Culture, Resulted Pending Discharge Medications Scheduled Azelastine HCl (Azelastine HCl) 0.1% [place].pump, 1 SPRAY NARES BID, (Reported) Cholecalciferol (Vitamin D3) (Vitamin D3) 50 Mcg Capsule, 50 MCG PO DAILY, (Reported) Dexlansoprazole (Dexilant) 60 Mg Cap.drJoshuabp, 60 MG PO DAILY, (Reported) Escitalopram Oxalate (Lexapro) 20 Mg Tab, 20 MG PO QHS, (Reported) Fluticasone Propionate (Flonase Allergy Relief) 9.9 Ml [place].susp, 1 SPRAY NARES BID, (Reported) Guaifenesin (Mucinex) 600 Mg Tab.er.12h, 600 MG PO BID Lactobacillus Combo No.10 (Probiotic) 1 Each Capsule, 1 CAP PO DAILY, (Reported) Levocetirizine Dihydrochloride (Levocetirizine Dihydrochloride) 5 Mg Tablet, 2.5 MG PO QHS, (Reported) Levofloxacin (Levofloxacin) 500 Mg Tablet, 1 TAB PO DAILY Montelukast Sodium (Singulair) 10 Mg Tab, 10 MG PO QHS, (Reported) Multivitamin,Therapeutic (Thera-Tabs) 1 Each Tablet, 1 TAB PO DAILY, (Reported) Prednisone (Prednisone) 10 Mg Tablet, 10 MG PO TAPER Take 4 tabs daily x 3 days, then 3 tabs daily x 3 days, then 2 tabs daily x 3 days, then 1 tab daily x 3 days and stop Simethicone (Gas-X) 125 Mg Tab.chew, 125 MG PO DAILY, (Reported) Scheduled PRN Albuterol Sulfate (Proair Hfa) 8.5 Gm Hfa.aer.ad, 2 PUFF INH Q4-6HP PRN for SHORTNESS OF BREATH, (Reported) Benzonatate (Benzonatate) 100 Mg Capsule, 200 MG PO TIDP PRN for cough Epinephrine (Epinephrine) 0.3 Mg/0.3 Ml Auto.injct, 1 SYRINGE IM ONCE PRN for ANAPHYLAXIS, (Reported) Sucralfate (Sucralfate) 1 Gm Tablet, 1 TAB PO QID PRN for STOMACH UPSET, (Reported) Allergies Coded Allergies: cefdinir (Verified Allergy, Severe, ANAPHYLAXIS, 01/11/19) Penicillins (Verified Allergy, Intermediate, HIVES, 01/11/19) artichoke (Verified Allergy, Intermediate, HIVES/SWELLING, 01/11/19) clarithromycin (Verified Allergy, Intermediate, RASH/HIVES, 01/11/19) kiwi (Verified Allergy, Intermediate, HIVES/SWELLING/ITCHY THROAT, 01/11/19) latex (Verified Allergy, Intermediate, RASH, 01/11/19) pineapple (Verified Allergy, Intermediate, ITCHY THROAT, 01/11/19) Red Pepper (Verified Allergy, Unknown, JALAPENO, 07/04/14) metronidazole (Verified Adverse Reaction, Intermediate, NAUSEA, 01/11/19) morphine (Verified Adverse Reaction, Intermediate, VOMITING/ITCHINESS, 01/11/19) phentermine (Verified Adverse Reaction, Intermediate, INCREASED BP AND HEART RATE, 01/11/19) venlafaxine (Verified Adverse Reaction, Mild, BAD SIDE EFFECTS, 01/11/19) HERMELINDA YEPEZ MD Jun 16, 2020 15:12
[2020-06-16 15:17] LABS: CK-MB VALUE MASS < 1.0 NG/ML (<3.6); CPK CREATINE PHOSPHOKINASE 46 U/L (26-192); MB/CK RELATIVE INDEX 2.17 (< OR =4); TROPONIN I < 0.02 NG/ML (< 0.10)
[2020-06-16 16:00] VITALS: BP 151/91
[2020-06-16 20:52] VITALS: BP 130/85
== END 2020-06-16 20:47 | disposition home or self-care (01) ==
LOC: EDBD 14:17 → M ED 14:17 → M ED INP 14:18 → ENRESERV 21:18 → M MSPAV 22:10 → M 4MAIN 06-15 14:10
PROVIDERS: ADMIT Family Medicine; ATTEND Internal Medicine
DX: R06.02 Shortness of breath (principal); U07.1 COVID-19; I95.1 Orthostatic hypotension; R10.9 Unspecified abdominal pain; K59.00 Constipation, unspecified; K58.0 Irritable bowel syndrome with diarrhea; F41.9 Anxiety disorder, unspecified; F32.9 Major depressive disorder, single episode, unspecified; G47.00 Insomnia, unspecified; E28.2 Polycystic ovarian syndrome; E66.9 Obesity, unspecified; E55.9 Vitamin D deficiency, unspecified; K44.9 Diaphragmatic hernia without obstruction or gangrene; K21.9 Gastro-esophageal reflux disease without esophagitis; J30.2 Other seasonal allergic rhinitis; Z79.899 Other long term (current) drug therapy; Z88.0 Allergy status to penicillin; Z91.018 Allergy to other foods; Z88.1 Allergy status to other antibiotic agents; Z91.040 Latex allergy status; Z88.5 Allergy status to narcotic agent; Z98.84 Bariatric surgery status
CPT/HCPCS: 36415; 36600; 71045; 71275; 74021; 74174; 80048; 80053; 80076; 82150; 82550; 82553; 82728; 82803; 83615; 83690; 83735; 83880; 84145; 85025; 85027; 85379; 85384; 85652; 86140; 87070; 87205; 93005; 94640; 96361; 96365; 96366; 96372; 96375; 96376; 97116; 97161; 97530; 99285; J1100; J1650; J1885; J1956; J2405; J2930; Q9967

== ENCOUNTER 2020-06-23 14:27 | Observation (INO) | payer OTHER ==
[~2020-06-23] VITALS: Ht 165.1 cm; Wt 93.7 kg
[~2020-06-23 14:27] MED LIST changes: +BENZ-18 PO; +D3 H2000 PO; +LEVO500T3 PO; +MUCI600T31 PO; +PRED10TA2 PO; +PROAAER10 INH; +SUCR1TAB56 PO; +THERTAB52 PO
--- NOTE | 2020-06-23 16:17 | REP ---
INDICATION: pain. COMPARISON: None. TECHNIQUE: Multiple ultrasonographic images of the deep venous structures of the left thigh were obtained from the common femoral vein to the popliteal vein along with Doppler interrogation and color flow Doppler images. FINDINGS: There is no abnormal echogenic material seen within any of the visualized deep venous structures that would suggest acute thrombosis. Coaptation is unremarkable throughout. Doppler interrogation shows an expected response to respiratory variability and augmentation. The color flow images show what appears to be a normal vascular pattern throughout. IMPRESSION: There is no ultrasonographic evidence of deep venous thrombosis involving any of the visualized deep venous structures of the left thigh, as described above. <Electronically signed by Mele Betancur > 06/23/20 [id number]
[2020-06-23 17:11] LABS: BASO % 0.2 % (0.0-1.0); EOS % 0.3 % (0.0-3.0); HEMATOCRIT 46.4 % (36.0-47.0); LYMPH # 2.7 10^3/uL (1.5-5.0); LYMPH % 20.7 % (24.0-44.0); MEAN CORPUSCULAR HEMOGLOBIN 28.5 pg (27.0-33.0); MEAN CORPUSCULAR HGB CONC 32.3 g/dl (32.0-36.5); MEAN CORPUSCULAR VOLUME 88.2 fl (80.0-96.0); MONO # 1.4 10^3/uL (0.0-0.8); MONO % 10.4 % (0.0-5.0); NEUTROPHILS # 8.9 10^3/uL (1.5-8.5); NEUTROPHILS % 67.4 % (36.0-66.0); PLATELET COUNT, AUTOMATED 418 10^3/uL (150-450); RED BLOOD COUNT 5.26 10^6/uL (4.00-5.40); WHITE BLOOD COUNT 13.2 10^3/uL (4.0-10.0)
[2020-06-23 17:17] LABS: FIBRINOGEN 343 MG/DL (221-452)
[2020-06-23 17:35] LABS: ALBUMIN 3.3 GM/DL (3.2-5.2); ALT/SGPT 52 U/L (12-78); BILIRUBIN,DIRECT 0.1 MG/DL (0.0-0.2); BILIRUBIN,TOTAL 0.4 MG/DL (0.2-1.0); BLOOD UREA NITROGEN 12 MG/DL (7-18); C REACTIVE PROTEIN QUANTITATIV 0.91 MG/DL (0.00-0.30); CALCIUM LEVEL 9.3 MG/DL (8.5-10.1); CARBON DIOXIDE LEVEL 30 MEQ/L (21-32); CHLORIDE LEVEL 106 MEQ/L (98-107); CK-MB VALUE MASS < 1.0 NG/ML (<3.6); CPK CREATINE PHOSPHOKINASE 61 U/L (26-192); CREATININE FOR GFR 0.64 MG/DL (0.55-1.30); FERRITIN 554 NG/ML (8-252); GLOMERULAR FILTRATION RATE > 60.0 (>60); GLUCOSE, FASTING 75 MG/DL (70-100); LDH LACTATE DEHYDROGENASE 399 U/L (84-246); MAGNESIUM LEVEL 2.2 MG/DL (1.8-2.4); MB/CK RELATIVE INDEX 1.64 (< OR =4); POTASSIUM SERUM 4.5 MEQ/L (3.5-5.1); SODIUM LEVEL 141 MEQ/L (136-145); TOTAL PROTEIN 7.4 GM/DL (6.4-8.2); TROPONIN I < 0.02 NG/ML (< 0.10)
[2020-06-23] MEDS ORDERED: ISOVUE-370 76% 100ML VIAL As Ordered ONE (17:56)
[2020-06-23 18:04] LABS: INR > 5.00; PARTIAL THROMBOPLASTIN TIME > 240.0 SECONDS (24.2-38.5)
[2020-06-23 18:06] LABS: PROTHROMBIN TIME > 150.0 SECONDS (12.5-14.3)
--- NOTE | 2020-06-23 18:43 | REPVR ---
PROCEDURE INFORMATION: Exam: CT Angiography Chest With Contrast Exam date and time: 06/23/2020 6:04 PM Age: 40 years old Clinical indication: Shortness of breath; Chest pain; Additional info: Sob/cp (+covid 06/04) TECHNIQUE: Imaging protocol: Computed tomographic angiography of the chest with intravenous contrast. 3D rendering (Not supervised by radiologist): MIP and/or 3D reconstructed images were created by the technologist. Radiation optimization: All CT scans at this facility use at least one of these dose optimization techniques: automated exposure control; mA and/or kV adjustment per patient size (includes targeted exams where dose is matched to clinical indication); or iterative reconstruction. Contrast material: ISOVUE 370; Contrast volume: 75 ml; Contrast route: INTRAVENOUS (IV); COMPARISON: CT ANGIO CHEST 06/15/2020 5:39 PM FINDINGS: Pulmonary arteries: Filling defects are identified within proximal lobar and more peripheral pulmonary arterial branches within the the bilateral lower lobes, consistent with pulmonary emboli. Additional filling defects are identified within pulmonary arterial branches within both upper lobes. Aorta: Artifact limits evaluation of the ascending aorta. No aneurysm or dissection of the remaining thoracic aorta. Lungs: Multiple patchy areas of ground-glass density and consolidations are identified within the lungs bilaterally. There is a progression in the consolidations compared to the prior study, with improvement of the overall ground-glass density. These findings can be infectious, although pulmonary infarcts are also within the differential. Pleural space: No pneumothorax. No pleural effusion. Heart: There is mild flattening of the interventricular cardiac septum. This can be associated with right heart strain, although this is similar in appearance to the prior study. There is a minimal pericardial effusion. Lymph nodes: Small mediastinal lymph nodes, without significant lymphadenopathy. Liver: Within the right hepatic lobe, there is a 1.8 x 1.5 cm hypodense lesion, without significant progression in size. Intraperitoneal space: Fluid is seen in the superior aortic recess. Bones/joints: Hypertrophic degenerative changes are noted involving the spine. Mild stable anterior wedging/compression of the T12 vertebral body. Soft tissues: Unremarkable. IMPRESSION: 1. Positive for pulmonary embolism, as detailed above. 2. There is mild flattening of the interventricular cardiac septum. This can be associated with right heart strain, although this is similar in appearance to the prior study. There is a minimal pericardial effusion. 3. Multiple patchy areas of ground-glass density and consolidations are identified within the lungs bilaterally. There is a progression in the consolidations compared to the prior study, with improvement of the overall ground-glass density. Imaging features can be seen with COVID-19 pneumonia, though are nonspecific and can occur with a variety of infectious and noninfectious processes. (Reference: Suhail) Pulmonary infarcts are within the differential. 4. Within the right hepatic lobe, there is a 1.8 x 1.5 cm hypodense lesion, without significant progression in size. A nonemergent MRI of the abdomen with/without contrast is recommended. 5. Mild stable anterior wedging/compression of the T12 vertebral body. 6. Additional findings described above. REFERENCES: Suhail Healy, et al., [employer] Society of [place] Expert Consensus Statement on Reporting Chest CT Findings Related to COVID-19. Endorsed by the Society of [employer] Radiology, the [place] [employer], and RSNA. Published August 22, 2019. Electronically signed by: Baron Villalba On 06/23/2020 18:43:21 PM
[2020-06-23 18:51] LABS: INR 1.1; PROTHROMBIN TIME 14.4 SECONDS (12.5-14.3)
[2020-06-23 18:52] LABS: PARTIAL THROMBOPLASTIN TIME 24.8 SECONDS (24.2-38.5)
[2020-06-23] MEDS ORDERED: PRED10TA2 PO (20:25)
[2020-06-23] MEDS ORDERED: BENZ200C70 PO (20:25)
[2020-06-23] MEDS ORDERED: MUCI600T31 PO (20:25)
[2020-06-23] MEDS ORDERED: MAALOX 30 ML SUSP *UDC PO PRN (20:30)
[2020-06-23] MEDS ORDERED: APIXABAN 5 MG TAB (ELIQUIS) PO ONE (20:30)
[2020-06-23] MEDS ORDERED: MOM 30ML SUSPENSION UDC PO PRN (20:30)
[2020-06-23] MEDS ORDERED: ACETAMINOPHEN TAB 650MG DOSE (2X325MG) PO PRN (20:30)
--- NOTE | 2020-06-23 21:25 | HPEPDOC ---
[facility] Medical History & Physical Date of Admission Jun 23, 2020 Date of Service: Jun 23, 2020 Primary Care Physician: ROVERTO COLLADO PA-C Attending Physician: JAMIL HILLIARD MD History and Physical TIME OF SERVICE 845PM CHIEF COMPLAINT: left calf pain HISTORY OF PRESENT ILLNESS: This 40 yr old F was diagnosed with COVID 19 on Jun 04 and admitted to from Jun 14 to for management of bacterial pneumonia superimposed on COVID 19 PNA; she was discharged home with steroids & abx. Today her PCP sent her for evaluation of left calf pain and she was found to have PE. Per d/w SELAM Lima the patient's O2 sats dropped to 87% with exertion. At the time of my evaluation she was also c/o chest discomfort. She also continues to have a cough, dyspnea, myalgias and headache. ROS: negative except as listed in HPI PAST MEDICAL/ SURGICAL HISTORY: Asthma GERD Anxiety/depression Obesity PCOS Irritable bowel syndrome with diarrhea Osteoarthritis Hiatal hernia Gastric bypass Cholecystectomy 1 Hysterectomy SOCIAL HISTORY: Nonsmoker Does not use recreational drugs FAMILY HISTORY: Diabetes Hypertension Dyslipidemia Asthma Lymphoma ALLERGIES: Please see below. HOME MEDICATIONS: Please see below. PHYSICAL EXAMINATION: Vital Signs Date Time Temp Pulse Resp B/P (MAP) Pulse Ox O2 Delivery O2 Flow Rate FiO2 06/23/20 14:28 97.9 129 20 140/89 (106) 93 Room Air GENERAL APPEARANCE: Well-nourished, well-developed, slightly anxious HEENT: EOMI. Mucous membranes moist and pink CARDIOVASCULAR: Regular rate and rhythm. No murmurs, rubs or gallops. Radial pulses intact. LUNGS: She is using accessory muscles. Her lungs are clear auscultation tesfaye aterally on room air. There is equal air entry bilaterally. She appears to be short of breath after speaking a few sentences. MUSCULOSKELETAL: NCAT Range of motion intact in all 4 extremities NEUROLOGICAL: Nerves II to 12 grossly intact. Speech is not dysarthric PSYCHIATRIC: Alert and oriented to person, place and time, able to understand and follow commands LABORATORY DATA: 06/23/20 16:51 Immature Granulocyte % (Auto) 1.0, Neutrophils (%) (Auto) 67.4H, Lymphocytes (%) (Auto) 20.7L, Monocytes (%) (Auto) 10.4H, Eosinophils (%) (Auto) 0.3, Basophils (%) (Auto) 0.2, Neutrophils # (Auto) 8.9H, Lymphocytes # (Auto) 2.7, Monocytes # (Auto) 1.4H, Eosinophils # (Auto) 0.0, Basophils # (Auto) 0.0, Nucleated Red Blood Cells % (auto) 0.0, Prothrombin Time > 150.0H, Prothromb Time International Ratio > 5.00*H, Activated Partial Thromboplast Time > 240.0*H, Fibrinogen 343, Anion Gap 5L, Glomerular Filtration Rate > 60.0, Calcium Level 9.3, Magnesium Level 2.2, Ferritin 554H, Total Bilirubin 0.4, Direct Bilirubin 0.1, Aspartate Amino Transf (AST/SGOT) 27, Alanine Aminotransferase (ALT/SGPT) 52, Alkaline Phosphatase 64, Lactate Dehydrogenase 399H, Total Creatine Kinase 61, Creatine Kinase MB < 1.0, Creatine Kinase MB Relative Index 1.64, Troponin I < 0.02, C-Reactive Protein, Quantitative 0.91H, Total Protein 7.4, Albumin 3.3, Albumin/Globulin Ratio 0.8L, Procalcitonin 0.09 06/23/20 18:26: Prothrombin Time 14.4H, Prothromb Time International Ratio 1.10, Activated Partial Thromboplast Time 24.8L IMAGING: Bilateral lower extremity duplex "IMPRESSION: There is no ultrasonographic evidence of deep venous thrombosis involving any of the visualized deep venous structures of the left thigh, as described above." CT of the chest "IMPRESSION: 1. Positive for pulmonary embolism, as detailed above. 2. There is mild flattening of the interventricular cardiac septum. This can be associated with right heart strain, although this is similar in appearance to the prior study. There is a minimal pericardial effusion. 3. Multiple patchy areas of ground-glass density and consolidations are identified within the lungs bilaterally. There is a progression in the consolidations compared to the prior study, with improvement of the overall ground-glass density. Imaging features can be seen with COVID-19 pneumonia, though are nonspecific and can occur with a variety of infectious and noninfectious processes. (Reference: Jang) Pulmonary infarcts are within the differential. 4. Within the right hepatic lobe, there is a 1.8 x 1.5 cm hypodense lesion, without significant progression in size. A nonemergent MRI of the abdomen with/without contrast is recommended. 5. Mild stable anterior wedgi ng/compression of the T12 vertebral body. 6. Additional findings described above.....ADDENDUM REPORT 2...On axial images, the right ventricle measures 4.2 cm in diameter, with the left ventricle measuring 4.3 cm in diameter. Therefore, the RV/LV ratio is slightly less than 1. " ASSESSMENT: Ms. Sanders is a 40 yr old female with history of asthma, GERD, IBS-D, anxiety /depression, obesity & recent gastric bypass who was diagnosed with COVID 19 on Jun 04; today she was sent for evaluation of calf pain and was found to have a PE. PLAN: 1. Acute PE vs Submassive PE This occurred in the setting of a recent COVID 19 infection. She received one dose of Eliquis in the ER. She doesnt meet the criteria to diagnose a Massive PE. Based on the RV/LV ratio on the CT scan (which is less than 1 on the short axis diameter) she doesnt meet the criteria to diagnose a Submassive PE but the parameters on Echo are likely to be more sensitive. Her SBP >90, HR is >110 and Troponin is <0.02 Plan: Since her JB Score is 1 which puts her in the low risk category for complications and mortality we will admit her to the medical floor / f/u BNP & Echo (If the Echo shows an RV/LV ratio that is is >0.9, or systolic pulmonary arteria pressure that is > 30, or RV dilation that is >than 30 or RV end diastolic diameter that is > 30, or free wall hypokinesis she will meet the criteria to diagnose a Submassive PE which is a contraindication to using a DOAC, therefore she should be switched to Heparin (which can be started at 9 AM) as a bridge to warfarin. If the Echo findings are unremarkable this will confirm that she has an acute PE and can c/w the DOAC (next dose at 9AM).) / She will also need a home O2 test prior to discharge 2. SIRS Leukocytosis and tachycardia are likely reactive Plan: f/u lactic acid, blood cx 3. Acute Asthma Likely triggered by PE. Plan: Magnesium IV / c/w supplemental O2 / continuous pulse ox / will ask RN to monitor peak expiratory flow daily (she may be ready for discharge when the peak flow is >70%) / Dunebs Q6H, Symbicourt BID / solumedrol now then switch to oral Prednisone tomorrow / PPI to prevent steroid induced ulcer / will NOT start antibiotics because there is no clear sign of infection / Tessalon Pearls / prior to dc will need Inhaler technique education / per JUDY 2020 guidelines will change her home med from (albuterol) BRO PRN as first step med to budesonide- formoterol (Symbicourt) PRN as first step med 4. COVID 19 She is still coughing and short of breath which is more likely due to acute asthma, but it is also possible that she has had a prolonged course of infection or re-infection. Plan: continuous pulse ox / supplemental O2 up to 3L with target O2 sats between 92-95% / contact & air borne precautions 5. Pericardial effusion Likely post viral post COVID-19 effusion Trop wnl Plan: f/u BRENDAN and Echo 6. T12 fx /Osteoporosis By definition she has osteoporosis because she has a vertebral body fracture. This fracture was not mentioned on her CTs of the chest done on Jun 09 or Jun 15 2020. She had a fall around around Jun 15 in the setting of syncopal episodes, she denies taking steroids chronically prior to her last COVID admission and reports following up with her Bariatric Surgeon to check her vitamin levels. She is chronically on PPIs which can increase the risk of osteoporosis. Her serum calcium is wnl Plan: f/u serum Vitamin D / Oscal D PO / she will need f/u with PCP for a DEXA Scan prior to selecting medication (likely Bisphosphinate +Terapiratide if the T score is less than -3.5 ) and to discuss non-pharmacological therapy for osteoporosis (ie resistance and core training, alcohol moderation ect) 7. 1.8cm Right hepatic lobe lesion Plan: f/u w PCP for surveillance 8. GERD Plan: c/w PPI for now 9. Depression Plan: c/w home meds 10. Obesity / s/p Gastric bypass Complicates care Her BMI decreased from 42 in Feb to 33 today Her A1C was 5.4% in Feb DVT prophylaxis with DOAC for now Disposition home after at least 2 midnights stay Home Medications Scheduled Azelastine HCl (Azelastine HCl) 0.1% Aurora.pump, 1 SPRAY NARES BID Cholecalciferol (Vitamin D3) (Vitamin D3) 50 Mcg Capsule, 50 MCG PO DAILY Dexlansoprazole (Dexilant) 60 Mg Cap.drJoshuabp, 60 MG PO QHS Escitalopram Oxalate (Lexapro) 20 Mg Tab, 20 MG PO QHS Guaifenesin (Mucinex) 600 Mg Tab.er.12h, 600 MG PO BID Lactobacillus Combo No.10 (Probiotic) 1 Each Capsule, 1 CAP PO DAILY Levocetirizine Dihydrochloride (Levocetirizine Dihydrochloride) 5 Mg Tablet, 2.5 MG PO QHS Montelukast Sodium (Singulair) 10 Mg Tab, 10 MG PO QHS Multivitamin,Therapeutic (Thera-Tabs) 1 Each Tablet, 1 TAB PO DAILY Prednisone (Prednisone) 10 Mg Tablet, 10 MG PO TAPER 30MG DAILY Simethicone (Gas-X) 125 Mg Tab.chew, 125 MG PO DAILY Scheduled PRN Albuterol Sulfate (Proair Hfa) 8.5 Gm Hfa.aer.ad, 2 PUFF INH Q4H PRN for SHORTNESS OF BREATH Benzonatate (Benzonatate) 200 Mg Capsule, 200 MG PO TID PRN for COUGH Budesonide/Formoterol (Symbicort 80-4.5 Mcg Inhaler) 6.9 Gm Hfa.aer.ad, 2 PUFF INH BID PRN for DYSPNEA Epinephrine (Epinephrine) 0.3 Mg/0.3 Ml Auto.injct, 1 SYRINGE IM ONCE PRN for ANAPHYLAXIS Fluticasone Propionate (Flonase Allergy Relief) 9.9 Ml Aurora.susp, 1 SPRAY NARES BID PRN for CONGESTION Sucralfate (Sucralfate) 1 Gm Tablet, 1 TAB PO QID PRN for STOMACH UPSET Allergies Coded Allergies: cefdinir (Verified Allergy, Severe, ANAPHYLAXIS, 01/11/19) Penicillins (Verified Allergy, Intermediate, HIVES, 01/11/19) artichoke (Verified Allergy, Intermediate, HIVES/SWELLING, 01/11/19) clarithromycin (Verified Allergy, Intermediate, RASH/HIVES, 01/11/19) kiwi (Verified Allergy, Intermediate, HIVES/SWELLING/ITCHY THROAT, 01/11/19) latex (Verified Allergy, Intermediate, RASH, 01/11/19) pineapple (Verified Allergy, Intermediate, ITCHY THROAT, 01/11/19) Red Pepper (Verified Allergy, Unknown, JALAPENO, 07/04/14) metronidazole (Verified Adverse Reaction, Intermediate, NAUSEA, 01/11/19) morphine (Verified Adverse Reaction, Intermediate, VOMITING/ITCHINESS, 01/11/19) phentermine (Verified Adverse Reaction, Intermediate, INCREASED BP AND HEART RATE, 01/11/19) venlafaxine (Verified Adverse Reaction, Mild, BAD SIDE EFFECTS, 01/11/19) A-FIB/CHADSVASC A-FIB History Current/History of A-Fib/PAF?: No Current PO Anticoag Therapy: No JAMIL HILLIARD MD Jun 23, 2020 21:25
[2020-06-23] MEDS ORDERED: **SFRHE** EPINEPHrine (EPIPEN) 0.3MG/0.3ML SYRINGE INJ PRN (21:30)
[2020-06-23] MEDS ORDERED: BENZONATATE 100 MG CAP PO PRN (21:30)
[2020-06-23] MEDS ORDERED: SUCRALFATE 1 GM TAB PO PRN (21:30)
[2020-06-23] MEDS ORDERED: FLUTICASONE PROP 0.05% NASAL SPRAY 16 GM (FLONASE) NARES PRN (21:30)
[2020-06-23] MEDS ORDERED: ALBUTEROL 90 MCG/ACT 8GM HFA INHALER INH PRN (21:30)
[2020-06-23] MEDS ORDERED: methylPREDNISolone 125MG 2ML VIAL IV STA (22:58)
[2020-06-23] MEDS ORDERED: MAG SULF 1GM/100ML (MAG RUN) 1 GM in IV 1 EA IV ONE (23:00)
[2020-06-23] MEDS: SYMBICORT 160/4.5MCG INHALER 6GM INH SCH (23:00)
[2020-06-23] MEDS ORDERED: SYMB16INH INH (23:02)
[2020-06-23 23:40] VITALS: BP 119/83
[2020-06-24] VITALS: O2SAT 94
[2020-06-24] MEDS: ESCITALOPRAM OXALATE 10 MG TAB (LEXAPRO) PO SCH ×2 (00:24→21:18)
[2020-06-24] MEDS: MONTELUKAST 10 MG TAB PO SCH ×2 (00:24→21:16)
[2020-06-24] MEDS ORDERED: SYMB80INH INH (01:06)
[2020-06-24] MEDS: COMBIVENT RESPIMAT 100-20MCG INHALER 4GM INH SCH ×3 (02:00→11:22)
[2020-06-24] MEDS: CALCIUM/VITAMIN D 500 MG TAB PO SCH ×3 (02:16→21:16)
[2020-06-24 04:00] VITALS: BP 116/88; O2SAT 96
[2020-06-24] MEDS: SYMBICORT 160/4.5MCG INHALER 6GM INH SCH ×2 (07:42→21:18)
[2020-06-24 07:50] LABS: BASO % 0.1 % (0.0-1.0); HEMATOCRIT 45.5 % (36.0-47.0); HEMOGLOBIN 14.3 g/dl (12.0-15.5); LYMPH % 11.4 % (24.0-44.0); MEAN CORPUSCULAR HGB CONC 31.4 g/dl (32.0-36.5); MEAN CORPUSCULAR VOLUME 89.2 fl (80.0-96.0); MONO # 0.1 10^3/uL (0.0-0.8); MONO % 1.6 % (0.0-5.0); NEUTROPHILS # 7.3 10^3/uL (1.5-8.5); NEUTROPHILS % 86.3 % (36.0-66.0); PLATELET COUNT, AUTOMATED 392 10^3/uL (150-450); WHITE BLOOD COUNT 8.5 10^3/uL (4.0-10.0)
[2020-06-24 08:00] VITALS: BP 120/76; O2SAT 94
[2020-06-24] MEDS: AZELASTINE 137MCG NASAL SPY 30 ML (ASTELIN) SCH ×2 (08:28→21:00)
[2020-06-24] MEDS: VITAMIN D 1,000 INTERNATIONAL UNITS TABLET PO SCH (08:28)
[2020-06-24] MEDS: OMEPRAZOLE 20 MG CAP PO SCH (08:28)
[2020-06-24] MEDS: APIXABAN 5 MG TAB (ELIQUIS) PO SCH ×2 (08:28→21:16)
[2020-06-24 08:40] LABS: BLOOD UREA NITROGEN 12 MG/DL (7-18); CALCIUM LEVEL 9.3 MG/DL (8.5-10.1); CARBON DIOXIDE LEVEL 27 MEQ/L (21-32); CHLORIDE LEVEL 106 MEQ/L (98-107); CREATININE FOR GFR 0.67 MG/DL (0.55-1.30); GLOMERULAR FILTRATION RATE > 60.0 (>60); GLUCOSE, FASTING 141 MG/DL (70-100); MAGNESIUM LEVEL 2.4 MG/DL (1.8-2.4); POTASSIUM SERUM 5.1 MEQ/L (3.5-5.1); SODIUM LEVEL 141 MEQ/L (136-145)
[2020-06-24] MEDS ORDERED: predniSONE 10 MG TAB PO SCH (09:00)
[2020-06-24] MEDS ORDERED: ELIQ5TAB PO (11:25)
[2020-06-24 12:00] VITALS: O2SAT 94
[2020-06-24 13:13] LABS: TOTAL 25(OH) VITAMIN D 39.8 NG/ML (30.0-100.0)
--- NOTE | 2020-06-24 14:58 | IPNPDOC ---
Text Note Date of Service The patient was seen on 06/24/20. NOTE Subjective: Patient admitted overnight for symptomatic PE that caused hypoxia with exertion in the setting of COVID. She was placed on 2L NC overnight as she was satting 88-91% on RA while she was sleeping, but otherwise feels well. She admits to some mild pleuritic chest pain and non-productive cough, but is otherwise doing well and has no complaints at this time. Objective: General: Pleasant-appearing female in no acute distress resting comfortably in bed peaking in complete sentences. HEENT: NC, AT. EOMI, no scleral icterus. Neck: No lymphadenopathy or JVD CV: RRR, Normal S1 and S2. No murmurs, gallops, or rubs. Resp: CTAB with full breath sounds. No wheezes, crackles, or rhonchi. No dullness to percussion. Abdomen: Bowel sounds present. Soft, NT, ND. Extremities: No swelling or edema. Neurologic: No focal neuro deficits, moves all 4 extremities. Assessment/Plan: #. Acute hemodynamically stable PE 2/2 DVT in the setting of proximal COVID infection. -Likely resulting from her proximal covid infection. -Pro-BNP of 34, w/ negative troponin, and is hemodynamically stable. Agree with night provider decision to schedule Eliquis, will continue with same as it unlikely that she has R-heart strain. Will await echo results, have informed cardiology echo reader, Dr. Buitrago to inform team if echo shows signs of RV strain. In the event there are signs of RV dysfunction on echo patient will likely need transfer to outlying facility for consideration of thrombectomy however presently this is less likely. #. COVID-19 - Patient was diagnosed with COVID on 06/04/20 and while her PE is likely COVID related she does not require further treatment for COVID itself. We will transfer patient to [address] [place] [address] as it has been 20 days since her diagnosis. #. Asthma exacerbation? - No wheezes on auscultation or use of accessory muscles of respiration, breath sounds are diminished. - Will continue patient on steroid taper, she received IV solumedrol last night, but will change the combivent to PRN. She can continue home symbicort. #. T12 vertebral body fracture -Patient meets clinical criteria for osteoporosis as patient does recall that this was a fall from standing height -Continue Calcium/vitamin D supplementation -Secondary causes and consideration of BMD can be further worked-up outpatient. #. 1.8x1.5 cm right hepatic lobe lesion -Radiology recommending non-emergent MRI of the abdomen w/ and w/out contrast. Will leave this to be done by PCP outpatient. #. SIRS+ -Resolved. #. Pericardial effusion -This was noted to be minimal on CTA, will await results of echo, however this does not represent tamponade. #. GERD Continue home dexilant #. Anxiety/depression -Continue home meds. #. Obesity status post gastric bypass -Complicating care. DVT prophylaxis: Eliquis Disposition: Likely tomorrow. VS,Fishbone, I+O VS, Fishbone, I+O Laboratory Tests 06/23/20 16:51 06/24/20 07:21 Vital Signs Date Time Temp Pulse Resp B/P (MAP) Pulse Ox O2 Delivery O2 Flow Rate FiO2 06/24/20 08:00 94 Room Air 06/24/20 08:00 98.6 103 18 120/76 (91) 06/24/20 04:00 2.0 I&O- Last 24 Hours up to 6 AM 06/24/20 05:59 Intake Total 0 ml Output Total 0 ml Balance 0 ml GME ATTESTATION GME ATTESTATION My faculty preceptor for this patient encounter was physically present during the encounter and was fully available. All aspects of the patient interview, examination, medical decision making process, and medical care plan development were reviewed and approved by the faculty preceptor. The faculty preceptor is aware and concurs with the plan as stated in the body of this note and will attest to such by his/her cosignature. ATTENDING NOTE I, Jose Martin Cabral MD, have independently examined this patient and performed my own physical exam, as well as reviewed the documentation and edited where necessary. I have discussed in detail with the resident / student the findings and plan of treatment as documented by the resident / student and edited their note. I agree with their findings and treatment plan and have edited their documentation. CAROLA LUJAN DO Jun 24, 2020 14:58 JOSE MARTIN CABRAL MD Jun 27, 2020 12:59
[2020-06-24 16:00] VITALS: BP 136/86; O2SAT 94
[2020-06-24] MEDS: KETOROLAC 30 MG/ML 1ML VIAL IV PRN (17:03)
[2020-06-24] MEDS ORDERED: COMBIVENT RESPIMAT 100-20MCG INHALER 4GM INH PRN (18:00)
[2020-06-24 21:28] VITALS: BP 133/86
[2020-06-25 05:04] VITALS: BP 121/81
[2020-06-25 08:00] VITALS: BP 120/76
--- NOTE | 2020-06-25 08:20 | ECGEPIP ---
[facility] Test Date: 2020-06-24 Pat Name: HILARIA SHELL Department: Room: [place] [address] Gender: Female Phone Counselor: GRISEL : [id number] Requested By: PRESTON Garnica Order Number: [id number] Reading MD: Immanuel Honeycutt Measurements Intervals [place] Rate: 115 P: 55 MS: 125 QRS: 34 QRSD: 98 T: 64 QT: 314 QTc: 436 Interpretive Statements Somatic artifact Sinus tachycardia Nonspecific ST/T wave abnormalities Increased rate from 06/23/20 Electronically Signed on 06-25-2020 8:20:00 EST by Immanuel Honeycutt
[2020-06-25] MEDS: OMEPRAZOLE 20 MG CAP PO SCH (08:21)
[2020-06-25] MEDS: APIXABAN 5 MG TAB (ELIQUIS) PO SCH (08:21)
[2020-06-25] MEDS: CALCIUM/VITAMIN D 500 MG TAB PO SCH (08:21)
[2020-06-25] MEDS: VITAMIN D 1,000 INTERNATIONAL UNITS TABLET PO SCH (08:22)
[2020-06-25] MEDS: AZELASTINE 137MCG NASAL SPY 30 ML (ASTELIN) SCH (08:25)
--- NOTE | 2020-06-25 08:35 | ECHO ---
DATE OF PROCEDURE: 06/24/2020 Age: 40 Gender: Female Height: 165 cm Weight: 90 kg REFERRING PHYSICIAN: Jose Martin Cabral M.D. INDICATION: Pulmonary embolism. COVID-19. MEASUREMENTS: IVS 1.3 cm LV 3.8 cm LVPW 1.3 cm LA 3.4 cm Aorta 2.9 cm IVC 1.5 cm Mitral E wave velocity 102 Mitral A wave not seen E prime septal 14.0 E prime lateral 11.0 FINDINGS: This study is of good technical quality. Patient is in sinus tachycardia with ventricular rate between 120 and 130 beats per minute. Left ventricle is normal size. Mild left ventricular hypertrophy is noted. There is hyperdynamic contractility with estimated LVEF of 70% to 75%. Right ventricle has normal size and systolic function. Both atria appear normal. All four cardiac valves were reasonably well seen and appear normal. Trivial pericardial effusion is noted. Inferior vena cava has normal size and appropriately collapses with inspiration indicative of normal central venous pressure. The aortic root and aortic archare normal. Abdominal aorta was not well seen. Doppler interrogation reveals competent aortic, tricuspid, and pulmonic valves. There is trace mitral insufficiency. Evaluation of diastolic function is inconclusive due to underlying tachycardia. There is fusion of mitral E and A waves. Tissue Doppler velocities of the mitral annulus are preserved indicative of likely normal LV diastolic function. CONCLUSIONS: 1. Study is of good technical quality, underlying sinus tachycardia. 2. Normal LV size with mild LVH, hyperdynamic LV systolic function, and likely normal diastolic function. 3. Normal RV size and systolic function. 4. No significant valvular disease. 5. Normal central venous pressure. 6. Unable to estimate pulmonary artery pressure, but no signs to suggest pulmonary hypertension. MTDD
[2020-06-25] MEDS ORDERED: predniSONE 10 MG TAB PO SCH (09:00)
[2020-06-25 09:05] LABS: HEMATOCRIT 38.9 % (36.0-47.0); HEMOGLOBIN 12.4 g/dl (12.0-15.5); MEAN CORPUSCULAR HEMOGLOBIN 28.9 pg (27.0-33.0); MEAN CORPUSCULAR HGB CONC 31.9 g/dl (32.0-36.5); MEAN CORPUSCULAR VOLUME 90.7 fl (80.0-96.0); PLATELET COUNT, AUTOMATED 356 10^3/uL (150-450); RED BLOOD COUNT 4.29 10^6/uL (4.00-5.40); WHITE BLOOD COUNT 14.3 10^3/uL (4.0-10.0)
[2020-06-25 09:29] LABS: BLOOD UREA NITROGEN 9 MG/DL (7-18); CARBON DIOXIDE LEVEL 31 MEQ/L (21-32); CHLORIDE LEVEL 106 MEQ/L (98-107); CREATININE FOR GFR 0.67 MG/DL (0.55-1.30); GLOMERULAR FILTRATION RATE > 60.0 (>60); GLUCOSE, FASTING 82 MG/DL (70-100); POTASSIUM SERUM 4.6 MEQ/L (3.5-5.1); SODIUM LEVEL 145 MEQ/L (136-145)
[2020-06-25] MEDS: SYMBICORT 160/4.5MCG INHALER 6GM INH SCH (10:35)
--- NOTE | 2020-06-25 10:35 | DS.PDOC ---
Discharge Summary General Date of Admission Jun 23, 2020 at 14:28 Date of Discharge 06/25/2020 Primary Care Physician: ROVERTO COLLADO PA-C Attending Physician: PRESTON MACARIO MD Discharge Summary PROCEDURES PERFORMED DURING STAY: Transthoracic Echocardiogram: "LVEF 70-75% w/ hyperdynamic contractility, mild LVH. CONCLUSIONS: 1. Study is of good technical quality, underlying sinus tachycardia. 2. Normal LV size with mild LVH, hyperdynamic LV systolic function, and likely normal diastolic function. 3. Normal RV size and systolic function. 4. No significant valvular disease. 5. Normal central venous pressure. 6. Unable to estimate pulmonary artery pressure, but no signs to suggest pulmonary hypertension." ADMITTING/DISCHARGE DIAGNOSES: Pulmonary embolism Covid 19 pneumonia T12 vertebral body fracture Right hepatic lobe lesion Asthma Pericardial effusion GERD Anxiety/depression Obesity status post gastric bypass COMPLICATIONS/CHIEF COMPLAINT: Covid 19, Pulmonary Emboli. HISTORY OF PRESENT ILLNESS: This 40 yr old F was diagnosed with COVID 19 on Jun 04 and admitted to from Jun 14 to for management of bacterial pneumonia superimposed on COVID 19 PNA; she was discharged home with steroids & abx. On 06/23, she was sent by her PCP for evaluation of left calf pain and was found to have a PE. LLE U/S neg. Per d/w SELAM Lima the patient's O2 sats dropped to 87% with exertion. At the time of my evaluation she was also c/o chest discomfort. She also continues to have a cough, dyspnea, myalgias and headache. HOSPITAL COURSE: Patient was admitted overnight and started on Eliquis receiving one dose in the ED and another on day 1 of her hospital stay. She did well throughout day, having some transient episodes of sinus tachycardia into the 140s later in the afternoon and some pleuritic chest pain symptoms that were relieved adequately with IV toradol. She was kept on 1 L nasal cannula by staff as a comfort measure as she was saturating well at rest. Echo results showed no signs of RV dysfunction. By day 2 her pleurisy was improved, she had no dyspnea at rest, a 6 minute walk test was performed and she desaturated to 85% on room air and so a script was written as she qualified for home O2. A work note was written that she should not return to work unless instructed to do so by PCP and public health department in light of her COVID. Patient felt comfortable with her discharge plan, the results of all lab tests and imaging were explained and she was given instructions regarding items to follow up on at her next doctors appointment. Patient verbalized understanding and agreement with plan moving forward. DISCHARGE MEDICATIONS: Please see below. ALLERGIES: Please see below. PHYSICAL EXAMINATION ON DISCHARGE: VITAL SIGNS: Please see below. General: Pleasant-appearing female in no acute distress resting comfortably in bed peaking in complete sentences. HEENT: NC, AT. EOMI, no scleral icterus. Neck: No lymphadenopathy or JVD CV: RRR, Normal S1 and S2. No murmurs, gallops, or rubs. Resp: CTAB with full breath sounds. No wheezes, crackles, or rhonchi. No dullness to percussion. Abdomen: Bowel sounds present. Soft, NT, ND. Extremities: No swelling or edema. Neurologic: No focal neuro deficits, moves all 4 extremities. Psychiatric: Normal mood and affect. LABORATORY DATA: Please see below. IMAGING: Left lower extremity duplex U/S "IMPRESSION: There is no ultrasonographic evidence of deep venous thrombosis involving any of the visualized deep venous structures of the left thigh, as described above." 06/23/2020 CTA: "IMPRESSION: 1. Positive for pulmonary embolism, as detailed above. 2. There is mild flattening of the interventricular cardiac septum. This can be associated with right heart strain, although this is similar in appearance to the prior study. There is a minimal pericardial effusion. 3. Multiple patchy areas of ground-glass density and consolidations are ident ified within the lungs bilaterally. There is a progression in the consolidations compared to the prior study, with improvement of the overall ground-glass density. Imaging features can be seen with COVID-19 pneumonia, though are nonspecific and can occur with a variety of infectious and noninfectious processes. (Reference: Jang) Pulmonary infarcts are within the differential. 4. Within the right hepatic lobe, there is a 1.8 x 1.5 cm hypodense lesion, without significant progression in size. A non-emergent MRI of the abdomen with/without contrast is recommended. 5. Mild stable anterior wedging/compression of the T12 vertebral body. 6. Additional findings described above.....ADDENDUM REPORT 2...On axial images, the right ventricle measures 4.2 cm in diameter, with the left ventricle m easuring 4.3 cm in diameter. Therefore, the RV/LV ratio is slightly less than 1. " PROGNOSIS: Fair. ACTIVITY: As tolerated. DIET: As tolerated DISCHARGE PLAN: home DISCHARGE INSTRUCTIONS: 1. Please follow up with PCP next week. ITEMS TO FOLLOWUP ON ON OUTPATIENT: 1. R-hepatic lobe lesion 2. R-anterior T12 fracture 3. Return to work per her PCP and because of [facility]. DISCHARGE CONDITION: Stable. TIME SPENT ON DISCHARGE: 33 minutes. Vital Signs/I&Os Vital Signs Date Time Temp Pulse Resp B/P (MAP) Pulse Ox O2 Delivery O2 Flow Rate FiO2 06/25/20 08:00 97.0 82 19 120/76 (91) 96 Nasal Cannula 1.0 I&O- Last 24 Hours up to 6 AM 06/25/20 06:00 Intake Total 860 ml Output Total 250 ml Balance 610 ml Laboratory Data Labs 24H Laboratory Tests 2 06/25/20 07:56: Nucleated Red Blood Cells % (auto) 0.0, Anion Gap 8, Glomerular Filtration Rate > 60.0, Calcium Level 9.0 CBC/BMP Laboratory Tests 06/25/20 07:56 Discharge Medications Scheduled Apixaban (Eliquis) 5 Mg Tablet, 2 TAB PO BID Apixaban (Eliquis) 5 Mg Tablet, 5 MG PO BID Take 1 tab twice in the morning and 1 tab in the evening AFTER completion of the 7 days of 10 mg twice daily therapy Azelastine HCl (Azelastine HCl) 0.1% [place].pump, 1 SPRAY NARES BID, (Reported) Cholecalciferol (Vitamin D3) (Vitamin D3) 50 Mcg Capsule, 50 MCG PO DAILY, (Reported) Dexlansoprazole (Dexilant) 60 Mg Cap.drJoshuabp, 60 MG PO QHS, (Reported) Escitalopram Oxalate (Lexapro) 20 Mg Tab, 20 MG PO QHS, (Reported) Guaifenesin (Mucinex) 600 Mg Tab.er.12h, 600 MG PO BID, (Reported) Lactobacillus Combo No.10 (Probiotic) 1 Each Capsule, 1 CAP PO DAILY, (Reported) Levocetirizine Dihydrochloride (Levocetirizine Dihydrochloride) 5 Mg Tablet, 2.5 MG PO QHS, (Reported) Montelukast Sodium (Singulair) 10 Mg Tab, 10 MG PO QHS, (Reported) Multivitamin,Therapeutic (Thera-Tabs) 1 Each Tablet, 1 TAB PO DAILY, (Reported) Simethicone (Gas-X) 125 Mg Tab.chew, 125 MG PO DAILY, (Reported) Scheduled PRN Albuterol Sulfate (Proair Hfa) 8.5 Gm Hfa.aer.ad, 2 PUFF INH Q4H PRN for SHORTNESS OF BREATH, (Reported) Benzonatate (Benzonatate) 200 Mg Capsule, 200 MG PO TID PRN for COUGH, (Reported) Budesonide/Formoterol (Symbicort 80-4.5 Mcg Inhaler) 6.9 Gm Hfa.aer.ad, 2 PUFF INH BID PRN for DYSPNEA Epinephrine (Epinephrine) 0.3 Mg/0.3 Ml Auto.injct, 1 SYRINGE IM ONCE PRN for ANAPHYLAXIS, (Reported) Fluticasone Propionate (Flonase Allergy Relief) 9.9 Ml [place].susp, 1 SPRAY NARES BID PRN for CONGESTION, (Reported) Sucralfate (Sucralfate) 1 Gm Tablet, 1 TAB PO QID PRN for STOMACH UPSET, (Rep orted) Allergies Coded Allergies: cefdinir (Verified Allergy, Severe, ANAPHYLAXIS, 01/11/19) Penicillins (Verified Allergy, Intermediate, HIVES, 01/11/19) artichoke (Verified Allergy, Intermediate, HIVES/SWELLING, 01/11/19) clarithromycin (Verified Allergy, Intermediate, RASH/HIVES, 01/11/19) kiwi (Verified Allergy, Intermediate, HIVES/SWELLING/ITCHY THROAT, 01/11/19) latex (Verified Allergy, Intermediate, RASH, 01/11/19) pineapple (Verified Allergy, Intermediate, ITCHY THROAT, 01/11/19) Red Pepper (Verified Allergy, Unknown, JALAPENO, 07/04/14) metronidazole (Verified Adverse Reaction, Intermediate, NAUSEA, 01/11/19) morphine (Verified Adverse Reaction, Intermediate, VOMITING/ITCHINESS, 01/11/19) phentermine (Verified Adverse Reaction, Intermediate, INCREASED BP AND HEART RATE, 01/11/19) venlafaxine (Verified Adverse Reaction, Mild, BAD SIDE EFFECTS, 01/11/19) GME ATTESTATION GME ATTESTATION My faculty preceptor for this patient encounter was physically present during the encounter and was fully available. All aspects of the patient interview, examination, medical decision making process, and medical care plan development were reviewed and approved by the faculty preceptor. The faculty preceptor is aware and concurs with the plan as stated in the body of this note and will attest to such by his/her cosignature. CAROLA LUJAN DO Jun 25, 2020 10:35
[2020-06-25 13:09] VITALS: BP 138/76
[2020-06-25] MEDS: KETOROLAC 30 MG/ML 1ML VIAL IV PRN (13:10)
[2020-06-25] MEDS ORDERED: KETO10TAB PO (13:28)
--- NOTE | 2020-06-25 14:26 | ECGEPIP ---
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
== END 2020-06-25 15:15 | disposition home health service (06) ==
LOC: M ED 14:27 → M ED INP 14:28 → M 4MAIN 23:32
PROVIDERS: ADMIT Internal Medicine; ATTEND Internal Medicine
DX: U07.1 COVID-19 (principal); I26.99 Other pulmonary embolism without acute cor pulmonale; J12.82 Pneumonia due to coronavirus disease 2019; K76.89 Other specified diseases of liver; J45.909 Unspecified asthma, uncomplicated; I31.3 Pericardial effusion (noninflammatory); K21.9 Gastro-esophageal reflux disease without esophagitis; F41.9 Anxiety disorder, unspecified; F32.9 Major depressive disorder, single episode, unspecified; E66.9 Obesity, unspecified; Z98.84 Bariatric surgery status; Z79.01 Long term (current) use of anticoagulants; Z79.899 Other long term (current) drug therapy; Z88.0 Allergy status to penicillin; Z88.1 Allergy status to other antibiotic agents; Z88.5 Allergy status to narcotic agent; Z91.018 Allergy to other foods; Z79.52 Long term (current) use of systemic steroids; Z91.040 Latex allergy status; Z88.8 Allergy status to other drugs, medicaments and biological substances; E28.2 Polycystic ovarian syndrome; K44.9 Diaphragmatic hernia without obstruction or gangrene; M81.0 Age-related osteoporosis without current pathological fracture
CPT/HCPCS: 36415; 71275; 80048; 80076; 82306; 82550; 82553; 82728; 83615; 83735; 83880; 84145; 85025; 85027; 85384; 85610; 85730; 86140; 93005; 93041; 93306; 93971; 94640; 96374; 96375; 96376; 99285; J1885; J2930; J3475; Q9967

== ENCOUNTER → 2020-07-04 | Outpatient (CLI) | payer OTHER ==
[~2020-07-04] MED LIST changes: +BENZ200C70 PO; +ELIQ5TAB PO; +KETO10TAB PO; +SYMB16INH INH; +SYMB80INH INH
--- NOTE | 2020-07-04 16:19 | DEXAMM ---
INDICATION: CLOSED WEDGE COMPRESSION FX OF T12 VERTEBRA. COMPARISON: None. TECHNIQUE: Bone density was measured using dual-energy x-ray absorptionmetry (DEXA). FINDINGS: AP SPINE L1-L4 BMD 1.180 g/cm2 Young Adult T-Score -0.1 Age Matched Z-Score -0.8. LT FEMUR, TOTAL BMD 1.042 g/cm2 Young Adult T-Score 0.3 Age Matched Z-Score -0.5. LT NECK BMD 1.055 g/cm2 Young Adult T-Score 0.1 Age Matched Z-Score -0.4. RT FEMUR, TOTAL BMD 0.893 g/cm2 Young Adult T-Score -0.9 Age Matched Z-Score -1.7. RT NECK BMD 1.018 g/cm2 Young Adult T-Score -0.1 Age Matched Z-Score -0.7. IMPRESSION: There is normal bone density of the spine. There is normal bone density of the left hip. There is normal bone density of the right hip. FOLLOW-UP: Recommendation for the next bone density exam: 5 years. <Electronically signed by Pete Saldana > 07/04/20 [id number]
== END ==
LOC: M WHC 12:58
PROVIDERS: ATTEND Physician Assistant Medical
DX: S22.080A Wedge compression fracture of T11-T12 vertebra, initial encounter for closed fracture (principal); X58.XXXA Exposure to other specified factors, initial encounter; Y92.9 Unspecified place or not applicable; Y99.9 Unspecified external cause status

== ENCOUNTER → 2020-07-11 | Outpatient (CLI) | payer OTHER ==
--- NOTE | 2020-07-11 17:51 | REPVR ---
PROCEDURE INFORMATION: Exam: MR Abdomen Without and With Contrast; Liver Exam date and time: 07/11/2020 4:54 PM Age: 40 years old Clinical indication: Condition or disease; Other: Liver lesion right lobe TECHNIQUE: Imaging protocol: MR Abdomen with and without intravenous contrast. Exam focused on the liver. Contrast material: PROHANCE; Contrast volume: 20 ml; Contrast route: INTRAVENOUS (IV); COMPARISON: LIVER US 02/26/2020 7:00 AM FINDINGS: Pleura: Minimal bilateral pleural effusions. Liver: 15 mm right lobe hepatic segment 5 well-defined T2 signal hyperintensity. Relatively well-defined superior right lobe hepatic segment 7 T2 signal hyperintensity measuring 7 mm. An additional similar lesion demonstrating bright signal on the 100 images there is present in hepatic segment 4a measuring 4 mm comma inconspicuous on other series, with exception of T1 weighted images (hypointense; series 802, image 23). The larger 2 lesions demonstrate arterial phase peripheral contrast puddling and progressive complete enhancement, not definitely present in the smallest lesion.. A minor arterial phase perfusion defect of the hepatic left lobe medial segment is noted adjacent to the falciform ligament fissure, a normal variant. Slightly decreased signal of the liver on out of phase imaging relative to in phase imaging in a geographic pattern. Gallbladder and bile ducts: Prior cholecystectomy. No biliary ductal dilatation or ductal calculus identified. Pancreas: Normal. Spleen: 5 mm posteromedial splenic subcapsular benign cyst. Kidneys and ureters: Sub 5 mm left renal benign cysts. Intraperitoneal space: No free fluid. IMPRESSION: 1. Right lobe hepatic hemangiomas. 2. Sub 5 mm nonspecific additional right lobe hepatic lesion. No specific follow-up imaging is recommended. 3. Sub 5 mm left renal benign cysts. No follow-up imaging is recommended. 4. Small splenic subcapsular benign cyst. No follow-up imaging is recommended. 5. Mild fatty infiltration of the liver. 6. Prior cholecystectomy. 7. Minimal bilateral pleural effusions. COMMENTS: Consistent with the [employer]'s Incidental Findings Committee white paper (J Am Kaiden Radiol 2018): Any incidental renal lesion less than 1 cm or classified as too small to characterize, or any incidental cystic renal lesion characterized as simple-appearing, is likely benign. No follow-up imaging is recommended for these lesions per consensus recommendations based on imaging criteria. Electronically signed by: Chris Nolan On 07/11/2020 17:51:33 PM
== END ==
LOC: M PLARAD 13:42
PROVIDERS: ATTEND Physician Assistant Medical
DX: K76.89 Other specified diseases of liver (principal); J90 Pleural effusion, not elsewhere classified; D18.03 Hemangioma of intra-abdominal structures; N28.1 Cyst of kidney, acquired; K76.0 Fatty (change of) liver, not elsewhere classified; D73.4 Cyst of spleen; Z90.49 Acquired absence of other specified parts of digestive tract

== ENCOUNTER → 2020-07-15 | Outpatient (REF) | payer OTHER | LOC: M SFHCADAM 14:00 | PROVIDERS: ATTEND Physician Assistant Medical | DX: R19.5 Other fecal abnormalities (principal) ==

== ENCOUNTER → 2020-08-01 | Outpatient (REF) | payer OTHER | LOC: M LAB REF 16:28 | PROVIDERS: ATTEND Physician Assistant Medical | DX: R19.5 Other fecal abnormalities (principal) ==

== ENCOUNTER → 2020-08-21 | Outpatient (REF) | payer OTHER ==
[2020-08-21 18:25] LABS: HEPATITIS A ANTIBODY IGM NEGATIVE (NEGATIVE); HEPATITIS B CORE ANTIBODY IGM NEGATIVE (NEGATIVE); HEPATITIS B SURFACE ANTIGEN NEGATIVE (NEGATIVE); HEPATITIS C VIRUS ABY INDEX 0.1 INDEX (<0.8); HIV 1&2 SCREEN CENTAUR NEGATIVE (NEGATIVE)
== END ==
LOC: M PLALAB 14:50
PROVIDERS: ATTEND Advanced Practice Midwife
DX: Z11.3 Encounter for screening for infections with a predominantly sexual mode of transmission (principal)

== ENCOUNTER → 2020-08-22 | Outpatient (CLI) | payer OTHER ==
--- NOTE | 2020-08-22 13:16 | REP ---
INDICATION: N83.209 RT SIDED PELVIC PAIN,HX OVARIAN CYST. COMPARISON: 12/31/2019. TECHNIQUE: Transabdominal scanning performed. Patient declined endovaginal ultrasound. FINDINGS: There has been a prior hysterectomy. The bladder measures 5.4 x 7.8 x 2.8cm. The right ovary has dimensions of 4.4 x 1.7 x 3.2 cm. It's Doppler flow is normal with a resistive index of 0.64. The left ovary dimensions are 4.5 x 2.5 x 2.3 cm. It's Doppler flow was normal with resistive index of 0.53. There is a small complex cystic structure of the left ovary 1.7 x 1.5 x 2.9 cm. No free fluid is seen in the cul-de-sac. IMPRESSION: Status post hysterectomy. Small complex cyst left ovary 2.9 cm maximally. No torsion or free fluid. <Electronically signed by Praful Bernal > 08/22/20 [id number]
== END ==
LOC: M WHC 11:29
PROVIDERS: ATTEND Advanced Practice Midwife
DX: N83.202 Unspecified ovarian cyst, left side (principal); Z90.79 Acquired absence of other genital organ(s)

== ENCOUNTER → 2020-08-26 | Outpatient (REF) | payer OTHER | LOC: M LAB REF 13:10 → M SHH 13:10 | PROVIDERS: ATTEND Physician Assistant Medical | DX: R19.7 Diarrhea, unspecified (principal) ==

== ENCOUNTER → 2020-09-04 | Outpatient (CLI) | payer OTHER ==
--- NOTE | 2020-09-08 16:07 | SLEEPHOME ---
DATE: 09/04/2020 ORDERED BY: Eun Osborn MD Diagnostic home sleep testing was performed due to concern for the obstructive sleep apnea syndrome in this patient with a history of excessive somnolence and nonrestorative sleep. For testing, a nocturnal T3 respiratory monitoring device was used. Continuous record was made of pulse, oxygen saturation, air flow, chest and abdominal strain, and body position. Nine hours and 59 minutes of data were reviewed. There were 9 hours and 10 minutes marked as time in bed. During the interval marked time in bed, there were 104 respiratory events identified of 10 seconds in duration or greater for a respiratory event index of 11.3. The events were primarily obstructive but 31 mixed apneas were also identified. Baseline pulse rate was 82. Pulse rate ranged 61 to 106. Baseline saturation was 95%. Saturations fell to 83%. Testing was performed in both the supine and nonsupine positions. IMPRESSION: Abnormal home sleep testing with repetitive respiratory events and oxygen desaturations to 83% with a respiratory event index of 11.3 is consistent with the obstructive sleep apnea syndrome. RECOMMENDATION: The patient should be encouraged to undergo a formal sleep evaluation. SELAM Mccray
== END ==
LOC: M SLEEP HO 14:05
PROVIDERS: ATTEND Internal Medicine Pulmonary Disease
DX: G47.33 Obstructive sleep apnea (adult) (pediatric) (principal)

== ENCOUNTER → 2020-09-08 | Outpatient (CLI) | payer OTHER ==
[2020-09-08 12:50] LABS: BASO % 0.8 % (0.0-1.0); EOS # 0.2 10^3/uL (0.0-0.5); EOS % 3.8 % (0.0-3.0); HEMATOCRIT 43.6 % (36.0-47.0); LYMPH # 2.2 10^3/uL (1.5-5.0); LYMPH % 43.3 % (24.0-44.0); MEAN CORPUSCULAR HEMOGLOBIN 29.3 pg (27.0-33.0); MEAN CORPUSCULAR HGB CONC 32.1 g/dl (32.0-36.5); MEAN CORPUSCULAR VOLUME 91.2 fl (80.0-96.0); MONO # 0.4 10^3/uL (0.0-0.8); MONO % 7.6 % (2.0-8.0); NEUTROPHILS # 2.2 10^3/uL (1.5-8.5); NEUTROPHILS % 44.3 % (36.0-66.0); PLATELET COUNT, AUTOMATED 296 10^3/uL (150-450); RED BLOOD COUNT 4.78 10^6/uL (4.00-5.40)
[2020-09-08 13:19] LABS: ALBUMIN 3.8 GM/DL (3.2-5.2); ALT/SGPT 36 U/L (12-78); BILIRUBIN,TOTAL 0.3 MG/DL (0.2-1.0); BLOOD UREA NITROGEN 9 MG/DL (7-18); CALCIUM LEVEL 9.5 MG/DL (8.5-10.1); CARBON DIOXIDE LEVEL 30 MEQ/L (21-32); CHLORIDE LEVEL 107 MEQ/L (98-107); CREATININE FOR GFR 0.63 MG/DL (0.55-1.30); FERRITIN 74 NG/ML (8-252); GLOMERULAR FILTRATION RATE > 60.0 (>60); GLUCOSE, FASTING 83 MG/DL (70-100); IRON (FE) 98 UG/DL (50-170); MAGNESIUM LEVEL 2.1 MG/DL (1.8-2.4); PERCENT SATURATION 36.2 % (13.2-45.0); PHOSPHORUS LEVEL 3.5 MG/DL (2.5-4.9); POTASSIUM SERUM 4.5 MEQ/L (3.5-5.1); SODIUM LEVEL 141 MEQ/L (136-145); TOTAL IRON BINDING CAPACITY 271 UG/DL (250-450); TOTAL PROTEIN 7.4 GM/DL (6.4-8.2)
[2020-09-08 13:34] LABS: VITAMIN B12 LEVEL 1257 PG/ML (247-911)
[2020-09-08 13:40] LABS: HEMOGLOBIN A1c 5.4 %
== END ==
LOC: M LAB 12:07
PROVIDERS: ATTEND Surgery
DX: K91.2 Postsurgical malabsorption, not elsewhere classified (principal); E55.9 Vitamin D deficiency, unspecified; Z86.39 Personal history of other endocrine, nutritional and metabolic disease; Z98.84 Bariatric surgery status

== ENCOUNTER → 2020-10-06 | Outpatient (CLI) | payer OTHER ==
[2020-10-06 18:21] LABS: FREE T4 0.75 NG/DL (0.76-1.46); RHEUMATOID FACTOR QUANT < 10.0 IU/ML (<15.0)
== END ==
LOC: M LAB 16:50
PROVIDERS: ATTEND Psychiatry & Neurology Neurology
DX: E07.9 Disorder of thyroid, unspecified (principal); Z13.0 Encounter for screening for diseases of the blood and blood-forming organs and certain disorders involving the immune mechanism; E51.9 Thiamine deficiency, unspecified; E53.1 Pyridoxine deficiency

== ENCOUNTER 2020-12-24 13:05 | Emergency (ER) | payer OTHER ==
[~2020-12-24] VITALS: Ht 165.1 cm; Wt 93.2 kg
[~2020-12-24 13:05] MED LIST changes: +OMEP40CA4 PO; -OMEP40CA97 PO
--- NOTE | 2020-12-24 13:35 | REP ---
INDICATION: CHEST PAIN. COMPARISON: Comparison chest x-ray June 15, 2020. TECHNIQUE: Portable upright AP chest radiograph. FINDINGS: The lungs are well inflated and clear. Heart is not enlarged. EKG electrodes are seen. Pulmonary vasculature is not increased.. No significant bony abnormality. IMPRESSION: No active disease. <Electronically signed by Pete Saldana > 12/24/20 [id number]
[2020-12-24 14:10] LABS: BASO # 0.1 10^3/uL (0.0-0.2); EOS # 0.2 10^3/uL (0.0-0.5); EOS % 4.2 % (0.0-3.0); HEMATOCRIT 41.8 % (36.0-47.0); HEMOGLOBIN 13.3 g/dl (12.0-15.5); LYMPH # 1.8 10^3/uL (1.5-5.0); LYMPH % 31.6 % (24.0-44.0); MEAN CORPUSCULAR HEMOGLOBIN 28.8 pg (27.0-33.0); MEAN CORPUSCULAR HGB CONC 31.8 g/dl (32.0-36.5); MEAN CORPUSCULAR VOLUME 90.5 fl (80.0-96.0); MONO # 0.4 10^3/uL (0.0-0.8); MONO % 7.2 % (2.0-8.0); NEUTROPHILS # 3.2 10^3/uL (1.5-8.5); NEUTROPHILS % 55.8 % (36.0-66.0); PLATELET COUNT, AUTOMATED 274 10^3/uL (150-450); RED BLOOD COUNT 4.62 10^6/uL (4.00-5.40); WHITE BLOOD COUNT 5.7 10^3/uL (4.0-10.0)
[2020-12-24 14:20] LABS: ALBUMIN 3.4 GM/DL (3.2-5.2); ALT/SGPT 35 U/L (12-78); BILIRUBIN,DIRECT < 0.1 MG/DL (0.0-0.2); BILIRUBIN,TOTAL 0.2 MG/DL (0.2-1.0); LIPASE 154 U/L (73-393); THYROID STIMULATING HORMONE 0.752 uIU/ML (0.358-3.740); TOTAL PROTEIN 6.7 GM/DL (6.4-8.2)
[2020-12-24] MEDS ORDERED: ISOVUE-370 76% 100ML VIAL As Ordered ONE (14:21)
--- NOTE | 2020-12-24 15:14 | REP ---
INDICATION: rule out PE. COMPARISON: 06/23/2020. TECHNIQUE: CT angiogram chest performed following the intravenous administration of 75 cc of Isovue 370. Sagittal and coronal reconstruction and MIP reformat images are provided. FINDINGS: Lungs: The lung luna are adequately inflated with the extensive bilateral consolidations from 6 months ago largely resolved but with some residual ground-glass densities and peripheral blebs now seen. Some of this suggest dependent atelectatic change. I do not see air bronchograms, discrete mass or pulmonary nodule. Mediastinum: No pathologic sized adenopathy. Pulmonary arteries: No evidence of pulmonary embolism. Previous bilateral lower lobe thrombi are resolved. No vessel cut off or filling defects today. Jessica: No adenopathy. Axilla: No adenopathy. Pleura: No effusion. Heart: Not enlarged. Thoracic aorta: No aneurysm or dissection. Upper abdominal structures: Prominence of the liver which is seen in most of its volume with no hepatic mass or biliary dilatation. Clips from prior cholecystectomy noted no splenomegaly. Clips from prior gastric bypass evident. Pancreas, adrenal glands and upper poles kidneys unremarkable. Upper abdominal bowel loops intact. Osseous structures: Unremarkable. IMPRESSION: No CT evidence of pulmonary embolism. Previously noted bilateral lower lobe pulmonary emboli are resolved. The infiltrates seen bilaterally previously are resolved. There is some bilateral ground-glass opacity suggesting some atelectasis by its distribution. I do not see air bronchograms, pleural effusion or other acute finding.. <Electronically signed by Joseluis Leija > 12/24/20 [id number]
[2020-12-24 16:00] VITALS: BP 145/96
[2020-12-24] MEDS ORDERED: PRED20TA PO (16:15)
--- NOTE | 2020-12-25 07:39 | ECGEPIP ---
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
== END 2020-12-24 16:18 | disposition home or self-care (01) ==
LOC: M ED 13:05
DX: I10 Essential (primary) hypertension (principal); R07.89 Other chest pain; R00.0 Tachycardia, unspecified; R91.8 Other nonspecific abnormal finding of lung field; F32.9 Major depressive disorder, single episode, unspecified; Z98.84 Bariatric surgery status; Z86.711 Personal history of pulmonary embolism; Z79.01 Long term (current) use of anticoagulants; Z79.899 Other long term (current) drug therapy; Z88.0 Allergy status to penicillin; Z88.1 Allergy status to other antibiotic agents; Z88.5 Allergy status to narcotic agent; Z88.8 Allergy status to other drugs, medicaments and biological substances; Z91.018 Allergy to other foods; Z91.040 Latex allergy status
CPT/HCPCS: 36415; 71045; 71275; 80047; 80076; 83690; 84443; 85025; 93005; 93041; 94760; 99285; Q9967

== ENCOUNTER → 2021-01-07 | Outpatient (CLI) | payer OTHER ==
[~2021-01-07] MED LIST changes: +PRED20TA PO
[2021-01-07 17:28] LABS: BASO % 0.7 % (0.0-1.0); EOS # 0.1 10^3/uL (0.0-0.5); EOS % 2.5 % (0.0-3.0); HEMATOCRIT 42.3 % (36.0-47.0); HEMOGLOBIN 13.6 g/dl (12.0-15.5); LYMPH # 1.8 10^3/uL (1.5-5.0); LYMPH % 32.9 % (24.0-44.0); MEAN CORPUSCULAR HEMOGLOBIN 28.9 pg (27.0-33.0); MEAN CORPUSCULAR HGB CONC 32.2 g/dl (32.0-36.5); MONO # 0.4 10^3/uL (0.0-0.8); NEUTROPHILS # 3.1 10^3/uL (1.5-8.5); NEUTROPHILS % 55.7 % (36.0-66.0); PLATELET COUNT, AUTOMATED 293 10^3/uL (150-450); WHITE BLOOD COUNT 5.5 10^3/uL (4.0-10.0)
== END ==
LOC: M LAB 16:08
PROVIDERS: ATTEND Physician Assistant Medical
DX: Z86.711 Personal history of pulmonary embolism (principal)

== ENCOUNTER → 2021-01-23 | Outpatient (REF) | payer OTHER | LOC: M SFHCPLAZ 17:56 | PROVIDERS: ATTEND Physician Assistant | DX: B00.89 Other herpesviral infection (principal) ==

== ENCOUNTER 2021-01-28 17:29 | Emergency (ER) | payer OTHER ==
[~2021-01-28] VITALS: Ht 165.1 cm; Wt 95.0 kg
[~2021-01-28 17:29] MED LIST changes: -LEVO500T3 PO; +LEVO500T4 PO
[2021-01-28 18:57] LABS: BASO % 0.6 % (0.0-1.0); EOS # 0.2 10^3/uL (0.0-0.5); EOS % 2.5 % (0.0-3.0); HEMOGLOBIN 13.6 g/dl (12.0-15.5); LYMPH # 1.9 10^3/uL (1.5-5.0); LYMPH % 29.6 % (24.0-44.0); MEAN CORPUSCULAR HEMOGLOBIN 29.1 pg (27.0-33.0); MEAN CORPUSCULAR HGB CONC 32.4 g/dl (32.0-36.5); MEAN CORPUSCULAR VOLUME 89.7 fl (80.0-96.0); MONO # 0.6 10^3/uL (0.0-0.8); MONO % 9.9 % (2.0-8.0); NEUTROPHILS # 3.7 10^3/uL (1.5-8.5); NEUTROPHILS % 57.2 % (36.0-66.0); PLATELET COUNT, AUTOMATED 299 10^3/uL (150-450); RED BLOOD COUNT 4.68 10^6/uL (4.00-5.40); WHITE BLOOD COUNT 6.4 10^3/uL (4.0-10.0)
[2021-01-28 19:31] LABS: ALBUMIN 3.4 GM/DL (3.2-5.2); ALT/SGPT 60 U/L (12-78); BILIRUBIN,DIRECT < 0.1 MG/DL (0.0-0.2); BILIRUBIN,TOTAL 0.2 MG/DL (0.2-1.0); NT-PRO BNP 14 PG/ML (<125); THYROID STIMULATING HORMONE 0.578 uIU/ML (0.358-3.740); TOTAL PROTEIN 6.9 GM/DL (6.4-8.2)
[2021-01-28] MEDS ORDERED: ISOVUE-370 76% 100ML VIAL As Ordered ONE (19:52)
[2021-01-28 20:45] VITALS: BP 158/99
== END 2021-01-28 20:56 | disposition home or self-care (01) ==
LOC: M ED 17:29
DX: R07.89 Other chest pain (principal); R91.8 Other nonspecific abnormal finding of lung field; Z86.16 Personal history of COVID-19; F41.9 Anxiety disorder, unspecified; F32.9 Major depressive disorder, single episode, unspecified; K21.9 Gastro-esophageal reflux disease without esophagitis; Z86.711 Personal history of pulmonary embolism; Z79.01 Long term (current) use of anticoagulants; Z79.899 Other long term (current) drug therapy; Z88.0 Allergy status to penicillin; Z91.018 Allergy to other foods; Z88.1 Allergy status to other antibiotic agents; Z91.040 Latex allergy status; Z88.5 Allergy status to narcotic agent; Z88.8 Allergy status to other drugs, medicaments and biological substances
CPT/HCPCS: 71045; 71275; 80047; 80076; 83880; 84436; 84443; 84702; 85025; 87798; 93005; 93041; 93971; 94760; 99285; Q9967

== ENCOUNTER → 2021-02-11 | Outpatient (REF) | payer OTHER ==
[~2021-02-11] MED LIST changes: +LEVO500T3 PO; -LEVO500T4 PO
[2021-02-11 21:34] LABS: APPEARANCE, URINE HAZY (CLEAR); BILIRUBIN, URINE AUTO NEGATIVE (NEGATIVE); COLOR, URINE YELLOW (YELLOW); GLUCOSE, URINE (UA) AUTO NEGATIVE (NEGATIVE); KETONE, URINE AUTO NEGATIVE (NEGATIVE); LEUKOCYTE ESTERASE, URINE AUTO NEGATIVE (NEGATIVE); NITRITE, URINE AUTO NEGATIVE (NEGATIVE); PROTEIN, URINE AUTO NEGATIVE (NEGATIVE); SPECIFIC GRAVITY URINE AUTO 1.026 (1.002-1.035)
[2021-02-11 21:35] LABS: BACTERIA, URINE AUTO NEGATIVE (NEGATIVE); BLOOD, URINE BLOOD NEGATIVE (NEGATIVE); CALCIUM OXALATE CRYSTALS SMALL; MUCUS, URINE SMALL (NEGATIVE); RBC, URINE AUTO 1 /HPF (0-3); SQUAMOUS EPITHELIAL CELL UR AU 2 /HPF (0-6); WBC, URINE AUTO 1 /HPF (0-3)
== END ==
LOC: M LAB REF 20:58
PROVIDERS: ATTEND Physician Assistant Medical
DX: R30.0 Dysuria (principal)

== ENCOUNTER → 2021-03-24 | Outpatient (REF) | payer OTHER ==
[2021-03-24 15:38] LABS: APPEARANCE, URINE CLEAR (CLEAR); BACTERIA, URINE AUTO NEGATIVE (NEGATIVE); BILIRUBIN, URINE AUTO NEGATIVE (NEGATIVE); BLOOD, URINE BLOOD NEGATIVE (NEGATIVE); COLOR, URINE YELLOW (YELLOW); GLUCOSE, URINE (UA) AUTO NEGATIVE (NEGATIVE); KETONE, URINE AUTO NEGATIVE (NEGATIVE); LEUKOCYTE ESTERASE, URINE AUTO NEGATIVE (NEGATIVE); MUCUS, URINE SMALL (NEGATIVE); NITRITE, URINE AUTO NEGATIVE (NEGATIVE); PROTEIN, URINE AUTO NEGATIVE (NEGATIVE); RBC, URINE AUTO 1 /HPF (0-3); SPECIFIC GRAVITY URINE AUTO 1.021 (1.002-1.035); SQUAMOUS EPITHELIAL CELL UR AU 0 /HPF (0-6); UROBILINOGEN, URINE AUTO 0.2 mg/dL (0.0-2.0); WBC, URINE AUTO 1 /HPF (0-3)
[2021-03-24 17:05] LABS: GC DNA AMPLIFICATION NEGATIVE (NEGATIVE)
== END ==
LOC: M LAB REF 15:10
PROVIDERS: ATTEND Physician Assistant Medical
DX: Z20.2 Contact with and (suspected) exposure to infections with a predominantly sexual mode of transmission (principal)

== ENCOUNTER → 2021-04-08 | Outpatient (REF) | payer OTHER, MEDICAID | LOC: M SFHCADAM 12:36 | PROVIDERS: ATTEND Physician Assistant Medical | DX: Z20.2 Contact with and (suspected) exposure to infections with a predominantly sexual mode of transmission (principal); R19.7 Diarrhea, unspecified ==

== ENCOUNTER → 2021-05-19 | Outpatient (CLI) | payer OTHER ==
--- NOTE | 2021-05-19 13:15 | PFTRPT ---
Height: 65.00 Inches Weight: 210.00 Lbs BSA: 2.02 Diagnosis: J45.40 DATE: 05/19/2021 ORDERING PHYSICIAN: Juan Antonio Almeida MD Pre and post bronchodilator studies have excellent technical quality. Forced vital capacity is normal. FEV1 is in proportion. Obstructive index is therefore normal. Expiratory limit of the flow-volume loop is normal. Total lung capacity is normal. Residual volume is in proportion. Diffusing capacity is normal. Hemoglobin is acceptable at 13.6. Airway resistance and conductance are normal. IMPRESSION: Normal study. MTDD
== END ==
LOC: M CARPUL 12:45
PROVIDERS: ATTEND Internal Medicine Pulmonary Disease
DX: J45.40 Moderate persistent asthma, uncomplicated (principal)

== ENCOUNTER → 2021-08-07 | Outpatient (REF) | payer OTHER ==
[~2021-08-07] MED LIST changes: -LEVO500T3 PO; +LEVO500T4 PO; -OMEP-221 PO; +OMEP40CA5 PO
[2021-08-07 20:06] LABS: BASO # 0.1 10^3/uL (0.0-0.2); BASO % 0.9 % (0.0-1.0); EOS # 0.5 10^3/uL (0.0-0.5); EOS % 7.1 % (0.0-3.0); HEMATOCRIT 45.9 % (36.0-47.0); HEMOGLOBIN 14.9 g/dl (12.0-15.5); LYMPH # 1.9 10^3/uL (1.5-5.0); LYMPH % 29.8 % (24.0-44.0); MEAN CORPUSCULAR HEMOGLOBIN 29.4 pg (27.0-33.0); MEAN CORPUSCULAR HGB CONC 32.5 g/dl (32.0-36.5); MEAN CORPUSCULAR VOLUME 90.7 fl (80.0-96.0); MONO # 0.5 10^3/uL (0.0-0.8); MONO % 8.5 % (2.0-8.0); NEUTROPHILS # 3.4 10^3/uL (1.5-8.5); NEUTROPHILS % 53.5 % (36.0-66.0); PLATELET COUNT, AUTOMATED 298 10^3/uL (150-450); RED BLOOD COUNT 5.06 10^6/uL (4.00-5.40); WHITE BLOOD COUNT 6.4 10^3/uL (4.0-10.0)
[2021-08-07 20:07] LABS: HEMATOCRIT 45.9 % (36.0-47.0)
[2021-08-07 20:24] LABS: HEMOGLOBIN A1c 5.8 %
[2021-08-07 20:59] LABS: ALT/SGPT 38 U/L (12-78); BILIRUBIN,TOTAL 0.2 MG/DL (0.2-1.0); BLOOD UREA NITROGEN 9 MG/DL (7-18); CALCIUM LEVEL 9.4 MG/DL (8.5-10.1); CARBON DIOXIDE LEVEL 30 MEQ/L (21-32); CHLORIDE LEVEL 108 MEQ/L (98-107); CHOLESTEROL LEVEL 187 MG/DL (<200); CHOLESTEROL RISK RATIO 3.224 (<5); CREATININE FOR GFR 0.98 MG/DL (0.55-1.30); FOLATE 16.4 NG/ML; FREE T4 0.76 NG/DL (0.76-1.46); GLOMERULAR FILTRATION RATE > 60.0 (>60); GLUCOSE, FASTING 82 MG/DL (70-100); HDL CHOLESTEROL 58 MG/DL (>40); IRON (FE) 86 UG/DL (50-170); LDL CHOLESTEROL 104 MG/DL (<100); MAGNESIUM LEVEL 2.1 MG/DL (1.8-2.4); NON-HDL-C 129 MG/DL; PERCENT SATURATION 28.6 % (13.2-45.0); POTASSIUM SERUM 5.2 MEQ/L (3.5-5.1); SODIUM LEVEL 140 MEQ/L (136-145); THYROID STIMULATING HORMONE 0.544 uIU/ML (0.358-3.740); TOTAL IRON BINDING CAPACITY 301 UG/DL (250-450); TOTAL PROTEIN 7.9 GM/DL (6.4-8.2); TRIGLYCERIDES LEVEL 123 MG/DL (<150); VITAMIN B12 LEVEL 680 PG/ML
== END ==
LOC: M SFHCADAM 14:17
PROVIDERS: ATTEND Physician Assistant Medical
DX: E66.01 Morbid (severe) obesity due to excess calories (principal); Z98.84 Bariatric surgery status

== ENCOUNTER → 2021-09-08 | Outpatient (REF) | LOC: M LAB 15:49 | PROVIDERS: ATTEND Nurse Practitioner Adult Health | DX: Z00.00 Encounter for general adult medical examination without abnormal findings (principal) ==

== ENCOUNTER → 2021-10-12 | Outpatient (CLI) | payer MEDICAID, OTHER ==
[~2021-10-12] MED LIST changes: +ADDE20CA3 PO; +BUPR-70 PO; +CLIN150C17 PO; +PROZ20CA11 PO; +VENTAER INH; +ZONI100C67 PO
== END ==
LOC: M LABSMTC 09:39
PROVIDERS: ATTEND Anesthesiology
DX: Z20.822 Contact with and (suspected) exposure to COVID-19 (principal)

== ENCOUNTER 2021-10-16 10:54 | Day surgery (SDC) | payer OTHER ==
[~2021-10-16] VITALS: Ht 165.1 cm; Wt 92.1 kg
[~2021-10-16 10:54] MED LIST changes: +NS 1,000 ML IV ONE
[2021-10-16] MEDS ORDERED: LIDOCAINE 2% 100MG/5ML SDV (FOR ANES.) As Ordered ONE (12:02)
[2021-10-16] MEDS ORDERED: fentaNYL 100 MCG/2 ML INJECTION As Ordered ONE (12:02)
[2021-10-16] MEDS ORDERED: propofoL 500 MG/50 ML VIAL As Ordered ONE (12:02)
[2021-10-16] MEDS ORDERED: ONDANSETRON 4MG/2ML VIAL IV ONE (12:50)
[2021-10-16 14:27] VITALS: BP 137/92
== END 2021-10-16 14:29 | disposition home or self-care (01) ==
LOC: M OPP 10:54
PROVIDERS: ATTEND Internal Medicine Gastroenterology
DX: K63.5 Polyp of colon (principal); K57.30 Diverticulosis of large intestine without perforation or abscess without bleeding; K64.8 Other hemorrhoids; R10.84 Generalized abdominal pain; K58.0 Irritable bowel syndrome with diarrhea; R10.13 Epigastric pain; Z98.0 Intestinal bypass and anastomosis status; Z79.899 Other long term (current) drug therapy; Z88.0 Allergy status to penicillin; Z88.5 Allergy status to narcotic agent; Z88.8 Allergy status to other drugs, medicaments and biological substances; Z91.018 Allergy to other foods; Z91.040 Latex allergy status; Z86.711 Personal history of pulmonary embolism; Z98.84 Bariatric surgery status
CPT/HCPCS: 43235; 45380; 45385; 88305; J2405; J3010

== ENCOUNTER → 2021-11-04 | Outpatient (CLI) | payer OTHER ==
[~2021-11-04] MED LIST changes: -NS 1,000 ML IV ONE
== END ==
LOC: M WHC 07:21
PROVIDERS: ATTEND Physician Assistant Medical
DX: D18.03 Hemangioma of intra-abdominal structures (principal)

== ENCOUNTER → 2021-11-05 | Outpatient (REF) | LOC: M LABSMTC 09:27 | PROVIDERS: ATTEND Family Medicine | DX: Z11.52 Encounter for screening for COVID-19 (principal) ==

== ENCOUNTER → 2021-11-13 | Outpatient (CLI) | payer OTHER | LOC: M SLEEP 20:00 | PROVIDERS: ATTEND Internal Medicine Pulmonary Disease | DX: G47.33 Obstructive sleep apnea (adult) (pediatric) (principal) ==

== ENCOUNTER → 2021-12-15 | Outpatient (CLI) | payer OTHER, MEDICAID | LOC: M LAB 17:52 | PROVIDERS: ATTEND Family Medicine | DX: Z01.84 Encounter for antibody response examination (principal) ==

== ENCOUNTER 2022-01-14 20:02 | Emergency (ER) | payer MEDICAID, OTHER ==
[~2022-01-14] VITALS: Ht 165.1 cm; Wt 94.5 kg
[~2022-01-14 20:02] MED LIST changes: +LEVO1TAB39 PO; -LEVO500T4 PO
[2022-01-14 22:26] LABS: BASO # 0.1 10^3/uL (0.0-0.2); BASO % 0.7 % (0.0-1.0); EOS # 0.2 10^3/uL (0.0-0.5); EOS % 2.4 % (0.0-3.0); HEMATOCRIT 43.6 % (36.0-47.0); LYMPH # 2.3 10^3/uL (1.5-5.0); LYMPH % 31.6 % (24.0-44.0); MEAN CORPUSCULAR HEMOGLOBIN 29.2 pg (27.0-33.0); MEAN CORPUSCULAR HGB CONC 32.1 g/dl (32.0-36.5); MONO # 0.6 10^3/uL (0.0-0.8); MONO % 7.4 % (2.0-8.0); NEUTROPHILS # 4.3 10^3/uL (1.5-8.5); NEUTROPHILS % 57.8 % (36.0-66.0); PLATELET COUNT, AUTOMATED 297 10^3/uL (150-450); RED BLOOD COUNT 4.79 10^6/uL (4.00-5.40); WHITE BLOOD COUNT 7.4 10^3/uL (4.0-10.0)
[2022-01-14 23:05] LABS: ALBUMIN 3.5 GM/DL (3.2-5.2); ALT/SGPT 32 U/L (12-78); BILIRUBIN,DIRECT 0.1 MG/DL (0.0-0.2); BILIRUBIN,TOTAL 0.1 MG/DL (0.2-1.0); BLOOD UREA NITROGEN 18 MG/DL (7-18); CALCIUM LEVEL 9.1 MG/DL (8.5-10.1); CARBON DIOXIDE LEVEL 27 MEQ/L (21-32); CHLORIDE LEVEL 109 MEQ/L (98-107); CREATININE FOR GFR 0.95 MG/DL (0.55-1.30); GLOMERULAR FILTRATION RATE > 60.0 (>60); GLUCOSE, FASTING 95 MG/DL (70-100); LIPASE 194 U/L (73-393); POTASSIUM SERUM 4.4 MEQ/L (3.5-5.1); SODIUM LEVEL 143 MEQ/L (136-145); TOTAL PROTEIN 7.3 GM/DL (6.4-8.2)
[2022-01-15] MEDS ORDERED: OMEPRAZOLE 20MG CAP PO ONE (00:10)
[2022-01-15] MEDS ORDERED: GI COCKTAIL 50ML BTL(HYOSCYAMINE/MAALOX/LIDOCAINE VISCOUS)(1:3:1) PO ONE (00:10)
[2022-01-15] MEDS ORDERED: NS 1,000 ML IV ONE (00:15)
[2022-01-15] MEDS ORDERED: ISOVUE-370 76% 100ML VIAL As Ordered ONE (00:16)
[2022-01-15 03:26] VITALS: BP 142/90
[2022-01-15] MEDS ORDERED: ONDA4TAB6 PO (03:29)
[2022-01-15 03:47] LABS: RSV AMPLIFICATION NEGATIVE (NEGATIVE)
== END 2022-01-15 03:46 | disposition home or self-care (01) ==
LOC: M ED 20:02
DX: K56.600 Partial intestinal obstruction, unspecified as to cause (principal); K21.9 Gastro-esophageal reflux disease without esophagitis; Z86.16 Personal history of COVID-19; Z91.040 Latex allergy status; Z91.018 Allergy to other foods; Z98.84 Bariatric surgery status
CPT/HCPCS: 74177; 80048; 80076; 83690; 85025; 87631; 93005; 96360; 96361; 99284; Q9967

== ENCOUNTER 2022-02-26 10:30 | Emergency (ER) | payer MEDICAID, OTHER ==
[~2022-02-26] VITALS: Ht 165.1 cm; Wt 93.8 kg
[~2022-02-26 10:30] MED LIST changes: +ONDA4TAB6 PO
[2022-02-26 11:07] LABS: BASO # 0.1 10^3/uL (0.0-0.2); BASO % 0.8 % (0.0-1.0); EOS # 0.2 10^3/uL (0.0-0.5); EOS % 3.3 % (0.0-3.0); HEMATOCRIT 42.9 % (36.0-47.0); HEMOGLOBIN 14.1 g/dl (12.0-15.5); LYMPH # 1.7 10^3/uL (1.5-5.0); MEAN CORPUSCULAR HEMOGLOBIN 29.1 pg (27.0-33.0); MEAN CORPUSCULAR HGB CONC 32.9 g/dl (32.0-36.5); MEAN CORPUSCULAR VOLUME 88.5 fl (80.0-96.0); MONO # 0.4 10^3/uL (0.0-0.8); MONO % 7.3 % (2.0-8.0); NEUTROPHILS # 3.6 10^3/uL (1.5-8.5); NEUTROPHILS % 60.3 % (36.0-66.0); PLATELET COUNT, AUTOMATED 320 10^3/uL (150-450); RED BLOOD COUNT 4.85 10^6/uL (4.00-5.40)
[2022-02-26] MEDS ORDERED: OMEP40CA5 (11:18)
[2022-02-26] MEDS ORDERED: CONC54TA4 (11:18)
[2022-02-26] MEDS ORDERED: METH54TA5 (11:18)
[2022-02-26 11:34] LABS: HCG, SERUM QUALITATIVE NEGATIVE (NEGATIVE)
[2022-02-26 11:50] LABS: ALBUMIN 3.6 GM/DL (3.2-5.2); ALT/SGPT 49 U/L (12-78); BILIRUBIN,DIRECT < 0.1 MG/DL (0.0-0.2); BILIRUBIN,TOTAL 0.2 MG/DL (0.2-1.0); BLOOD UREA NITROGEN 11 MG/DL (7-18); CALCIUM LEVEL 9.2 MG/DL (8.5-10.1); CARBON DIOXIDE LEVEL 25 MEQ/L (21-32); CHLORIDE LEVEL 107 MEQ/L (98-107); CREATININE FOR GFR 0.91 MG/DL (0.55-1.30); GLOMERULAR FILTRATION RATE > 60.0 (>60); GLUCOSE, FASTING 81 MG/DL (70-100); LIPASE 155 U/L (73-393); NT-PRO BNP 17 PG/ML (<125); POTASSIUM SERUM 4.1 MEQ/L (3.5-5.1); SODIUM LEVEL 137 MEQ/L (136-145); THYROID STIMULATING HORMONE 0.729 uIU/ML (0.358-3.740); TOTAL PROTEIN 7.5 GM/DL (6.4-8.2)
[2022-02-26 11:51] LABS: CK-MB VALUE MASS < 1.0 NG/ML (<3.6); CPK CREATINE PHOSPHOKINASE 101 U/L (26-192); MB/CK RELATIVE INDEX 0.99 (< OR =4)
[2022-02-26] MEDS ORDERED: ISOVUE-370 76% 100ML VIAL As Ordered ONE (12:04)
[2022-02-26 13:07] VITALS: BP 140/92
== END 2022-02-26 13:10 | disposition home or self-care (01) ==
LOC: M ED 10:30
DX: S29.011A Strain of muscle and tendon of front wall of thorax, initial encounter (principal); R06.02 Shortness of breath; K21.9 Gastro-esophageal reflux disease without esophagitis; F41.9 Anxiety disorder, unspecified; F32.A Depression, unspecified; Z86.711 Personal history of pulmonary embolism; Z86.16 Personal history of COVID-19; Z88.0 Allergy status to penicillin; Z88.1 Allergy status to other antibiotic agents; Z88.8 Allergy status to other drugs, medicaments and biological substances; Z91.040 Latex allergy status; Z91.018 Allergy to other foods; Z79.51 Long term (current) use of inhaled steroids; Z79.899 Other long term (current) drug therapy
CPT/HCPCS: 36415; 71045; 71275; 80048; 80076; 82550; 82553; 83690; 83880; 84439; 84443; 84703; 85025; 85730; 93005; 93041; 94760; 99285; Q9967

== ENCOUNTER → 2022-08-16 | Outpatient (REF) | payer OTHER ==
[~2022-08-16] MED LIST changes: +CONC54TA4; -DULE100A INH; +METH54TA5; +MOME13HF8 INH; +MONT-5 PO; +OMEP40CA5; -SING10TA32 PO
[2022-08-16 19:30] LABS: BASO % 0.7 % (0.0-1.0); EOS # 0.2 10^3/uL (0.0-0.5); EOS % 3.1 % (0.0-3.0); HEMATOCRIT 44.4 % (36.0-47.0); HEMOGLOBIN 14.1 g/dl (12.0-15.5); LYMPH # 1.7 10^3/uL (1.5-5.0); LYMPH % 27.4 % (24.0-44.0); MEAN CORPUSCULAR HEMOGLOBIN 29.1 pg (27.0-33.0); MEAN CORPUSCULAR HGB CONC 31.8 g/dl (32.0-36.5); MEAN CORPUSCULAR VOLUME 91.5 fl (80.0-96.0); MONO # 0.4 10^3/uL (0.0-0.8); MONO % 7.2 % (2.0-8.0); NEUTROPHILS # 3.8 10^3/uL (1.5-8.5); NEUTROPHILS % 61.3 % (36.0-66.0); PLATELET COUNT, AUTOMATED 318 10^3/uL (150-450); RED BLOOD COUNT 4.85 10^6/uL (4.00-5.40); WHITE BLOOD COUNT 6.1 10^3/uL (4.0-10.0)
[2022-08-16 19:42] LABS: HEMOGLOBIN A1c 5.4 % (4.0-6.0)
[2022-08-16 19:43] LABS: ERYTHROCYTE SEDIMENTATION RATE 22 mm/hr (0-20)
[2022-08-16 20:06] LABS: URIC ACID 4.5 MG/DL (3.1-7.8)
[2022-08-16 20:07] LABS: C REACTIVE PROTEIN QUANTITATIV < 0.40 MG/DL (<1.0)
[2022-08-16 20:09] LABS: IRON (FE) 67 UG/DL (50-170); PERCENT SATURATION 21.9 % (13.2-45.0); TOTAL IRON BINDING CAPACITY 306 UG/DL (250-425)
[2022-08-16 20:15] LABS: ALBUMIN 3.7 G/DL (3.2-5.2); ALKALINE PHOSPHATASE 99 U/L (46-116); ALT/SGPT 30 U/L (7.0-40); AST/SGOT 17 U/L (<34); BILIRUBIN,TOTAL 0.4 MG/DL (0.3-1.2); BLOOD UREA NITROGEN 9 MG/DL (9-23); CALCIUM LEVEL 8.5 MG/DL (8.5-10.1); CARBON DIOXIDE LEVEL 29 MMOL/L (20-31); CHLORIDE LEVEL 106 MMOL/L (98-107); CHOLESTEROL LEVEL 150 MG/DL (<200); CREATININE FOR GFR 0.78 MG/DL (0.55-1.30); FERRITIN 22.2 NG/ML (7.3-270.7); FOLATE 21.1 NG/ML (>5.4); GLOMERULAR FILTRATION RATE > 60.0 (>58); GLUCOSE, FASTING 74 MG/DL (60-100); HDL CHOLESTEROL 57.6 MG/DL (>40); LDL CHOLESTEROL 77.2 MG/DL (<100); NON-HDL-C 92.4 MG/DL; SODIUM LEVEL 137 MMOL/L (136-145); THYROID STIMULATING HORMONE 0.706 uIU/ML (0.55-4.78); TOTAL PROTEIN 7.2 G/DL (5.7-8.2); TRIGLYCERIDES LEVEL 76 MG/DL (<150); VITAMIN B12 LEVEL 865 PG/ML (211-911)
== END ==
LOC: M LAB REF 16:57
PROVIDERS: ATTEND Nurse Practitioner Family
DX: M25.50 Pain in unspecified joint (principal); E66.9 Obesity, unspecified; Z98.84 Bariatric surgery status

== ENCOUNTER → 2022-08-24 | Outpatient (CLI) | payer OTHER | LOC: M WHC 10:09 | PROVIDERS: ATTEND Nurse Practitioner Family | DX: Z12.31 Encounter for screening mammogram for malignant neoplasm of breast (principal) ==

== ENCOUNTER → 2022-09-14 | Outpatient (REF) | payer OTHER, MEDICAID | LOC: M LAB REF 16:29 | PROVIDERS: ATTEND Pediatrics | DX: M25.50 Pain in unspecified joint (principal) ==

== ENCOUNTER → 2023-02-09 | Outpatient (CLI) | payer OTHER, MEDICAID | LOC: M WUC 11:05 | DX: R07.89 Other chest pain (principal) ==

== ENCOUNTER → 2023-02-16 | Outpatient (CLI) | payer OTHER ==
[2023-02-16 10:42] LABS: BASO % 0.8 % (0.0-1.0); EOS # 0.2 10^3/uL (0.0-0.5); EOS % 3.3 % (0.0-3.0); HEMATOCRIT 47.4 % (36.0-47.0); HEMOGLOBIN 15.1 g/dl (12.0-15.5); LYMPH # 1.8 10^3/uL (1.5-5.0); LYMPH % 34.4 % (24.0-44.0); MEAN CORPUSCULAR HGB CONC 31.9 g/dl (32.0-36.5); MEAN CORPUSCULAR VOLUME 91.2 fl (80.0-96.0); MONO # 0.5 10^3/uL (0.0-0.8); MONO % 10.1 % (2.0-8.0); NEUTROPHILS # 2.6 10^3/uL (1.5-8.5); NEUTROPHILS % 51.2 % (36.0-66.0); PLATELET COUNT, AUTOMATED 294 10^3/uL (150-450); WHITE BLOOD COUNT 5.1 10^3/uL (4.0-10.0)
[2023-02-16 10:50] LABS: ERYTHROCYTE SEDIMENTATION RATE 25 mm/hr (0-20)
[2023-02-16 11:05] LABS: C REACTIVE PROTEIN QUANTITATIV < 0.40 MG/DL (<1.0)
[2023-02-16 11:06] LABS: ALBUMIN 3.9 G/DL (3.2-5.2); ALKALINE PHOSPHATASE 79 U/L (46-116); ALT/SGPT 21 U/L (7.0-40); AST/SGOT 12 U/L (<34); BILIRUBIN,TOTAL 0.4 MG/DL (0.3-1.2); BLOOD UREA NITROGEN 14 MG/DL (9-23); CALCIUM LEVEL 9.3 MG/DL (8.5-10.1); CARBON DIOXIDE LEVEL 28 MMOL/L (20-31); CHLORIDE LEVEL 107 MMOL/L (98-107); CREATININE FOR GFR 0.96 MG/DL (0.55-1.30); GLOMERULAR FILTRATION RATE > 60.0 (>58); GLUCOSE, FASTING 78 MG/DL (60-100); POTASSIUM SERUM 5.1 MMOL/L (3.5-5.1); SODIUM LEVEL 141 MMOL/L (136-145); TOTAL PROTEIN 7.3 G/DL (5.7-8.2)
[2023-02-17 20:07] LABS: ANTI PARVO VIRUS LEVEL IGG 5.8 index (0.0-0.8); ANTI PARVO VIRUS LEVEL IgM 0.1 index (0.0-0.8)
== END ==
LOC: M LAB 09:36
DX: M06.4 Inflammatory polyarthropathy (principal)

== ENCOUNTER → 2023-08-03 | Outpatient (REF) | payer MEDICAID, OTHER ==
[2023-08-03 13:31] LABS: BASO # 0.1 10^3/uL (0.0-0.2); BASO % 0.4 % (0.0-1.0); EOS # 0.2 10^3/uL (0.0-0.5); EOS % 1.4 % (0.0-3.0); HEMATOCRIT 42.6 % (36.0-47.0); HEMOGLOBIN 13.5 g/dl (12.0-15.5); LYMPH # 3.2 10^3/uL (1.5-5.0); LYMPH % 24.5 % (24.0-44.0); MEAN CORPUSCULAR HEMOGLOBIN 28.1 pg (27.0-33.0); MEAN CORPUSCULAR HGB CONC 31.7 g/dl (32.0-36.5); MEAN CORPUSCULAR VOLUME 88.8 fl (80.0-96.0); MONO % 7.7 % (2.0-8.0); NEUTROPHILS # 8.7 10^3/uL (1.5-8.5); NEUTROPHILS % 65.7 % (36.0-66.0); PLATELET COUNT, AUTOMATED 334 10^3/uL (150-450); WHITE BLOOD COUNT 13.2 10^3/uL (4.0-10.0)
[2023-08-03 13:37] LABS: ALBUMIN 3.3 G/DL (3.2-5.2); ALKALINE PHOSPHATASE 100 U/L (46-116); ALT/SGPT 26 U/L (7.0-40); AST/SGOT 16 U/L (<34); BILIRUBIN,TOTAL 0.3 MG/DL (0.3-1.2); BLOOD UREA NITROGEN 11 MG/DL (9-23); CALCIUM LEVEL 8.8 MG/DL (8.5-10.1); CARBON DIOXIDE LEVEL 26 MMOL/L (20-31); CHLORIDE LEVEL 109 MMOL/L (98-107); CREATININE FOR GFR 0.85 MG/DL (0.55-1.30); GLOMERULAR FILTRATION RATE > 60.0 (>58); GLUCOSE, FASTING 106 MG/DL (60-100); POTASSIUM SERUM 4.8 MMOL/L (3.5-5.1); SODIUM LEVEL 140 MMOL/L (136-145); TOTAL PROTEIN 6.7 G/DL (5.7-8.2)
[2023-08-03 13:39] LABS: THYROID STIMULATING HORMONE 1.307 uIU/ML (0.55-4.78)
[2023-08-03 13:46] LABS: HEMOGLOBIN A1c 5.8 % (4.0-6.0)
== END ==
LOC: M LAB REF 12:30
PROVIDERS: ATTEND Pediatrics
DX: K21.9 Gastro-esophageal reflux disease without esophagitis (principal); E66.9 Obesity, unspecified

== ENCOUNTER → 2023-08-30 | Outpatient (CLI) | payer OTHER | LOC: M WHC 08:17 | PROVIDERS: ATTEND Pediatrics | DX: Z79.52 Long term (current) use of systemic steroids (principal) ==

== ENCOUNTER → 2023-09-09 | Outpatient (CLI) | payer OTHER | LOC: M WHC 15:38 | PROVIDERS: ATTEND Pediatrics | DX: Z12.31 Encounter for screening mammogram for malignant neoplasm of breast (principal) ==

== ENCOUNTER → 2024-03-07 | Outpatient (CLI) | payer OTHER ==
[~2024-03-07] MED LIST changes: +ONDA-282 PO; -ONDA4TAB6 PO
[2024-03-07 12:06] LABS: BASO % 0.5 % (0.0-1.0); EOS # 0.2 10^3/uL (0.0-0.5); EOS % 2.6 % (0.0-3.0); HEMATOCRIT 44.4 % (36.0-47.0); HEMOGLOBIN 14.3 g/dl (12.0-15.5); LYMPH # 2.8 10^3/uL (1.5-5.0); LYMPH % 34.5 % (24.0-44.0); MEAN CORPUSCULAR HEMOGLOBIN 29.7 pg (27.0-33.0); MEAN CORPUSCULAR HGB CONC 32.2 g/dl (32.0-36.5); MEAN CORPUSCULAR VOLUME 92.3 fl (80.0-96.0); MONO # 0.7 10^3/uL (0.0-0.8); MONO % 8.4 % (2.0-8.0); NEUTROPHILS # 4.4 10^3/uL (1.5-8.5); NEUTROPHILS % 53.9 % (36.0-66.0); PLATELET COUNT, AUTOMATED 304 10^3/uL (150-450); RED BLOOD COUNT 4.81 10^6/uL (4.00-5.40); WHITE BLOOD COUNT 8.2 10^3/uL (4.0-10.0)
[2024-03-07 12:18] LABS: ERYTHROCYTE SEDIMENTATION RATE 13 mm/hr (0-20)
[2024-03-07 12:38] LABS: C REACTIVE PROTEIN QUANTITATIV < 0.40 MG/DL (<1.0)
[2024-03-07 12:39] LABS: ALBUMIN 3.4 G/DL (3.2-5.2); ALKALINE PHOSPHATASE 87 U/L (46-116); ALT/SGPT 31 U/L (7.0-40); AST/SGOT 10 U/L (<34); BILIRUBIN,TOTAL 0.2 MG/DL (0.3-1.2); BLOOD UREA NITROGEN 15 MG/DL (9-23); CALCIUM LEVEL 9.1 MG/DL (8.5-10.1); CARBON DIOXIDE LEVEL 27 MMOL/L (20-31); CHLORIDE LEVEL 110 MMOL/L (98-107); CREATININE FOR GFR 0.92 MG/DL (0.55-1.30); GLOMERULAR FILTRATION RATE > 60.0 (>58); GLUCOSE, FASTING 68 MG/DL (60-100); POTASSIUM SERUM 4.5 MMOL/L (3.5-5.1); SODIUM LEVEL 142 MMOL/L (136-145); TOTAL PROTEIN 6.9 G/DL (5.7-8.2)
== END ==
LOC: M LAB 10:40
PROVIDERS: ATTEND Physician Assistant
DX: Z79.899 Other long term (current) drug therapy (principal)

== ENCOUNTER → 2024-06-27 | Outpatient (REF) | payer OTHER, MEDICAID ==
[2024-06-27 18:08] LABS: BASO # 0.1 10^3/uL (0.0-0.2); C REACTIVE PROTEIN QUANTITATIV < 0.50 MG/DL (<1.0); EOS # 0.2 10^3/uL (0.0-0.5); EOS % 3.3 % (0.0-3.0); HEMATOCRIT 46.3 % (36.0-47.0); LYMPH # 2.4 10^3/uL (1.5-5.0); LYMPH % 40.9 % (24.0-44.0); MEAN CORPUSCULAR HGB CONC 32.4 g/dl (32.0-36.5); MEAN CORPUSCULAR VOLUME 92.6 fl (80.0-96.0); MONO # 0.5 10^3/uL (0.0-0.8); MONO % 8.5 % (2.0-8.0); NEUTROPHILS # 2.6 10^3/uL (1.5-8.5); NEUTROPHILS % 46.1 % (36.0-66.0); PLATELET COUNT, AUTOMATED 325 10^3/uL (150-450); WHITE BLOOD COUNT 5.7 10^3/uL (4.0-10.0)
[2024-06-27 18:09] LABS: ALBUMIN 3.6 G/DL (3.2-5.2); ALKALINE PHOSPHATASE 90 U/L (35-104); ALT/SGPT 35 U/L (7.0-40); AST/SGOT 20 U/L (<34); BILIRUBIN,TOTAL 0.3 MG/DL (0.3-1.2); BLOOD UREA NITROGEN 13 MG/DL (9-23); CALCIUM LEVEL 8.6 MG/DL (8.5-10.1); CARBON DIOXIDE LEVEL 28 MMOL/L (20-31); CHLORIDE LEVEL 105 MMOL/L (98-107); GLOMERULAR FILTRATION RATE > 60.0 (>58); GLUCOSE, FASTING 76 MG/DL (60-100); POTASSIUM SERUM 5.1 MMOL/L (3.5-5.1); SODIUM LEVEL 143 MMOL/L (136-145); TOTAL PROTEIN 7.4 G/DL (5.7-8.2)
[2024-06-27 18:17] LABS: ERYTHROCYTE SEDIMENTATION RATE 15 mm/hr (0-20)
== END ==
LOC: M LAB REF 16:31
PROVIDERS: ATTEND Pediatrics
DX: R10.84 Generalized abdominal pain (principal)

== ENCOUNTER → 2024-07-04 | Outpatient (REF) | payer OTHER | LOC: M LAB REF 14:57 | PROVIDERS: ATTEND Pediatrics | DX: R19.7 Diarrhea, unspecified (principal) ==

== ENCOUNTER → 2024-07-30 | Outpatient (REF) | payer OTHER, MEDICAID | LOC: M LAB REF 19:01 | PROVIDERS: ATTEND Pediatrics | DX: R19.7 Diarrhea, unspecified (principal) ==

== ENCOUNTER → 2024-08-01 | Outpatient (REF) | payer OTHER, MEDICAID | LOC: M LAB REF 10:11 | PROVIDERS: ATTEND Pediatrics | DX: R19.7 Diarrhea, unspecified (principal) ==

== ENCOUNTER → 2024-08-14 | Outpatient (CLI) | payer OTHER | LOC: M LAB 09:09 | PROVIDERS: ATTEND Pediatrics | DX: R19.7 Diarrhea, unspecified (principal) ==

== ENCOUNTER → 2024-12-12 | Outpatient (CLI) | payer OTHER ==
[~2024-12-12] MED LIST changes: +ISOVUE-370 76% 100 ML VIAL As Ordered ONE
== END ==
LOC: M RAD 08:38
PROVIDERS: ATTEND Physician Assistant Medical
DX: R10.84 Generalized abdominal pain (principal); R19.7 Diarrhea, unspecified; R19.5 Other fecal abnormalities
CPT/HCPCS: 74177; Q9967

== ENCOUNTER → 2024-12-19 | Outpatient (CLI) | payer OTHER ==
[~2024-12-19] MED LIST changes: +ABIL1TAB11 PO; +BRIN1TAB3 PO; -ISOVUE-370 76% 100 ML VIAL As Ordered ONE; +METH54TA13 PO; -METH54TA5; +METO1TAB7 PO; +NALT50TA4 PO; +OMEP1CAP73 PO; +PRED10PA2 PO; -PROZ20CA11 PO; +PROZ20CA12 PO; +SPIR1CAP INH; +VALA1TAB5 PO; +WELLTAB40 PO; +XELJ5TAB PO
== END ==
LOC: M WHC 15:06
PROVIDERS: ATTEND Pediatrics
DX: Z12.31 Encounter for screening mammogram for malignant neoplasm of breast (principal)

== ENCOUNTER 2024-12-25 08:39 | Day surgery (SDC) | payer OTHER ==
[~2024-12-25] VITALS: Ht 167.6 cm; Wt 106.1 kg
[2024-12-25] MEDS ORDERED: LIDOCAINE 2% 100 MG/5 ML SDV (FOR ANES.) As Ordered ONE (11:04)
[2024-12-25 11:23] VITALS: TEMP 96
[2024-12-25 11:43] VITALS: BP 124/88; O2SAT 99
== END 2024-12-25 11:45 | disposition home or self-care (01) ==
LOC: M OPP 08:39
PROVIDERS: ATTEND Internal Medicine Gastroenterology
DX: K57.30 Diverticulosis of large intestine without perforation or abscess without bleeding (principal); K64.8 Other hemorrhoids; R10.84 Generalized abdominal pain; K52.9 Noninfective gastroenteritis and colitis, unspecified; G47.30 Sleep apnea, unspecified; Z88.0 Allergy status to penicillin; Z88.1 Allergy status to other antibiotic agents; Z88.5 Allergy status to narcotic agent; Z91.040 Latex allergy status; Z91.018 Allergy to other foods; Z79.51 Long term (current) use of inhaled steroids; Z79.52 Long term (current) use of systemic steroids; Z79.899 Other long term (current) drug therapy; Z86.711 Personal history of pulmonary embolism; Z98.84 Bariatric surgery status

== ENCOUNTER → 2025-03-11 | Outpatient (CLI) | payer MEDICAID, OTHER ==
[2025-03-11 13:08] LABS: BASO # 0.0 10^3/uL (0.0-0.2); BASO % 0.5 % (0.0-1.0); EOS # 0.1 10^3/uL (0.0-0.5); EOS % 1.3 % (0.0-3.0); LYMPH # 1.9 10^3/uL (1.5-5.0); LYMPH % 30.4 % (24.0-44.0); MONO # 0.5 10^3/uL (0.0-0.8); MONO % 7.4 % (2.0-8.0); NEUTROPHILS # 3.8 10^3/uL (1.5-8.5); NEUTROPHILS % 60.1 % (36.0-66.0); PLATELET COUNT, AUTOMATED 311 10^3/uL (150-450)
[2025-03-11 13:38] LABS: ALT/SGPT 37 U/L (7.0-40); AST/SGOT 22 U/L (<34); C REACTIVE PROTEIN QUANTITATIV < 0.50 MG/DL (<1.0); CALCIUM LEVEL 8.9 MG/DL (8.5-10.1); CARBON DIOXIDE LEVEL 27 MMOL/L (20-31); CHLORIDE LEVEL 105 MMOL/L (98-107); CREATININE FOR GFR 0.95 MG/DL (0.55-1.30); GLOMERULAR FILTRATION RATE 76.7 (>58); POTASSIUM SERUM 4.8 MMOL/L (3.5-5.1); SODIUM LEVEL 141 MMOL/L (136-145)
[2025-03-11 13:43] LABS: TOTAL 25(OH) VITAMIN D 53.4 NG/ML (20.0-100.0)
== END ==
LOC: M LAB 11:57
PROVIDERS: ATTEND Physician Assistant
DX: M06.9 Rheumatoid arthritis, unspecified (principal); M06.00 Rheumatoid arthritis without rheumatoid factor, unspecified site; Z79.899 Other long term (current) drug therapy

== ENCOUNTER → 2025-03-26 | Outpatient (CLI) | payer OTHER ==
[~2025-03-26] MED LIST changes: +AZIT-10 PO
== END ==
LOC: M RAD 13:06
PROVIDERS: ATTEND Pediatrics
DX: R76.12 Nonspecific reaction to cell mediated immunity measurement of gamma interferon antigen response without active tuberculosis (principal)

== ENCOUNTER 2025-04-05 15:01 | Emergency (ER) | payer MEDICAID, OTHER ==
[~2025-04-05] VITALS: Ht 165.1 cm; Wt 101.1 kg
[~2025-04-05 15:01] MED LIST changes: -AZIT-10 PO
[2025-04-05] MEDS: AZITHROMYCIN 250 MG TABLET PO ONE (19:01)
[2025-04-05] MEDS: FAMOTIDINE IV BAG 20 MG in IV 1 EA IV ONE (19:01)
[2025-04-05 19:06] LABS: BASO # 0.0 10^3/uL (0.0-0.2); BASO % 0.3 % (0.0-1.0); EOS # 0.1 10^3/uL (0.0-0.5); EOS % 1.6 % (0.0-3.0); LYMPH # 2.2 10^3/uL (1.5-5.0); LYMPH % 27.1 % (24.0-44.0); MONO # 0.5 10^3/uL (0.0-0.8); MONO % 6.6 % (2.0-8.0); NEUTROPHILS # 5.1 10^3/uL (1.5-8.5); NEUTROPHILS % 64.1 % (36.0-66.0); PLATELET COUNT, AUTOMATED 282 10^3/uL (150-450)
[2025-04-05 19:35] LABS: C REACTIVE PROTEIN QUANTITATIV < 0.50 MG/DL (<1.0); CALCIUM LEVEL 8.7 MG/DL (8.5-10.1); CARBON DIOXIDE LEVEL 25 MMOL/L (20-31); CHLORIDE LEVEL 106 MMOL/L (98-107); CK-MB VALUE MASS < 1.0 NG/ML (<3.6); CREATININE FOR GFR 1.01 MG/DL (0.55-1.30); GLOMERULAR FILTRATION RATE 71.3 (>58); POTASSIUM SERUM 4.6 MMOL/L (3.5-5.1); SODIUM LEVEL 140 MMOL/L (136-145)
[2025-04-05 19:37] LABS: CPK CREATINE PHOSPHOKINASE 94 U/L (34-145)
[2025-04-05 19:54] VITALS: BP 131/82; TEMP 96.7; O2SAT 100
[2025-04-05] MEDS ORDERED: AZIT-10 PO (20:12)
== END 2025-04-05 20:13 | disposition home or self-care (01) ==
LOC: M ED 15:01
DX: T88.7XXA Unspecified adverse effect of drug or medicament, initial encounter (principal); G47.33 Obstructive sleep apnea (adult) (pediatric); K21.9 Gastro-esophageal reflux disease without esophagitis; Z88.0 Allergy status to penicillin; Z88.1 Allergy status to other antibiotic agents; Z88.5 Allergy status to narcotic agent; Z88.8 Allergy status to other drugs, medicaments and biological substances; Z91.018 Allergy to other foods; Z91.040 Latex allergy status; Z79.2 Long term (current) use of antibiotics; Z79.52 Long term (current) use of systemic steroids; Z79.899 Other long term (current) drug therapy
CPT/HCPCS: 80048; 82550; 82553; 84484; 85025; 85652; 86140; 93005; 96365; 96375; 99284; J1308; J2919